=== PATIENT | male | born 1970 | race Caucasian/White ===

== ENCOUNTER 2025-06-18 12:01 | Outpatient (CLI) | payer SELFPAY ==
[2025-06-18 16:20] LABS: Hematocrit 46.2 % (42.0-52.0); Hemoglobin 15.7 g/dL (14.1-18.0); Immature Granulocytes % 0.3 %; Mean Corpuscular HGB Conc 34.0 g/dL (31.8-35.4); Mean Corpuscular Hemoglobin 30.6 pg (27.0-31.2); Mean Corpuscular Volume 90.1 fl (80-94); Nucleated Red Blood Cells % 0 %; Platelet Count 296 K/mm3 (142-424); Red Blood Count 5.13 M/mm3 (4.60-6.20); Red Cell Distribution Width-SD 43.7 fL; White Blood Count 9.0 K/mm3 (4.8-10.8)
[2025-06-18 18:57] LABS: Alanine Aminotransferase 35 U/L (12-78); Albumin Level 4.1 g/dl (3.5-5.0); Albumin/Globulin Ratio 1.5 (1.1-1.8); Alkaline Phosphatase 92 U/L (38-126); Anion Gap 12.4 mEq/L (5-15); Aspartate Amino Transferase 32 U/L (17-59); Bilirubin,Total 0.8 mg/dl (0.2-1.3); Blood Urea Nitrogen 20 mg/dl (9-20); Calcium 9.4 mg/dl (8.4-10.2); Carbon Dioxide 27 mmol/L (22.0-30.0); Chloride 101 mmol/L (98-107); Cholesterol 164 mg/dl (140-200); Creatinine,Serum 1.00 mg/dl (0.66-1.25); Estimated Glomerular Filt Rate 78 ml/min (>60); GFR (African American) 95 ML/MIN (>60); Globulin 2.7 g/dL (1.3-3.2); Glucose 118 mg/dl (74-100); HDL Cholesterol 27 mg/dl (40-60); Potassium 4.4 mmoL/L (3.5-5.1); Sodium 136 mmol/L (136-145); Total Protein,Serum 6.8 g/dl (6.3-8.2); Triglycerides 174 mg/dl (30-150)
[2025-06-18 19:41] LABS: Hepatitis C Ab Qual. W/ RFX NEGATIVE (Negative)
--- OUTSIDE RECORDS SUMMARY | 2025-06-19 02:44 | XMS_ITS | Clinical Summary ---
Author Organization Healthcare Address [address] [place] [address] Care Team Providers Care Production Supervisor Trainee Name Role Phone Karla Art APRN Primary Care Provider + Allergies No known active allergies Medications aspirin-acetam inophen-caffei ne (Excedrin Migraine) 250-250-65 MG tablet Take 1 tablet by mouth every 6 (six) hours if needed. Active Emgality 120 MG/ML injection 07/24/20 22 Active ketorolac (Toradol) 60 MG/2ML solution INJECT 2 ML INTRAMUSCULARLY NEEDED FOR MIGRAINE HEADACHE 06/23/20 22 Active Reyvow 100 MG tablet 05/04/20 22 Active SUMAtriptan (Imitrex) 6 MG/0.5ML injection 07/24/20 22 Active Icosapent Ethyl (Vascepa) 1 g capsule 06/01/20 22 Active lisinopril 20 MG tablet Take 20 mg by mouth 1 (one) time each day. Active methylPREDNISo lone (Medrol Dospak) 4 MG tabletsIndicat ions:Chronic maxillary sinusitis Follow schedule on package instructions 21 tablet 08/16/20 22 Active Family History Medical History Relation Name Comments Hypertension Other 1 Leukemia Other 2 Diabetes type II Other 3 Relation Name Status Comments Other 1 Other 2 Other 3 Social History Tobacco Use Types Packs/Day Years Used Date Smoking Tobacco: Every Day Cigarettes Smokeless Tobacco: Never Tobacco Cessation:Ready to Q uit: Not Asked; Counseling Given: Not Answered Alcohol Use Standard Drinks/Week Comments No 0 (1 standard drink = 0.6 oz pur e alcohol) Sex and Gender Information Value Date Recorded Sex Assigned at Not on file Legal Sex Male 6:10 PM EDT Gender Identity Not on file Sexual Orientation Not on file Last Filed Vital Signs Vital Sign Reading Time Taken Comments Blood Pressure 141/92 10/11/2018 10:02 AM EST Pulse - - Temperature - - Respiratory Rate - - Oxygen Saturation - - Inhaled Oxygen Concentration - - Weight 97.5 kg (215 lb) 08/16/2022 3:17 PM EST Height 175.3 cm (5' 9 ) 08/16/2022 3:17 PM EST Body Mass Index 31.75 08/16/2022 3:17 PM EST Plan of Treatment Health Maintenance Due Date Last Done Comments [facility]-Depression Screening 1972 [facility]-HIV Screening 1972 [facility]-Hepatitis C Screening 1972 [facility]-/Child/Adol SDOH Screenings 1972 [facility]- SDOH Screenings 1990 [facility]-Adult SDOH Screenings 1990 [facility]-Hepatitis B Vaccines (1 of 3 - 19+ 3-dose series) 1991 CT Colonography 2017 Colonoscopy 2017 FIT-DNA 2017 FIT 2017 FOBT 2017 Sigmoidoscopy 2017 [facility]-Colorectal Cancer Screening 2017 [facility]-Pneumococcal Vaccine: 50 + Years (1 of 1 - PCV) 2022 [facility]-Zoster Vaccines (1 of 2) 2022 [id number] Vaccine (1 - season) 2025 [facility]-Influenza Vaccine (#1) 2025 08/13/2017 [facility]-DTaP,Tdap,and Td Vaccine s (3 - Td or Tdap) 06/07/2027 06/07/2017, 10/17/2016 [facility]-Obesity Intervention Completed 022, 07/25/2022 HPV Vaccines Aged Out No longer eligi ble based on patient's age to complete this topic [facility]-HIB Vaccines Aged Out No longer e ligible based on patient's age to complete this topic [facility]-Hepatitis A Vaccines Aged Out No longer eligible based on patient's age to complete this topic [facility]-IPV Vaccines Aged Out No longer e ligible based on patient's age to complete this topic [facility]-Rotavirus Vaccines Aged Out No lo nger eligible based on patient's age to complete this topic Care Teams Production Supervisor Trainee Relationship Specialty Start Date End Date Karla Art APRN [address] [place] [address] [place] [address] PCP - General Family Medicine 08/16/22
[2025-06-20 07:40] LABS: Hepatitis B Surface Antigen Negative (Negative)
[2025-06-20 10:39] LABS: Testosterone,Total 1049 ng/dL (264-916)
== END 2025-06-18 23:59 | disposition home or self-care (01) ==
LOC: LAB.DROPOF 06-19 02:42
PROVIDERS: PCP Family Medicine; Visit Provider Family Medicine
DX: I10 Essential (primary) hypertension (principal); R79.89 Other specified abnormal findings of blood chemistry; Z12.5 Encounter for screening for malignant neoplasm of prostate; Z11.59 Encounter for screening for other viral diseases
CPT/HCPCS: 80053; 80061; 84403; 85025; 86803; 87340; 87389; G0103

== ENCOUNTER 2025-06-24 17:06 | Emergency (ER) | payer SELFPAY ==
--- OUTSIDE RECORDS SUMMARY | 2025-06-21 18:38 | XMS_ITS | Encounter Summary ---
Author Organization [facility] [place] [place] [address] Care Team Providers Care Table Attendant Name Role Phone Dangelo Pinzon MD Unavailable [phone] No Pcp, Per Patient Primary Care Provider Emily everett Reason for Referral * Consultation (Routine) - Pending Review Specialty Diagnoses / Procedures Referred By Carmen [place] [address] [place] [address] Phone: tel: fax: Referral ID Status Reason Start Date Expiration Date V isits Requested Visits Authorized [id number] Pending Review 06/22/2025 06/22/2026 1 1 Reason for Visit * Reason Comments Fever Fever for 24 hours. Issues with urinary retention * Auth/Cert/Inpt Specialty Diagnoses / Procedures Referred By Contac t Referred To Contact Diagnoses Febrile illness Referral ID Status Reason Start Date Expiration Date Visits Re quested Visits Authorized [id number] 1 1 Encounter Details Date Type Department Care Team (Latest Contact Info) Description 06/21/2025 6:38 PM EDT - 06/23/2025 6:39 PM EDT Hospital Encounter EDG 7C UROLOGY [place] [id number] Willard Rhodes MD [address] [place] [phone] Shaan Gomez MD [address] [place] [address] Febrile illness (Primary Dx); Frontal headache; Elevated [...] and heating? Not hard at all 06/22/2025 [facility] [place] [facility] - Occupational Stress [...] money to get more. Never true 06/22/2025 [facility] Utilities Answer Date Recorded In the past 12 months has th e [employer], gas, oil, or water 3[employer] threatened to shut off services in your home? No 06/22/2025 [facility] HRSN CMS IP Transportation Answer D ate Recorded In [...] you are drinking? 0 06/22/2025 1:41 AM EDT Bertha Shane RN How often do you [...] PHQ-2 Total Score 0 06/22/2025 11:28 AM EDT Brittany Baron RN * PHQ-9 Total Score Answer Date of Assessment Author 0 06/22/2025 11:28 AM EDT Alma Baron RN * PHQ-2 Total Score Answer Date of Assessment Author 0 06/22/2025 11:28 AM EDT Alma Baron RN * Suicide Severity Rating Answer Date of Assessment Author No Risk 06/21/2025 6:28 PM EDT Alma Donaldson RN * [place] Suicide Severity Rating Scale (Q shift for [...] end your life? 0 06/21/2025 6:28 PM EDT Karen Donaldson RN documented as of this encounter Discharge Instructions * Attachments The following attachments cannot be sent through Care Everywhere. * Quitting smoking for adults (Congolese) documented in this encounter Medications at Time of Discharge aspirin-acetami nophen-caffeine (EXCEDRIN MIGRAINE) 250-250-65 mg Oral Tablet Take 1 Tab by mouth every 6 hours as needed for Pain. ciprofloxacin HCl (CIPRO) 500 mg Oral Tablet Take 1 Tablet by mouth 2 times daily for 7 days. 14 Tablet 06/23/2025 06/30/20 25 dextroamphetami ne-amphetamine (ADDERALL XR) 30 mg Oral Capsule, Sust. Release 24 hr Take 30 mg by mouth daily. dextroamphetami ne-amphetamine (ADDERALL) 15 mg Oral Tablet Take 1 Tablet by mouth daily. 7 Tablet 03/13/2025 diphenhydrAMINE (BENADRYL) 50 mg/mL Inj Syringe INJECT 1 ML (CC) INTRAMUSCULARLY ONCE DAILY NEEDED FOR MIGRAINE 10 mL 07/12/2023 fluticasone propionate (FLONASE) 50 mcg/actuation Nasl Stephens, Suspension 1 Stephens in each nostril 2 times daily. 16 [...] up to 5 doses. 5 Tablet 03/25/2025 documented as of this encounter Ordered Prescriptions [...] RN - 06/23/2025 6:37 PM EDT RN Armored Transport Service Manager called regarding pt and concerns for care, meds, and treatment. Spoke at length with pt and spouse. Pt initially upset, verbalizing frustration over being here states I just really want and need to go home . Pt and returned verbalization of rationale for care and Dr Gomez's plan of care. This selling underwriter listened and offered emotional support and information [...] 15 mg Oral BID fluticasone propionate 1 Stephens Each Nare BID vancomycin (VANCOCIN) IVPB (Orderable) [...] EKG [address] [facility] Test Date: 2025-06-21 Pat Name: IKM HILARIO Department: DEPID Room: [facility] Gender: Male Imcu Specialist: : 1970 Requested By: WILLARD Naik Order Number: [id number] Marsha MD: Emily Landaverde MD Measurements Intervals Salix Rate: 112 P: 51 RI: 129 QRS: 18 QRSD: 102 T: 43 [...] for patient to be transferred to or [facility] [place]. Informednursing I need one or the other. [...] with nursing and family now debating leaving AMA. I have agreed to prescribe antibiotics at [place]. Shaan Gomez MD * Maria D Corley, [facility] - 06/22/2025 4:28 PM EDT S: Kim [...] the laboratory. Positives will be reported immediately. [id number] A/B Collection Time: 06/21/25 7:28 PM Specimen: Nares; Swab Result Value Ref Range CORONAVIRUS [id number] Not Detected Not Detected Influenza A DNA [...] in AM. Thank you! Maria D Corley, PharmD * Shaan Gomez MD - 06/22/2025 4:11 [...] with patient. Provided list of PCPs from [facility].Has a PCP but is not with [facility] and doesn't want to change. Patient not interested in scheduling new patient appointment at this time. * Leobardo Carrillo - 06/22/2025 1:40 PM EDT 06/22/25 1200 Reason for Visit Date of visit 06/22/25 Visited With Patient;Family (Assessment below) (Pt's spouse) Visited By In Mold Coater Referral Source Spiritual Consult Reason for Visit Follow-up Patient Assessment Patient Appears Calm Patient Scientologist at Registration Nondenominational Patient Scientologist Upon Assessment Nondenominational Spiritual Strengths and Coping Resources Support system;Sense [...] to another floor. Pt's spouse appeares overwhelmed/alsoa professional nursing assistant. Spouse shared her frustration/stress trying to find a preceptor.) Mu-Ism Interventions Other (Comment) (Words of hope and peace and assurance of divine presence.) Exploration Interventions Provided caring and supportive presence;Discussed illness/injury and its impact Empowerment Interventions Encouraged focus on present Collaboration Interventions Encouraged adherence to treatment plan Outcomes Expressed Outcomes Decreased anxiety;Distress reduced;Expressed feeling supported Care Plan Plan for Follow-Up In Mold Coater(s) will continue to follow throughout admission * [...] Caregiver Name Cassie Caregiver Does patient need javascript software engineer? No Activities of Daily Living Prior [...] Discussed with patient Patient's goals for recovery [place] in self-care Actual Discharge Plan 06/22/2025: CC: INITIAL ASSESSMENT. Chart reviewed. Patient admitted with febrile illness. CC met with patient in room. He lives at home with his , Cassie, and is independent. PCP Dr. Bib Dye. He uses [facility] in [facility] for prescriptions. Noted report of financial difficulties [...] re-consult if therapy needs to restarted. Joslyn Chavez PharmD documented in this encounter H&P Notes * [...] a 54 y.o. male who presents to [facility] with fever and chills. Patient states [...] Start Date End Date Taking? Authorizing Provider ehkcflh-efxhilsqbrdzc-vnengiae (EXCEDRIN MIGRAINE) 250-250-65 mg Oral Tablet Take [...] MD fluticasone propionate (FLONASE) 50 mcg/actuation Nasl Stephens, Suspension 1 Stephens in each nostril 2 times daily. 03/13/25 [...] true Transportation Needs: No Transportation Needs (06/22/2025) [facility] IP Transportation In the past 12 months, has lack of reliable transportation kept you from medical appointments, meetings, work or from getting things needed for daily living?: No Physical Activity: Insufficiently Active (06/22/2025) Exercise Vital Sign Days of Exercise per Week: 3 days Minutes of Exercise per Session: 40 min Stress: No Stress Concern Present (06/22/2025) [place] [facility] - Occupational Stress Questionnaire [...] the laboratory. Positives will be reported immediately. [id number] A/B Specimen: Nares; Swab Result Value Ref Range CORONAVIRUS [id number] Not Detected Not Detected Influenza A DNA [...] CULTURE. Procedure Abnormality Status --------- ------ URINALYSIS REFLEX[[id number]] Abnormal Final result EXTRA MCKEON URINE CX[[id number]] Final result Please view results for these [...] Gran% 0.3 % Lymph Percent 2.8 % [place] Percent 2.4 % Eos Percent 0.0 % Baso Percent 0.1 % Neut # 12.7 (H) 1.6 - 6.1 x10(3)/mcL IMMGRAN# 0.0 0.0 - 0.1 x10(3)/mcL Lymph # 0.4 (L) 1.2 - 3.9 x10(3)/mcL [place] # 0.3 0.3 - 0.9 x10(3)/mcL Eos# [...] Status --------- ------ CSF CELL COUNT WITH DIFF[[id number]] Final result GLUCOSE CEREBROSPINAL FLUID[[id number]] Abnormal Final result PROTEIN CEREBROSPINAL FLUID[[id number]] Abnormal Final result Please view results for [...] by physician to follow. Impression [facility] Test Date: 2025-06-21 Pat Name: KIM HILARIO Department: DEPID Room: 14 Gender: Male Imcu Specialist: Carl : 1970 Requested By: WILLARD Naik Order Number: [id number] Reading MD: Measurements Intervals Salix Rate: 112 P: 51 RI: 129 QRS: 18 QRSD: 102 T: 43 [...] ahead and send Lyme's disease titers and [place] spotted fever titers. Disposition will be admission. Antibiotic choice pending CT imaging results and lumbar puncture results. Abdomen remains benign. Will go ahead and give a dose of doxycycline for possible Lyme/[place] spotted fever coverage, though no known tick [...] true Transportation Needs: No Transportation Needs (03/13/2025) [facility] IP Transportation In the past 12 months, has lack of reliable transportation kept you from medical appointments, meetings, work or from getting things needed for daily living?: No Physical Activity: Inactive (03/13/2025) Exercise Vital Sign Days of Exercise per Week: 0 days Minutes of Exercise per Session: 0 min Stress: Stress Concern Present (03/13/2025) [place] [facility] - Occupational Stress Questionnaire Feeling of Stress : Rather much [4] Past Surgical History: Procedure Laterality Date BACK SURGERY x5 times CARPAL TUNNEL RELEASE [5] No current facility-administered medications for this encounter. Current Outpatient Medications: mtjvlec-fmgvaqhqagtbl-wxhcbkns (EXCEDRIN MIGRAINE) 250-250-65 mg Oral Tablet, Take [...] 0 fluticasone propionate (FLONASE) 50 mcg/actuation Nasl Stephens, Suspension, 1 Stephens in each nostril 2times daily., Disp: 16 [...] No Known Allergies Willard Rhodes MD 06/21/25 3608 documented in this encounter Miscellaneous Notes * Utilization Review Notes - Lyssa Pearson RN - 06/23/2025 3:07 PM EDT Images from the original note were not included. Inpatient 06/23/2025. Observation 06/22/2025. Cont stay, Med Surg. Rocephin IV daily. IVF 125 ml/hr. Per Hospitalist note today: Assessment & Plan Febrile illness [...] Pending Results Name Type Priority Associated Diagnoses Date/Time BLOOD CULTURE (NO STAIN) Microbiology STAT 06/21/2025 7:31 PM EDT BLOOD CULTURE (NO STAIN) Microbiology STAT 06/21/2025 7:26 PM EDT CEREBROSPINAL FLUID CULTURE (STAIN INCLUDED) Microbiology Routine 06/21/2025 9:51 PM EDT [facility] IGG/IGM -REF LAB Lab Routine 06/21/2025 10:34 PM EDT ECG AND WAVEFORMS - TELEMETRY Point of Care Testing Routine 06/22/2025 10:07 AM EDT DRUG CONFIRMATION, AMPHETAMINES - URINE Lab Routine 06/23/2025 4:35 PM EDT DRUG CONFIRMATION, BUPRENORPHINE AND METAB - URINE Lab Routine 06/23/2025 4:35 PM EDT DRUG CONFIRMATION, OPIATES - URINE Lab Routine 06/23/2025 4:35 PM EDT Scheduled Orders Name Type Priority Associated Diagnoses Orde r Schedule [facility] [place] [facility] IGG/IGM -REF LAB Lab Routine Routine - Once for 1 Occurrences starting 06/21/2025 until 06/21/2025 UROBILINOGEN URINE Lab Routine Routin e - Once for 1 Occurrences starting 06/23/2025 until 06/23/2025 DRUG CONFIRMATION, AMPHETAMINES - URINE Lab Routine Routine - O nce for 1 Occurrences starting 06/23/2025 until 06/23/2025 DRUG CONFIRMATION, BUPRENORPHINE AND METAB - URINE Lab Routine Routine - Once f or 1 Occurrences starting 06/23/2025 until 06/23/2025 DRUG CONFIRMATION, OPIATES - URINE Lab Routine Routine - Once f or 1 Occurrences starting 06/23/2025 until 06/23/2025 Scheduled Referrals Name Type Priority Associated Diagnoses Orde r Schedule AMB REFERRAL TO TOBACCO CESSATION PROGRAM Outpatient Referral Routine Ordered: 06/22/2025 documented as of this encounter Procedures Procedure Name Priority Date/Time Associated Diagnosis Comments URINALYSIS REFLEX Routine 06/23/2025 4:3 5 PM EDT UA W/REFLEX TO CULTURE Routine 4:35 PM EDT EXTRA MCKEON URINE CX Routine 06/23/2025 4 :35 PM EDT DRUGS OF ABUSE WITH REFLEX TO CONFIRMATION, URINE Routine 06/23/2025 4:35 PM EDT MICROALBUMIN/CREATININ E RATIO URINE Routine 06/23/2025 4:35 PM EDT SODIUM [...] EARLY Routine 06/21/2025 1 0:34 PM EDT CSF CELL COUNT WITH DIFF [...] (NO STAIN) STAT 06/21/2025 7:31 PM EDT [id number]-[id number]-MZP A/B Routine 06/21/2025 7:2 8 PM EDT [...] EDT documented in this encounter Results * EXTRA MCKEON URINE CX (06/23/2025 4:35 PM EDT) Urine STRUCTURE OF URINARY TRACT PROPER / Unknown 06/23/2025 4:35 PM EDT 06/23/2025 4:43 PM EDT Shaan Gomez MD MICROBIOLOGY - GENERAL ORDERABLE S Final Result [facility] [address] [place] [id number] * (ABNORMAL) URINALYSIS REFLEX (06/23/2025 4:35 PM EDT) UA Color Yellow 06/23/2025 5:10 PM EDT [facility] [employer] [employer] UA Appear Cloudy(A) Clear 06/23/2025 5:10 PM EDT [facility] [employer] [employer] UA Glucose 1+ (70-100 mg/dL)(A) Negative mg/dL [...] 06/23/2025 5:10 PM EDT [facility] Comment:Reference range bernadette d for random specimens only. UA WBC 1 0 - 4 /HPF 06/23/2025 5:10 PM EDT [facility] UA RBC 2 0 - 3 /HPF 06/23/2025 5:10 PM EDT [facility] UA Bacteria Trace(A) Negative /HPF 06/23/2025 5:10 PM EDT [facility] Urine STRUCTURE OF URINARY TRACT PROPER / Unknown 06/23/2025 4:35 PM EDT 06/23/2025 4:43 PM EDT us Shaan Gomez MD URINE ORDERABLES Final Result [facility] [address] [facility] , [address] [place] [id number] * (ABNORMAL) DRUGS OF ABUSE WITH REFLEX [...] 06/23/2025 5:18 PM EDT [facility] Urine Creatinine 55.0 mg/dL 06/23/20 25 5:18 PM EDT [facility] Comment: Greater than 20: Consistent with valid sample Greater than 2 but less than 20: Possible dilution Less than 2: Questionable valid sample Urine STRUCTURE OF URINARY TRACT PROPER / Unknown 06/23/2025 4:35 PM EDT 06/23/2025 4:43 PM EDT Narrative [facility] - 06/23/2025 5:18 PM EDT These drug [...] vaginal pool/amniotic fluid could cause erroneous results. Shaan Gomez MD URINE ORDERABLES Final Result Performing Organization Address City/[facility]/ZIP Co de Phone Number [facility] [employer] [address] [facility] , [place] [address] * SODIUM LEVEL URINE (06/23/2025 4:35 PM EDT) Urine Sodium 76 mmol/L 06/23/2025 5:05 PM EDT [facility] [employer] [employer] Urine STRUCTURE OF URINARY TRACT PROPER / Unknown 06/23/2025 4:35 PM EDT 06/23/2025 4:43 PM EDT Shaan Gomez MD URINE ORDERABLES Final Result Performing Organization Address [facility] Co de Phone Number [facility] [employer] [address] [facility] , [place] [address] * POTASSIUM LEVEL URINE (06/23/2025 4:35 PM EDT) Urine Potassium 23.3 mmol/L 5:18 PM EDT [facility] [employer] [employer] Urine STRUCTURE OF URINARY TRACT PROPER / Unknown 06/23/2025 4:35 PM EDT 06/23/2025 4:43 PM EDT us Shaan Gomez MD URINE ORDERABLES Final Result Performing Organization Address [facility] Co de Phone Number [facility] [employer] [address] [facility] , [place] [address] * MICROALBUMIN/CREATININE RATIO URINE (06/23/2025 4:35 PM EDT) Urine Microalb 14.1 mg/L 06/23/2025 5:18 PM EDT [facility] [employer] Urine Creatinine 55.0 mg/dL 06/23/2025 5:18 PM EDT [facility] [employer] [employer] Ur Microalb/Creat 26 0 - 30 mg/g 06/23/2025 5:18 PM EDT [facility] [employer] [employer] Urine STRUCTURE OF URINARY TRACT PROPER / Unknown 06/23/2025 4:35 PM EDT 06/23/2025 4:43 PM EDT Shaan Gomez MD URINE ORDERABLES Final Result Performing Organization Address [facility] Co de Phone Number [facility] [employer] [address] [facility] , [place] [address] * OSMOLALITY URINE (06/23/2025 4:35 PM EDT) Urine Osmolality 376 50 - 1,400 mOsm/kg 06/23/2025 6:26 PM EDT [facility] [employer] Urine STRUCTURE OF URINARY TRACT PROPER / Unknown 06/23/2025 4:35 PM EDT 06/23/2025 4:43 PM EDT Narrative [facility] [employer] - 06/23/2025 6:26 PM EDT Normal Range: 50 mOSM/kg during maximum water diuresis to 1400 mOSM/kg during maximum urinary concentration. Reference range valid for random specimens only. Shaan Gomez MD URINE ORDERABLES Final Result Performing Organization Address [facility] de Phone Number [facility] [employer] [address] [place] [address] , [place] [address] * CREATININE LEVEL URINE (06/23/2025 4:35 PM EDT) Urine Creatinine 55.0 mg/dL 06/23/2025 5:18 PM EDT [facility] [employer] Urine STRUCTURE OF URINARY TRACT PROPER / Unknown 06/23/2025 4:35 PM EDT 06/23/2025 4:43 PM EDT Shaan Gomez MD URINE ORDERABLES Final Result Performing Organization Address [facility] Co de Phone Number [facility] [employer] [facility] [address] [facility] , [place] [address] * PROTEIN LEVEL URINE (06/23/2025 4:35 PM EDT) Urine Protein 12.2 mg/dL 06/23/2025 5:18 PM EDT [facility] Urine STRUCTURE OF URINARY TRACT PROPER / Unknown 06/23/2025 4:35 PM EDT 06/23/2025 4:43 PM EDT us Shaan Gomez MD URINE ORDERABLES Final Result Performing Organization Address City/[facility]/ZIP Co de Phone Number [employer] [address] [facility] , [place] [address] * CREATINE KINASE (06/23/2025 10:12 AM EDT) Pathologist [facility] CK 61 39 - 308 U/L 06/23/2025 12:04 PM EDT [employer] Blood VENOUS BLOOD / Unknown Venipuncture / Unknown 06/23/2025 10:12 AM EDT 06/23/2025 10:15 AM EDT us Shaan Gomez MD CHEMISTRY ORDERABLES Final Resul t Performing Organization Address City/[facility] Co de Phone Number [employer] [address] [facility] , [place] [address] * VANCOMYCIN LEVEL AUC1 (06/23/2025 10:12 AM EDT) [facility] Vancomycin AUC1 4.5 mcg/mL 10:44 AM EDT [employer] Blood VENOUS BLOOD / Unknown Venipuncture / Unknown 06/23/2025 10:12 AM EDT 06/23/2025 10:15 AM EDT us Shaan Gomez MD CHEMISTRY ORDERABLES Final Resul t Performing Organization Address City/[facility]/ZIP Co de Phone Number [employer] [facility] [address] [facility] , [place] [address] * ECG AND WAVEFORMS - TELEMETRY (06/23/2025 7:12 AM EDT) Pathologist [facility] ECG INTERPRET NSR [facility] 06/23/2025 7:12 AM EDT Narrative [facility] - 06/23/2025 7:14 AM EDT ROUTINE/PB RI 0.13 QRS 0.10 RR 0.67 QT 0.33 QTc 0.40 See Clinical Report link for waveform capture us Unknown Provider POINT OF CARE CARDIOLOGY Final Result [facility] [address] [place] [id number] * (ABNORMAL) COMPREHENSIVE METABOLIC PANEL (06/23/2025 5:09 AM EDT) Sodium 135(L) 136 - 145 mmol/L 06/23/2025 [...] 7:04 AM EDT [facility] BUN 16 6 - 20 mg/dL 06/23/2025 7:04 AM EDT [facility] Creatinine 0.94 0.67 - 1.30 mg/dL 06/23/2025 7:04 AM EDT [facility] Albumin 3.1(L) 3.5 - 5.2 gm/dL 06/23/2025 7:04 AM EDT [facility] Total Protein 5.7(L) 6.4 - 8.3 gm/dL 06/23/2025 7:04 AM EDT [facility] Bili Total 2.2(H) 0.2 - 1.4 mg/dL 06/23/2025 7:04 AM EDT [facility] ALT 100(H) <=41 U/L 06/23/2025 7:04 AM EDT [facility] AST 51(H) <=40 U/L 06/23/2025 7:04 AM EDT [facility] Alk Phos 127 40 - 129 U/L 06/23/2025 7:04 AM EDT [facility] eGFR (CKD-EPIcr 2020) 98 >=60 mL/min/1.7 3 m2 06/23/2025 7:04 AM EDT [facility] Comment:Estimated GFR was ca lculated using the CKD-EPIcr (2020) equation refit without race. The equation is recommended by the National Kidney Foundation - [place] [employer] Nephrology Task Force. Blood VENOUS BLOOD / Unknown Venipuncture / Unknown 06/23/2025 5:09 AM EDT 06/23/2025 6:31 AM EDT us Shaan Gomez MD CHEMISTRY ORDERABLES Final Resul t [facility] [address] [facility] , [place] [address] * (ABNORMAL) CBC WITH DIFF (06/23/2025 5:09 AM EDT) WBC 8.4 3.7 - 10.3 x10(3)/mcL 06/23/2025 6:42 AM EDT [facility] RBC 4.51(L) 4.60 - 6.10 x10(6)/mcL 06/23/2025 6:42 AM EDT [facility] Hgb 13.8 13.7 - 17.5 g/dL 06/23/2025 6:42 AM EDT [facility] Hct 40.5 40.0 - 51.0 % 06/23/2025 6:42 AM EDT [facility] MCV 89.8 80.0 - 100.0 fL 06/23/2025 6:42 AM EDT [facility] MCH 30.6 26.0 - 34.0 pg 06/23/2025 6:42 AM EDT [facility] MCHC 34.1 30.7 - 35.5 g/dL 06/23/2025 6:42 AM EDT [facility] RDW 14.2 <=14.9 % 06/23/2025 6:42 AM EDT [facility] Platelet 195 155 - 369 x10(3)/mcL 06/23/2025 6:42 AM EDT [facility] MPV 10.6 8.8 - 12.5 fL 06/23/2025 6:42 AM EDT [facility] Neut Percent 75.3 % 06/23/2025 6:42 AM EDT [facility] Comment:Neutrophils equals s egs plus bands Imm Gran% 0.4 % 06/23/2025 6:42 AM EDT [facility] Comment:Automated count of m etamyelocytes, myelocytes and promyelocytes. Lymph Percent 12.6 % 06/23/2025 6:42 AM EDT [facility] Aurora Percent 6.5 % 06/23/2025 6:42 AM EDT [facility] Eos Percent 5.1 % 06/23/2025 6:42 AM EDT [facility] Baso Percent 0.1 % 06/23/2025 6:42 AM EDT [facility] Neut # 6.4(H) 1.6 - 6.1 x10(3)/mcL 06/23/2025 6:42 AM EDT [facility] Comment:Neutrophils equals s egs plus bands IMMGRAN# 0.0 0.0 - 0.1 x10(3)/mcL 06/23/2025 6:42 AM EDT [facility] Comment:Automated count of m etamyelocytes, myelocytes and promyelocytes. An absolute IG <0.1 is reported as 0.0. Lymph # 1.1(L) 1.2 - 3.9 x10(3)/mcL 06/23/2025 6:42 AM EDT [facility] Aurora # 0.6 0.3 - 0.9 x10(3)/mcL 06/23/2025 6:42 AM EDT [facility] Eos# 0.4 0.0 - 0.5 x10(3)/mcL 06/23/2025 6:42 AM EDT [facility] [employer] Baso # 0.0 0.0 - 0.1 x10(3)/mcL 06/23/2025 6:42 AM EDT [facility] [employer], [facility] Blood VENOUS BLOOD / Unknown Venipuncture / Unknown 06/23/2025 5:09 AM EDT 06/23/2025 6:32 AM EDT Shaan Gomez MD HEMATOLOGY ORDERABLES Final Resu lt Performing Organization Address [facility]/ZIP Co de Phone Number [facility] [employer], [address] , [place] [address] * ACUTE HEPATITIS PANEL (06/23/2025 5:09 AM EDT) Hep Bs Ag Non-Reacti ve Non-React chichi 06/23/2025 7:19 AM EDT [facility] [employer], [facility] Comment:HBsAg not detected. Does not exclude possibility of exposure to HBV. Hep B Core IgM Non-Reacti ve Non-React chichi 06/23/2025 7:19 AM EDT [facility] [employer], [facility] Hep A IgM Non-Reacti ve Non-React chichi 06/23/2025 7:19 AM EDT [facility] [employer], [facility] Hep C Ab Non-Reacti ve Non-React chichi 06/23/2025 7:19 AM EDT [facility] [employer], [facility] Comment:No antibodies to HCV detected. Does not exclude possibility of exposure to HCV. Blood VENOUS BLOOD / Unknown Venipuncture / Unknown 06/23/2025 5:09 AM EDT 06/23/2025 6:32 AM EDT Narrative [facility] [employer], [facility] - 06/23/2025 7:19 AM EDT Test performed using [employer] electrochemiluminescence immunassay (ECLIA). Shaan Gomez MD CHEMISTRY ORDERABLES Final Resul t Performing Organization Address [facility]/ZIP Co de Phone Number [facility] [employer] [address] , [place] [address] * MRI LUMBAR SPINE W WO CONTRAST [...] 7:18 PM EDT) ECG INTERPRET Sinus Tachycardia [facility] 06/22/2025 7:18 PM EDT Narrative [facility] - 06/22/2025 7:21 PM EDT ROUTINE/af RI 0.13 QRS 0.11 RR 0.58 QT 0.29 QTc 0.38 See Clinical Report link for waveform capture us Unknown Provider POINT OF CARE CARDIOLOGY Final Result Performing Organization Address City/[facility] Co de Phone Number [facility] [address] [place] [address] * ECG AND WAVEFORMS - TELEMETRY (06/22/2025 5:36 PM EDT) ECG INTERPRET NSR [facility] 06/22/2025 5:36 PM EDT Narrative [facility] - 06/22/2025 5:38 PM EDT NEW ADMIT (AP) RI 0.16 QRS 0.10 RR 0.60 QT 0.32 QTc 0.41 See Clinical Report link for waveform capture us Unknown Provider POINT OF CARE CARDIOLOGY Final Result Performing Organization Address City/[facility]/ZIP Co de Phone Number [facility] [address] [place] [address] * ECG AND WAVEFORMS - TELEMETRY (06/22/2025 7:31 AM EDT) ECG INTERPRET NSR [facility] 06/22/2025 7:31 AM EDT Narrative [facility] - 06/22/2025 7:33 AM EDT ROUTINE/FIELD LABORER RI 0.17 QRS 0.11 RR 0.68 QT 0.30 QTc 0.36 See Clinical Report link for waveform capture us Unknown Provider POINT OF CARE CARDIOLOGY Final Result Performing Organization Address City/[facility]/ZIP Co de Phone Number [facility] [address] [place] [phone] * REPEAT LACTIC ACID (06/22/2025 2:19 AM EDT) Pathologist [facility] [place] Lactic Acid 0.9 0.5 - 1.9 mmol/L 06/22/2025 2:46 AM EDT [facility] [employer] Blood VENOUS BLOOD / Unknown Venipuncture / Unknown 06/22/2025 2:19 AM EDT 06/22/2025 2:24 AM EDT us Willard Rhodes MD CHEMISTRY ORDERABLES Final Result Performing Organization Address City/[facility]/ZIP Co de Phone Number [facility] [employer] [address], [place] [address] * ECG AND WAVEFORMS - TELEMETRY (06/22/2025 1:41 AM EDT) [facility] ECG INTERPRET NSR [facility] 06/22/2025 1:41 AM EDT Narrative [facility] - 06/22/2025 1:45 AM EDT NEWADMIT/AH RI 0.15 QRS 0.11 RR 0.68 QT 0.34 QTc 0.41 See Clinical Report link for waveform capture us Unknown Provider POINT OF CARE CARDIOLOGY Final Result Performing Organization Address City/[facility]/ZIP Co de Phone Number [facility] [address] [place] [address] * CT CHEST ABDOMEN PELVIS WO ORAL [...] the ordering clinician. Willard Rhodes MD IMG CT ORDERABLES Final Res ult * LYME AB TOTAL EARLY (06/21/2025 10:34 PM EDT) [facility] B burgdorferi Abs, Total Negative Negative 06/22/2025 8:56 AM EDT [facility] Comment:No laboratory eviden ce of infection with B. burgdorferi (Lyme disease). If recent infection is suspected, repeat testing on a new sample collected in 7 - 14 days is recommended. Blood VENOUS BLOOD / Unknown Venipuncture / Unknown 06/21/2025 10:34 PM EDT 06/21/2025 10:39 PM EDT Willard Rhodes MD IMMUNOLOGY ORDERABLES Final Result [facility] [address] [facility] , [place] [address] * (ABNORMAL) PROTEIN CEREBROSPINAL FLUID (06/21/2025 9:51 PM EDT) Protein CSF 62(H) 15 - 45 mg/dL 06/21/2025 10:43 PM EDT [facility] Cerebrospinal Fluid LUMBAR PUNCTURE / Unknown 06/21/2025 9:51 PM EDT 06/21/2025 9:55 PM EDT Willard Rhodes MD BODY FLUIDS AND STOOLS BUDDYE RABTRINIDAD Final Result Performing Organization Address [facility] Co de Phone Number [facility], [address] , [place] [address] * (ABNORMAL) GLUCOSE CEREBROSPINAL FLUID (06/21/2025 9:51 PM EDT) Glucose CSF 102(H) 40 - 70 mg/dL 06/21/2025 10:43 PM EDT [facility] [employer] Cerebrospinal Fluid LUMBAR PUNCTURE / Unknown 06/21/2025 9:51 PM EDT 06/21/2025 9:55 PM EDT Willard Rhodes MD BODY FLUIDS AND STOOLS ORDE RABTRINIDAD Final Result Performing Organization Address [facility] de Phone Number [facility] [employer], [address] , [place] [address] * CSF CELL COUNT WITH DIFF (06/21/2025 [...] Final Result [facility] [address] [facility] , [place] [address] * MENINGITIS/ENCEPH PANEL (06/21/2025 9:51 PM EDT) E. coli K1 Not Detected Not Detected [...] Detected 06/21/2025 11:29 PM EDT [facility] [employer], [facility] (VZV) Varicella zoster virus Not Detected Not Detected 06/21/2025 11:29 PM EDT [facility] [employer], [facility] Cryptococcus neoformans/manuela Not Detected Not Detected 06/21/2025 11:29 PM EDT [facility] [employer], [facility] Cerebrospinal Fluid LUMBAR PUNCTURE / Unknown 06/21/2025 9:51 PM EDT 06/21/2025 9:55 PM EDT Willard Rhodes MD BODY FLUIDS AND STOOLS ORDE NIRAJTRINIDAD Final Result Performing Organization Address [facility]/ZIP Co de Phone Number [facility] [employer], [facility] [address] [facility], [place] [address] * (ABNORMAL) REPEAT LACTIC ACID (06/21/2025 9:44 PM EDT) Lactic Acid 2.2(H) 0.5 - 1.9 mmol/L 06/21/2025 10:07 PM EDT [facility] Blood VENOUS BLOOD / Unknown Venipuncture / Unknown 06/21/2025 9:44 PM EDT 06/21/2025 9:53 PM EDT Willard Rhodes MD CHEMISTRY ORDERABLES Final Result Performing Organization Address [facility]/ZIP Co de Phone Number [facility] 1 [place] [address] * CT HEAD WO CONTRAST (06/21/2025 [...] the ordering clinician. Willard Rhodes MD IMG CT ORDERABLES Final Res ult * (ABNORMAL) PROCALCITONIN (06/21/2025 8:10 PM EDT) Pathologist [facility] [place] Procalcitonin 1.82(H) <=0.49 ng/mL 06/21/2025 9:03 PM EDT [facility] Blood VENOUS BLOOD / Unknown Venipuncture / Unknown 06/21/2025 8:10 PM EDT 06/21/2025 8:17 PM EDT Narrative [facility] [employer] - 06/21/2025 9:03 PM EDT Procalcitonin <0.50 [...] progression to severe sepsis and/or septic shock. Willard Rhodes MD CHEMISTRY ORDERABLES Final Result [facility] [address] [facility] , [address] [place] [phone] * (ABNORMAL) COMPREHENSIVE METABOLIC PANEL (06/21/2025 8:10 PM EDT) [facility] Sodium 127(L) 136 - 145 mmol/L 06/21/2025 8:32 PM EDT [facility] Potassium 3.9 3.5 - 5.0 mmol/L 06/21/2025 8:32 PM EDT [facility] Chloride 97(L) 98 - 107 mmol/L 06/21/2025 8:32 PM EDT [facility] Total CO2 21(L) 22 - 29 mmol/L 06/21/2025 8:32 PM T [facility] Anion Gap 9 7 - 16 mmol/L 06/21/2025 8:32 PM EDT [facility] Calcium 8.6 8.6 - 10.4 mg/dL 06/21/2025 8:32 PM [facility] Glucose Lvl 168(H) 70 - 99 mg/dL 06/21/2025 8:32 PM EDT [facility] BUN 16 6 - 20 mg/dL 06/21/2025 8:32 PM [facility] Creatinine 0.93 0.67 - 1.30 mg/dL 06/21/2025 8:32 PM [facility] Albumin 3.5 3.5 - 5.2 gm/dL 06/21/2025 8:32 PM [facility] Total Protein 6.0(L) 6.4 - 8.3 gm/dL 06/21/2025 8:32 PM [facility] Bili Total 2.0(H) 0.2 - 1.4 mg/dL 06/21/2025 8:32 PM [facility] ALT 165(H) <=41 U/L 06/21/2025 8:32 PM [facility] AST 135(H) <=40 U/L 06/21/2025 8:32 PM [facility] Alk Phos 105 40 - 129 U/L 06/21/2025 8:32 PM [facility] eGFR (CKD-EPIcr 2020) 99 >=60 mL/min/1.7 3 m2 06/21/2025 8:32 PM [facility] Comment:Estimated GFR was ca lculated using the CKD-EPIcr (2020) equation refit without race. The equation is recommended by the National Kid[employer] - [place] [employer]ph[employer] Task Force. Blood VENOUS BLOOD / Unknown Venipuncture / Unknown 06/21/2025 8:10 PM EDT 06/21/2025 8:14 PM EDT Willard Rhodes MD CHEMISTRY ORDERABLES Final Result [facility] 1 [place] [address] * XR CHEST AP PORTABLE (06/21/2025 7:54 [...] Willard Rhodes MD IMG DIAGNOSTIC IMAGING ORDE RABLES Final Result * STREP A DNA (06/21/2025 7:34 PM EDT) Pathologist [facility] [place] Strep A DNA Not Detected Not Detected 06/21/2025 7:58 PM EDT [facility] Comment:Not Detected results do not preclude Streptococcus [...] PM EDT 06/21/2025 7:43 PM EDT Narrative [facility] - 06/21/2025 7:58 PM EDT The [employer] Strep A assay utilizes nucleic acid purification and polymerase chain reaction (PCR) technology to detect Streptococcus pyogenes by targeting a segment of the Streptococcus pyogenes genome. Willard Rhodes MD MICROBIOLOGY - GENERAL [facility]IS Final Result [facility] [address] [place], [place] [id number] * (ABNORMAL) BLOOD GAS, VENOUS (06/21/2025 7:31 PM EDT) pH Venous 7.39 7.32 - 7.42 pH [...] 7:55 PM EDT [facility] CO2 Total Ike 22(L) 25 - 29 mmol/L 06/21/2025 7:55 PM EDT [facility] O2 Sat. Venous 62.4 40.0 - 70.0 % 06/21/2025 7:55 PM EDT [facility] Inspired O2 RA 06/21/2025 7:55 PM EDT [facility] Blood VENOUS BLOOD / Unknown Venipuncture / Unknown 06/21/2025 7:31 PM EDT 06/21/2025 7:42 PM EDT Willard Rhodes MD CHEMISTRY ORDERABLES Final Result Performing Organization Address City/[facility]/ZIP Co de Phone Number [facility] [employer], [facility] [address] [facility], [facility] [place] [address] * [id number] A/B (06/21/2025 7:28 PM EDT) Pathologist [facility] CORONAVIRUS [id number] Not Detected Not Detected 06/21/2025 7:53 PM EDT [facility] Influenza A DNA Not Detected Not Detected 06/21/2025 7:53 PM EDT [facility] Influenza B DNA Not Detected Not Detected 06/21/2025 7:53 PM EDT [facility] Swab BOTH ANTERIOR NARES / Unknown 06/21/2025 7:28 PM EDT 06/21/2025 7:32 PM EDT Willard Rhodes MD MICROBIOLOGY - GENERAL ORDE RABLES Final Result Performing Organization Address [facility] Co de Phone Number [address] [address] * (ABNORMAL) LACTIC ACID (06/21/2025 7:22 PM EDT) [facility] Lactic Acid 2.9(H) 0.5 - 1.9 mmol/L 06/21/2025 7:56 PM EDT [facility] Blood VENOUS BLOOD / Unknown Venipuncture / Unknown 06/21/2025 7:22 PM EDT 06/21/2025 7:43 PM EDT Willard Rhodes MD CHEMISTRY ORDERABLES Final Result Performing Organization Address City/[facility]/ZIP Co de Phone Number [address] [address] * (ABNORMAL) CBC WITH DIFF (06/21/2025 7:22 PM EDT) Pathologist [facility] WBC 13.4(H) 3.7 - 10.3 x10(3)/mcL 06/21/2025 7:31 PM EDT [facility] RBC 4.96 4.60 - 6.10 x10(6)/mcL 06/21/2025 7:31 PM EDT [facility] Hgb 15.6 13.7 - 17.5 g/dL 06/21/2025 7:31 PM EDT [facility] Hct 45.0 40.0 - 51.0 % 06/21/2025 7:31 PM EDT [facility] MCV 90.7 80.0 - 100.0 fL 06/21/2025 7:31 PM EDT [facility] MCH 31.5 26.0 - 34.0 pg 06/21/2025 7:31 PM EDT [facility] MCHC 34.7 30.7 - 35.5 g/dL 06/21/2025 7:31 PM EDT [facility] RDW 13.7 <=14.9 % 06/21/2025 7:31 PM EDT [facility] Platelet 253 155 - 369 x10(3)/mcL 06/21/2025 7:31 PM EDT [facility] MPV 10.7 8.8 - 12.5 fL 06/21/2025 7:31 PM EDT [facility] Neut Percent 94.4 % 06/21/2025 7:31 PM EDT [facility] Comment:Neutrophils equals s egs plus bands Imm Gran% 0.3 % 06/21/2025 7:31 PM EDT [facility] Comment:Automated count of m etamyelocytes, myelocytes and promyelocytes. Lymph Percent 2.8 % 06/21/2025 7:31 PM EDT [facility] Aurora Percent 2.4 % 06/21/2025 7:31 PM EDT [facility] Eos Percent 0.0 % 06/21/2025 7:31 PM EDT [facility] Baso Percent 0.1 % 06/21/2025 7:31 PM EDT [facility] Neut # 12.7(H) 1.6 - 6.1 x10(3)/mcL 06/21/2025 7:31 PM EDT [facility] Comment:Neutrophils equals s egs plus bands IMMGRAN# 0.0 0.0 - 0.1 x10(3)/mcL 06/21/2025 7:31 PM EDT [facility] Comment:Automated count of m etamyelocytes, myelocytes and promyelocytes. An absolute IG <0.1 is reported as 0.0. Lymph # 0.4(L) 1.2 - 3.9 x10(3)/mcL 06/21/2025 7:31 PM EDT [facility] Aurora # 0.3 0.3 - 0.9 x10(3)/mcL 06/21/2025 7:31 PM EDT [facility] Eos# 0.0 0.0 - 0.5 x10(3)/mcL 06/21/2025 7:31 PM EDT [facility] Baso # 0.0 0.0 - 0.1 x10(3)/mcL 06/21/2025 7:31 PM EDT [facility] Blood VENOUS BLOOD / Unknown Venipuncture / Unknown 06/21/2025 7:22 PM EDT 06/21/2025 7:28 PM EDT us Willard Rhodes MD HEMATOLOGY ORDERABLES Final Result [facility] [address] [place] [address] * EK EKG 12 LEAD (06/21/2025 7:05 PM EDT) Anatomical Region Laterality Modality Electrocardiogra phy 06/21/2025 7:10 PM EDT Impressions 06/22/2025 2:[address] [facility] [facility] Test Date: 2025-06-21 Pat Name: KIM HILARIO Department: DEPID Room: 2108 Gender: Male [employer] Specialist: : 1970 Requested By: WILLARD Naik Order Number: [id number] Reading MD: Emily Landaverde MD Measurements Intervals Salix Rate: 112 P: 51 RI: 129 QRS: 18 QRSD: 102 T: 43 QT: 303 QTc: 414 Interpretive Statements SINUS TACHYCARDIA INDETERMINATE AXIS ABNORMAL RHYTHM ECG Electronically Signed On 06-22-2025 14:18:50 EDT by Emily Landaverde MD Narrative Procedure Note Hank Landaverde MD - 06/22/2025 [facility] Test Date: 2025-06-21 Pat Name: KIM HILARIO Department: DEPID Room: 210 Gender: Male Imcu Specialist: : 1970 Requested By: WILLARD Naik Order Number: [id number] Reading MD: Emily Landaverde MD Measurements Intervals Salix Rate: 112 P: 51 RI: 129 QRS: 18 QRSD: 102 T: 43 [...] us Willard Rhodes MD MICROBIOLOGY - GENERAL [facility] Final Result [facility] [address] [place], [place] [phone] * (ABNORMAL) URINALYSIS REFLEX (06/21/2025 7:01 PM [...] 06/21/2025 7:12 PM EDT [facility] UA pH 7.5 5.0 - 8.0 pH 06/21/2025 7:12 PM EDT [facility] UA Protein Trace (10-20 mg/dL) Negative mg/dL 06/21/2025 7:12 PM EDT [facility] UA Urobilinogen 1+ (2-3 mg/dL)(A) <=1 mg/dL 06/21/2025 7:12 PM EDT [facility] UA Bili Negative Negative 06/21/2025 7:12 PM EDT [facility] UA Nitrite Negative Negative 06/21/2025 7:12 PM EDT [facility] UA Leuk Est Negative Negative 06/21/2025 7:12 PM EDT [facility] UA Spec Grav 1.031 1.001 - 1.035 no units 06/21/2025 7:12 PM EDT [facility] Comment:Reference range bernadette d for random specimens only. UA WBC 1 0 - 4 /HPF 06/21/2025 7:12 PM EDT [facility] UA RBC 11(H) 0 - 3 /HPF 06/21/2025 7:12 PM EDT [facility] UA Bacteria Trace(A) Negative /HPF 06/21/2025 7:12 PM EDT [facility] Urine STRUCTURE OF URINARY TRACT PROPER / Unknown 06/21/2025 7:01 PM EDT 06/21/2025 7:04 PM EDT us Willard Rhodes MD URINE ORDERABLES Final Resu lt [facility], [facility] [address] [facility] , [address] [place] [phone] documented in this encounter Visit Diagnoses Diagnosis [...] propionate (FLONASE) 50 mcg/actuation nasal spray 1 Stephens 1 Stephens, Each Nare, 2 TIMES DAILY, First dose on Sun06/22/25 at 1030, Until Discontinued Given 06/23/2025 10:14 AM EDT 1 Stephens Both Nares gadoterate meglumine (DOTAREM) prefilled syringe [...] IV bolus Intravenous, ONCE, 1 dose, On 06/21/25 at 2000, at 999 mL/hr IV Started [...] 91.2 kg), Intravenous, ONCE, 1 dose, On 06/21/25 at 2300, Administer over 120 Minutes, VESICANT [...] mg from all sources in 24 hours. 1936 (Given - Provider: Penny Montalvo RN) cefTRIAXone [...] ONCE, 1 dose, On Sun06/21/25 at 2030 204 (Given - Provider: Penny Montalvo, RN) diphenhydrAMINE (BENADRYL) injection 25 mg (COMPLETED) 25 mg, Intravenous, ONCE, 1 dose, On Sun06/22/25 at 2130 2019 (Given - Provider: Hawa Powell, RN) doxycycline hyclate (VIBRA-TABS) tablet 100 mg (COMPLETED) 100 mg, Oral, ONCE, 1 dose, On Sun06/21/25 at 2300, Reason for Therapy: Other, Reason: fever, low sodium, elev lfts 2300 (Given - Provider: Penny Montalvo, RN) fluticasone propionate (FLONASE) 50 mcg/actuation nasal spray 1 Stephens 1 Stephens, Each Nare, 2 TIMES DAILY, First dose on Sun06/22/25 at 1030, Until Discontinued 1234 (Given - Provider: Marsha Colbert RN)2100 (Given - Provider: Hawa Powell, JENSEN) 101 (Given - Provider: Keila Brizuela RN) ketorolac (TORADOL) injection 15 mg (COMPLETED) 15 mg, Intravenous, ONCE, 1 dose, On Sun06/21/25 at 2200, For IV Administration: Give undiluted over at least 15 seconds. Maximum IV dose is 30mg. For IM Administration: Give undiluted, slowly and deeply into the muscle. 2211 (Given - Provider: Roxy Barnes, JENSEN) ketorolac (TORADOL) injection 30 mg (COMPLETED) 30 [...] at 2200 221 (Given - Provider: Roxy Barnes, JENSEN - Comment: pain 9/10 in back of head and back) prochlorperazine edisylate (COMPAZINE) injection 10 mg (COMPLETED) 10 mg, Intravenous, ONCE, 1 dose, On 06/21/25 at 2030 2046 (Given - Provider: Penny [...] Powell RN)2009 (IV Paused - Provider: Hawa Powell, JENSEN)2013 (IV Restarted - Provider: Hawa Powell RN)2120 (Stopped - Provider: Hawa Powell RN) 0600 (Not Given - Provider: Keila Brizuela, JENSEN - Reason: Discontinued by Provider) vancomycin (VANCOCIN) 1,750 mg in sodium chloride 0.9 % 550 mL IVPB (COMPLETED) 1,750 mg (rounded from 1,824 mg = 20 mg/kg 91.2 kg), Intravenous, ONCE, 1 dose, On Sun06/21/25 at 2300, Administer over 120 Minutes, VESICANT , Reason for Therapy: Infection Suspected, Indication: Sepsis 2259 (IV Started - Provider: Penny Montalvo, JENSEN) 0059 (Stopped - Provider: Penny Montalvo, JENSEN) Continuous Medication Order 06/21/2025 06/22/2025 06/23/2025 0.9 % NaCl infusion Intravenous, at 125 mL/hr, CONTINUOUS, Starting on Sun06/23/25 at 1330, Until Sun06/23/25 at 2245 1249 (New Bag - Prov ider: Keila Brizuela, RN)1320 (Rate/Dose Verify - Provider: Keila Brizuela, RN)2245 [...] at 0224, Until Sun06/23/25 at 2245, headache 1737 (Given - Provider: Tomeka Kirk RN)2008 (Given - Provider: Hawa Powell RN) gadoterate meglumine (DOTAREM) prefilled syringe 20 mL (COMPLETED) 20 mL, Intravenous, ONCE PRN, 1 dose, Starting on Sun06/22/25 at 2237, Until Sun06/22/25 at 2251, Radiology Procedure, VESICANT , MRI (Contrasts) 225 (Given - Provider: Ting Brantley, RT) ibuprofen (ADVIL;MOTRIN) tablet 400 mg 400 mg, Oral, EVERY 8 HOURS PRN, Starting on Sun06/22/25 at 0224, Until Sun06/23/25 at 2245, Pain, Give with food. If patient receiving scheduled ibuprofen (Caldolor) or ketorolac IV, hold oral ibuprofen until IV therapy completed. 0859 (Given - Provider: Marsha Colbert RN)1737 (Given - Provider: Tomeka Kirk RN) iopamidoL (ISOVUE-370) 370 mg iodine /mL (76 %) injection (LOW) 100 mL (COMPLETED) 100 mL, Intravenous, ONCE PRN, 1 dose, Starting on Sun06/21/25 at 2127, Until Sun06/21/25 at 2250, Radiography/Imaging, Radiology Procedure, VESICANT , CT (Contrasts) 2249 (Given - Provider: Beranne Tristan, RT) melatonin tablet 10 mg 10 [...] Jackie Ryder RN)1535 (Given - Provider: Marsha Colbert, JENSEN)2139 (Given - Provider: Hawa Powell, JENSEN) 0336 (Given - Provider: Hawa Powell, RN)1024 (Given - Provider: Keila Brizuela RN)1629 (Given - Provider: Kathi Durbin RN) sodium [...] hours, and after IV medication, CT (Contrasts) 2250 (Given - Provider: Breanne Tristan, RT) sodium [...] hours, and after IV medication, MRI (Contrasts) 2251 (Given - Provider: Ting Brantley, RT) SUMAtriptan [...] documented as of this encounter Care Teams Table Attendant Relationship Specialty Start Date End Date No Pcp, Per Patient PCP - General 10/26/24 Dangelo Pinzon MD [address] [phone] Consulting Physician Ophthalmology 12/30/20 documented as of this encounter
[2025-06-24] VITALS (12 sets, daily range): BP systolic 149–190; BP diastolic 98–120; PULSE 82–95; RESP 16–26; TEMP 36.8; O2SAT 95–98; BMI 29.7
--- OUTSIDE RECORDS SUMMARY | 2025-06-24 17:14 | XMS_ITS | Clinical Summary ---
Author Organization [facility] Address [address] [place] [address] Care Team Providers Care Expanding Machine Operator Name Role Phone Jet Hagan PA-C Unavailable [phone] Monty Henry MD Unavailable Bib Dye MD Primary Care Provider [phone] Allergies No known active allergies Medications anastrozole (ARIMIDEX) 1 mg TAKE 1 TABLET BY MOUTH TWICE A WEEK WITH INJECTIONS 5 Active losartan (COZAAR) 50 mg tablet Take 50 mg by mouth Once Daily. 5 Active buPROPion (WELLBUTRIN) 150 mg XL tablet Take 150 mg by mouth Once Daily. 5 Active Amphetamine-Dex troamphetamine (ADDERALL) 15 mg Tab TAKE ONE TABLET BY MOUTH AT LUNCH DAILY 5 Active buprenorphine-n aloxone (SUBOXONE) 8-[address] 1 STRIP UNDER THE TONGUE ONCE DAILY. DO NOT SWALLOW, CHEW, OR MOVE AFTER PLACEMENT. 5 Active guanFACINE (INTUNIV) 1 mg Tb24 Take by mouth. Activ e gabapentin (NEURONTIN) 100 mg capsule Take 100 mg by mouth Three times a day. Active benzonatate (TESSALON) 100 mg capsuleIndicati ons:Viral URI Take 1-2 Caps by mouth Three times a day. 30 Capsule 5 Active Active Problems No known active problems Social History Tobacco Use Types Packs/Day Years Used Date Smoking Tobacco: Every Day Cigarettes Smokeless Tobacco: Never Tobacco Cessation:Ready to Q uit: No; Counseling Given: Yes PHQ-2 Answer Date Recorded PHQ-2 SCORE 0 02/24/2025 AUDIT-C Answer Date Recorded Q1: How often do you have a drink containing alc ohol? Never 03/06/2025 Average Number of Drinks Not on file 025 Frequency of Binge Drinking Not on file 02/09 Sex and Gender Information Value Date Recorded Sex Assigned at Not on file Legal Sex Male 1:48 PM EDT Gender Identity Not on file Sexual Orientation Not on file Last Filed Vital Signs Vital Sign Reading Time Taken Comments Blood Pressure 152/82 03/06/2025 8:42 PM EDT Pulse 84 03/06/2025 8:36 PM EDT Temperature 36.7 C (98.1 F) 03/06/2025 8:36 PM EDT Respiratory Rate 20 03/06/2025 8:36 PM EDT Oxygen Saturation 96% 03/06/2025 8:36 PM EDT Inhaled Oxygen Concentration - - Weight 90.7 kg (200 lb) 03/06/2025 8:36 PM EDT Height 175.3 cm (5' 9 ) 03/06/2025 8:36 PM EDT Body Mass Index 29.53 03/06/2025 8:36 PM EDT Plan of Treatment Health Maintenance Due Date Last Done Comments COLOGUARD 1972 COLONOSCOPY 1972 Colorectal Screening Combination 1972 FIT 1972 HEP C SCREENING 1972 SIGMOIDOSCOPY 1972 ANNUAL WELLNESS EXAM 1975 Shingles Vaccine (Shingrix) (1 of 2) 2022 INFLUENZA VACCINE (#1) 2025 08/13/2017 DTAP/TDAP/TD VACCINE (3 - Td or Tdap) 06/07/2027 06/07/2017, 10/17/2016 HEP A VACCINE Aged Out No longer elig ible based on patient's age to complete this topic HIB VACCINE Aged Out No longer eligi ble based on patient's age to complete this topic ROTOVIRUS VACCINE Aged Out No longer eligible based on patient's age to complete this topic Insurance [facility] Care Teams Expanding Machine Operator Relationship Specialty Start Date End Date Bib Dye MD [address] [place], [place] [id number] PCP - General Family Medicine 03/06/25 Jet Hagan PA-C [address] [place] [address] [address] Physician Steel Heater 12/26/24 Monty Henry MD [address] [place] [address] [address] Orthopedic Surgery 12/26/24
--- OUTSIDE RECORDS SUMMARY | 2025-06-24 17:14 | XMS_ITS | Clinical Summary ---
Author Organization [facility] Address [address] [place] [address], [address] [place] [address] Care Team Providers Care Community Development Planner Name Role Phone Huyen Vasquez MD Primary Care Provider [phone] Social History Tobacco Use Types Packs/Day Years Used Date Smoking Tobacco: Never Assessed Sex and Gender Information Value Date Recorded Sex Assigned at Not on file Legal Sex Male 10:14 PM EST Gender Identity Not on file Sexual Orientation Not on file Plan of Treatment Not on file Care Teams Community Development Planner Relationship Specialty Start Date End Date Huyen Vasquez MD [address] [place] [address] PCP - General Family Practice 09/01/24
--- OUTSIDE RECORDS SUMMARY | 2025-06-24 17:15 | XMS_ITS | Clinical Summary ---
Author Organization [facility] Address [address] [place] [address] Phone Care Team Providers Care Supervisor Accounting Clerks Name Role Phone Dangelo Pinzon MD Unavailable [phone] No Pcp, Per Patient Primary Care Provider Unavai lable Allergies No known active allergies Medications aspirin-acetam inophen-caffei ne (EXCEDRIN MIGRAINE) 250-250-65 mg Oral Tablet Take 1 Tab by mouth every 6 hours as needed for Pain. Active ibuprofen (ADVIL;MOTRIN) 200 mg Oral Tablet Take by mouth every 8 hours as needed for Pain. Active Syringe with Needle, Safety 3 mL 22 gauge x 1 1/2 Misc SyringeIndicat ions:Chronic mixed headache syndrome Use one syringe for each Toradol injection dose. 3 Syringe 3 12/21/19 21 Active diphenhydrAMIN E (BENADRYL) 50 mg/mL Inj Syringe INJECT 1 ML (CC) INTRAMUSCULARLY ONCE DAILY NEEDED FOR MIGRAINE 10 mL 07/12/20 23 Active losartan (COZAAR) 50 mg Oral TabletIndicati ons:hypertensi on Take 50 mg by mouth daily. Indications: high blood pressure Activ e fluticasone propionate (FLONASE) 50 mcg/actuation Nasl [place], Suspension 1 [place] in each nostril 2 times daily. 16 g 03/13/2025 1:37 PM EDT 03/13/20 25 Active dextroamphetam ine-amphetamin e (ADDERALL) 15 mg Oral Tablet Take 1 Tablet by mouth daily. 7 Tablet 03/13/20 25 Active Additional Information Patient taking differently: 10 mgOralPRN, Other, Reason: Other, Informant: Spouse, Reported on 06/22/2025 traZODone (DESYREL) 50 mg Oral Tablet Take 1-3 Tablets by mouth nightly as needed for Sleep for up to 5 doses. 5 Tablet 03/25/20 25 Active Additional Information Patient not taking.Reason: Therapy Completed, Informant: Self/Patient, Reported on 06/22/2025 dextroamphetam ine-amphetamin e (ADDERALL XR) 30 mg Oral Capsule, Sust. Release 24 hr Take 30 mg by mouth daily. Active ketorolac (TORADOL) 60 mg/2 mL IM Solution Inject 60 mg into the muscle every 6 hours as needed for Other (migraine). Active ciprofloxacin HCl (CIPRO) 500 mg Oral Tablet Take 1 Tablet by mouth 2 times daily for 7 days. 14 Tablet 06/23/20 25 025 Active Active Problems Problem Noted Date Diagnosed Date SIRS (systemic inflammatory response syndrome) 1 Assessment & Plan (06/23/2025 1:39 PM EDT): Continue broad-spectrum IV antibiotics Concern for cystitis and/or pyelonephritis Continue IV fluids LP does not appear infectious Elevated lactic acid, heart rate, respiration, white blood cell count Negative COVID and flu Blood cultures with no growth to date 24 hours Strep negative CSF fluid negative for organisms Assessment & Plan (06/22/2025 4:11 PM EDT): Continue broad-spectrum IV antibiotics Await blood and urine cultures Concern for cystitis and/or pyelonephritis Continue IV fluids LP does not appear infectious Elevated lactic acid, heart rate, respiration, white blood cell count Hyponatremia 06/22/2025 Assessment & Plan (06/23/2025 1:39 PM EDT): Recheck tomorrow Possibly infectious induced Sodium back up to 135 Assessment & Plan (06/22/2025 4:11 PM EDT): Recheck tomorrow Possibly infectious induced Elevated LFTs 06/22/2025 Assessment & Plan (06/23/2025 1:39 PM EDT): Acute hepatitis panel ordered: Negative LFTs improving after IV fluids Assessment & Plan (06/22/2025 4:11 PM EDT): Acute hepatitis panel ordered Recheck tomorrow Febrile illness 06/21/2025 Assessment & Plan (06/23/2025 1:39 PM EDT): Continue broad-spectrum IV antibiotics Concern for cystitis and/or pyelonephritis Continue IV fluids LP does not appear infectious Elevated lactic acid, heart rate, respiration, white blood cell count Negative COVID and flu Blood cultures with no growth to date 24 hours Strep negative CSF fluid negative for organisms Assessment & Plan (06/22/2025 4:11 PM EDT): Continue broad-spectrum IV antibiotics Await blood and urine cultures Concern for cystitis and/or pyelonephritis Continue IV fluids LP does not appear infectious Elevated lactic acid, heart rate, respiration, white blood cell count Sinus mucosal thickening 03/13/2025 Opiate withdrawal 03/12/2025 Essential hypertension 03/12/2025 Other specified attention de ficit hyperactivity disorder (ADHD) 03/12/2025 Assessment & Plan (06/23/2025 1:39 PM EDT): Reorder patient's home medication Discussed with pharmacy and adjustments made Assessment & Plan (06/22/2025 4:11 PM EDT): Reorder patient's home medication Prediabetes 03/12/2025 Male hypogonadism 03/12/2025 S/P cubital tunnel release 03/12/2025 Keratitis sicca, bilateral 12/30/2020 Assessment & Plan (12/30/2020 10:53 AM EDT): Discussed the use of warm compresses and lid hygiene. Also discussed use of artificial tears during the day and gel at night. Migraine variant 12/30/2020 Assessment & Plan (12/30/2020 10:55 AM EDT): No findings on exam that would explain symptoms. Patient has not had MRI scheduled yet and I encouraged him to call to make that appointment. Continue care with Dr. King and can return at any time with any changes or questions. Nuclear sclerotic cataract of both eyes 12/31/19 21 Assessment & Plan (12/30/2020 10:56 AM EDT): No surgery indicated. Patient states activities of daily living not reduced enough to proceed with surgery at this time. Discussed natural history of cataract progression and that patient can return at any time if symptoms worsen. Patient expressed understanding. Encounters Date Type Department Care Team Description 06/21/2025 6:38 PM EDT - 06/23/2025 6:39 PM EDT Hospital Encounter [place] [address] [address] Willard Rhodes MD Fry, Isaiah J, MD Febrile illness (Primary Dx); Frontal headache; Elevated liver enzymes Discharge Disposition: Left Against Medical Advice 06/21/2025 Travel 03/24/2025 11:08 PM EDT - 03/25/2025 12:27 AM EDT [facility] [place] [address] Dejan Perez MD Anxiety (Primary Dx); Insomnia, unspecified type Discharge Disposition: Home or Self Care from Last 3 Months Immunizations Immunization Administration Dates Next Due Tdap 06/07/2017 Surgical History Surgery Date Site/Laterality Comments BACK SURGERY x5 times CARPAL TUNNEL RELEASE Family History Medical History Relation Name Comments Macular Degen Paternal Grandfather Cataracts Neg Hx Glaucoma Neg Hx Relation Name Status Comments Paternal Grandfather Social History Tobacco Use Types Packs/Day Years [...] and heating? Not hard at all 06/22/2025 [facility]at [facility] - Occupational Stress [...] money to get more. Never true 06/22/2025 [facility] Utilities Answer Date Recorded In the past 12 months has th e electric, gas, oil, or water company threatened to shut off services in your home? No 06/22/2025 [facility] IP Transportation Answer D ate Recorded In [...] Mass Index 40.79 06/22/2025 1:39 AM EDT Plan of Treatment Health Maintenance Due Date Last Done Comments Annual Wellness Exam 1975 Hepatitis B Vaccine (1 of 3 - 19+ 3-dose series) 1991 Pneumococcal Vaccine 50+ (1 of 2 - PCV) 1991 Cologuard 2017 Colon Cancer Screening 2017 Colonoscopy 2017 FIT 2017 Sigmoidoscopy 2017 Virtual Colonography 2017 Zoster (1 of 2) 2022 COVID-19 Vaccine (1 - 2024-2 6 season) 2025 Influenza Vaccine (#1) 2025 08/13/2017 DTaP/TDaP/Td (3 - Td or Tdap) 06/07/2027, 10/17/2016 Meningococcal B Vaccine Aged Out No l onger eligible based on patient's age to complete this topic Procedures Procedure Name Priority Date/Time Associated Diagnosis Comments URINALYSIS REFLEX Routine 06/23/2025 4:3 5 PM EDT DRUGS OF ABUSE WITH REFLEX TO CONFIRMATION, URINE Routine 06/23/2025 4:35 PM EDT SODIUM LEVEL URINE Routine 06/23/2025 4: 35 PM EDT POTASSIUM LEVEL URINE Routine 06/23/2025 4:35 PM EDT MICROALBUMIN/CREATININ E RATIO URINE Routine 06/23/2025 4:35 PM EDT OSMOLALITY URINE Routine 06/23/2025 4:35 PM EDT CREATININE LEVEL URINE Routine 4:35 PM EDT PROTEIN LEVEL URINE Routine 06/23/2025 4 :35 PM EDT UA W/REFLEX TO CULTURE Routine 4:35 PM EDT EXTRA [place]KE[place] URINE CX Routine 06/23/2025 4 :35 PM EDT ADMIT Routine 06/23/2025 3:11 PM EDT IP CONSULT TO PHARMACY Routine 11:55 AM EDT CREATINE KINASE Add-On 06/23/2025 10:12 AM EDT VANCOMYCIN LEVEL AUC1 Timed 06/23/2025 10:12 AM EDT ECG AND WAVEFORMS - TELEMETRY Routine 06/23/2025 7:12 AM EDT COMPREHENSIVE METABOLIC PANEL Early AM 06/23/2025 5:09 AM EDT CBC WITH DIFF Early AM 06/23/2025 5:09 AM EDT ACUTE HEPATITIS PANEL Early AM [...] EARLY Routine 06/21/2025 1 0:34 PM EDT PROTEIN CEREBROSPINAL FLUID STAT 06/21/2025 9:51 PM EDT GLUCOSE CEREBROSPINAL FLUID STAT 06/21/2025 9:51 PM EDT CSF CELL COUNT WITH DIFF STAT 06/21/2025 9:51 PM EDT MENINGITIS/ENCEPH PANEL STAT 06/21/2025 9:51 PM EDT CSF ANALYSIS: CELL COUNT W/REFLEX, GLUCOSE AND PROTEIN STAT 06/21/2025 9:51 PM EDT CEREBROSPINAL FLUID CULTURE (STAIN INCLUDED) Routine 06/21/2025 9:51 PM EDT REPEAT LACTIC ACID [...] (NO STAIN) STAT 06/21/2025 7:31 PM EDT [id number] A/B Routine 06/21/2025 7:2 8 PM EDT BLOOD CULTURE (NO STAIN) STAT 06/21/2025 7:26 PM EDT LACTIC ACID STAT 06/21/2025 7:22 PM EDT CBC WITH DIFF STAT 06/21/2025 7:22 PM EDT EK EKG 12 LEAD STAT 06/21/2025 7:05 PM EDT SALINE LOCK IV STAT 06/21/2025 7:05 PM EDT URINALYSIS REFLEX STAT 06/21/2025 7:0 1 PM EDT UA W/REFLEX TO CULTURE STAT 7:01 PM EDT EXTRA [place]KE[place] URINE CX STAT 06/21/2025 7 :01 PM EDT EK EKG 12 LEAD STAT 03/24/2025 9:08 PM EDT from Last 3 Months Results * (ABNORMAL) URINALYSIS REFLEX (06/23/2025 4:35 PM EDT) Only the most recent of2 resultswithin the time period is included. UA Color Yellow 06/23/2025 5:10 PM EDT [facility] UA Appear Cloudy(A) Clear 06/23/2025 5:10 PM EDT [facility] UA Glucose 1+ (70-100 mg/dL)(A) Negative mg/dL 06/23/2025 5:10 PM EDT [facility] UA Ketones Negative Negative mg/dL 06/23/2025 5:10 PM EDT [facility] UA Blood Negative Negative 06/23/2025 5:10 PM EDT [facility] UA pH 7.0 5.0 - 8.0 pH 06/23/2025 5:10 PM EDT [facility] UA Protein Negative Negative mg/dL 06/23/2025 5:10 PM EDT [facility] UA Urobilinogen Normal <=1 mg/dL 5:10 PM [...] 06/23/2025 5:10 PM EDT [facility] Urine STRUCTURE OF URINARY TRACT PROPER / Unknown 06/23/2025 4:35 PM EDT 06/23/2025 4:43 PM EDT Shaan Gomez MD URINE ORDERABLES Final Result Performing Organization Address City/[facility]/ZIP Co de Phone Number [facility] [address], [place] [address] * EXTRA [place]KE[place] URINE CX (06/23/2025 4:35 PM EDT) Only the most recent of2 resultswithin the time period is included. Urine STRUCTURE OF URINARY TRACT PROPER / Unknown 06/23/2025 4:35 PM EDT 06/23/2025 4:43 PM EDT us Shaan Gomez MD MICROBIOLOGY - GENERAL ORDERABLE S Final Result Performing Organization Address City/[facility]/[place] [address] * (ABNORMAL) DRUGS OF ABUSE WITH REFLEX [...] ng/mL 06/23/2025 5:18 PM EDT [facility], [facility] Cannabinoid Metabolite Absent Cutoff 50 ng/mL 06/23/2025 5:18 PM EDT [facility], [facility] Cocaine Metabolite Absent Cutoff 150 ng/mL 06/23/2025 5:[address] [facility], [facility] Fentanyl Absent Cutoff 5 ng/mL 06/23/2025 5:[address] [facility], [facility] Methadone and Metabolite Absent Cutoff 300 ng/mL 06/23/2025 5:18 PM EDT [facility], [facility] Opiate Absent Cutoff 300 ng/mL 06/23/2025 5:[address] [facility], [facility] Oxycodone Lvl Presumptive Pos(A) Cutoff 100 ng/mL 06/23/2025 5:[address] [facility], [facility] Urine Creatinine 55.0 mg/dL 06/23/20 5:18 PM EDT [facility] Comment: Greater than 20: Consistent with valid sample Greater than 2 but less than 20: Possible dilution Less than 2: Questionable valid sample Urine STRUCTURE OF URINARY TRACT PROPER / Unknown 06/23/2025 4:35 PM EDT 06/23/2025 4:[address] [facility], [facility] - 06/23/2025 5:18 PM EDT These [...] vaginal pool/amniotic fluid could cause erroneous results. us Shaan Gomez MD URINE ORDERABLES Final Result [facility], [facility] [address] [facility] , [place] [address] * MICROALBUMIN/CREATININE RATIO URINE (06/23/2025 4:35 PM EDT) Urine Microalb 14.1 mg/L 06/23/2025 5:18 PM EDT [facility] Urine Creatinine 55.0 mg/dL 06/23/2025 5:18 PM EDT [facility] Ur Microalb/Creat 26 0 - 30 mg/g 06/23/2025 5:18 PM EDT [facility] Urine STRUCTURE OF URINARY TRACT PROPER / Unknown 06/23/2025 4:35 PM EDT 06/23/2025 4:43 PM EDT us Shaan Gomez MD URINE ORDERABLES Final Result Performing Organization Address City/[facility]/ZIP Co de Phone Number [facility] [email or web address], [facility] [address] [facility] , [place] [address] * SODIUM LEVEL URINE (06/23/2025 4:35 PM EDT) Urine Sodium 76 mmol/L 06/23/2025 5:05 PM EDT [facility] [email or web address] Urine STRUCTURE OF URINARY TRACT PROPER / Unknown 06/23/2025 4:35 PM EDT 06/23/2025 4:43 PM EDT us Shaan Gomez MD URINE ORDERABLES Final Result Performing Organization Address [facility] Co de Phone Number [facility] [email or web address], [facility] [address] [place] [address] * PROTEIN LEVEL URINE (06/23/2025 4:35 PM EDT) Urine Protein 12.2 mg/dL 06/23/2025 5:18 PM EDT [facility] [email or web address] Urine STRUCTURE OF URINARY TRACT PROPER / Unknown 06/23/2025 4:35 PM EDT 06/23/2025 4:43 PM EDT us Shaan Gomez MD URINE ORDERABLES Final Result Performing Organization Address City/[facility]/ZIP Co de Phone Number [facility] [email or web address], [facility] [address] [place] [address] * POTASSIUM LEVEL URINE (06/23/2025 4:35 PM EDT) Urine Potassium 23.3 mmol/L 5:18 PM EDT [facility] [employer] Urine STRUCTURE OF URINARY TRACT PROPER / Unknown 06/23/2025 4:35 PM EDT 06/23/2025 4:43 PM EDT us Shaan Gomez MD URINE ORDERABLES Final Result Performing Organization Address [facility] de Phone Number [facility] [employer] [address] [place] [address] , [place] [address] * OSMOLALITY URINE (06/23/2025 4:35 PM EDT) Urine Osmolality 376 50 - 1,400 mOsm/kg 06/23/2025 6:26 PM EDT [facility] [employer] Urine STRUCTURE OF URINARY TRACT PROPER / Unknown 06/23/2025 4:35 PM EDT 06/23/2025 4:43 PM EDT Narrative [facility] [employer] - 06/23/2025 6:26 PM EDT Normal Range: 50 mOSM/kg during maximum water diuresis to 1400 mOSM/kg during maximum urinary concentration. Reference range valid for random specimens only. us Shaan Gomez MD URINE ORDERABLES Final Result Performing Organization Address [facility] de Phone Number [facility] [employer] [address] [place] [address] , [place] [address] * CREATININE LEVEL URINE (06/23/2025 4:35 PM EDT) Urine Creatinine 55.0 mg/dL 06/23/2025 5:18 PM EDT [facility] [employer] Urine STRUCTURE OF URINARY TRACT PROPER / Unknown 06/23/2025 4:35 PM EDT 06/23/2025 4:43 PM EDT us Shaan Gomez MD URINE ORDERABLES Final Result Performing Organization Address [facility]/State/ZIP Co de Phone Number [employer] [address] [facility] , [place] [address] * VANCOMYCIN LEVEL AUC1 (06/23/2025 10:12 AM EDT) Pathologist [facility] Vancomycin AUC1 4.5 mcg/mL 10:44 AM EDT [facility] [employer] Blood VENOUS BLOOD / Unknown Venipuncture / Unknown 06/23/2025 10:12 AM EDT 06/23/2025 10:15 AM EDT Shaan Gomez MD CHEMISTRY ORDERABLES Final Resul t Performing Organization Address City/[facility]/ZIP Co de Phone Number [employer] [address] [facility] , [place] [address] * CREATINE KINASE (06/23/2025 10:12 AM EDT) Pathologist [facility] CK 61 39 - 308 U/L 06/23/2025 12:04 PM EDT [employer] Blood VENOUS BLOOD / Unknown Venipuncture / Unknown 06/23/2025 10:12 AM EDT 06/23/2025 10:15 AM EDT Result [facility] Shaan Gomez MD CHEMISTRY ORDERABLES Final Resul t Performing Organization Address City/[facility]/ZIP Co de Phone Number TRA [facility] [address] [facility] , [place] [address] * ECG AND WAVEFORMS - TELEMETRY (06/23/2025 7:12 AM EDT) Only the most recent of5 resultswithin the time period is included. Pathologist [facility] ECG INTERPRET NSR [facility] 06/23/2025 7:12 AM EDT Narrative [facility] - 06/23/2025 7:14 AM EDT ROUTINE/PB SD 0.13 QRS 0.10 RR 0.67 QT 0.33 QTc 0.40 See Clinical Report link for waveform capture us Unknown Provider POINT OF CARE CARDIOLOGY Final Result Performing Organization Address [facility]/ZIP Co de Phone Number [facility] [address] [place] [id number] * ACUTE HEPATITIS PANEL (06/23/2025 5:09 AM EDT) Hep Bs Ag Non-Reacti ve Non-React chichi 06/23/2025 7:19 AM EDT [facility] [email or web address] Comment:HBsAg not detected. Does not exclude possibility of exposure to HBV. Hep B Core IgM Non-Reacti ve Non-React chichi 06/23/2025 7:19 AM EDT [facility] [email or web address], [facility] Hep A IgM Non-Reacti ve Non-React chichi 06/23/2025 7:19 AM EDT [facility] [email or web address] Hep C Ab Non-Reacti ve Non-React chichi 06/23/2025 7:19 AM EDT [facility], [facility] Comment:No antibodies to HCV detected. Does not exclude possibility of exposure to HCV. Blood VENOUS BLOOD / Unknown Venipuncture / Unknown 06/23/2025 5:09 AM EDT 06/23/2025 6:32 AM EDT Narrative [facility] - 06/23/2025 7:19 AM EDT Test performed using [employer] electrochemiluminescence immunassay (ECLIA). us Shaan Gomez MD CHEMISTRY ORDERABLES Final Resul t Performing Organization Address [facility]/ZIP Co de Phone Number [facility], [address], [place] [address] * (ABNORMAL) CBC WITH DIFF (06/23/2025 5:09 AM EDT) Only the most recent of2 resultswithin the time period is included. WBC 8.4 3.7 - 10.3 x10(3)/mcL 06/23/2025 6:42 AM EDT [facility] [email or web address], [employer] RBC 4.51(L) 4.60 - 6.10 x10(6)/mcL 06/23/2025 6:42 AM EDT [facility] [email or web address], [facility] Hgb 13.8 13.7 - 17.5 g/dL 06/23/2025 6:42 AM EDT [facility] Hct 40.5 40.0 - 51.0 % 06/23/2025 6:42 AM EDT [facility] MCV 89.8 80.0 - 100.0 fL 06/23/2025 6:42 AM EDT [facility] MCH 30.6 26.0 - 34.0 pg 06/23/2025 6:42 AM EDT [facility] MCHC 34.1 30.7 - 35.5 g/dL 06/23/2025 6:42 AM EDT [facility] RDW 14.2 <=14.9 % 06/23/2025 6:42 AM EDT [facility] Platelet 195 155 - 369 x10(3)/mcL 06/23/2025 6:42 AM EDT [facility] MPV 10.6 8.8 - 12.5 fL 06/23/2025 6:42 AM EDT [facility] Neut Percent 75.3 % 06/23/2025 6:42 AM EDT [facility] Comment:Neutrophils equals s egs plus bands Imm Gran% 0.4 % 06/23/2025 6:42 AM EDT [facility] Comment:Automated count of m etamyelocytes, myelocytes and promyelocytes. Lymph Percent 12.6 % 06/23/2025 6:42 AM EDT [facility] Williams Percent 6.5 % 06/23/2025 6:42 AM EDT [facility] Eos Percent 5.1 % 06/23/2025 6:42 AM EDT [facility] Baso Percent 0.1 % 06/23/2025 6:42 AM EDT [facility] Neut # 6.4(H) 1.6 - 6.1 x10(3)/mcL 06/23/2025 6:42 AM EDT [facility] Comment:Neutrophils equals s egs plus bands IMMGRAN# 0.0 0.0 - 0.1 x10(3)/mcL 06/23/2025 6:42 AM EDT [facility] Comment:Automated count of m etamyelocytes, myelocytes and promyelocytes. An absolute IG <0.1 is reported as 0.0. Lymph # 1.1(L) 1.2 - 3.9 x10(3)/mcL 06/23/2025 6:42 AM EDT [facility] Williams # 0.6 0.3 - 0.9 x10(3)/mcL 06/23/2025 6:42 AM EDT [facility] Eos# 0.4 0.0 - 0.5 x10(3)/mcL 06/23/2025 6:42 AM EDT [facility] Baso # 0.0 0.0 - 0.1 x10(3)/mcL 06/23/2025 6:42 AM EDT [facility] Blood VENOUS BLOOD / Unknown Venipuncture / Unknown 06/23/2025 5:09 AM EDT 06/23/2025 6:32 AM EDT us Shaan Gomez MD HEMATOLOGY ORDERABLES Final Resu lt [facility] [address] [facility] , [address] [place] [id number] * (ABNORMAL) COMPREHENSIVE METABOLIC PANEL (06/23/2025 5:09 AM EDT) Only the most recent of2 resultswithin the time period is included. Sodium 135(L) 136 - 145 mmol/L 06/23/2025 7:04 AM EDT [facility] Potassium 3.9 3.5 - 5.0 mmol/L 06/23/2025 7:04 AM EDT [facility] Chloride 105 98 - 107 mmol/L 06/23/2025 7:04 AM EDT [facility] Total CO2 21(L) 22 - 29 mmol/L 06/23/2025 7:04 AM EDT [facility] Anion Gap 9 7 - 16 mmol/L 06/23/2025 7:04 AM EDT [facility] Calcium 8.5(L) 8.6 - 10.4 mg/dL 06/23/2025 7:04 AM EDT [facility] Glucose Lvl 124(H) 70 - 99 mg/dL 06/23/2025 7:04 AM EDT [facility] BUN 16 6 - 20 mg/dL 06/23/2025 7:04 AM EDT [facility] Creatinine 0.94 0.67 - 1.30 mg/dL 06/23/2025 7:04 AM EDT [facility] Albumin 3.1(L) 3.5 - 5.2 gm/dL 06/23/2025 7:04 AM EDT [facility] Total Protein 5.7(L) 6.4 - 8.3 gm/dL 06/23/2025 7:04 AM EDT [facility] Bili Total 2.2(H) 0.2 - 1.4 mg/dL 06/23/2025 7:04 AM EDT [facility] ALT 100(H) <=41 U/L 06/23/2025 7:04 AM EDT [facility] AST 51(H) <=40 U/L 06/23/2025 7:04 AM EDT [facility] Alk Phos 127 40 - 129 U/L 06/23/2025 7:04 AM EDT [facility] eGFR (CKD-EPIcr 2020) 98 >=60 mL/min/1.7 3 m2 06/23/2025 7:04 AM EDT [facility], [facility] Comment:Estimated GFR was ca lculated using the CKD-EPIcr (2020) equation refit without race. The equation is recommended by the [employer] - [employer] Task [employer]. Blood VENOUS BLOOD / Unknown Venipuncture / Unknown 06/23/2025 5:09 AM EDT 06/23/2025 6:31 AM EDT [facility] Shaan Gomez MD CHEMISTRY ORDERABLES Final Resul t [facility], [facility] [address] [facility] , [place] [address] * MRI LUMBAR SPINE W [...] MD IMG MRI ORDERABLES Final Result * REPEAT LACTIC ACID (06/22/2025 2:19 AM EDT) Only the most recent of2 resultswithin the time period is included. Lactic Acid 0.9 0.5 - 1.9 mmol/L 06/22/2025 2:46 AM EDT [employer] Blood VENOUS BLOOD / Unknown Venipuncture / Unknown 06/22/2025 2:19 AM EDT 06/22/2025 2:24 AM EDT Willard Rhodes MD CHEMISTRY ORDERABLES Final Result [employer] [address] [facility] , [place] [address] * CT CHEST ABDOMEN PELVIS WO ORAL [...] AB TOTAL EARLY (06/21/2025 10:34 PM EDT) [facility] B burgdorferi Abs, Total Negative Negative 06/22/2025 8:56 AM EDT [facility] [email or web address] [employer] Comment:No laboratory eviden ce of infection with B. burgdorferi (Lyme disease). If recent infection is suspected, repeat testing on a new sample collected in 7 - 14 days is recommended. Blood VENOUS BLOOD / Unknown Venipuncture / Unknown 06/21/2025 10:34 PM EDT 06/21/2025 10:39 PM EDT Willard Rhodes MD IMMUNOLOGY ORDERABLES Final Result [facility] [email or web address] [employer] [address] [facility] , [place] [address] * CSF CELL COUNT WITH DIFF (06/21/2025 9:51 PM EDT) [facility] CSF Tube Num 4 number 06/21/2025 10:44 PM EDT [facility] [email or web address] [employer] CSF Color Colorless Colorless color 06/21/2025 10:44 PM EDT [email or web address] [employer] CSF Appear Clear Clear appearance 06/21/2025 10:44 PM EDT [email or web address] [employer] CSF RBC 0 <=0 /mcL 06/21/2025 10:44 PM EDT [facility] [email or web address] [employer] CSF Total Nucleated Cells 2 0 - 5 /mcL 06/21/2025 10:44 PM EDT [facility] [email or web address] [employer] Cerebrospinal Fluid LUMBAR PUNCTURE / Unknown 06/21/2025 9:51 PM EDT 06/21/2025 9:55 PM EDT us Willard Rhodes MD BODY FLUIDS AND STOOLS ORDMitch HARRIS Final Result [facility] [address] [facility] , [place] [address] * MENINGITIS/ENCEPH PANEL (06/21/2025 9:51 PM EDT) [...] 11:29 PM EDT [facility] Cerebrospinal Fluid LUMBAR PUNCTURE / Unknown 06/21/2025 9:51 PM EDT 06/21/2025 9:55 PM EDT Willard Rhodes MD BODY FLUIDS AND STOOLS DENNIS HARRIS Final Result Performing Organization Address [facility] Co de Phone Number [facility] [email or web address], [facility] [address] [facility] , [place] [address] * (ABNORMAL) PROTEIN CEREBROSPINAL FLUID (06/21/2025 9:51 PM EDT) Protein CSF 62(H) 15 - 45 mg/dL 06/21/2025 10:43 PM EDT [facility] [employer] Cerebrospinal Fluid LUMBAR PUNCTURE / Unknown 06/21/2025 9:51 PM EDT 06/21/2025 9:55 PM EDT us Willard Rhodes MD BODY FLUIDS AND STOOLS DENNIS HARRIS Final Result Performing Organization Address [facility] Co de Phone Number [facility] [email or web address], [facility] [address] [facility] , [place] [address] * (ABNORMAL) GLUCOSE CEREBROSPINAL FLUID (06/21/2025 9:51 PM EDT) Glucose CSF 102(H) 40 - 70 mg/dL 06/21/2025 10:43 PM EDT [email or web address] Cerebrospinal Fluid LUMBAR PUNCTURE / Unknown 06/21/2025 9:51 PM EDT 06/21/2025 9:55 PM EDT us Willard Rhodes MD BODY FLUIDS AND STOOLS DENNIS HARRIS Final Result Performing Organization Address [facility] Co de Phone Number [facility] [email or web address], [facility] [address] [facility] , [place] [address] * CT HEAD WO CONTRAST [...] 1.82(H) <=0.49 ng/mL 06/21/2025 9:03 PM EDT [employer] Blood VENOUS BLOOD / Unknown Venipuncture / Unknown 06/21/2025 8:10 PM EDT 06/21/2025 8:17 PM EDT Narrative [facility] [employer] - 06/21/2025 9:03 PM EDT Procalcitonin <0.50 [...] MD CHEMISTRY ORDERABLES Final Result [facility] [email or web address], [facility] [address], [place] [address] * XR CHEST AP PORTABLE (06/21/2025 7:54 [...] STREP A DNA (06/21/2025 7:34 PM EDT) [facility] Strep A DNA Not Detected Not Detected 06/21/2025 7:58 PM EDT [facility] Comment:Not Detected results do not [...] PM EDT 06/21/2025 7:43 PM EDT Narrative [facility] - 06/21/2025 7:58 PM EDT The [employer] Strep A assay utilizes nucleic acid purification and polymerase chain reaction (PCR) technology to detect Streptococcus pyogenes by targeting a segment of the Streptococcus pyogenes genome. Willard Rhodes MD MICROBIOLOGY - GENERAL ORDE RABLES Final Result [facility] [address] [place] [address] * (ABNORMAL) BLOOD GAS, VENOUS (06/21/2025 7:31 [...] CHEMISTRY ORDERABLES Final Result Performing Organization Address City/[facility]/ZIP Co de Phone Number [facility] [email or web address], [facility] [address], [place] [address] * [id number] A/B (06/21/2025 7:28 PM EDT) Pathologist [facility] CORONAVIRUS [id number] Not Detected Not Detected 06/21/2025 7:53 PM EDT [facility] Influenza A DNA Not Detected Not Detected 06/21/2025 7:53 PM EDT [facility] Influenza B DNA Not Detected Not Detected 06/21/2025 7:53 PM EDT [facility] Swab BOTH ANTERIOR NARES / Unknown 06/21/2025 7:28 PM EDT 06/21/2025 7:32 PM EDT Willard Rhodes MD MICROBIOLOGY - GENERAL ORDE RABLES Final Result Performing Organization Address [facility] [place] [address] * (ABNORMAL) LACTIC ACID (06/21/2025 7:22 PM EDT) [facility] Lactic Acid 2.9(H) 0.5 - 1.9 mmol/L 06/21/2025 7:56 PM EDT [facility] Blood VENOUS BLOOD / Unknown Venipuncture / Unknown 06/21/2025 7:22 PM EDT 06/21/2025 7:43 PM EDT us Willard Rhodes MD CHEMISTRY ORDERABLES Final Result Performing Organization Address [facility] [place] [address] * EK EKG 12 LEAD (06/21/2025 7:05 PM EDT) Only the most recent of2 resultswithin the time period is included. Anatomical Region Laterality Modality Electrocardiogra phy 06/21/2025 7:10 PM EDT Impressions 06/22/2025 2:[address] 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: : 1970 Requested By: WILLARD Naik Order Number: [id number] Reading MD: Emily Landaverde MD Measurements Intervals [place] Rate: 112 P: 51 SD: 129 QRS: 18 QRSD: 102 T: 43 QT: 303 QTc: 414 Interpretive Statements SINUS TACHYCARDIA INDETERMINATE AXIS ABNORMAL RHYTHM ECG Electronically Signed On 06-22-2025 14:18:50 EDT by Emily Landaverde MD us Willard Rhodes MD IMG ECG ORDERABLES Final Re sult from Last 3 Months Advance Directives For more information, please contact: [phone] * Full Code (Latest Code Status on File) Date Activated Date Inactivated Comments 06/22/2025 8:53 AM 06/23/2025 10:50 PM * Full Code Date Activated Date Inactivated Comments 03/12/2025 12:33 AM 03/13/2025 7:34 PM Care Teams Supervisor Accounting Clerks Relationship Specialty Start Date End Date No Pcp, Per Patient PCP - General 10/26/24 Dangelo Pinzon MD [address] [id number] Consulting Physician Ophthalmology 12/30/20
--- OUTSIDE RECORDS SUMMARY | 2025-06-24 17:15 | XMS_ITS | Clinical Summary ---
Author Organization Healthcare Address [address] [place] [address] Care Team Providers Care Tubular Riveter Name Role Phone Karla Art APRN Primary [...] 2022 [facility]-Zoster Vaccines (1 of 2) 2022 [id number] Vaccine (1 - season) 2025 [facility]-Influenza Vaccine [...] age to complete this topic Care Teams Tubular Riveter Relationship Specialty Start Date End Date Karla Art APRN [address] [place] [address] [place] [address] PCP - General Family Medicine 08/16/22
--- OUTSIDE RECORDS SUMMARY | 2025-06-24 17:15 | XMS_ITS | Encounter Summary ---
Author Organization [facility] [address] Care Team Providers Care Aquaculture Worker Name Role Phone Dangelo Pinzon MD Unavailable [phone] Pcp, Per Patient Primary Care Provider Emily everett Encounter Details Date Type Department Care Team (Latest Contact Info) Description 06/21/2025 Travel Social History Tobacco Use Types Packs/Day Years Used Date Smoking Tobacco: Every Day Cigarettes Smokeless Tobacco: Never Alcohol Use Standard Drinks/Week Comments No 0 (1 standard drink = 0.6 oz pur e alcohol) PHQ-2 Answer Date Recorded PHQ-2 Total Score 0 06/22/2025 Overall Financial Resource Strain (CARDIA) Answe r Date Recorded How hard is it for you to pa y for the very basics like food, housing, medical care, and heating? Not hard at all 06/22/2025 [facility] Occupat ional [facility] - Occupational Stress [...] money to get more. Never true 06/22/2025 [facility] Utilities Answer Date Recorded In the past 12 months has th e electric, gas, oil, or water company threatened to shut off services in your home? No 06/22/2025 [facility] IP Transportation Answer D ate Recorded [...] on file documented as of this encounter Functional Status * Suicide Severity Rating Answer Date of Assessment Author No Risk 06/21/2025 6:28 PM EDT Alma Donaldson RN * [facility] Suicide Severity Rating Scale (Q shift for [...] 0 06/21/2025 6:28 PM EDT Karen Donaldson , JENSEN 6. Have you ever done anythi ng, started to do anything, or prepared to do anything to end your life? 0 06/21/2025 6:28 PM EDT Karen Donaldson , RN documented as of this encounter Plan of Treatment Not on file documented as of this encounter Visit Diagnoses Not on filedocumented in this encounter Additional Health Concerns Infection Onset Date Last Indicated Resolved Time R/O COVID-19 06/21/2025 06/21/2025 06/21/2025 7:53 PM EDT Assessment Noted Time PHQ-9 Depression Total Score: 22 025 9:46 AM EDT PHQ-2 Depression Total Score: 6 03/13/20 25 9:46 AM EDT documented as of this encounter Care Teams Aquaculture Worker Relationship Specialty Start Date End Date No Pcp, Per Patient PCP - General 10/26/24 Dangelo Pinzon MD [address] Consulting Physician Ophthalmology 12/30/20 documented as of this encounter
--- NOTE | 2025-06-24 17:18 | PC.NURSE ---
Called [facility] about this pt to speak to some one about this
--- NOTE | 2025-06-24 17:21 | PC.NURSE ---
[facility] is checking with there superviser to see if they can give the information over the phone since the pt left AMA and has now shown up in oue ER
[2025-06-24 17:59] LABS: Hematocrit 41.1 % (42.0-52.0); Hemoglobin 14.5 g/dL (14.1-18.0); Immature Granulocytes % 0.2 %; Mean Corpuscular HGB Conc 35.3 g/dL (31.8-35.4); Mean Corpuscular Hemoglobin 31.3 pg (27.0-31.2); Mean Corpuscular Volume 88.6 fl (80-94); Nucleated Red Blood Cells % 0 %; Platelet Count 205 K/mm3 (142-424); Red Blood Count 4.64 M/mm3 (4.60-6.20); Red Cell Distribution Width-SD 44.3 fL; White Blood Count 8.3 K/mm3 (4.8-10.8)
[2025-06-24 18:18] LABS: Microscopic, Urine URINE MICROSCOPIC (MICROSCOPIC)
[2025-06-24 18:21] LABS: Chloride 98 mmol/L (98-107)
[2025-06-24 18:22] LABS: Albumin Level 3.6 g/dl (3.5-5.0); Potassium 3.7 mmoL/L (3.5-5.1); Sodium 137 mmol/L (136-145)
[2025-06-24 18:24] LABS: Alanine Aminotransferase 106 U/L (12-78); Anion Gap 12.7 mEq/L (5-15); Aspartate Amino Transferase 56 U/L (17-59); Blood Urea Nitrogen 12 mg/dl (9-20); Carbon Dioxide 30 mmol/L (22.0-30.0); Creatinine Clearance Estimated 139 mL/min (50-200); Creatinine,Serum 0.80 mg/dl (0.66-1.25); Estimated Glomerular Filt Rate 102 ml/min (>60); GFR (African American) 123 ML/MIN (>60)
[2025-06-24 18:25] LABS: Albumin/Globulin Ratio 1.1 (1.1-1.8); Alkaline Phosphatase 220 U/L (38-126); Bilirubin,Total 4.4 mg/dl (0.2-1.3); Calcium 9.0 mg/dl (8.4-10.2); Globulin 3.2 g/dL (1.3-3.2); Glucose 155 mg/dl (74-100); Total Protein,Serum 6.8 g/dl (6.3-8.2)
[2025-06-24 18:33] LABS: Color,Urine YELLOW (Yellow); Glucose,Urine (UA) 1+ (Negative); Ketones,Urine Negative (Negative); Leukocyte Esterase,Urine Negative (Negative); PH,Urine 7.0 (5.0-8.5); Protein,Urine TRACE (Negative); Specific Gravity, Urine 1.010 (1.005-1.030); Urobilinogen,Urine 0.2 EU/dl (0.2)
[2025-06-24 18:46] LABS: Bilirubin,Urine 1+ (Negative)
[2025-06-24 19:00] LABS: Gamma Glutamyl Transpeptidase 430 U/L (15-73)
[2025-06-24 19:10] LABS: C-Reactive Protein 65.0 mg/L (0-4)
[2025-06-24 19:20] LABS: Bacteria,Urine 1+ /lpf; Squamous Epithelial Cell,Urine Occasional #/hpf (0-5)
--- NOTE | 2025-06-24 19:20 | PC.NURSE ---
Called [facility] for a transfer. stated they would call back
[2025-06-24] MEDS: ONDANSETRON 4MG/2ML VIAL 4 MG IV (19:58)
[2025-06-24] MEDS: MORPHINE 4MG/ML SYRINGE 4 MG IV (19:58)
[2025-06-24] MEDS: ACETAMINOPHEN 500MG TAB 1000 MG PO (19:58)
[2025-06-24] MEDS: KETOROLAC 15MG/ML VIAL 15 MG IV (19:58)
--- NOTE | 2025-06-24 20:03 | PC.NURSE ---
Called for a transfer stated they would call back
--- NOTE | 2025-06-24 20:37 | PC.NURSE ---
Called [facility] for [facility] transfer stated they would call back
--- NOTE | 2025-06-24 21:14 | PC.NURSE ---
ed provider at the bedside updating pt on POC
--- NOTE | 2025-06-24 21:58 | PC.NURSE ---
Report given to JENSEN Duenas at [facility].
--- NOTE | 2025-06-24 22:05 | ED_ITS ---
Discharge Plan Disposition Patient Disposition: Xfer Other Condition: Good Prescriptions Prescriptions: No Action losartan 50 mg tablet 50 mg PO DAILY Qty: 90 0RF anastrozole 1 mg tablet 1 mg PO DAILY Qty: 30 0RF testosterone cypionate 200 mg/mL oil 100 mg SQ .COMPLEX Qty: 4 0RF Rx Instructions: 100 mg subcutaneously twice weekly; Twice weekly losartan 100 mg tablet 100 mg PO DAILY Qty: 90 3RF tadalafil [Cialis] 20 mg tablet 20 mg PO DAILY PRN (Reason: sexual activity) Qty: 30 10RF tamsulosin [Flomax] 0.4 mg capsule 0.4 mg PO DAILY Qty: 90 3RF dextroamphetamine-amphetamine 10 mg tablet 10 mg PO DAILY Qty: 30 0RF dextroamphetamine-amphetamine 30 mg capsule,extended release 24hr 30 mg PO DAILY Qty: 30 0RF Referrals Follow up/Referrals: Bib Dye MD [Primary Care Provider, [facility]] - See instructions Activity Restrictions/Add. Instructions Additional Instructions/Restrictions: Please present to [facility] in [facility] for admission. Your room assignment is 4L-Room 9. Clinical Impressions Clinical Impression: Back pain, Bilateral leg weakness, Pyrexia, Transaminitis, Elevated bilirubin Stand Alone Forms Stand Alone Forms: Transfer Record - ED Print Language Print Language: Kazakh Discharge ED Provider: Juan Patel Adult HPI General Chief complaint: PAIN Stated complaint: Doctor Marnie sent him over, Sepsis Time Seen by Provider: 06/24/25 17:09 Mode of Arrival: Ambulatory Source of Information: Patient and Spouse Description of Symptoms (Recalled from ER Triage Doc. by RN): Pt presents for evaluation of lower back pain and headache. Pt states he left AMA from [facility] yesterday, but OSH records indicate patient left this AM. Pt had a spinal tap performed, MRI, cts completed. Pt was on scheduled vancomycin and rocephin. Pt was diagnosed with pyelonephritis. Pt has a continued headache that he rates as an 8/9. Pt states he has a hx of migraines but this headache is different from his typical headaches and has a hx of chronic back pain due to his surgeries. History of Present Illness HPI narrative: This is a 54-year-old male patient, with past medical history of ADHD on Adderall and hypertension on losartan, who is presenting to the emergency department today for evaluation of back pain and headaches with fevers. The patient has a very extensive history of numerous spinal surgeries as well as IV drug use approximately 10 years ago. 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 He states that he has chronic back pain since that time but over the last 4 days he has had significant worsening of his lower back pain and has now developed lower extremity weakness. He additionally has developed fevers that been consistently higher than 101 ?F at home as well as severe headaches. Over the last 3 days he was admitted at [facility] in [facility]. They initiated workup with a CT scan of the head that was normal as well as hematologic labs as well as a CT scan of the head. Patient's initial labs showed no evidence of urinary tract infection, however his white blood cell count was 13, his bilirubin was elevated at 2, ALT was 165, AST was 135 and alk phos was normal. Lactic acid was 2.9 and procalcitonin was elevated at 1.82. CT scan of the head showed no abnormalities so the patient underwent a lumbar puncture. CSF results showed a CSF glucose of 102, protein of 62, and no other actionable abnormalities. They did not feel that these findings were consistent with meningitis so they treated the patient empirically with vancomycin and cefepime. The patient then underwent an MRI of his lumbar which showed L3-L5 posterior element inflammation of which an infectious process is difficult to exclude. The patient was not pleased with his management and care plan at [facility] so he left yesterday AGAINST MEDICAL ADVICE. He followed up with his primary care physician today and they discussed the findings of his MRI and his primary care physician referred him back to the hospital for further treatment of potential vertebral osteomyelitis. The patient tells me that he has had persistent weakness in his bilateral lower extremities, persistent headaches, persistent back pain, and fevers. Related Data Previous Rx's ?Medication ?Instructions ?Recorded anastrozole 1 mg tablet 1 mg PO DAILY #30 tabs 04/27 losartan 50 mg tablet 50 mg PO DAILY #90 tabs 04/10 05/04 testosterone cypionate 200 mg/mL 100 mg (0.5 mL) SQ .C OMPLEX #4 mL 05/01/25 intramuscular oil dextroamphetamine-amphetamine 10 10 mg PO DAILY #30 ta bs 06/12/25 mg tablet dextroamphetamine-amphetamine ER 30 mg PO DAILY #30 ca ps 06/12/25 30 mg 24hr capsule,extend release losartan 100 mg tablet 100 mg PO DAILY #90 tabs 06/04 tadalafil 20 mg tablet (Cialis) 20 mg PO DAILY PRN sex ual activity 06/18/25 #30 tabs tamsulosin 0.4 mg capsule (Flomax) 0.4 mg PO DAILY #90 caps 06/18/25 Allergies Allergy/AdvReac Type Severity Reaction Status Date / Time No Known Allergies Allergy Verified 06/24/25 15:29 [facility] Disclaimer: The information contained in this section may have been updated after the patient was seen, as this information can be updated by other users. Medical History Migraines Testosterone deficiency Carpal tunnel syndrome Hypertension Surgical History History of back surgery History of carpal tunnel surgery Family History Mother Diabetes Social History Smoking Status: Current every day smoker tobacco type: cigarettes packs per day: 1 alcohol intake: never current occupational status: unemployed Travel in the last 8 weeks?: None Have you lived/traveled outside US in past 30 days?: No Contact w/someone who lives/traveled outside US past 30 days?: No Exposure to someone with infectious disease in past 14 days?: No Do you have a fever (greater than 100.4 F or 38 C)?: No Have you tested positive for COVID-19?: No Exposed to someone with COVID-19 in past 14 days?: No Do you have a sore throat?: No Do you have a cough?: No Do you have any weakness?: No Do you have any diarrhea?: No Are you experiencing any unusual bleeding?: No Do you have any muscle aches/pain?: No Do you have any abdominal pain?: No Are you experiencing loss of taste or smell?: No Other Medical History Have you received the Flu Vaccine for this season: Yes Have you received the Pneumonia Vaccine: No ROS Obtained: Yes Systems reviewed as appropriate & no additional complaints except as documented Physical Exam General General appearance: other (See MDM) Respiratory Respiratory exam: Present other (See MDM) Cardiovascular Cardiovascular exam: Present other (See MDM) Neurological Exam Neurological exam: Present other (See MDM) Medical Decision Making Medical Records Medical records reviewed: Yes I reviewed the patient's medical records. Screening: Per USPSTF and CDC recommendations, given the prevalence of disease in our region, it is our hospital?s policy to screen for HIV and viral Hepatitis for all patients aged 18 and over and those with ongoing risk factors. Reg Inquiry Pt receiving controlled substance: No Reg was queried for this patient: No Vital Signs: 06/24/25 17:12 06/24/25 17:30 06/24/25 18:00 Temperature 98.3 F Temperature Source Oral Pulse Rate 94 H 92 H Pulse Rate [Right] 95 H Respiratory Rate 18 21 26 H Blood Pressure 160/108 H 190/119 H Blood Pressure [Right Arm] 169/112 H Blood Pressure Mean 126 142 Blood Pressure Mean [Right Arm] 131 Blood Pressure Source [Right Arm] Automatic Cuff Blood Pressure Position [Right Arm] Sitting 02 Sat by Pulse Oximetry 96 96 98 Oxygen Delivery Method Room Air 06/24/25 18:02 06/24/25 18:09 06/24/25 19:15 Temperature Temperature Source Pulse Rate 89 89 83 Pulse Rate [Right] Respiratory Rate 26 H 26 H 20 Blood Pressure 176/120 H 149/104 H 150/106 H Blood Pressure [Right Arm] Blood Pressure Mean 138 119 Blood Pressure Mean [Right Arm] Blood Pressure Source [Right Arm] Blood Pressure Position [Right Arm] 02 Sat by Pulse Oximetry 98 95 98 Oxygen Delivery Method 06/24/25 19:30 06/24/25 20:00 06/24/25 20:25 Temperature Temperature Source Pulse Rate 86 88 Pulse Rate [Right] Respiratory Rate 19 17 17 Blood Pressure 153/98 H 167/106 H 153/102 H Blood Pressure [Right Arm] Blood Pressure Mean Blood Pressure Mean [Right Arm] Blood Pressure Source [Right Arm] Blood Pressure Position [Right Arm] 02 Sat by Pulse Oximetry 98 97 Oxygen Delivery Method 06/24/25 20:30 06/24/25 21:00 Temperature Temperature Source Pulse Rate 82 90 Pulse Rate [Right] Respiratory Rate 17 19 Blood Pressure 156/110 H 156/109 H Blood Pressure [Right Arm] Blood Pressure Mean Blood Pressure Mean [Right Arm] Blood Pressure Source [Right Arm] Blood Pressure Position [Right Arm] 02 Sat by Pulse Oximetry 98 97 Oxygen Delivery Method Lab Data Lab Results 06/24/25 17:48: WBC 8.3, RBC 4.64, Hgb 14.5, Hct 41.1 L, MCV 88.6, MCH 31.3 H, MCHC 35.3, RDW 13.8, Plt Count 205, MPV 9.9, Neut % (Auto) 65.8, Lymph % (Auto) 23.4, [place] % (Auto) 8.9, Eos % (Auto) 1.3, Baso % (Auto) 0.4, Neut # (Auto) 5.4, Lymph # (Auto) 1.9, [place] # (Auto) 0.7, Eos # (Auto) 0.1, Baso # (Auto) 0.0, ESR 41 H, Sodium 137, Potassium 3.7, Chloride 98, Carbon Dioxide 30, Anion Gap 12.7, BUN 12, Creatinine 0.80, Estimated Creat Clear 139, Estimated GFR 102, Est GFR ( Amer) 123, Glucose 155 H, Lactate 1.7, Calcium 9.0, Total Bilirubin 4.4 H, GGT 430 H, AST 56, ALT 106 H, Alkaline Phosphatase 220 H, C-Reactive Protein 65.0 H, Total Protein 6.8, Albumin 3.6, Globulin 3.2, Albumin/Globulin Ratio 1.1 06/24/25 18:07: Urine Color Yellow, Urine Appearance Clear, Urine pH 7.0, Ur Specific [place] 1.010, Urine Protein Trace, Urine Glucose (UA) 1+, Urine Ketones Negative, Urine Blood Trace-l, Urine Nitrate Negative, Urine Bilirubin 1+ A, Urine Urobilinogen 0.2, Ur Leukocyte Esterase Negative, Urine RBC 10-20, Urine WBC 5-10, Ur Squamous Epith Cells Occasional, Urine Bacteria 1+ 06/24/25 17:48 06/24/25 17:48 Orders (Tests/Meds): ED MEDICATIONS Discontinued Medications Generic Name Dose Route Start Last Admin Trade Name Freq PRN Reason Stop Dose Admin Acetaminophen 1,000 mg 06/24/25 19:45 06/24/25 19:58 Acetaminophen 500mg Tab PO 06/24/25 19:46 1,000 mg ONCE ONE Administration Ketorolac Tromethamine 15 mg 06/24/25 19:45 06/24/25 19:58 Ketorolac 15mg/Ml Vial IV 06/24/25 19:46 15 mg ONCE ONE Administration Morphine Sulfate 4 mg 06/24/25 19:45 06/24/25 19:58 Morphine 4mg/Ml Syringe IV 06/24/25 19:46 4 mg ONCE ONE Administration Ondansetron HCl 4 mg 06/24/25 19:45 06/24/25 19:58 Ondansetron 4mg/2ml Vial IV 06/24/25 19:46 4 mg ONCE ONE Administration ORDERS Category Date Time Status POCUS Point of Care (ER Only) Stat Exams 06/24/25 21:33 Ordered CRP [C-Reactive Protein] Stat Lab 06/24/25 17:48 Completed Complete Blood Count Auto Diff Stat Lab 06/24/25 17:48 Completed Comprehensive Metabolic Panel Stat Lab 06/24/25 17:48 Completed ESR [Erythrocyte Sedimentation Rate] Stat Lab 06/24/25 17:48 Completed GGT [Gamma Glutamyl Transpeptidase] Stat Lab 06/24/25 17:48 Completed Lactic Acid Stat Lab 06/24/25 17:48 Completed Urinalysis and Microscopic Stat Lab 06/24/25 18:07 Completed Blood Culture Stat Micro 06/24/25 17:35 Ordered Medical Decision Narrative: In summary this is a 54-year-old male patient who is presenting to the emergency department today for evaluation of 4 days of fevers, headaches, lower back pain, and lower extremity weakness. He had an extensive workup at an outside hospital which showed a leukocytosis, elevated lactate, elevated procalcitonin, and a lumbar puncture with elevated glucose and protein. He also had a lumbar spine MRI showing posterior element inflammation of the region of L3-L5 which an infectious process is difficult to exclude. He was treated with vancomycin and cefepime before leaving the hospital AGAINST MEDICAL ADVICE yesterday. He followed up with his primary care physician today who referred him back to the hospital for further evaluation. On initial evaluation of the patient he was sitting upright in no acute distress and was nontoxic in appearance. He is hemodynamically stable, saturating well on room air, and is neurologically intact. On physical examination he has tenderness in the lower spine. He has 5 out of 5 strength in his bilateral lower extremities. He feels subjectively that his lower extremity weakness has improved. He has mute reflexes in the L4 distribution bilaterally. He is afebrile at the time of my evaluation. Differential diagnosis includes bacteremia, vertebral osteomyelitis, pyelonephritis, urinary tract infection, sepsis, among others. Workup was initiated with hematologic labs. Labs were personally turbid by me and demonstrated no evidence of leukocytosis or actionable anemia. No electrolyte derangements or evidence of acute kidney injury. Patient's bilirubin has increased from outside hospital to 4.4, and he has a stable transaminitis. His CRP is elevated at 65 and his ESR is elevated at 41 which is consistent with signs of infection. His urine study showed no evidence of urinary tract infection. Given the patient's elevated liver enzymes and bilirubin I did perform a bedside POCUS assessment of the right upper quadrant. I was able to identify the gallbladder as well as the common bile duct and there is no evidence of cholelithiasis or choledocholithiasis. No evidence of cholecystitis or pericholecystic fluid. I had an interactive discussion with multiple hospitals including [facility] and [facility]. Both of these hospitals are on diversion and state that they cannot override diversion unless the patient has a vertebral abscess that would need intervention by neurosurgery. The patient does not have these findings on his MRI of the spine so they have declined transfer at this time. They have both stated that the neck step in his process would be workup with interventional radiology guided biopsy of the lumbar spine to determine whether he truly has vertebral osteomyelitis. Given that the patient had prior spine surgery at [facility] in [place] I reached out to [facility] to request transfer. I spoke with one of their nurse practitioners on-call for Dr. Osullivan and she graciously agreed to accept the patient for transfer to their hospital. I had a shared decision-making discussion with the patient about method of transport. Patient is not currently demonstrating signs of sepsis and has not deteriorated clinically since arrival to the hospital. He does not want to go by ambulance to [facility] and would like to take his own personal vehicle to [facility]. I feel that this is a reasonable method of transport given that he has not experienced any clinical decline in the emergency department. Patient was ultimately transferred to [facility] in stable condition. Procedures Miscellaneous Procedure Procedure Performed: Limited right upper quadrant ultrasound Indication: Elevated liver enzymes Identified structures: Gallbladder, gallbladder wall, bile duct Findings: Sonographic Mcpherson sign: Absent Gallstones: Absent Sludge: Absent Pericholecystic fluid: Absent Maximal gallbladder wall thickness (mm): Less than 3 mm normal Common bile duct with (mm): Less than 6 mm normal Impression: Normal gallbladder with no evidence of cholelithiasis, cholecystitis, or choledocholithiasis Images were saved to permanent archive This study was technically adequate CPT: 18617-81 This study was performed by me and I personally interpreted all images/videos. Based on my clinical judgment these images were adequate and did not necessitate further imaging. Critical Care Critical Care Time Critical Care Time: No
== END 2025-06-24 22:24 | disposition other institution (70) ==
PROVIDERS: Physician Assistant; Emergency Provider Student in an Organized Health Care Education/Training Program; PCP Family Medicine
DX: R50.9 Fever, unspecified (principal); R29.898 Other symptoms and signs involving the musculoskeletal system; R74.01 Elevation of levels of liver transaminase levels; R17 Unspecified jaundice; I10 Essential (primary) hypertension; F17.210 Nicotine dependence, cigarettes, uncomplicated
CPT/HCPCS: 80053; 81001; 82977; 83605; 85025; 85651; 86140; 96374; 96375; 99285; J1885; J2270; J2405

== ENCOUNTER 2025-07-02 11:00 | Outpatient (CLI) | payer SELFPAY ==
--- OUTSIDE RECORDS SUMMARY | 2025-06-21 18:38 | XMS_ITS | Encounter Summary ---
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 Issues with urinary retention * Auth/Cert/Inpt Specialty Diagnoses / Procedures Referred By Contac t Referred To Contact Diagnoses Febrile illness Referral ID Status Reason Start Date Expiration Date Visits Re quested Visits Authorized [id number] 1 1 Encounter Details Date Type Department Care Team (Latest Contact Info) Description 06/21/2025 6:38 PM EDT - 06/23/2025 6:39 PM EDT Hospital Encounter [facility] [place] [id number] Willard Rhodes MD [address] [place] [id number] Shaan Gomez MD [address] [place] [address] Febrile illness (Primary Dx); Frontal headache; Elevated liver enzymes Discharge Disposition: Left Against Medical Advice Social History Tobacco Use Types Packs/Day Years Used Date Smoking Tobacco: Every Day Cigarettes Smokeless Tobacco: Never Tobacco Cessation:Ready to Q uit: Yes; Counseling Given: Not Answered Alcohol Use Standard Drinks/Week Comments No 0 (1 standard drink = 0.6 oz pur e alcohol) PHQ-2 Answer Date Recorded PHQ-2 Total Score 0 06/22/2025 Overall Financial Resource Strain (CARDIA) Answe r Date Recorded How hard is it for you to pa y for the very basics like food, housing, medical care, and heating? Not hard at all 06/22/2025 [facility] [place] [facility] - Occupational Stress Questionnaire Answer Date Recorded Do you feel stress - tense, restless, nervous, or anxious, or unable to sleep at night because your mind is troubled all the time - these days? Not at all 06/22/2025 Exercise Vital Sign Answer Date Recorde d On average, how many days pe r week do you engage in moderate to strenuous exercise (like a brisk walk)? 3 days 06/22/2025 On average, how many minutes do you engage in exercise at this level? 40 min 06/22/2025 Hunger Vital Sign Answer Date Recorded Within the past 12 months, y ou worried that your food would run out before you got the money to buy more. Never true 06/22/20 25 Within the past 12 months, t he food you bought just didn't last and you didn't have money to get more. Never true 06/22/2025 [facility] Utilities Answer Date Recorded In the past 12 months has th e [employer], gas, oil, or water [employer] threatened to shut off services in your home? No 06/22/2025 [facility] IP Transportation Answer D ate Recorded In the past 12 months, has l ack of reliable transportation kept you from medical appointments, meetings, work or from getting things needed for daily living? No 06/22/2025 Sex and Gender Information Value Date Recorded Sex Assigned at Not on file Legal Sex Male 11:31 PM EDT Gender Identity Not on file Sexual Orientation Not on file documented as of this encounter Last Filed Vital Signs Vital Sign Reading Time Taken Comments Blood Pressure 146/100 06/23/2025 10:06 AM EDT Pulse 95 06/23/2025 5:04 PM EDT Temperature 36.7 C (98 F) 06/23/2025 10:06 AM EDT Respiratory Rate 17 06/23/2025 10:0 6 AM EDT Oxygen Saturation 98% 06/23/2025 10: 06 AM EDT Inhaled Oxygen Concentration - - Weight 121.7 kg (268 lb 4.8 oz) 06/22/2025 1:39 AM EDT Height 172.7 cm (5' 8 ) 06/22/2025 1:39 AM EDT Body Mass Index 40.79 06/22/2025 1:39 AM EDT documented in this encounter Functional Status * Alcohol Screening Score Answer Date of Assessment Author 0 06/22/2025 1:41 AM EDT Janet Shane RN * Drug Screening Score Answer Date of Assessment Author 0 06/22/2025 1:41 AM EDT Janet Shane RN * Question Answer Date of Assessment Author How often do you have a drin k containing alcohol? 0 06/22/2025 1:41 AM EDT Bertha Shane RN How many drinks containing a lcohol do you have on a typical day when you are drinking? 0 06/22/2025 1:41 AM MINIT Bertha Shane RN How often do you have six or more drinks on one occasion? 0 06/22/2025 1:41 AM MINIT Bertha Shane RN AUDIT-C to Determine Rows 4-10 0 06/22/2025 1:41 AM EDT Bertha Shane RN * Question Answer Date of Assessment Author Little interest or pleasure in doing things 0 06/22/2025 11:28 AM MINIT Brittany Baron RN Feeling down, depressed, or hopeless 0 06/22/2025 11:28 AM EDT Brittany Baron RN PHQ-2 Total Score 0 06/22/2025 11:28 AM MINIT Brittany Baron RN * PHQ-9 Total Score Answer Date of Assessment Author 0 06/22/2025 11:28 AM EDT Alma Baron RN * PHQ-2 Total Score Answer Date of Assessment Author 0 06/22/2025 11:28 AM EDT Alma Baron RN * Suicide Severity Rating Answer Date of Assessment Author No Risk 06/21/2025 6:28 PM EDT Alma Donaldson RN * [place] Suicide Severity Rating Scale (Q shift for moderate and high) Question Answer Date of Assessment Author 1. In the past month, have y ou wished you were or wished you could go to sleep and not wake up? 0 06/21/2025 6:28 PM EDT Karen Donaldson RN 2. In the past month, have y ou actually had any thoughts of killing yourself? (If no, skip to question 6) 0 06/21/2025 6:28 PM EDT Karen Donaldson RN 6. Have you ever done anythi ng, started to do anything, or prepared to do anything to end your life? 0 06/21/2025 6:28 PM MINIT Karen Donaldson RN documented as of this encounter Discharge Instructions * Attachments The following attachments cannot be sent through Care Everywhere. * Quitting smoking for adults (Cymro) documented in this encounter Medications at Time of Discharge aspirin-acetami nophen-caffeine (EXCEDRIN MIGRAINE) 250-250-65 mg Oral Tablet Take 1 Tab by mouth every 6 hours as needed for Pain. dextroamphetami ne-amphetamine (ADDERALL XR) 30 mg Oral Capsule, Sust. Release 24 hr Take 30 mg by mouth daily. dextroamphetami ne-amphetamine (ADDERALL) 15 mg Oral Tablet Take 1 Tablet by mouth daily. 7 Tablet 03/13/2025 diphenhydrAMINE (BENADRYL) 50 mg/mL Inj Syringe INJECT 1 ML (CC) INTRAMUSCULARLY ONCE DAILY NEEDED FOR MIGRAINE 10 mL 07/12/2023 fluticasone propionate (FLONASE) 50 mcg/actuation Nasl [place], Suspension 1 [place] in each nostril 2 times daily. 16 g 03/13/2025 1:37 PM EDT 03/13/2025 ibuprofen (ADVIL;MOTRIN) 200 mg Oral Tablet Take by mouth every 8 hours as needed for Pain. ketorolac (TORADOL) 60 mg/2 mL IM Solution Inject 60 mg into the muscle every 6 hours as needed for Other (migraine). losartan (COZAAR) 50 mg Oral TabletIndicatio ns:hypertension Take 50 mg by mouth daily. Indications: high blood pressure Syringe with Needle, Safety 3 mL 22 gauge x 1 1/2 Misc SyringeIndicati ons:Chronic mixed headache syndrome Use one syringe for each Toradol injection dose. 3 Syringe 3 12/20/2020 traZODone (DESYREL) 50 mg Oral Tablet Take 1-3 Tablets by mouth nightly as needed for Sleep for up to 5 doses. 5 Tablet 03/25/2025 ciprofloxacin HCl (CIPRO) 500 mg Oral Tablet Take 1 Tablet by mouth 2 times daily for 7 days. 14 Tablet 06/23/2025 06/30/20 25 documented as of this encounter Ordered Prescriptions Prescription Sig Dispense Quantity Refills Last Filled Start Date End Date ciprofloxacin HCl (CIPRO) 500 mg Oral Tablet Take 1 Tablet by mouth 2 times daily for 7 days. 14 Tablet 06/23/2025 06/30/2025 documented in this encounter Discharge Disposition Disposition Code Departure Means Destination Comment s Left Against Medical Advice Home documented in this encounter Progress Notes * This document contains information received from the source organization and may not represent a complete record from that organization. * Restricted notes were excluded * Gabrielle Salas RN - 06/23/2025 6:37 PM EDT RN Senior Geologist called regarding pt and concerns for care, meds, and treatment. Spoke at length with pt and spouse. Pt initially upset, verbalizing frustration over being here states I just really want and need to go home . Pt and returned verbalization of rationale for care and Dr Gomez's plan of care. This travel writer listened and offered emotional support and information to pt and . Dr Gomez and Primary RN aware of pt wishing to sign out AMA. * Shaan Gomez MD - 06/23/2025 1:39 PM EDTAssociated Problem(s): Other specified attention deficit hyperactivity disorder (ADHD) Reorder patient's home medication Discussed with pharmacy and adjustments made * Shaan Gomez MD - 06/23/2025 1:39 PM EDTAssociated Problem(s): Febrile illness Continue broad-spectrum IV antibiotics Concern for cystitis and/or pyelonephritis Continue IV fluids LP does not appear infectious Elevated lactic acid, heart rate, respiration, white blood cell count Negative COVID and flu Blood cultures with no growth to date 24 hours Strep negative CSF fluid negative for organisms * Shaan Gomez MD - 06/23/2025 1:39 PM EDTAssociated Problem(s): SIRS (systemic inflammatory response syndrome) (HCC) Continue broad-spectrum IV antibiotics Concern for cystitis and/or pyelonephritis Continue IV fluids LP does not appear infectious Elevated lactic acid, heart rate, respiration, white blood cell count Negative COVID and flu Blood cultures with no growth to date 24 hours Strep negative CSF fluid negative for organisms * Shaan Gomez MD - 06/23/2025 1:39 PM EDTAssociated Problem(s): Hyponatremia Recheck tomorrow Possibly infectious induced Sodium back up to 135 * Shaan Gomez MD - 06/23/2025 1:39 PM EDTAssociated Problem(s): Elevated LFTs Acute hepatitis panel ordered: Negative LFTs improving after IV fluids * Shaan Gomez MD - 06/23/2025 7:06 AM EDT Images from the original note were not included. Hospitalist Progress Note Assessment & Plan Febrile illness SIRS (systemic inflammatory response syndrome) (HCC) Continue broad-spectrum IV antibiotics Concern for cystitis and/or pyelonephritis Continue IV fluids LP does not appear infectious Elevated lactic acid, heart rate, respiration, white blood cell count Negative COVID and flu Blood cultures with no growth to date 24 hours Strep negative CSF fluid negative for organisms Hyponatremia Recheck tomorrow Possibly infectious induced Sodium back up to 135 Elevated LFTs Acute hepatitis panel ordered: Negative LFTs improving after IV fluids Other specified attention deficit hyperactivity disorder (ADHD) Reorder patient's home medication Discussed with pharmacy and adjustments made Diet: Regular Diet Code Status: Full Code Handoff Completed: No Disposition Perspective - Medically ready for discharge: No Anticipated ready for discharge timeframe?: 2 days Ready for discharge when / if?: Patient feeling improved Estimated Date of Discharge: 06/24/2025 Date of Admission: 06/21/2025 Chief Complaint: Muscle aches Subjective: Patient seen and examined. Patient states he still having muscle aches and pains. Worsein his bilateral thighs. CK level checked and came back normal. Discussed with pharmacy and adjustments made to his antibiotic regimen. Overall labs are improved today from previous. Patient however states he feels worse. Multiple urine studies performed. Talked about urine drug screen which upset the patient. Spouse came and talk to me afterwards concerned that I think the patient may be abusingor using drugs. Informed her that that is not my sentiment but we need to rule out any and all causes of his current condition. Reiterated that if I felt he was abusing medications I would not be actively prescribing them at the same time. Discussed with specialist care team Medications: Reviewed Infusion Medications Scheduled Medications cefTRIAXone (ROCEPHIN) IV (Orderable) 2 g Intravenous 2 times per day dextroamphetamine-amphetamine 15 mg Oral BID fluticasone propionate 1 [place] Each Nare BID vancomycin (VANCOCIN) IVPB (Orderable) 1,250 mg Intravenous *Q12H PRN Meds: acetaminophen, diphenhydrAMINE, ibuprofen, melatonin, ondansetron, oxyCODONE, sodium chloride 0.9%, sodium chloride 0.9% Intake/Output Summary (Last 24 hours) at 06/23/2025 0706 Last data filed at 06/23/2025 0624 Gross per 24 hour Intake 294.44 ml Output -- Net 294.44 ml Physical Exam Performed: BP 146/97 (BP Location: Right arm, Patient Position: Semi Fowlers) Pulse 89 Temp 98.6 ??F (37 ??C) (Oral) Resp 16 Ht 5' 8 (1.727 m) Wt 268 lb 4.8 oz (121.7 kg) SpO2 99% BMI 40.79 kg/m?? Physical Exam Vitals and nursing note reviewed. HENT: Head: Normocephalic. Nose: Nose normal. Eyes: Pupils: Pupils are equal, round, and reactive to light. Cardiovascular: Rate and Rhythm: Normal rate. Pulmonary: Effort: Pulmonary effort is normal. Abdominal: Palpations: Abdomen is soft. Neurological: Mental Status: He is alert. I personally reviewed and interpreted daily labs creatinine stable, white count back to normal, LFTs improved Labs: Recent Labs 06/21/25 19206/23/25 0509 WBC 13.4* 8.4 HGB 15.6 13.8 HCT 45.0 40.5 PLT 253 195 Recent Labs 06/21/25200906/23/25 0509 NA 127* 135* K 3.9 3.9 CL 97* 105 CO2 21* 21* BUN 16 16 CREATININE 0.93 0.94 CALCIUM 8.6 8.5* Recent Labs 06/21/25200906/23/25 0509 AST 135* 51* ALT 165* 100* ALKPHOS 105 127 No results for input(s): INR in the last 72 hours. Urinalysis: Lab Results Component Value Date WBCUA 1 06/21/2025 BACTERIA Trace (A) 06/21/2025 RBCUA 11 (H) 06/21/2025 BLOODU Trace (0.03 mg/dL) (A) 06/21/2025 SPECGRAV 1.031 06/21/2025 GLUCOSEU 4+ (>1000mg/dL) (A) 06/21/2025 KETONESU Negative 06/21/2025 I personally reviewed and interpreted imaging not applicable Radiology: CT CHEST ABDOMEN PELVIS WO ORAL WITH IV CONTRAST Final Result * Bibasilar pulmonary atelectasis. * RIGHT-sided renal swelling and perirenal induration. No hydronephrosis or hydroureter. This could be related to pyelonephritis. * Diffuse mild bladder wall thickening. Correlate for cystitis. - Note: Radiology results need to be interpreted within a comprehensive clinical context. If you have questions about the radiology report, please contact the office of the ordering clinician. CT HEAD WO CONTRAST Final Result No acute intracranial abnormality. - Note: Radiology results need to be interpreted within a comprehensive clinical context. If you have questions about the radiology report, please contact the office of the ordering clinician. XR CHEST AP PORTABLE Final Result No acute finding. - Note: Radiology results need to be interpreted within a comprehensive clinical context. If you have questions about the radiology report, please contact the office of the ordering clinician. EK EKG [address] 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 Does not believe he is being treated appropriately here. Called transfer center and they refused due to bed availability. Later received additional phone call asking for patient to be transferred to or [facility]. Informednursing I need one or the other. Family has decided . Phone call has been placed to for possible transfer. I have now spent 65 minutes on patient care today, seeing the patient initially, rounding on patient before visit, talking with spouse in hallway afterwards, discussing with nursing care after visit,calling for transfer, calling for transfer. Urine drug screen came back positive for amphetamines (prescribed) and buprenorphine (not prescribed since February) and opiates (given here). Patients reportedly handled UDS urine sample and divided into test tubes and labeled them herself. Addendum 2: Called and they have denied transfer. They are also having capacity issues and stated patient does not need tertiary care facility. Discussed with nursing and family now debating leaving AM. I have agreed to prescribe antibiotics at [place]. Shaan Gomez MD * Maria D Corley, [facility] - 06/22/2025 4:28 PM EDT S: Kim Hilario is a(n) 54 y.o. male with suspected sepsis due to unknown cause. Allergies: Patient has no known allergies. Pharmacy consulted to manage vancomycin therapy. Other antimicrobials include Ceftriaxone (06/22 - O: Temp Min: 98 ??F (36.7 ??C) Max: 99.9 ??F (37.7 ??C) Recent Labs 06/21/25192106/21/252009 WBC 13.4* -- BUN -- 16 CREATININE -- 0.93 Recent Labs 06/21/252009 PROCLCTNIN 1.82* Recent Labs 06/21/25192106/21/254 06/22/25 0219 LACTA 2.9* 2.2* 0.9 No intake/output data recorded. No intake/output data recorded. Height: 5' 8 (172.7 cm) Weight: 268 lb 4.8 oz (121.7 kg) Culture & Sensitivities: Results for orders placed or performed during the hospital encounter of 06/21/25 (from the past 2 weeks) BLOOD CULTURE (NO STAIN) Collection Time: 06/21/25 7:26 PM Specimen: Blood, Venous Result Value Ref Range Culture Result Blood culture received for processing in the laboratory. Positives will be reported immediately. [id number] A/B Collection Time: 06/21/25 7:28 PM Specimen: Nares; Swab Result Value Ref Range CORONAVIRUS [id number] Not Detected Not Detected Influenza A DNA Not Detected Not Detected Influenza B DNA Not Detected Not Detected BLOOD CULTURE (NO STAIN) Collection Time: 06/21/25 7:31 PM Specimen: Blood, Venous Result Value Ref Range Culture Result Blood culture received for processing in the laboratory. Positives will be reported immediately. STREP A DNA Collection Time: 06/21/25 7:34 PM Specimen: Throat; Swab Result Value Ref Range Strep A DNA Not Detected Not Detected CEREBROSPINAL FLUID CULTURE (STAIN INCLUDED) Collection Time: 06/21/25 9:51 PM Specimen: Lumbar Puncture; Cerebrospinal Fluid Result Value Ref Range Culture No growth at 16 hours. Stain Rare WBCs Stain No organisms seen Patient's initial estimated kinetic parameters based on AUC kinetics: - CrCl = 89.9 mL/min - Ke = 0.079 hr^-1 - Half-life = 8.77 hr A/P: Physician orders and progress notes reviewed. Patient???s renal function is stable. Patient received 1750 mg loading dose 06/21 at 22:59. Will schedule vancomycin maintenance dose of 1250 mg every 12 hours. This dosing regimen is estimated to result in a predicted AUCss of 521 mg??hr/L; Goal AUC is 400-600. Will check levels on 06/23 between the 3rd and 4th dose. Pharmacy will follow patient for changes in renal function, efficacy, and signs of toxicity. Other labs: BMP in AM. Thank you! Maria D Corley, PharmDanita * Shaan Gomez MD - 06/22/2025 4:11 PM EDTAssociated Problem(s): Febrile illness Continue broad-spectrum IV antibiotics Await blood and urine cultures Concern for cystitis and/or pyelonephritis Continue IV fluids LP does not appear infectious Elevated lactic acid, heart rate, respiration, white blood cell count * Shaan Gomez MD - 06/22/2025 4:11 PM EDTAssociated Problem(s): SIRS (systemic inflammatory response syndrome) (HCC) Continue broad-spectrum IV antibiotics Await blood and urine cultures Concern for cystitis and/or pyelonephritis Continue IV fluids LP does not appear infectious Elevated lactic acid, heart rate, respiration, white blood cell count * Shaan Gomez MD - 06/22/2025 4:11 PM EDTAssociated Problem(s): Hyponatremia Recheck tomorrow Possibly infectious induced * Shaan Gomez MD - 06/22/2025 4:11 PM EDTAssociated Problem(s): Elevated LFTs Acute hepatitis panel ordered Recheck tomorrow * Shaan Gomez MD - 06/22/2025 4:11 PM EDTAssociated Problem(s): Other specified attention deficit hyperactivity disorder (ADHD) Reorder patient's home medication * Raven Watson, Clerical Staff - 06/22/2025 3:42 PM EDT Followed up with patient re: no PCP reported. Met with patient. Provided list of PCPs from [facility].Has a PCP but is not with [facility] and doesn't want to change. Patient not interested in scheduling new patient appointment at this time. * Leobardo Carrillo - 06/22/2025 1:40 PM EDT 06/22/25 1200 Reason for Visit Date of visit 06/22/25 Visited With Patient;Family (Assessment below) (Pt's spouse) Visited By Apiculturist Referral Source Spiritual Consult Reason for Visit Follow-up Patient Assessment Patient Appears Calm Patient Orthodox at Registration Hinduism Patient Orthodox Upon Assessment Hinduism Spiritual Strengths and Coping Resources Support system;Sense of security from belief system Spiritual and Emotional Concerns Coping with chronic illness (Pt to be transfered to another floor) Family Assessment Spiritual Strengths and Coping Resources Realistic sense of self;Support system;Spends time in prayer/spiritual practices;Self-reflection Spiritual and Emotional Concerns Appears anxious Interventions with Patient Relationship Building Interventions Provided silent/supportive presence Collaboration Interventions Consulted with interdisciplinary team Interventions with Family Relationship Building Interventions Listened empathetically (Pt's spouse present/reports pt to transfer to another floor. Pt's spouse appeares overwhelmed/alsoa nursing care partner. Spouse shared her frustration/stress trying to find a preceptor.) Voodoo Interventions Other (Comment) (Words of hope and peace and assurance of divine presence.) Exploration Interventions Provided caring and supportive presence;Discussed illness/injury and its impact Empowerment Interventions Encouraged focus on present Collaboration Interventions Encouraged adherence to treatment plan Outcomes Expressed Outcomes Decreased anxiety;Distress reduced;Expressed feeling supported Care Plan Plan for Follow-Up Apiculturist(s) will continue to follow throughout admission * Brittany Baron RN - 06/22/2025 11:35 AM EDT 06/22/25 1131 Discharge Planning Evaluation Completed by CC/SW Yes ED Screening Completed Initial screening complete, post-acute discharge planning evaluations needs identified, assessment to follow IP Mental Health Referral Pending No Who you interviewed In person interview with patient Mental Status Alert and oriented Decision Maker Patient Who does pt identify as their caregiver/support person who will be their active partner in the dc planning process Pt identified caregiver/support person for dc planning process Caregiver Name Cassie Caregiver Does patient need county engineer? No Activities of Daily Living Prior to Admission Independent with ADLS;Independent with Homemaking;Independent with mobility DME Used at Home None Patient's Living Arrangments Prior to Admission? Private Residence With Other(s) Private Residence With Other(s) Spouse/Significant Other Support Systems Spouse/Significant Other Is PCP listed on facesheet correct? Yes Quality of Support System Good APS/CPS Report Made No Anticipated post-acute care needs Home with OP Follow Up Discussed discharge plans with Patient/Family/Caregiver/Support Person Yes, Discussed with patient Patient's goals for recovery [place] in self-care Actual Discharge Plan 06/22/2025: CC: INITIAL ASSESSMENT. Chart reviewed. Patient admitted with febrile illness. CC met with patient in room. He lives at home with his , Cassie, and is independent. PCP Dr. Bib Dye. He uses [facility] in [facility] for prescriptions. Noted report of financial difficulties and depression at previous admission; however, patient denies those things currently when SDOH completed. He denies difficulty affording or obtaining prescriptions, food, utilities, or transportation to appointments. He denies having or needing DME or HHC. His , Cassie, will transport him home at discharge. No needs identified at this time. CC FOLLOWING. * Joslyn Chavez, PharmD - 06/22/2025 3:58 AM EDT Pharmacy Consult: Vancomycin S: Kim Hilario is a(n) 54 y.o. male with diagnosis of sepsis due to unknown cause. Pharmacy consulted to manage vancomycin therapy. Other antimicrobials include doxycycline, ceftriaxone O: Most Recent Labs: Temp Min: 98 ??F (36.7 ??C) Max: 99.9 ??F (37.7 ??C) Recent Labs 06/21/25192106/21/252009 WBC 13.4* -- BUN -- 16 CREATININE -- 0.93 Estimated Creatinine Clearance: 89.9 mL/min (by C-G formula based on SCr of 0.93 mg/dL). Recent Labs 06/21/252009 PROCLCTNIN 1.82* Recent Labs 06/21/25 1922 06/21/25 2144 06/22/25 0219 LACTA 2.9* 2.2* 0.9 Height: 5' 8 (172.7 cm) Weight: 268 lb 4.8 oz (121.7 kg) Culture & Sensitivities: sent A/P: -Physician orders and progress notes reviewed. Pharmacy consulted for Vancomycin, but then consult discontinued. -Prior to consult being discontinued, patient received loading dose of Vancomycin 1750 mg x1. -Pharmacy will sign off and not order any further doses. Please re-consult if therapy needs to restarted. Joslyn Chavez, [place] documented in this encounter H&P Notes * Shaan Gomez MD - 06/22/2025 4:06 PM EDT Images from the original note were not included. Hospital Medicine History & Physical PCP: No Pcp, Per Patient Date of Admission: 06/21/2025 Date of Service: Pt seen/examined on 06/22/25 and Placed in Observation. Chief Complaint: Fever Admission Diagnosis: Febrile illness History Of Present Illness: The patient is a 54 y.o. male who presents to [facility] with fever and chills. Patient states for the past 3 to 4 days she has had worsening fever chills, muscle aches and back pain. He denies anycough congestion, nausea vomiting or diarrhea constipation. In the emergency department patient was tachypneic along with tachycardic. He has not been febrile. Labs did show a sodium of 127 with a elevated white blood cell count of 13.4 and a lactic acid of 2.2 with a procalcitonin of 1.82. Patientwas started on broad-spectrum IV antibiotics along with given IV fluids. Source of infection still unknown but urinary bladder did look thickened and there was some concerning findings on CT abdomen pelvis for his kidneys. Past Medical History: Past Medical History[1] Past Surgical History: Surgical History[2] Medications Prior to Admission: Prior to Admission medications Medication Sig Start Date End Date Taking? Authorizing Provider [id number] (EXCEDRIN MIGRAINE) 250-250-65 mg Oral Tablet Take 1 Tab by mouth every 6 hours as needed for Pain. Yes Provider, Historical dextroamphetamine-amphetamine (ADDERALL XR) 30 mg Oral Capsule, Sust. Release 24 hr Take 30 mg by mouth daily. Yes Provider, Historical dextroamphetamine-amphetamine (ADDERALL) 15 mg Oral Tablet Take 1 Tablet by mouth daily. Patient taking differently: Take 10 mg by mouth as needed for Other. 03/13/25 Yes Samir Haynes MD diphenhydrAMINE (BENADRYL) 50 mg/mL Inj Syringe INJECT 1 ML (CC) INTRAMUSCULARLY ONCE DAILY NEEDED FOR MIGRAINE 07/12/23 Yes Celina King MD fluticasone propionate (FLONASE) 50 mcg/actuation Nasl [place], Suspension 1 [place] in each nostril 2 times daily. 03/13/25 Yes Samir Haynes MD ibuprofen (ADVIL;MOTRIN) 200 mg Oral Tablet Take by mouth every 8 hours as needed for Pain. Yes Provider, Historical ketorolac (TORADOL) 60 mg/2 mL IM Solution Inject 60 mg into the muscle every 6 hours as needed forOther (migraine). Yes Provider, Historical losartan (COZAAR) 50 mg Oral Tablet Take 50 mg by mouth daily. Indications: high blood pressure YesProvider, Historical Syringe with Needle, Safety 3 mL 22 gauge x 1 1/2 Misc Syringe Use one syringe for each Toradol injection dose. 12/20/20 Celina King MD traZODone (DESYREL) 50 mg Oral Tablet Take 1-3 Tablets by mouth nightly as needed for Sleep for up to 5 doses. Patient not taking: Reported on 06/22/2025 03/25/25 Kati De La Paz PA Allergies: Patient has no known allergies. Social History: The patient currently lives at home with his spouse TOBACCO: reports that he has been smoking cigarettes. He has never used smokeless tobacco. ETOH: reports no history of alcohol use. Family History: Reviewed in detail and negative for DM, Early CAD, Cancer, CVA. Positive as follows: Family History[3] Travel Screening Question Response Have you been in contact with someone who was sick? No / Unsure Do you have any of the following new or worsening symptoms? None of these Have you traveled internationally or domestically in the last month? No Travel History Travel since 05/23/25 No documented travel since 05/23/25 Social History[4] REVIEW OF SYSTEMS: Positive for as noted in the HPI. All other systems reviewed and negative. PHYSICAL EXAM: BP 133/83 (BP Location: Right arm, Patient Position: Semi Fowlers) Pulse 91 Temp 98.1 ??F (36.7??C) (Axillary) Resp 18 Ht 5' 8 (1.727 m) Wt 268 lb 4.8 oz (121.7 kg) SpO2 94% BMI 40.79kg/m?? Physical Exam Vitals and nursing note reviewed. Constitutional: Appearance: Normal appearance. HENT: Head: Normocephalic and atraumatic. Nose: Nose normal. Mouth/Throat: Mouth: Mucous membranes are moist. Pharynx: Oropharynx is clear. Cardiovascular: Rate and Rhythm: Normal rate and regular rhythm. Heart sounds: Normal heart sounds. Pulmonary: Effort: Pulmonary effort is normal. Breath sounds: Normal breath sounds. Abdominal: General: Bowel sounds are normal. Palpations: Abdomen is soft. Musculoskeletal: General: Normal range of motion. Cervical back: Normal range of motion. Skin: General: Skin is warm and dry. Capillary Refill: Capillary refill takes less than 2 seconds. Neurological: General: No focal deficit present. Mental Status: He is alert and oriented to person, place, and time. Mental status is at baseline. Psychiatric: Mood and Affect: Mood normal. CXR: I have reviewed the CXR with the following interpretation: No acute process EKG: I have reviewed the EKG with the following interpretation: Sinus tachycardia CT abdomen pelvis personally reviewed and interpreted with distended thickened bladder along with renal issues CBC Recent Labs 06/21/251921 WBC 13.4* HGB 15.6 HCT 45.0 PLT 253 RENAL Recent Labs 06/21/252009 NA 127* K 3.9 CL 97* CO2 21* BUN 16 CREATININE 0.93 LFT'S Recent Labs 06/21/252009 AST 135* ALT 165* ALKPHOS 105 COAG No results for input(s): INR in the last 72 hours. CARDIAC ENZYMES No results for input(s): CKTOTAL , CKMB , CKMBINDEX , TROPONINI in the last 72 hours. PHYSICIANS CERTIFICATION: I certify that Kim Hilario is expected to be hospitalized for less than 2 midnights based on the following assessment and plan: Assessment & Plan Febrile illness SIRS (systemic inflammatory response syndrome) (HCC) Continue broad-spectrum IV antibiotics Await blood and urine cultures Concern for cystitis and/or pyelonephritis Continue IV fluids LP does not appear infectious Elevated lactic acid, heart rate, respiration, white blood cell count Hyponatremia Recheck tomorrow Possibly infectious induced Elevated LFTs Acute hepatitis panel ordered Recheck tomorrow Other specified attention deficit hyperactivity disorder (ADHD) Reorder patient's home medication Diet: Regular Diet Code Status: Full Code PT/OT Eval Status: Not applicable Dispo -observation, needs inpatient Shaan Gomez MD [1] History reviewed. No pertinent past medical history. [2] Past Surgical History: Procedure Laterality Date BACK SURGERY x5 times CARPAL TUNNEL RELEASE [3] Family History Problem Relation Age of Onset Macular Degen Paternal Grandfather Cataracts Neg Hx Glaucoma Neg Hx [4] Social History Socioeconomic History Marital status: Spouse name: None Number of children: None Years of education: None Highest education level: None Tobacco Use Smoking status: Every Day Current packs/day: 0.50 Types: Cigarettes Smokeless tobacco: Never Vaping Use Vaping status: Never Used Substance and Sexual Activity Alcohol use: No Drug use: Not Currently Social Drivers of Health Financial Resource Strain: Low Risk (06/22/2025) Overall Financial Resource Strain (CARDIA) Difficulty of Paying Living Expenses: Not hard at all Food Insecurity: No Food Insecurity (06/22/2025) Hunger Vital Sign Worried About Running Out of Food in the Last Year: Never true Ran Out of Food in the Last Year: Never true Transportation Needs: No Transportation Needs (06/22/2025) [facility] IP Transportation In the past 12 months, has lack of reliable transportation kept you from medical appointments, meetings, work or from getting things needed for daily living?: No Physical Activity: Insufficiently Active (06/22/2025) Exercise Vital Sign Days of Exercise per Week: 3 days Minutes of Exercise per Session: 40 min Stress: No Stress Concern Present (06/22/2025) [employer] [place] [employer] - Occupational Stress Questionnaire Feeling of Stress: Not at all documented in this encounter ED Notes * Penny Montalvo RN - 06/21/2025 7:23 PM EDT Attempted interview with patient, however, s/o at bedside answering all questions and would not allow patient to speak for himself; all subjective assessment information came from s/o and not patient * Willard Rhodes MD - 06/21/2025 6:13 PM EDT CHIEF COMPLAINT Chief Complaint Patient presents with Fever Fever for 24 hours. Issues with urinary retention HPI Kim Hilario is a 54 y.o. male who presents for evaluation REVIEW OF SYSTEMS See HPI for further details. Review of systems otherwise negative. PAST MEDICAL HISTORY Past Medical History[1] FAMILY HISTORY Family History[2] SOCIAL HISTORY Social History[3] SURGICAL HISTORY Surgical History[4] CURRENT MEDICATIONS Current Medications[5] ALLERGIES Allergies[6] PHYSICAL EXAM VITAL SIGNS: BP (!) 135/109 (BP Location: Right arm, Patient Position: Sitting) Pulse 80 Temp 99.9 ??F (37.7 ??C) (Oral) Resp (!) 25 SpO2 92% Constitutional: Well developed, Well nourished, No acute distress, Non-toxic appearance. HENT: Normocephalic, Atraumatic, Bilateral external ears normal, Oropharynx moist, No oral exudates, Nose normal. Eyes: PERRLA, EOMI, Conjunctiva normal, No discharge. Neck: Normal range of motion, No tenderness, Supple, No stridor. Lymphatic: No lymphadenopathy noted. Cardiovascular: Normal heart rate, Normal rhythm, No murmurs, No rubs, No gallops. Thorax & Lungs: Normal breath sounds, No respiratory distress, No wheezing, No chest tenderness. Abdomen: Soft, no guarding or rebound Skin: Warm, Dry, No erythema, No rash. Back: No tenderness, No CVA tenderness. Extremities: Intact distal pulses, No edema, No tenderness, No cyanosis, No clubbing. Neurologic: Alert & oriented x 3, Normal motor function, Normal sensory function, No focal deficits noted. EKG Preliminary EKG reading by Willard Rhodes. Sinus rhythm, rate 112, no acute diagnostic ischemic orinjury change RADIOLOGY/PROCEDURES Results for orders placed or performed during the hospital encounter of 06/21/25 BLOOD CULTURE (NO STAIN) Specimen: Blood, Venous Result Value Ref Range Culture Result Blood culture received for processing in the laboratory. Positives will be reported immediately. BLOOD CULTURE (NO STAIN) Specimen: Blood, Venous Result Value Ref Range Culture Result Blood culture received for processing in the laboratory. Positives will be reported immediately. [id number] A/B Specimen: Nares; Swab Result Value Ref Range CORONAVIRUS [id number] Not Detected Not Detected Influenza A DNA Not Detected Not Detected Influenza B DNA Not Detected Not Detected STREP A DNA Specimen: Throat; Swab Result Value Ref Range Strep A DNA Not Detected Not Detected Narrative The [employer] Strep A assay utilizes nucleic acid purification and polymerase chain reaction (PCR)technology to detect Streptococcus pyogenes by targeting a segment of the Streptococcus pyogenes genome. CEREBROSPINAL FLUID CULTURE (STAIN INCLUDED) Specimen: Lumbar Puncture; Cerebrospinal Fluid Result Value Ref Range Stain Rare WBCs Stain No organisms seen XR CHEST AP PORTABLE Narrative XR CHEST AP PORTABLE, 06/21/2025 7:54 PM CLINICAL HISTORY: -sepsis COMPARISON: None. PROCEDURE COMMENTS: AP portable technique. FINDINGS: Support devices: No visible support devices. Heart and mediastinal contours within normal limits for technique. No active failure, pneumonia, or visible effusion. No visible pneumothorax. Impression No acute finding. - Note: Radiology results need to be interpreted within a comprehensive clinical context. If you have questions about the radiology report, please contact the office of the ordering clinician. CT HEAD WO CONTRAST Narrative CT HEAD WO CONTRAST 06/21/2025 8:44 PM CLINICAL HISTORY: -stroud. COMPARISON: CT sinuses limited 03/12/2025 PROCEDURE COMMENTS: Routine noncontrast head CT with multiplanar reconstructions. Dose 1 : CT DLP Total : 1088.03 mGycm DLP Spiral Max : 1085.1 mGycm Maximum CTDI Vol : 54.2 mGy FINDINGS: HEMORRHAGE: No evidence of acute intracranial hemorrhage. MASS EFFECT / MASS LESION: No mass effect. There is no evidence of an intracranial mass or extraaxial fluid collection. ACUTE ISCHEMIC CHANGE: None. CHRONIC ISCHEMIC CHANGE: None. PARENCHYMA: The brain parenchyma is otherwise within normal limits for age. VENTRICLES: Normal caliber and morphology. OTHER: The visualized calvarium, skull base, orbits and extracranial soft tissues are normal. There is mild chronic mucosal thickening involving the ethmoid and maxillary sinuses. Minimal chronic mucosal thickening involving the left sphenoid sinus. Frontal sinuses are not pneumatized. Mastoid air cells are grossly clear. Impression No acute intracranial abnormality. - Note: Radiology results need to be interpreted within a comprehensive clinical context. If you have questions about the radiology report, please contact the office of the ordering clinician. UA W/REFLEX TO CULTURE Specimen: Urine, Clean Catch Narrative The following orders were created for panel order UA W/REFLEX TO CULTURE. Procedure Abnormality Status --------- ------ URINALYSIS REFLEX[[id number]] Abnormal Final result EXTRA [place] URINE CX[[id number]] Final result Please view results for these tests on the individual orders. URINALYSIS REFLEX Result Value Ref Range UA Color Yellow UA Appear Clear Clear UA Glucose 4+ (>1000mg/dL) (A) Negative mg/dL UA Ketones Negative Negative mg/dL UA Blood Trace (0.03 mg/dL) (A) Negative UA pH 7.5 5.0 - 8.0 pH UA Protein Trace (10-20 mg/dL) Negative mg/dL UA Urobilinogen 1+ (2-3 mg/dL) (A) <=1 mg/dL UA Bili Negative Negative UA Nitrite Negative Negative UA Leuk Est Negative Negative UA Spec Grav 1.031 1.001 - 1.035 no units UA WBC 1 0 - 4 /HPF UA RBC 11 (H) 0 - 3 /HPF UA Bacteria Trace (A) Negative /HPF CBC WITH DIFF Result Value Ref Range WBC 13.4 (H) 3.7 - 10.3 x10(3)/mcL RBC 4.96 4.60 - 6.10 x10(6)/mcL Hgb 15.6 13.7 - 17.5 g/dL Hct 45.0 40.0 - 51.0 % MCV 90.7 80.0 - 100.0 fL MCH 31.5 26.0 - 34.0 pg MCHC 34.7 30.7 - 35.5 g/dL RDW 13.7 <=14.9 % Platelet 253 155 - 369 x10(3)/mcL MPV 10.7 8.8 - 12.5 fL Neut Percent 94.4 % Imm Gran% 0.3 % Lymph Percent 2.8 % Dolores Percent 2.4 % Eos Percent 0.0 % Baso Percent 0.1 % Neut # 12.7 (H) 1.6 - 6.1 x10(3)/mcL IMMGRAN# 0.0 0.0 - 0.1 x10(3)/mcL Lymph # 0.4 (L) 1.2 - 3.9 x10(3)/mcL Dolores # 0.3 0.3 - 0.9 x10(3)/mcL Eos# 0.0 0.0 - 0.5 x10(3)/mcL Baso # 0.0 0.0 - 0.1 x10(3)/mcL COMPREHENSIVE METABOLIC PANEL Result Value Ref Range Sodium 127 (L) 136 - 145 mmol/L Potassium 3.9 3.5 - 5.0 mmol/L Chloride 97 (L) 98 - 107 mmol/L Total CO2 21 (L) 22 - 29 mmol/L Anion Gap 9 7 - 16 mmol/L Calcium 8.6 8.6 - 10.4 mg/dL Glucose Lvl 168 (H) 70 - 99 mg/dL BUN 16 6 - 20 mg/dL Creatinine 0.93 0.67 - 1.30 mg/dL Albumin 3.5 3.5 - 5.2 gm/dL Total Protein 6.0 (L) 6.4 - 8.3 gm/dL Bili Total 2.0 (H) 0.2 - 1.4 mg/dL ALT 165 (H) <=41 U/L AST 135 (H) <=40 U/L Alk Phos 105 40 - 129 U/L eGFR (CKD-EPIcr 2020) 99 >=60 mL/min/1.73 m2 LACTIC ACID Result Value Ref Range Lactic Acid 2.9 (H) 0.5 - 1.9 mmol/L PROCALCITONIN Result Value Ref Range Procalcitonin 1.82 (H) <=0.49 ng/mL Narrative Procalcitonin <0.50 ng/mL: Procalcitonin levels below 0.50 ng/mL on the first day of ICU admission represent a low risk for progression to severe sepsis and/or septic shock Procalcitonin >=0.50 ng/mL and <=2.00 ng/mL: If the procalcitonin measurement is performed shortly after the systemic infection process has started (usually less than 6 hours), this value may still be low. As various non-infectious conditions are known to induce procalcitonin as well, procalcitonin levels between 0.50 ng/mL and 2.00 ng/mL should be reviewed carefully to take into account the specific clinical background and condition(s) of the patient. Procalcitonin >2.00 ng/mL: Procalcitonin levels above 2.00 ng/mL on the first day of ICU admission represent a high risk for progression to severe sepsis and/or septic shock. BLOOD GAS, VENOUS Result Value Ref Range pH Venous 7.39 7.32 - 7.42 pH pCO2 Venous 43 41 - 51 mmHg pO2 Venous <42 (H) 25 - 40 mmHg Base Excess Ike 0.7 mmol/L Hco3 Venous 25.5 24.0 - 28.0 mmol/L CO2 Total Ike 22 (L) 25 - 29 mmol/L O2 Sat. Venous 62.4 40.0 - 70.0 % Inspired O2 RA REPEAT LACTIC ACID Result Value Ref Range Lactic Acid 2.2 (H) 0.5 - 1.9 mmol/L CSF ANALYSIS: CELL COUNT W/REFLEX, GLUCOSE AND PROTEIN Narrative The following orders were created for panel order CSF ANALYSIS: CELL COUNT W/REFLEX, GLUCOSE AND PROTEIN. Procedure Abnormality Status --------- ------ CSF CELL COUNT WITH DIFF[[id number]] Final result GLUCOSE CEREBROSPINAL FLUID[[id number]] Abnormal Final result PROTEIN CEREBROSPINAL FLUID[[id number]] Abnormal Final result Please view results for these tests on the individual orders. CSF CELL COUNT WITH DIFF Result Value Ref Range CSF Tube Num 4 number CSF Color Colorless Colorless color CSF Appear Clear Clear appearance CSF RBC 0 <=0 /mcL CSF Total Nucleated Cells 2 0 - 5 /mcL GLUCOSE CEREBROSPINAL FLUID Result Value Ref Range Glucose CSF 102 (H) 40 - 70 mg/dL PROTEIN CEREBROSPINAL FLUID Result Value Ref Range Protein CSF 62 (H) 15 - 45 mg/dL EK EKG 12 LEAD Narrative NOTICE: Preliminary tracing available for review; Final Interpretation by physician to follow. Impression 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 (See chart for details) Patient presents to the ED for evaluation. Is here with . Started with fever yesterday evening.Has been having issues with urinary frequency urgency hesitancy for the last week or longer. No nausea or vomiting. No diarrhea. No abdominal pain. Denies cough or congestion. Does complain of back pain and does state headache. No known exposures. No IV drug use or recreational drug use. Has been alternating Motrin and Tylenol throughout the day today. Last dose of Motrin around 5:30 PM. Last dose of Tylenol around 3 PM. Patient slightly hypertensive. Neck is supple without meningeal signs. Lungs clear. No consolidation. Heart is regular and tachycardic. Patient feels warm. Axillary temperature of 101.5. Does states some CVA tenderness bilaterally. No spinal tenderness. Abdomen is soft and nontender. Good perfusion. Alert and nonlateralizing. EMR reviewed. Patient admitted back in March with history of opiate withdrawal. History of type 2 diabetes and hypertension. Patient's urinalysis really not consistent with infection. White count elevated at 13. Lactic acid elevated 2.9. Chest x-ray without evidence of airspace disease changes or consolidation. In talking to patient, he states headache began yesterday evening. Headache is frontal and throbbing. Headache came on suddenly. Feels like this is the worst headache he has had. He is not meningitic as far as neck stiffness goes. He has a nonlateralizing neurologic exam. Will go ahead and proceed with CT imaging and then lumbar puncture. He does have a history of migraines so we will give him migraine cocktail including intravenous Compazine and Benadryl. CT imaging obtained. Unremarkable. Patient continues to complain of significant headache. No known contraindications to lumbar puncture. Risk and benefits discussed and patient consented. Patient's did sign consent for patient. All questions answered. 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 Patient has had prior spinal fusion. There is a scar in the lumbar area. Will go ahead and attempt procedure at the superior end of the scar Lumbar Puncture Procedure Note Indication: to obtain spinal fluid for diagnostic testing Consent: The patient and counseled regarding the procedure, it's indications, risks, potentialcomplications and alternatives and any questions were answered. Consent was obtained. Timeout performed per policy and procedure. Procedure: The patient was placed in the sitting, supported by bed side stand, position and the appropriate landmarks were identified. The area was prepped and draped in the usual sterile fashion. Anesthesia was obtained using 4 cc of 1% Lidocaine without epinephrine. A spinal needle was inserted at the L2- L3 level with the stylet in place until spinal fluid was returned. Opening pressure was not measured. At this point 5.0 cc of clear cerebral spinal fluid was obtained and sent for appropriate testing. The stylet was then replaced and the needle was withdrawn. A sterile dressing was placed over the site and the patient was placed in the supine position. The patient tolerated the procedure well. Complications: None 10:[address] imaging. Lumbar puncture results pending. Fluid was clear. Patient does not have a rash or history of rash. No joint pains. No known tick exposure. No petechiae. Does have hyponatremia and some increased liver functions. Will go ahead and send Lyme's disease titers and [place] spotted fever titers. Disposition will be admission. Antibiotic choice pending CT imaging results and lumbar puncture results. Abdomen remains benign. Will go ahead and give a dose of doxycycline for possible Lyme/[place] spotted fever coverage, though no known tick exposure and no rash and no joint pains to go along with this diagnosis Patient spinal fluid is unremarkable and not consistent with meningitis. CT imaging of chest abdomen pelvis pending. If shows source of fever, will cover for source. Otherwise we will cover with broad-spectrum antibiotics for fever without a source pending cultures. Will ask oncoming ED physician to follow-up on CT imaging results. FINAL IMPRESSION 1. Febrile illness 2. Frontal headache 3. Elevated liver enzymes Critical care was administered to the patient for 40 minutes. This time excludes procedure time. This chart was completed using voice recognition technology and may contain unintended errors [1] History reviewed. No pertinent past medical history. [2] Family History Problem Relation Age of Onset Macular Degen Paternal Grandfather Cataracts Neg Hx Glaucoma Neg Hx [3] Social History Socioeconomic History Marital status: Spouse name: None Number of children: None Years of education: None Highest education level: None Tobacco Use Smoking status: Every Day Current packs/day: 0.50 Types: Cigarettes Smokeless tobacco: Never Vaping Use Vaping status: Never Used Substance and Sexual Activity Alcohol use: No Drug use: Not Currently Social Drivers of Health Financial Resource Strain: Medium Risk (03/13/2025) Overall Financial Resource Strain (CARDIA) Difficulty of Paying Living Expenses: Somewhat hard Food Insecurity: Food Insecurity Present (03/13/2025) Hunger Vital Sign Worried About Running Out of Food in the Last Year: Sometimes true Ran Out of Food in the Last Year: Sometimes true Transportation Needs: No Transportation Needs (03/13/2025) [place] IP Transportation In the past 12 months, has lack of reliable transportation kept you from medical appointments, meetings, work or from getting things needed for daily living?: No Physical Activity: Inactive (03/13/2025) Exercise Vital Sign Days of Exercise per Week: 0 days Minutes of Exercise per Session: 0 min Stress: Stress Concern Present (03/13/2025) [employer] [place] [employer] - Occupational Stress Questionnaire Feeling of Stress : Rather much [4] Past Surgical History: Procedure Laterality Date BACK SURGERY x5 times CARPAL TUNNEL RELEASE [5] No current facility-administered medications for this encounter. Current Outpatient Medications: onfeuuh-socpznctlblsr-ufixmhjn (EXCEDRIN MIGRAINE) 250-250-65 mg Oral Tablet, Take 1 Tab by mouth every 6 hours as needed for Pain., Disp: , Rfl: dextroamphetamine-amphetamine (ADDERALL) 15 mg Oral Tablet, Take 1 Tablet by mouth daily., Disp: 7 Tablet, Rfl: 0 diphenhydrAMINE (BENADRYL) 50 mg/mL Inj Syringe, INJECT 1 ML (CC) INTRAMUSCULARLY ONCE DAILY NEEDED FOR MIGRAINE, Disp: 10 mL, Rfl: 0 fluticasone propionate (FLONASE) 50 mcg/actuation Nasl [place], Suspension, 1 [place] in each nostril 2times daily., Disp: 16 g, Rfl: 0 ibuprofen (ADVIL;MOTRIN) 200 mg Oral Tablet, Take by mouth every 8 hours as needed for Pain., Disp:, Rfl: losartan (COZAAR) 50 mg Oral Tablet, Take 50 mg by mouth daily. Indications: high blood pressure, Disp: , Rfl: Syringe with Needle, Safety 3 mL 22 gauge x 1 1/2 Misc Syringe, Use one syringe for each Toradol injection dose., Disp: 3 Syringe, Rfl: 3 traZODone (DESYREL) 50 mg Oral Tablet, Take 1-3 Tablets by mouth nightly as needed for Sleep for upto 5 doses., Disp: 5 Tablet, Rfl: 0 [6] No Known Allergies Willard Rhodes MD 06/21/25 [id number] documented in this encounter Miscellaneous Notes * Utilization Review Notes - Lyssa Pearson RN - 06/23/2025 3:07 PM EDT Images from the original note were not included. Inpatient 06/23/2025. Observation 06/22/2025. Cont stay, Med Surg. Rocephin IV daily. IVF 125 ml/hr. Per Hospitalist MD note today: Assessment & Plan Febrile illness SIRS (systemic inflammatory response syndrome) (HCC) Continue broad-spectrum IV antibiotics Concern for cystitis and/or pyelonephritis Continue IV fluids LP does not appear infectious Elevated lactic acid, heart rate, respiration, white blood cell count Negative COVID and flu Blood cultures with no growth to date 24 hours Strep negative CSF fluid negative for organisms Hyponatremia Recheck tomorrow Possibly infectious induced Sodium back up to 135 Elevated LFTs Acute hepatitis panel ordered: Negative LFTs improving after IV fluids Other specified attention deficit hyperactivity disorder (ADHD) Reorder patient's home medication Discussed with pharmacy and adjustments made Diet: Regular Diet Code Status: Full Code Handoff Completed: No Disposition Perspective - Medically ready for discharge: No Anticipated ready for discharge timeframe?: 2 days Ready for discharge when / if?: Patient feeling improved Estimated Date of Discharge: 06/24/2025 . * Utilization Review Notes - Lyssa Pearson RN - 06/23/2025 1:21 PM EDT Images from the original note were not included. Observation 06/22/2025. Cont stay, Med Surg. Rocephin IV daily. IVF 125 ml/hr. Per Hospitalist H&P: Assessment & Plan Febrile illness SIRS (systemic inflammatory response syndrome) (HCC) Continue broad-spectrum IV antibiotics Await blood and urine cultures Concern for cystitis and/or pyelonephritis Continue IV fluids LP does not appear infectious Elevated lactic acid, heart rate, respiration, white blood cell count Hyponatremia Recheck tomorrow Possibly infectious induced Elevated LFTs Acute hepatitis panel ordered Recheck tomorrow Other specified attention deficit hyperactivity disorder (ADHD) Reorder patient's home medication . * Utilization Review Notes - Venessa Oneal RN - 06/22/2025 8:28 AM EDT ADMITTED OBSERVATION ON 06/22 ADMIT TO MED SURG FOR FEBRILE ILLNESS, FRONTAL HEADACHE, ELEVATED LIVER ENZYMES OBS ORDER ON CHART, EM PT WITH FEVER X 24HRS FRONTAL H/A, CAME ON SUDDENLY CT UNREMARKABLE LP OBTAINED PENDING WORKUP FOR LYME/JANELLE MOUNTAIN SPOTTED FEVER TMAX 99.9 IV ROCEPHIN BID IV BENADRYL X 1 IV TORADOL X 1 NS 3L BOLUS X 1 IV MORPHINE X 1 IV COMPAZINE X 1 IV VANCOMYCIN X 1 LA 2.9, 2.2, 0.9 WBC 13.4 NA 127 ALT 165 AST 135 BILI TOTAL 2.0 PROCALCITONIN 1.82 CC FOLLOWING FOR DC NEEDS documented in this encounter Plan of Treatment Pending Results Name Type Priority Associated Diagnoses Date /Time ECG AND WAVEFORMS - TELEMETRY Point of Care Testing Routine 06/22/2025 10:07 AM EDT Scheduled Orders Name Type Priority Associated Diagnoses Orde r Schedule UROBILINOGEN URINE Lab Routine Routin e - Once for 1 Occurrences starting 06/23/2025 until 06/23/2025 Scheduled Referrals Name Type Priority Associated Diagnoses Orde r Schedule AMB REFERRAL TO TOBACCO CESSATION PROGRAM Outpatient Referral Routine Ordered: 06/22/2025 documented as of this encounter Procedures Procedure Name Priority Date/Time Associated Diagnosis Comments URINALYSIS REFLEX Routine 06/23/2025 4:3 5 PM EDT DRUG CONFIRMATION, OPIATES - URINE Routine 06/23/2025 4:35 PM EDT DRUG CONFIRMATION, BUPRENORPHINE AND METAB - URINE Routine 06/23/2025 4:35 PM EDT DRUG CONFIRMATION, AMPHETAMINES - URINE Routine 06/23/2025 4:35 PM EDT UA W/REFLEX TO CULTURE Routine 4:35 PM EDT EXTRA MCKEON URINE CX Routine 06/23/2025 4 :35 PM EDT DRUGS OF ABUSE WITH REFLEX TO CONFIRMATION, URINE Routine 06/23/2025 4:35 PM EDT ALBUMIN/CREATININE RATIO, RANDOM URINE Routine 06/23/2025 4:35 PM EDT SODIUM LEVEL URINE Routine 06/23/2025 4: 35 PM EDT PROTEIN LEVEL URINE Routine 06/23/2025 4 :35 PM EDT POTASSIUM LEVEL URINE Routine 06/23/2025 4:35 PM EDT OSMOLALITY URINE Routine 06/23/2025 4:35 PM EDT CREATININE LEVEL URINE Routine 4:35 PM EDT ADMIT Routine 06/23/2025 3:11 PM EDT IP CONSULT TO PHARMACY Routine 11:55 AM EDT VANCOMYCIN LEVEL AUC1 Timed 06/23/2025 10:12 AM EDT CREATINE KINASE Add-On 06/23/2025 10:12 AM EDT ECG AND WAVEFORMS - TELEMETRY Routine 06/23/2025 7:12 AM EDT ACUTE HEPATITIS PANEL Early AM 06/23/2025 5:09 AM EDT CBC WITH DIFF Early AM 06/23/2025 5:09 AM EDT COMPREHENSIVE METABOLIC PANEL Early AM 06/23/2025 5:09 AM EDT MRI LUMBAR SPINE W WO CONTRAST MERLYN 06/22/2025 11:02 PM EDT ECG AND WAVEFORMS - TELEMETRY Routine 06/22/2025 7:18 PM EDT ECG AND WAVEFORMS - TELEMETRY Routine 06/22/2025 5:36 PM EDT IP CONSULT TO PHARMACY Routine 3:56 PM EDT ECG AND WAVEFORMS - TELEMETRY Routine 06/22/2025 10:07 AM EDT ECG AND WAVEFORMS - TELEMETRY Routine 06/22/2025 7:31 AM EDT REPEAT LACTIC ACID STAT 06/22/2025 2: 19 AM EDT IP CONSULT TO PASTORAL CARE Routine 06/22/2025 1:43 AM EDT ECG AND WAVEFORMS - TELEMETRY Routine 06/22/2025 1:41 AM EDT ADMIT Routine 06/22/2025 12:[address] CHEST ABDOMEN PELVIS WO ORAL WITH IV CONTRAST STAT 06/21/2025 10:44 PM EDT LYME AB TOTAL EARLY Routine 06/21/2025 1 0:34 PM EDT JANELLE MOUNTAIN SPOTTED FEVER IGG/IGM -REF LAB Routine 06/21/2025 10:34 PM EDT CSF CELL COUNT WITH DIFF STAT 06/21/2025 9:51 PM EDT CSF ANALYSIS: CELL COUNT W/REFLEX, GLUCOSE AND PROTEIN STAT 06/21/2025 9:51 PM EDT MENINGITIS/ENCEPH PANEL STAT 06/21/2025 9:51 PM EDT CEREBROSPINAL FLUID CULTURE (STAIN INCLUDED) Routine 06/21/2025 9:51 PM EDT PROTEIN CEREBROSPINAL FLUID STAT 06/21/2025 9:51 PM EDT GLUCOSE CEREBROSPINAL FLUID STAT 06/21/2025 9:51 PM EDT REPEAT LACTIC ACID STAT 06/21/2025 9: [address] HEAD WO CONTRAST STAT 06/21/2025 8 :44 PM EDT PROCALCITONIN STAT 06/21/2025 8:10 PM EDT COMPREHENSIVE METABOLIC PANEL STAT 06/21/2025 8:10 PM EDT XR CHEST AP PORTABLE MERLYN 06/21/2025 7:54 PM EDT STREP A DNA Routine 06/21/2025 7:34 PM EDT BLOOD GAS, VENOUS STAT 06/21/2025 7:3 1 PM EDT BLOOD CULTURE (NO STAIN) STAT 06/21/2025 7:31 PM EDT [id number] A/B Routine 06/21/2025 7:2 8 PM EDT BLOOD CULTURE (NO STAIN) STAT 06/21/2025 7:26 PM EDT CBC WITH DIFF STAT 06/21/2025 7:22 PM EDT LACTIC ACID STAT 06/21/2025 7:22 PM EDT EK EKG 12 LEAD STAT 06/21/2025 7:05 PM EDT SALINE LOCK IV STAT 06/21/2025 7:05 PM EDT URINALYSIS REFLEX STAT 06/21/2025 7:0 1 PM EDT UA W/REFLEX TO CULTURE STAT 7:01 PM EDT EXTRA MCKEON URINE CX STAT 06/21/2025 7 :01 PM EDT documented in this encounter Results * (ABNORMAL) DRUG CONFIRMATION, OPIATES - URINE (06/23/2025 4:35 PM EDT) 6-Monoacetylmorphi ne (6MAM) <10 Cutoff 10 ng/mL ng/mL 06/25/2025 1:55 PM EDT [facility] Hydrocodone <50 Cutoff 50 ng/mL ng/mL 06/25/2025 1:55 PM EDT [facility] Dihydrocodeine <50 Cutoff 50 ng/mL ng/mL 06/25/2025 1:55 PM EDT [facility] Norhydrocodone <50 Cutoff 50 ng/mL ng/mL 06/25/2025 1:55 PM EDT [facility] Hydromorphone <50 Cutoff 50 ng/mL ng/mL 06/25/2025 1:55 PM EDT [facility] Hydromorphone Glucuronide <50 Cutoff 50 ng/mL ng/mL 06/25/2025 1:55 PM EDT [facility] Oxycodone 345(H) Cutoff 50 ng/mL ng/mL 06/25/2025 1:55 PM EDT [facility] Noroxycodone 1,167(H) Cutoff 50 ng/mL ng/mL 06/25/2025 1:55 PM EDT [facility] Oxymorphone <50 Cutoff 50 ng/mL ng/mL 06/25/2025 1:55 PM EDT [facility] Oxymorphone Glucuronide 180(H) Cutoff 50 ng/mL ng/mL 06/25/2025 1:55 PM EDT [facility] Noroxymorphone <50 Cutoff 50 ng/mL ng/mL 06/25/2025 1:55 PM EDT [facility] Codeine <50 Cutoff 50 ng/mL ng/mL 06/25/2025 1:55 PM EDT [facility] Codeine Glucuronide <50 Cutoff 50 ng/mL ng/mL 06/25/2025 1:55 PM EDT [facility] Morphine <50 Cutoff 50 ng/mL ng/mL 06/25/2025 1:55 PM EDT [facility] Crldnejk-6-Nlhqzve nide <25 Cutoff 25 ng/mL ng/mL 06/25/2025 1:55 PM EDT [facility] Cxkkbfvu-1-Vctbemc nide <25 Cutoff 25 ng/mL ng/mL 06/25/2025 1:55 PM EDT [facility] Urine STRUCTURE OF URINARY TRACT PROPER / Unknown 06/23/2025 4:35 PM EDT 06/23/2025 4:43 PM EDT Shaan Gomez MD URINE ORDERABLES Final Result [facility] [address] [facility] , [place] [address] * (ABNORMAL) DRUG CONFIRMATION, BUPRENORPHINE AND METAB - URINE (06/23/2025 4:35 PM EDT) Buprenorphine <5 Cutoff 5 ng/mL ng/mL 06/25/2025 1:55 PM EDT [facility] Buprenorphine Glucuronide 25(H) Cutoff 10 ng/mL ng/mL 06/25/2025 1:55 PM EDT [facility] Norbuprenorphine <5 Cutoff 5 ng/mL ng/mL 06/25/2025 1:55 PM EDT [facility] Norbuprenorphine Glucuronide 30(H) Cutoff 10 ng/mL ng/mL 06/25/2025 1:55 PM EDT [facility] Naloxone <25 Cutoff 25 ng/mL ng/mL 06/25/2025 1:55 PM EDT [facility] Urine STRUCTURE OF URINARY TRACT PROPER / Unknown 06/23/2025 4:35 PM EDT 06/23/2025 4:43 PM EDT Shaan Gomez MD URINE ORDERABLES Final Result [facility], [facility] [address] [facility] , [place] [address] * (ABNORMAL) DRUG CONFIRMATION, AMPHETAMINES - URINE (06/23/2025 4:35 PM EDT) Amphetamine >2,000(H) Cutoff 50 ng/mL ng/mL 06/25/2025 1:55 PM EDT [facility] Methamphetamine <50 Cutoff 50 ng/mL ng/mL 06/25/2025 1:55 PM EDT [facility] MDA <50 Cutoff 50 ng/mL ng/mL 06/25/2025 1:55 PM EDT [facility] MDMA <50 Cutoff 50 ng/mL ng/mL 06/25/2025 1:55 PM EDT [facility] MDEA <50 Cutoff 50 ng/mL ng/mL 06/25/2025 1:55 PM EDT [facility] Phentermine <50 Cutoff 50 ng/mL ng/mL 06/25/2025 1:55 PM EDT [facility] Urine STRUCTURE OF URINARY TRACT PROPER / Unknown 06/23/2025 4:35 PM EDT 06/23/2025 4:43 PM EDT us Shaan Gomez MD URINE ORDERABLES Final Result [facility], [facility] [address] [facility] , [place] [address] * EXTRA MCKEON URINE CX (06/23/2025 4:35 PM EDT) Urine STRUCTURE OF URINARY TRACT PROPER / Unknown 06/23/2025 4:35 PM EDT 06/23/2025 4:43 PM EDT us Shaan Gomez MD MICROBIOLOGY - GENERAL ORDERABLE S Final Result [facility] [address] [place] [id number] * (ABNORMAL) URINALYSIS REFLEX (06/23/2025 4:35 PM EDT) UA Color Yellow 06/23/2025 5:10 PM EDT [facility] UA Appear Cloudy(A) Clear 06/23/2025 5:10 PM EDT [facility] UA Glucose 1+ (70-100 mg/dL)(A) Negative mg/dL 06/23/2025 5:10 PM EDT [facility] UA Ketones Negative Negative mg/dL 06/23/2025 5:10 PM EDT [facility] UA Blood Negative Negative 06/23/2025 5:10 PM EDT [facility] UA pH 7.0 5.0 - 8.0 pH 06/23/2025 5:10 PM EDT [facility] UA Protein Negative Negative mg/dL 06/23/2025 5:10 PM EDT [facility] UA Urobilinogen Normal <=1 mg/dL 5:10 PM EDT [facility] UA Bili Positive(A) Negative 06/23/2025 5:10 PM EDT [facility] UA Nitrite Negative Negative 06/23/2025 5:10 PM EDT [facility] UA Leuk Est Negative Negative 06/23/2025 5:10 PM EDT [facility] UA Spec Grav 1.012 1.001 - 1.035 no units 06/23/2025 5:10 PM EDT [facility] Comment:Reference range bernadette d for random specimens only. UA WBC 1 0 - 4 /HPF 06/23/2025 5:10 PM EDT [facility] UA RBC 2 0 - 3 /HPF 06/23/2025 5:10 PM EDT [facility] UA Bacteria Trace(A) Negative /HPF 06/23/2025 5:10 PM EDT [facility] Urine STRUCTURE OF URINARY TRACT PROPER / Unknown 06/23/2025 4:35 PM EDT 06/23/2025 4:43 PM EDT Shaan Gomez MD URINE ORDERABLES Final Result [facility] [address] [facility] , [place] [address] * (ABNORMAL) DRUGS OF ABUSE WITH REFLEX TO CONFIRMATION, URINE (06/23/2025 4:35 PM EDT) 6 AM (Heroin) Absent Cutoff 10 ng/mL 06/23/2025 5:18 PM EDT [facility] Amphetamines Presumptive Pos(A) Cutoff 500 ng/mL 06/23/2025 5:18 PM EDT [facility] Barbiturates Absent Cutoff 200 ng/mL 06/23/2025 5:18 PM EDT [facility] Benzodiazepines Absent Cutoff 200 ng/mL 06/23/2025 5:18 PM EDT [facility] Buprenorphine Presumptive Pos(A) Cutoff 5 ng/mL 06/23/2025 5:18 PM EDT [facility] Cannabinoid Metabolite Absent Cutoff 50 ng/mL 06/23/2025 5:18 PM EDT [facility] Cocaine Metabolite Absent Cutoff 150 ng/mL 06/23/2025 5:18 PM EDT [facility] Fentanyl Absent Cutoff 5 ng/mL 06/23/2025 5:18 PM EDT [facility] Methadone and Metabolite Absent Cutoff 300 ng/mL 06/23/2025 5:18 PM EDT [facility] Opiate Absent Cutoff 300 ng/mL 06/23/2025 5:18 PM EDT [facility] Oxycodone Lvl Presumptive Pos(A) Cutoff 100 ng/mL 06/23/2025 5:18 PM EDT [facility] Urine Creatinine 55.0 mg/dL 06/23/20 25 5:18 PM EDT [facility] Comment: Greater than 20: Consistent with valid sample Greater than 2 but less than 20: Possible dilution Less than 2: Questionable valid sample Urine STRUCTURE OF URINARY TRACT PROPER / Unknown 06/23/2025 4:35 PM EDT 06/23/2025 4:43 PM EDT Narrative [facility] [employer] - 06/23/2025 5:18 PM EDT These drug classes have been qualitatively screened by immunoassay and are for medical purposes only. Results should not be used for non-medical purposes. Results reported as presumptive positive will be sent for confirmation. Due to possible factors, such as, dilute/adulterated urine, concentration of drug/metabolite being below the cut-off, or antibody specificity of test reagent, a negative result does not rule out drug use. These results are only valid for urine specimens. Any contamination with vaginal pool/amniotic fluid could cause erroneous results. Result Senait Gomez MD URINE ORDERABLES Final Result Performing Organization Address [facility] de Phone Number [employer] [address] [place] [address] , [place] [address] * SODIUM LEVEL URINE (06/23/2025 4:35 PM EDT) Urine Sodium 76 mmol/L 06/23/2025 5:05 PM EDT [employer] Urine STRUCTURE OF URINARY TRACT PROPER / Unknown 06/23/2025 4:35 PM EDT 06/23/2025 4:43 PM EDT Result Senait Gomez MD URINE ORDERABLES Final Result Performing Organization Address [facility] Co de Phone Number [facility] [employer] [address] [place] [address] , [place] [address] * POTASSIUM LEVEL URINE (06/23/2025 4:35 PM EDT) Urine Potassium 23.3 mmol/L 5:18 PM EDT [facility] [employer] Urine STRUCTURE OF URINARY TRACT PROPER / Unknown 06/23/2025 4:35 PM EDT 06/23/2025 4:43 PM EDT Result Senait Gomez MD URINE ORDERABLES Final Result Performing Organization Address [facility] Co de Phone Number [facility] [employer], [facility] [address] [facility] , [place] [address] * MICROALBUMIN/CREATININE RATIO URINE (06/23/2025 4:35 PM EDT) Urine Albumin 14.1 mg/L 06/23/2025 5:18 PM EDT [facility] [employer], [facility] Urine Creatinine 55.0 mg/dL 06/23/2025 5:18 PM EDT [facility] [employer], [facility] Ur Albumin/Creat Ratio 26 0 - 30 mg/g 06/23/2025 5:18 PM EDT [facility] [employer] [employer], [facility] Urine STRUCTURE OF URINARY TRACT PROPER / Unknown 06/23/2025 4:35 PM EDT 06/23/2025 4:43 PM EDT Shaan Gomez MD URINE ORDERABLES Final Result Performing Organization Address [facility] de Phone Number [facility] [employer] [employer], [facility] [address] [facility] , [place] [address] * OSMOLALITY URINE (06/23/2025 4:35 PM EDT) Urine Osmolality 376 50 - 1,400 mOsm/kg 06/23/2025 6:26 PM EDT [facility] [employer], [facility] Urine STRUCTURE OF URINARY TRACT PROPER / Unknown 06/23/2025 4:35 PM EDT 06/23/2025 4:43 PM EDT Narrative [facility] [employer], [facility] - 06/23/2025 6:26 PM EDT Normal Range: 50 mOSM/kg during maximum water diuresis to 1400 mOSM/kg during maximum urinary concentration. Reference range valid for random specimens only. us Shaan Gomez MD URINE ORDERABLES Final Result Performing Organization Address [facility] Co de Phone Number [facility] [employer], [facility] [address] [facility] , [place] [address] * CREATININE LEVEL URINE (06/23/2025 4:35 PM EDT) Urine Creatinine 55.0 mg/dL 06/23/2025 5:18 PM EDT [facility] [employer] Urine STRUCTURE OF URINARY TRACT PROPER / Unknown 06/23/2025 4:35 PM EDT 06/23/2025 4:43 PM EDT us Shaan Gomez MD URINE ORDERABLES Final Result Performing Organization Address City/[facility]/ZIP Co de Phone Number [employer] [address] [facility] , [place] [address] * PROTEIN LEVEL URINE (06/23/2025 4:35 PM EDT) Pathologist [facility] Urine Protein 12.2 mg/dL 06/23/2025 5:18 PM EDT [employer] Urine STRUCTURE OF URINARY TRACT PROPER / Unknown 06/23/2025 4:35 PM EDT 06/23/2025 4:43 PM EDT us Shaan Gomez MD URINE ORDERABLES Final Result Performing Organization Address [facility] Co de Phone Number [employer] [facility] [address] [facility] , [place] [address] * CREATINE KINASE (06/23/2025 10:12 AM EDT) CK 61 39 - 308 U/L 06/23/2025 12:04 PM EDT [employer] Blood VENOUS BLOOD / Unknown Venipuncture / Unknown 06/23/2025 10:12 AM EDT 06/23/2025 10:15 AM EDT us Shaan Gomez MD CHEMISTRY ORDERABLES Final Resul t Performing Organization Address City/[facility] Co de Phone Number [employer] [facility] [address] [facility] , [place] [address] * VANCOMYCIN LEVEL AUC1 (06/23/2025 10:12 AM EDT) Vancomycin AUC1 4.5 mcg/mL 10:44 AM EDT [facility] [employer] [employer], [employer] Blood VENOUS BLOOD / Unknown Venipuncture / Unknown 06/23/2025 10:12 AM EDT 06/23/2025 10:15 AM EDT Shaan Gomez MD CHEMISTRY ORDERABLES Final Resul t Performing Organization Address City/[facility]/ZIP Co de Phone Number [facility] [employer], [facility] [address] [facility], [place] [address] * ECG AND WAVEFORMS - TELEMETRY (06/23/2025 7:12 AM EDT) Pathologist [facility] ECG INTERPRET NSR [facility] 06/23/2025 7:12 AM EDT Narrative [facility] - 06/23/2025 7:14 AM EDT ROUTINE/PB WI 0.13 QRS 0.10 RR 0.67 QT 0.33 QTc 0.40 See Clinical Report link for waveform capture us Unknown Provider POINT OF CARE CARDIOLOGY Final Result Performing Organization Address [facility] Co de Phone Number [facility] [address] [place] [phone] * (ABNORMAL) COMPREHENSIVE METABOLIC PANEL (06/23/2025 5:09 AM EDT) Pathologist [facility] Sodium 135(L) 136 - 145 mmol/L 06/23/2025 7:04 AM EDT [facility] Potassium 3.9 3.5 - 5.0 mmol/L 06/23/2025 7:04 AM EDT [facility] Chloride 105 98 - 107 mmol/L 06/23/2025 7:04 AM EDT [facility] Total CO2 21(L) 22 - 29 mmol/L 06/23/2025 7:04 AM EDT [facility] Anion Gap 9 7 - 16 mmol/L 06/23/2025 7:04 AM EDT [facility] Calcium 8.5(L) 8.6 - 10.4 mg/dL 06/23/2025 7:04 AM EDT [facility] Glucose Lvl 124(H) 70 - 99 mg/dL 06/23/2025 7:04 AM EDT [facility], [facility] BUN 16 6 - 20 mg/dL 06/23/2025 7:04 AM EDT [facility] Creatinine 0.94 0.67 - 1.30 mg/dL 06/23/2025 7:04 AM EDT [facility] Albumin 3.1(L) 3.5 - 5.2 gm/dL 06/23/2025 7:04 AM EDT [facility] Total Protein 5.7(L) 6.4 - 8.3 gm/dL 06/23/2025 7:04 AM EDT [facility] Bili Total 2.2(H) 0.2 - 1.4 mg/dL 06/23/2025 7:04 AM EDT [facility] ALT 100(H) <=41 U/L 06/23/2025 7:04 AM EDT [facility] AST 51(H) <=40 U/L 06/23/2025 7:04 AM EDT [facility] Alk Phos 127 40 - 129 U/L 06/23/2025 7:04 AM EDT [facility] eGFR (CKD-EPIcr 2020) 98 >=60 mL/min/1.7 3 m2 06/23/2025 7:04 AM EDT [facility] Comment:Estimated GFR was ca lculated using the CKD-EPIcr (2020) equation refit without race. The equation is recommended by the [employer] - [place] [employer]ph[employer] Task Force. Blood VENOUS BLOOD / Unknown Venipuncture / Unknown 06/23/2025 5:09 AM EDT 06/23/2025 6:31 AM EDT us Shaan Gomez MD CHEMISTRY ORDERABLES Final Resul t [facility], [facility] [address] [facility] , [place] [address] * (ABNORMAL) CBC WITH DIFF (06/23/2025 5:09 AM EDT) WBC 8.4 3.7 - 10.3 x10(3)/mcL 06/23/2025 6:42 AM EDT [facility] RBC 4.51(L) 4.60 - 6.10 x10(6)/mcL 06/23/2025 6:42 AM EDT [facility] Hgb 13.8 13.7 - 17.5 g/dL 06/23/2025 6:42 AM EDT [facility] Hct 40.5 40.0 - 51.0 % 06/23/2025 6:42 AM EDT [facility] MCV 89.8 80.0 - 100.0 fL 06/23/2025 6:42 AM EDT [facility] MCH 30.6 26.0 - 34.0 pg 06/23/2025 6:42 AM EDT [facility] MCHC 34.1 30.7 - 35.5 g/dL 06/23/2025 6:42 AM EDT [facility] RDW 14.2 <=14.9 % 06/23/2025 6:42 AM EDT [facility] Platelet 195 155 - 369 x10(3)/mcL 06/23/2025 6:42 AM EDT [facility] MPV 10.6 8.8 - 12.5 fL 06/23/2025 6:42 AM EDT [facility] Neut Percent 75.3 % 06/23/2025 6:42 AM EDT [facility] Comment:Neutrophils equals s egs plus bands Imm Gran% 0.4 % 06/23/2025 6:42 AM EDT [facility] Comment:Automated count of m etamyelocytes, myelocytes and promyelocytes. Lymph Percent 12.6 % 06/23/2025 6:42 AM EDT [facility] Dolores Percent 6.5 % 06/23/2025 6:42 AM EDT [facility] Eos Percent 5.1 % 06/23/2025 6:42 AM EDT [facility] Baso Percent 0.1 % 06/23/2025 6:42 AM EDT [facility] Neut # 6.4(H) 1.6 - 6.1 x10(3)/mcL 06/23/2025 6:42 AM EDT [facility] Comment:Neutrophils equals s egs plus bands IMMGRAN# 0.0 0.0 - 0.1 x10(3)/mcL 06/23/2025 6:[address] [facility] [place] [facility] [employer] Comment:Automated count of m etamyelocytes, myelocytes and promyelocytes. An absolute IG <0.1 is reported as 0.0. Lymph # 1.1(L) 1.2 - 3.9 x10(3)/mcL 06/23/2025 6:[address] [facility] [employer], [facility] Dolores # 0.6 0.3 - 0.9 x10(3)/mcL 06/23/2025 6:[address] [facility] [employer], [facility] Eos# 0.4 0.0 - 0.5 x10(3)/mcL 06/23/2025 6:[address] [facility] [employer], [facility] Baso # 0.0 0.0 - 0.1 x10(3)/mcL 06/23/2025 6:[address] [facility] [employer] Blood VENOUS BLOOD / Unknown Venipuncture / Unknown 06/23/2025 5:09 AM EDT 06/23/2025 6:32 AM EDT us Shaan Gomez MD HEMATOLOGY ORDERABLES Final Resu lt [facility] [employer] [address] [facility], [place] [address] * ACUTE HEPATITIS PANEL (06/23/2025 5:09 AM EDT) Hep Bs Ag Non-Reacti ve Non-React chichi 06/23/2025 7:19 AM EDT [facility] [employer], [facility] Comment:HBsAg not detected. Does not exclude possibility of exposure to HBV. Hep B Core IgM Non-Reacti ve Non-React chichi 06/23/2025 7:19 AM EDT [facility] Hep A IgM Non-Reacti ve Non-React chichi 06/23/2025 7:[address] [facility] [employer], [facility] Hep C Ab Non-Reacti ve Non-React chichi 06/23/2025 7:19 AM EDT [facility] Comment:No antibodies to HCV detected. Does not exclude possibility of exposure to HCV. Blood VENOUS BLOOD / Unknown Venipuncture / Unknown 06/23/2025 5:09 AM EDT 06/23/2025 6:32 AM EDT Narrative [facility] [employer] - 06/23/2025 7:19 AM EDT Test performed using [employer] electrochemiluminescence immunassay (ECLIA). us Shaan Gomez MD CHEMISTRY ORDERABLES Final Resul t [facility] [address] [facility] , [place] [address] * MRI LUMBAR SPINE W WO CONTRAST (06/22/2025 11:02 PM EDT) Anatomical Region Laterality Modality Spine, L-spine Magnetic Resonan ce 06/22/2025 11:0 2 PM EDT Impressions 06/23/2025 8:57 AM EDT L3-L5 posterior element inflammation is possibly degenerative. An early infectious process is thought to be less likely but is difficult to exclude. Lumbar spine degenerative changes L5-S1 fusion with lumbar spine degenerative changes superposed on a congenitally small spinal canal result in borderline high-grade canal narrowing at L3-L4. L4 and left iliac intraosseous lesions are indeterminate but without aggressive features. - Note: Radiology results need to be interpreted within a comprehensive clinical context. If you have questions about the radiology report, please contact the office of the ordering clinician. Narrative 06/23/2025 8:57 AM EDT MRI LUMBAR SPINE WITH AND WITHOUT CONTRAST, 06/22/2025 11:02 PM CLINICAL HISTORY: -concern for source of infection, worsening LBP. COMPARISON: CT abdomen pelvis 06/21/2025. PROCEDURE COMMENTS: Multiplanar multiecho MR imaging of the lumbar spine with and without gadolinium. Gadolinium contrast given as recorded in Epic. FINDINGS: Counting reference: The L4-5 disc space is at the level of the iliac crest. There are 5 lumbar type vertebra. Visualized spinal cord is unremarkable. Post treatment changes L5-S1 related to posterior fusion, interbody spacer, and left laminectomy. Edema within the lower lumbar paraspinal musculature. Additionally there is interspinous edema at L3-L5 with ill-defined enhancement. Some of this is ill-defined edema and questionable enhancement appears to involve the L4-L5 neural foramen. No disc space destruction. Mild stepwise retrolisthesis at L2-L4. No acute compression fracture. Within the right L4 pedicle and pars there is a T2 hyperintense enhancing intraosseous lesion. Additionally within the left iliac bone there is a heterogeneous intraosseous lesion with internal T1 and T2 hyperintensity. Congenitally small spinal canal. Level by level analysis: L1-L2: Unremarkable L2-L3: Mild disc space narrowing. Disc bulge narrowing the subarticular zones. Mild/moderate left neuroforaminal stenosis. Moderate canal stenosis L3-L4: Mild disc space narrowing. Disc bulge narrowing the subarticular zones. Mild right and mild/moderate left neuroforamina stenosis. Borderline severe canal stenosis L4-L5: Disc bulge narrowing the subarticular zones. Mild facet arthropathy with facet effusions. Mild left greater than right neuroforaminal stenosis. Mild to moderate canal stenosis L5-S1: Fused level. Moderate left neuroforaminal stenosis. Mild canal stenosis. Procedure Note Kaden Clement MD - 06/23/2025 MRI LUMBAR SPINE WITH AND WITHOUT CONTRAST, 06/22/2025 11:02 PM CLINICAL HISTORY: -concern for source of infection, worsening LBP. COMPARISON: CT abdomen pelvis 06/21/2025. PROCEDURE COMMENTS: Multiplanar multiecho MR imaging of the lumbar spinewith and without gadolinium. Gadolinium contrast given as recorded in Epic. FINDINGS: Counting reference: The L4-5 disc space is at the level of the iliaccrest. There are 5 lumbar type vertebra. Visualized spinal cord is unremarkable. Post treatment changes L5-S1 related to posterior fusion, interbodyspacer, and left laminectomy. Edema within the lower lumbar paraspinal musculature. Additionally there is interspinous edema at L3-L5 with ill-definedenhancement. Some of this is ill-defined edema and questionable enhancement appearsto involve the L4-L5 neural foramen. No disc space destruction. Mild stepwise retrolisthesis at L2-L4. No acute compression fracture.Within the right L4 pedicle and pars there is a T2 hyperintense enhancingintraosseous lesion. Additionally within the left iliac bone there is a heterogeneous intraosseous lesion with internal T1 and T2 hyperintensity. Congenitallysmall spinal canal. Level by level analysis: L1-L2: Unremarkable L2-L3: Mild disc space narrowing. Disc bulge narrowing the subarticularzones. Mild/moderate left neuroforaminal stenosis. Moderate canal stenosis L3-L4: Mild disc space narrowing. Disc bulge narrowing the subarticularzones. Mild right and mild/moderate left neuroforamina stenosis. Borderlinesevere canal stenosis L4-L5: Disc bulge narrowing the subarticular zones. Mild facet arthropathywith facet effusions. Mild left greater than right neuroforaminal stenosis.Mild to moderate canal stenosis L5-S1: Fused level. Moderate left neuroforaminal stenosis. Mild canalstenosis. IMPRESSION: L3-L5 posterior element inflammation is possibly degenerative. An early infectious process is thought to be less likely but is difficult toexclude. Lumbar spine degenerative changes L5-S1 fusion with lumbar spinedegenerative changes superposed on a congenitally small spinal canal result inborderline high-grade canal narrowing at L3-L4. L4 and left iliac intraosseous lesions are indeterminate but withoutaggressive features. - Note: Radiology results need to be interpreted within a comprehensiveclinical context. If you have questions about the radiology report, please contactthe office of the ordering clinician. us Shaan Gomez MD IMG MRI ORDERABLES Final Result * ECG AND WAVEFORMS - TELEMETRY (06/22/2025 7:18 PM EDT) ECG INTERPRET Sinus Tachycardia [facility] 06/22/2025 7:18 PM EDT Narrative [facility] - 06/22/2025 7:21 PM EDT ROUTINE/af WI 0.13 QRS 0.11 RR 0.58 QT 0.29 QTc 0.38 See Clinical Report link for waveform capture us Unknown Provider POINT OF CARE CARDIOLOGY Final Result [facility] [address] [place] [address] * ECG AND WAVEFORMS - TELEMETRY (06/22/2025 5:36 PM EDT) ECG INTERPRET NSR [facility] 06/22/2025 5:36 PM EDT Narrative [facility] - 06/22/2025 5:38 PM EDT NEW ADMIT (AP) WI 0.16 QRS 0.10 RR 0.60 QT 0.32 QTc 0.41 See Clinical Report link for waveform capture us Unknown Provider POINT OF CARE CARDIOLOGY Final Result Performing Organization Address [facility] Co de Phone Number [facility] [address] [place] [address] * ECG AND WAVEFORMS - TELEMETRY (06/22/2025 7:31 AM EDT) ECG INTERPRET NSR [facility] 06/22/2025 7:31 AM EDT Narrative [facility] - 06/22/2025 7:33 AM EDT 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 WI 0.17 QRS 0.11 RR 0.68 QT 0.30 QTc 0.36 See Clinical Report link for waveform capture us Unknown Provider POINT OF CARE CARDIOLOGY Final Result Performing Organization Address [facility] Co de Phone Number [facility] [address] [place] [phone] * REPEAT LACTIC ACID (06/22/2025 2:19 AM EDT) Lactic Acid 0.9 0.5 - 1.9 mmol/L 06/22/2025 2:46 AM EDT [facility] Blood VENOUS BLOOD / Unknown Venipuncture / Unknown 06/22/2025 2:19 AM EDT 06/22/2025 2:24 AM EDT us Willard Rhodes MD CHEMISTRY ORDERABLES Final Result Performing Organization Address City/[facility] Co de Phone Number [facility] [address] [place] [address], [place] [address] * ECG AND WAVEFORMS - TELEMETRY (06/22/2025 1:41 AM EDT) ECG INTERPRET R [facility] 06/22/2025 1:41 AM EDT Narrative [facility] - 06/22/2025 1:45 AM EDT NEWADMIT/AH WI 0.15 QRS 0.11 RR 0.68 QT 0.34 QTc 0.41 See Clinical Report link for waveform capture us Unknown Provider POINT OF CARE CARDIOLOGY Final Result [facility] [address] [place] [phone] * CT CHEST ABDOMEN PELVIS WO ORAL WITH IV CONTRAST (06/21/2025 10:44 PM EDT) Anatomical Region Laterality Modality Abdomen, Chest, Pelvis Computed Tomography 06/21/2025 10:4 4 PM EDT Impressions 06/21/2025 11:17 PM EDT * Bibasilar pulmonary atelectasis. * RIGHT-sided renal swelling and perirenal induration. No hydronephrosis or hydroureter. This could be related to pyelonephritis. * Diffuse mild bladder wall thickening. Correlate for cystitis. - Note: Radiology results need to be interpreted within a comprehensive clinical context. If you have questions about the radiology report, please contact the office of the ordering clinician. Narrative 06/21/2025 11:[address] CHEST, ABDOMEN, AND PELVIS WITH CONTRAST, 06/21/2025 10:44 PM CLINICAL HISTORY: -febrile, elev lactic and Procal. COMPARISON: None. PROCEDURE COMMENTS: Multidetector CT chest abdomen and pelvis with multiplanar reconstructions. Iodinated IV contrast given as recorded in EPIC. Dose 1 : CT DLP Total : 542.69 mGycm DLP Spiral Max : 328.1 mGycm Maximum CTDI Vol : 6.03 mGy FINDINGS: CT CHEST: Bibasilar pulmonary atelectasis. No confluent lobar consolidation. No active failure. No visible pneumothorax or pleural fluid. Heart and mediastinum unremarkable. Coronary artery calcification: None. CT ABDOMEN AND PELVIS: Liver, gallbladder, spleen, pancreas unremarkable. There is RIGHT-sided renal swelling. Small renal cysts are present. Perirenal induration is present, RIGHT greater than LEFT. No hydronephrosis or hydroureter. There is some diffuse mild bladder wall thickening. No bowel obstruction or acute inflammatory process of bowel. Normal appendix is visible in the RIGHT lower quadrant. No adenopathy or abnormal fluid in the pelvis. Degenerative and postoperative changes of the spine. No acute osseous abnormality. Procedure Note Lukas Gould MD - 06/21/2025 CT CHEST, ABDOMEN, AND PELVIS WITH CONTRAST, 06/21/2025 10:44 PM CLINICAL HISTORY: -febrile, elev lactic and Procal. COMPARISON: None. PROCEDURE COMMENTS: Multidetector CT chest abdomen and pelvis withmultiplanar reconstructions. Iodinated IV contrast given as recorded in EPIC. Dose 1 : CT DLP Total : 542.69 mGycm DLP Spiral Max : 328.1 mGycm Maximum CTDI Vol : 6.03 mGy FINDINGS: CT CHEST: Bibasilar pulmonary atelectasis. No confluent lobarconsolidation. No active failure. No visible pneumothorax or pleural fluid. Heart andmediastinum unremarkable. Coronary artery calcification: None. CT ABDOMEN AND PELVIS: Liver, gallbladder, spleen, pancreasunremarkable. There is RIGHT-sided renal swelling. Small renal cysts are present.Perirenal induration is present, RIGHT greater than LEFT. No hydronephrosis or hydroureter. There is some diffuse mild bladder wall thickening. No bowel obstruction or acute inflammatory process of bowel. Normalappendix is visible in the RIGHT lower quadrant. No adenopathy or abnormal fluid in the pelvis. Degenerative and postoperative changes of the spine. No acute osseous abnormality. IMPRESSION: * Bibasilar pulmonary atelectasis. * RIGHT-sided renal swelling and perirenal induration. No hydronephrosisor hydroureter. This could be related to pyelonephritis. * Diffuse mild bladder wall thickening. Correlate for cystitis. - Note: Radiology results need to be interpreted within a comprehensiveclinical context. If you have questions about the radiology report, please contactthe office of the ordering clinician. us Willard Rhodes MD IM CT ORDERABLES Final Res ult * [place] SPOTTED FEVER IGG/IGM -REF LAB (06/21/2025 10:34 PM EDT) RMSF IgG <1:64 <1:64 06/24/2025 10:49 PM EDT [employer] Comment: INTERPRETIVE INFORMATION: Ricketts[facility]ii [facility]) Ab, IgG Less than 1:64 ....... Negative - No significant level of IgG antibody detected. 1:64 - 1:128 ......... Low Positive - Presence of IgG Antibody detected, suggestive of current or past infection. 1:256 or greater ..... Positive - Presence of IgG antibody detected, suggestive of current or past infection. Antibody reactivity to Rickettsia rickettsii antigen should be considered Spotted Fever group reactive. Other organisms within the group include R. akari, R. conorrii, R. australis and R. sibirica. Seroconversion, a fourfold or greater rise in antibody titer, between acute and convalescent sera is considered strong evidence of recent infection. Acute-phase specimens are collected during the first week of illness and convalescent-phase samples are generally obtained 2-4 weeks after resolution of illness. Ideally these samples should be tested simultaneously at the same facility. If the sample submitted was collected during the acute-phase of illness, submit a marked convalescent sample within 25 days for paired testing. RMSF IgM <1:64 <1:64 06/24/2025 10:49 PM EDT [employer] Comment: INTERPRETIVE INFORMATION: Rickettsia rickettsii [facility] Spotted Fever) Ab, IgM Less than 1:64 ....... Negative - No significant level of IgM antibody detected. 1:64 or greater ...... Positive - Presence of IgM antibody detected, which may indicate a current or recent infection; however, low levels of IgM antibodies may occasionally persist for more than 12 months post-infection. Antibody reactivity to Rickettsia rickettsii antigen should be considered Spotted Fever group reactive. Other organisms within the group include R. akari, R. conorrii, R. australis and R. sibirica. Seroconversion, a fourfold or greater rise in antibody titer, between acute and convalescent sera is considered strong evidence of recent infection. Acute-phase specimens are collected during the first week of illness and convalescent-phase samples are generally obtained 2-4 weeks after resolution of illness. Ideally these samples should be tested simultaneously at the same facility. If the sample submitted was collected during the acute-phase of illness, submit a marked convalescent sample within 25 days for paired testing. The CDC does not use IgM results for routine diagnostic testing of [place] Spotted Fever, as the response may not be specific for the agent (resulting in false positives) and the IgM response may be persistent from past infection. Performed By: [facility] [address] [place] [address] Urban Renewal Manager: Misha Ludwig MD, PhD CLIA Number: [id number] Blood VENOUS BLOOD / Unknown Venipuncture / Unknown 06/21/2025 10:34 PM EDT 06/21/2025 10:39 PM EDT Willard Rhodes MD IMMUNOLOGY ORDERABLES Final Result Performing Organization Address [facility] de Phone Number [email or web address] [address] [place] [address] * LYME AB TOTAL EARLY (06/21/2025 10:34 PM EDT) [facility] B burgdorferi Abs, Total Negative Negative 06/22/2025 8:56 AM EDT [facility] Comment:No laboratory eviden ce of infection with B. burgdorferi (Lyme disease). If recent infection is suspected, repeat testing on a new sample collected in 7 - 14 days is recommended. Blood VENOUS BLOOD / Unknown Venipuncture / Unknown 06/21/2025 10:34 PM EDT 06/21/2025 10:39 PM EDT Willard Rhodes MD IMMUNOLOGY ORDERABLES Final Result Performing Organization Address [facility] Co de Phone Number [facility] [address] [place] [address] , [place] [address] * (ABNORMAL) PROTEIN CEREBROSPINAL FLUID (06/21/2025 9:51 PM EDT) [facility] Protein CSF 62(H) 15 - 45 mg/dL 06/21/2025 10:43 PM EDT [facility] Cerebrospinal Fluid LUMBAR PUNCTURE / Unknown 06/21/2025 9:51 PM EDT 06/21/2025 9:55 PM EDT Willard Rhodes MD BODY FLUIDS AND STOOLS DENNIS HARRIS Final Result [facility] [address] [facility] , [place] [address] * (ABNORMAL) GLUCOSE CEREBROSPINAL FLUID (06/21/2025 9:51 PM EDT) Glucose CSF 102(H) 40 - 70 mg/dL 06/21/2025 10:43 PM EDT [facility] Cerebrospinal Fluid LUMBAR PUNCTURE / Unknown 06/21/2025 9:51 PM EDT 06/21/2025 9:55 PM EDT Willard Rhodes MD BODY FLUIDS AND STOOLS BUDDYE STEVEN Final Result Performing Organization Address [facility] Co de Phone Number [facility] [address] [facility] , [place] [address] * CSF CELL COUNT WITH DIFF (06/21/2025 9:51 PM EDT) CSF Tube Num 4 number 06/21/2025 10:44 PM EDT [facility] CSF Color Colorless Colorless color 06/21/2025 10:44 PM EDT [facility] CSF Appear Clear Clear appearance 06/21/2025 10:44 PM EDT [facility] CSF RBC 0 <=0 /mcL 06/21/2025 10:44 PM EDT [facility] CSF Total Nucleated Cells 2 0 - 5 /mcL 06/21/2025 10:44 PM EDT [facility] Cerebrospinal Fluid LUMBAR PUNCTURE / Unknown 06/21/2025 9:51 PM EDT 06/21/2025 9:55 PM EDT us Willard Rhodes MD BODY FLUIDS AND STOOLS DENNIS HARRIS Final Result [facility] [address] [facility] , [address] [place] [phone] * MENINGITIS/ENCEPH PANEL (06/21/2025 9:51 PM EDT) [facility] E. coli K1 Not Detected Not Detected 06/21/2025 11:29 PM EDT [facility] Haemophilus influenzae Not Detected Not Detected 06/21/2025 11:29 PM EDT [facility] Listeria monocytogenes Not Detected Not Detected 06/21/2025 11:29 PM EDT [facility] Neisseria meningitidis Not Detected Not Detected 06/21/2025 11:29 PM EDT [facility] Streptococcus agalactiae Not Detected Not Detected 06/21/2025 11:29 PM EDT [facility] Streptococcus pneumoniae Not Detected Not Detected 06/21/2025 11:29 PM EDT [facility] (CMV) Cytomegalovirus Not Detected Not Detected 06/21/2025 11:29 PM EDT [facility] Comment:The [employer] pa marques does not distinguish between latent and active CMV infection. Detection of this virus may indicate primary infection, secondary reactivation, or the presence of latent virus. Results should always be interpreted in conjunction with other clinical, laboratory and epidemiological information. (EV) Enterovirus Not Detected Not Detected 06/21/2025 11:29 PM EDT [facility] (HSV-1) Herpes simplex virus 1 Not Detected Not Detected 06/21/2025 11:29 PM EDT [facility] (HSV-2) Herpes simplex virus 2 Not Detected Not Detected 06/21/2025 11:29 PM EDT [facility] (HHV-6) Human herpesvirus 6 Not Detected Not Detected 06/21/2025 11:29 PM EDT [facility] Comment:[employer] does not distinguish between latent and active HHV-6 infection. Detection of this virus may indicate primary infection, secondary reactivation, or the presence of latent virus. Results should always be interpreted in conjunction with other clinical, laboratory and epidemiological information. (HPeV) Human parechovirus Not Detected Not Detected 06/21/2025 11:29 PM EDT [facility] (VZV) Varicella zoster virus Not Detected Not Detected 06/21/2025 11:29 PM EDT [facility] Cryptococcus neoformans/manuela Not Detected Not Detected 06/21/2025 11:29 PM EDT [facility] Cerebrospinal Fluid LUMBAR PUNCTURE / Unknown 06/21/2025 9:51 PM EDT 06/21/2025 9:55 PM EDT Willard Rhodes MD BODY FLUIDS AND STOOLS ORDMitch HARRIS Final Result [facility] [employer] , [place] [phone] * CEREBROSPINAL FLUID CULTURE (STAIN INCLUDED) (06/21/2025 9:51 PM EDT) Culture No growth at 94 hours. 06/25/2025 9:49 PM EDT [facility] [employer], [facility] Stain Rare WBCs 06/25/2025 9:49 PM EDT [facility] [employer], [facility] Stain No organisms seen 06/25/2025 9:49 PM EDT [facility] [employer], [facility] Cerebrospinal Fluid LUMBAR PUNCTURE / Unknown 06/21/2025 9:51 PM EDT 06/21/2025 9:55 PM EDT Willard Rhodes MD MICROBIOLOGY - GENERAL ORDMitch HARRIS Final Result Performing Organization Address City/[facility]/ZIP Co de Phone Number [facility] [employer], [place] [phone] * (ABNORMAL) REPEAT LACTIC ACID (06/21/2025 9:44 PM EDT) Lactic Acid 2.2(H) 0.5 - 1.9 mmol/L 06/21/2025 10:07 PM EDT [facility] Blood VENOUS BLOOD / Unknown Venipuncture / Unknown 06/21/2025 9:44 PM EDT 06/21/2025 9:53 PM EDT us Willard Rhodes MD CHEMISTRY ORDERABLES Final Result [facility] [address] [place] [id number] * CT HEAD WO CONTRAST (06/21/2025 8:44 PM EDT) Anatomical Region Laterality Modality Head Computed Tomogra phy 06/21/2025 8:44 PM EDT Impressions 06/21/2025 9:12 PM EDT No acute intracranial abnormality. - Note: Radiology results need to be interpreted within a comprehensive clinical context. If you have questions about the radiology report, please contact the office of the ordering clinician. Narrative 06/21/2025 9:[address] HEAD WO CONTRAST 06/21/2025 8:44 PM CLINICAL HISTORY: -stroud. COMPARISON: CT sinuses limited 03/12/2025 PROCEDURE COMMENTS: Routine noncontrast head CT with multiplanar reconstructions. Dose 1 : CT DLP Total : 1088.03 mGycm DLP Spiral Max : 1085.1 mGycm Maximum CTDI Vol : 54.2 mGy FINDINGS: HEMORRHAGE: No evidence of acute intracranial hemorrhage. MASS EFFECT / MASS LESION: No mass effect. There is no evidence of an intracranial mass or extraaxial fluid collection. ACUTE ISCHEMIC CHANGE: None. CHRONIC ISCHEMIC CHANGE: None. PARENCHYMA: The brain parenchyma is otherwise within normal limits for age. VENTRICLES: Normal caliber and morphology. OTHER: The visualized calvarium, skull base, orbits and extracranial soft tissues are normal. There is mild chronic mucosal thickening involving the ethmoid and maxillary sinuses. Minimal chronic mucosal thickening involving the left sphenoid sinus. Frontal sinuses are not pneumatized. Mastoid air cells are grossly clear. Procedure Note Med Mortensen MD - 06/21/2025 CT HEAD WO CONTRAST 06/21/2025 8:44 PM CLINICAL HISTORY: -stroud. COMPARISON: CT sinuses limited 03/12/2025 PROCEDURE COMMENTS: Routine noncontrast head CT with multiplanar reconstructions. Dose 1 : CT DLP Total : 1088.03 mGycm DLP Spiral Max : 1085.1 mGycm Maximum CTDI Vol : 54.2 mGy FINDINGS: HEMORRHAGE: No evidence of acute intracranial hemorrhage. MASS EFFECT / MASS LESION: No mass effect. There is no evidence of an intracranial mass or extraaxial fluid collection. ACUTE ISCHEMIC CHANGE: None. CHRONIC ISCHEMIC CHANGE: None. PARENCHYMA: The brain parenchyma is otherwise within normal limits forage. VENTRICLES: Normal caliber and morphology. OTHER: The visualized calvarium, skull base, orbits and extracranialsoft tissues are normal. There is mild chronic mucosal thickening involvingthe ethmoid and maxillary sinuses. Minimal chronic mucosal thickeninginvolving the left sphenoid sinus. Frontal sinuses are not pneumatized. Mastoid aircells are grossly clear. IMPRESSION: No acute intracranial abnormality. - Note: Radiology results need to be interpreted within a comprehensiveclinical context. If you have questions about the radiology report, please contactthe office of the ordering clinician. us Willard Rhodes MD IMG CT ORDERABLES Final Res ult * (ABNORMAL) PROCALCITONIN (06/21/2025 8:10 PM EDT) Procalcitonin 1.82(H) <=0.49 ng/mL 06/21/2025 9:03 PM EDT [facility] Blood VENOUS BLOOD / Unknown Venipuncture / Unknown 06/21/2025 8:10 PM EDT 06/21/2025 8:17 PM EDT Narrative [facility] - 06/21/2025 9:03 PM EDT Procalcitonin <0.50 ng/mL: Procalcitonin levels below 0.50 ng/mL on the first day of ICU admission represent a low risk for progression to severe sepsis and/or septic shock Procalcitonin >=0.50 ng/mL and <=2.00 ng/mL: If the procalcitonin measurement is performed shortly after the systemic infection process has started (usually less than 6 hours), this value may still be low. As various non-infectious conditions are known to induce procalcitonin as well, procalcitonin levels between 0.50 ng/mL and 2.00 ng/mL should be reviewed carefully to take into account the specific clinical background and condition(s) of the patient. Procalcitonin >2.00 ng/mL: Procalcitonin levels above 2.00 ng/mL on the first day of ICU admission represent a high risk for progression to severe sepsis and/or septic shock. us Willard Rhodes MD CHEMISTRY ORDERABLES Final Result [facility] [address] [facility] [address] , [place] [address] * (ABNORMAL) COMPREHENSIVE METABOLIC PANEL (06/21/2025 8:10 PM EDT) Sodium 127(L) 136 - 145 mmol/L 06/21/2025 8:32 PM EDT [facility] Potassium 3.9 3.5 - 5.0 mmol/L 06/21/2025 8:32 PM EDT [facility] Chloride 97(L) 98 - 107 mmol/L 06/21/2025 8:32 PM EDT [facility] Total CO2 21(L) 22 - 29 mmol/L 06/21/2025 8:32 PM EDT [facility] Anion Gap 9 7 - 16 mmol/L 06/21/2025 8:32 PM EDT [facility] Calcium 8.6 8.6 - 10.4 mg/dL 06/21/2025 8:32 PM EDT [facility] Glucose Lvl 168(H) 70 - 99 mg/dL 06/21/2025 8:32 PM EDT [facility] BUN 16 6 - 20 mg/dL 06/21/2025 8:32 PM EDT [facility] Creatinine 0.93 0.67 - 1.30 mg/dL 06/21/2025 8:32 PM EDT [facility] Albumin 3.5 3.5 - 5.2 gm/dL 06/21/2025 8:32 PM EDT [facility] Total Protein 6.0(L) 6.4 - 8.3 gm/dL 06/21/2025 8:32 PM EDT [facility] Bili Total 2.0(H) 0.2 - 1.4 mg/dL 06/21/2025 8:32 PM EDT [facility] ALT 165(H) <=41 U/L 06/21/2025 8:32 PM EDT [facility] AST 135(H) <=40 U/L 06/21/2025 8:32 PM EDT [facility] Alk Phos 105 40 - 129 U/L 06/21/2025 8:32 PM EDT [facility] eGFR (CKD-EPIcr 2020) 99 >=60 mL/min/1.7 3 m2 06/21/2025 8:32 PM EDT [facility] Comment:Estimated GFR was ca lculated using the CKD-EPIcr (2020) equation refit without race. The equation is recommended by the [employer] - [place] [employer] Nephrology Task Force. Blood VENOUS BLOOD / Unknown Venipuncture / Unknown 06/21/2025 8:10 PM EDT 06/21/2025 8:14 PM EDT us Willard Rhodes MD CHEMISTRY ORDERABLES Final Result [facility] [address] [place] [address] * XR CHEST AP PORTABLE (06/21/2025 7:54 PM EDT) Anatomical Region Laterality Modality Chest Radiographic Vania ging 06/21/2025 7:54 PM EDT Impressions 06/21/2025 8:12 PM EDT No acute finding. - Note: Radiology results need to be interpreted within a comprehensive clinical context. If you have questions about the radiology report, please contact the office of the ordering clinician. Narrative 06/21/2025 8:12 PM EDT XR CHEST AP PORTABLE, 06/21/2025 7:54 PM CLINICAL HISTORY: -sepsis COMPARISON: None. PROCEDURE COMMENTS: AP portable technique. FINDINGS: Support devices: No visible support devices. Heart and mediastinal contours within normal limits for technique. No active failure, pneumonia, or visible effusion. No visible pneumothorax. Procedure Note Med Mortensen MD - 06/21/2025 XR CHEST AP PORTABLE, 06/21/2025 7:54 PM CLINICAL HISTORY: -sepsis COMPARISON: None. PROCEDURE COMMENTS: AP portable technique. FINDINGS: Support devices: No visible support devices. Heart and mediastinal contours within normal limits for technique. Noactive failure, pneumonia, or visible effusion. No visible pneumothorax. IMPRESSION: No acute finding. - Note: Radiology results need to be interpreted within a comprehensiveclinical context. If you have questions about the radiology report, please contactthe office of the ordering clinician. Willard Rhodes MD IMG DIAGNOSTIC IMAGING ORDE STEVEN Final Result * STREP A DNA (06/21/2025 7:34 PM EDT) [facility] Strep A DNA Not Detected Not Detected 06/21/2025 7:58 PM EDT [facility] Comment:Not Detected results do not preclude Streptococcus pyogenes infection and should not be used for the sole basis for treatment or other patient management decisions. A result of Not Detected does not rule out the presence of Group A Streptococcus DNA in concentrations below the level of detection of the assay. Swab STRUCTURE OF ANTERIOR REGION OF NECK / Unknown 06/21/2025 7:34 PM EDT 06/21/2025 7:43 PM EDT Narrative [facility] - 06/21/2025 7:58 PM EDT The Mar[employer] LALO Strep A assay utilizes nucleic acid purification and polymerase chain reaction (PCR) technology to detect Streptococcus pyogenes by targeting a segment of the Streptococcus pyogenes genome. Willard Rhodes MD MICROBIOLOGY - GENERAL ORDE [place] [address] * (ABNORMAL) BLOOD GAS, VENOUS (06/21/2025 7:31 PM EDT) [facility] pH Venous 7.39 7.32 - 7.42 pH 06/21/2025 7:55 PM EDT [facility] pCO2 Venous 43 41 - 51 mmHg 06/21/2025 7:55 PM EDT [facility] pO2 Venous <42(H) 25 - 40 mmHg 06/21/2025 7:55 PM EDT [facility] Comment:Interpret with cauti on. Not recommended to evaluate patient's oxygenation status. Base Excess Ike 0.7 mmol/L 7:55 PM EDT [facility] Hco3 Venous 25.5 24.0 - 28.0 mmol/L 06/21/2025 7:55 PM EDT [facility] CO2 Total Ike 22(L) 25 - 29 mmol/L 06/21/2025 7:55 PM EDT [facility] O2 Sat. Venous 62.4 40.0 - 70.0 % 06/21/2025 7:55 PM EDT [facility] Inspired O2 RA 06/21/2025 7:55 PM EDT [facility] Blood VENOUS BLOOD / Unknown Venipuncture / Unknown 06/21/2025 7:31 PM EDT 06/21/2025 7:42 PM EDT Willard Rhodes MD CHEMISTRY ORDERABLES Final Result Performing Organization Address City/[facility]/ZIP Co de Phone Number [address] , [place] [address] * BLOOD CULTURE (NO STAIN) (06/21/2025 7:31 PM EDT) [facility] Culture Result No Growth at 120 hours. BLOOD CULTURE (NO STAIN) 06/26/2025 10:00 PM EDT [facility] Blood VENOUS BLOOD / Unknown Venipuncture / Unknown 06/21/2025 7:31 PM EDT 06/21/2025 7:42 PM EDT Willard Rhodes MD MICROBIOLOGY - [facility] Final Result Performing Organization Address City/[facility]/ZIP Co de Phone Number [address] , [place] [address] * [id number] A/B (06/21/2025 7:28 PM EDT) Pathologist [facility] CORONAVIRUS [id number] Not Detected Not Detected 06/21/2025 7:53 PM EDT [facility] Influenza A DNA Not Detected Not Detected 06/21/2025 7:53 PM EDT [facility] Influenza B DNA Not Detected Not Detected 06/21/2025 7:53 PM EDT [facility] Swab BOTH ANTERIOR NARES / Unknown 06/21/2025 7:28 PM EDT 06/21/2025 7:32 PM EDT us Willard Rhodes MD MICROBIOLOGY - GENERAL DENNIS HARRIS Final Result Performing Organization Address [facility]/ZIP Co de Phone Number [facility] [address] [place] [address] * BLOOD CULTURE (NO STAIN) (06/21/2025 7:26 PM EDT) Culture Result No Growth at 120 hours. BLOOD CULTURE (NO STAIN) 06/26/2025 10:00 PM EDT [employer] Blood VENOUS BLOOD / Unknown Venipuncture / Unknown 06/21/2025 7:26 PM EDT 06/21/2025 7:41 PM EDT us Willard Rhodes MD MICROBIOLOGY - GENERAL DENNIS HARRIS Final Result Performing Organization Address [facility] Co de Phone Number [facility] [address] [facility] [facility], [place] [address] * (ABNORMAL) LACTIC ACID (06/21/2025 7:22 PM EDT) Lactic Acid 2.9(H) 0.5 - 1.9 mmol/L 06/21/2025 7:56 PM EDT [facility] Blood VENOUS BLOOD / Unknown Venipuncture / Unknown 06/21/2025 7:22 PM EDT 06/21/2025 7:43 PM EDT us Willard Rhodes MD CHEMISTRY ORDERABLES Final Result Performing Organization Address City/[facility]/ZIP Co de Phone Number [address] [address] * (ABNORMAL) CBC WITH DIFF (06/21/2025 7:22 PM EDT) WBC 13.4(H) 3.7 - 10.3 x10(3)/mcL 06/21/2025 7:31 PM EDT [facility] RBC 4.96 4.60 - 6.10 x10(6)/mcL 06/21/2025 7:31 PM EDT [facility] Hgb 15.6 13.7 - 17.5 g/dL 06/21/2025 7:31 PM EDT [facility] Hct 45.0 40.0 - 51.0 % 06/21/2025 7:31 PM EDT [facility] MCV 90.7 80.0 - 100.0 fL 06/21/2025 7:31 PM EDT [facility] MCH 31.5 26.0 - 34.0 pg 06/21/2025 7:31 PM EDT [facility] MCHC 34.7 30.7 - 35.5 g/dL 06/21/2025 7:31 PM EDT [facility] RDW 13.7 <=14.9 % 06/21/2025 7:31 PM EDT [facility] Platelet 253 155 - 369 x10(3)/mcL 06/21/2025 7:31 PM EDT [facility] MPV 10.7 8.8 - 12.5 fL 06/21/2025 7:31 PM EDT [facility] Neut Percent 94.4 % 06/21/2025 7:31 PM EDT [facility] Comment:Neutrophils equals s egs plus bands Imm Gran% 0.3 % 06/21/2025 7:31 PM EDT [facility] Comment:Automated count of m etamyelocytes, myelocytes and promyelocytes. Lymph Percent 2.8 % 06/21/2025 7:31 PM EDT [facility] Dolores Percent 2.4 % 06/21/2025 7:31 PM EDT [facility] Eos Percent 0.0 % 06/21/2025 7:31 PM EDT [facility] Baso Percent 0.1 % 06/21/2025 7:31 PM EDT [facility] Neut # 12.7(H) 1.6 - 6.1 x10(3)/mcL 06/21/2025 7:31 PM EDT [facility] Comment:Neutrophils equals s egs plus bands IMMGRAN# 0.0 0.0 - 0.1 x10(3)/mcL 06/21/2025 7:31 PM EDT [facility] Comment:Automated count of m etamyelocytes, myelocytes and promyelocytes. An absolute IG <0.1 is reported as 0.0. Lymph # 0.4(L) 1.2 - 3.9 x10(3)/mcL 06/21/2025 7:31 PM EDT [facility] Dolores # 0.3 0.3 - 0.9 x10(3)/mcL 06/21/2025 7:31 PM EDT [facility] Eos# 0.0 0.0 - 0.5 x10(3)/mcL 06/21/2025 7:31 PM EDT [facility] Baso # 0.0 0.0 - 0.1 x10(3)/mcL 06/21/2025 7:31 PM EDT [facility] Blood VENOUS BLOOD / Unknown Venipuncture / Unknown 06/21/2025 7:22 PM EDT 06/21/2025 7:28 PM EDT us Willard Rhodes MD HEMATOLOGY [place]ABLES [place] [address] * EK EKG 12 LEAD (06/21/2025 7:05 PM EDT) Anatomical Region Laterality Modality Electrocardiogra phy 06/21/2025 7:10 PM EDT Impressions 06/22/2025 2:[address] [facility] 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1970 Requested By: WILLARD Naik Order Number: [id number] Reading MD: Emily Landaverde MD Measurements Intervals Grayson Rate: 112 P: 51 WI: 129 QRS: 18 QRSD: 102 T: 43 QT: 303 QTc: 414 Interpretive Statements SINUS TACHYCARDIA INDETERMINATE AXIS ABNORMAL RHYTHM ECG Electronically Signed On 06-22-2025 14:18:50 EDT by Emily Landaverde MD Narrative Procedure Note Hank Landaverde MD - 06/22/2025 RAFA Garg Test Date: 2025-06-21 Pat Name: KIM HILARIO Department: DEPID Room: 2108 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1970 Requested By: WILLARD Naik Order Number: [id number] Reading MD: Emily Landaverde MD Measurements Intervals [place] Rate: 112 P: 51 WI: 129 QRS: 18 QRSD: 102 T: 43 QT: 303 QTc: 414 Interpretive Statements SINUS TACHYCARDIA INDETERMINATE AXIS ABNORMAL RHYTHM ECG Electronically Signed On 06-22-2025 14:18:50 EDT by Emily Landaverde MD us Willard Rhodes MD IMG ECG ORDERABLES Final Re sult * EXTRA [place] URINE CX (06/21/2025 7:01 PM EDT) Urine STRUCTURE OF URINARY TRACT PROPER / Unknown 06/21/2025 7:01 PM EDT 06/21/2025 7:04 PM EDT us Willard Rhodes MD [facility]OLOGY [facility] Final Result [place] [id number] * (ABNORMAL) URINALYSIS REFLEX (06/21/2025 7:01 PM EDT) UA Color Yellow 06/21/2025 7:12 PM EDT [facility] UA Appear Clear Clear 06/21/2025 7:12 PM EDT [facility] UA Glucose 4+ (>1000mg/dL) (A) Negative mg/dL 06/21/2025 7:12 PM EDT [facility] UA Ketones Negative Negative mg/dL 06/21/2025 7:12 PM EDT [facility] UA Blood Trace (0.03 mg/dL)(A) Negative 06/21/2025 7:12 PM EDT [facility] UA pH 7.5 5.0 - 8.0 pH 06/21/2025 7:12 PM EDT [facility] UA Protein Trace (10-20 mg/dL) Negative mg/dL 06/21/2025 7:12 PM EDT [facility] UA Urobilinogen 1+ (2-3 mg/dL)(A) <=1 mg/dL 06/21/2025 7:12 PM EDT [facility] UA Bili Negative Negative 06/21/2025 7:12 PM EDT [facility] UA Nitrite Negative Negative 06/21/2025 7:12 PM EDT [facility] UA Leuk Est Negative Negative 06/21/2025 7:12 PM EDT [facility] UA Spec Grav 1.031 1.001 - 1.035 no units 06/21/2025 7:12 PM EDT [facility] Comment:Reference range bernadette d for random specimens only. UA WBC 1 0 - 4 /HPF 06/21/2025 7:12 PM EDT [facility] UA RBC 11(H) 0 - 3 /HPF 06/21/2025 7:12 PM EDT [facility] UA Bacteria Trace(A) Negative /HPF 06/21/2025 7:12 PM EDT [facility] Urine STRUCTURE OF URINARY TRACT PROPER / Unknown 06/21/2025 7:01 PM EDT 06/21/2025 7:04 PM EDT us Willard Rhodes MD URINE ORDERABLES Final Resu lt [facility] [address] [facility] [address] , [address] [place] [id number] documented in this encounter Visit Diagnoses Diagnosis Febrile illness- Primary Fever, unspecified Febrile illness Fever, unspecified Frontal headache Headache Elevated liver enzymes Nonspecific elevation of levels of transaminase or lactic acid dehydrogenase (LDH) SIRS (systemic inflammatory response syndrome) (HCC) Systemic inflammatory response syndrome, unspecified Hyponatremia Hyposmolality and/or hyponatremia Elevated LFTs Other abnormal blood chemistry Other specified attention deficit hyperactivity disorder (ADHD) documented in this encounter Admitting Diagnoses Diagnosis Febrile illness Fever, unspecified documented in this encounter Administered Medications Inactive Administered Medications - up to 1 most recent administrations Medication Order MAR Action Action Date Dose Rate Site 0.9 % NaCl infusion Intravenous, at 125 mL/hr, CONTINUOUS, Starting on Sun06/23/25 at 1330, Until Sun06/23/25 at 2245 Rate/Dose Verify 06/23/2025 1:20 PM EDT 125 mL/hr acetaminophen (TYLENOL) tablet 650 mg 650 mg, Oral, ONCE, 1 dose, On Sun06/21/25 at 1915, Maximum adult dose of acetaminophen is 4000 mg from all sources in 24 hours. Given 06/21/2025 7:36 PM EDT 650 mg acetaminophen (TYLENOL) tablet 650 mg 650 mg, Oral, EVERY 4 HOURS PRN, Starting on Sun06/21/25 at 2241, Until Sun06/23/25 at 2245, Pain, Fever, Headaches, Maximum adult dose of acetaminophen is 4000 mg from all sources in 24 hours. Given 06/23/2025 2:56 PM EDT 650 mg cefTRIAXone (ROCEPHIN) 2 g in sterile water 19.2 mL IVP 2 g, Intravenous, EVERY 12 HOURS SCHEDULED (2 times per day), 10 doses, First dose on Sun06/22/25 at 0300, Last dose on Sun06/26/25 at 1800, Draw up 19.2 mL of Sterile Water for Injection into syringe and inject into cefTRIAXone 2 g vial. Shake vial until powder is completely dissolved. Draw up entire content of vial (about 20 mL) into syringe. Administer intravenous push (IVP) over a period of 3 to 5 minutes., Reason for Therapy: Infection Suspected, Indication: Urinary Tract Infection Given 06/23/2025 6:13 AM EDT 2 g cefTRIAXone (ROCEPHIN) 2 g in sterile water 19.2 mL IVP 2 g, Intravenous, EVERY 24 HOURS SCHEDULED (Daily), 3 doses, First dose (after last modification) on Sun06/24/25 at 0900, Last dose on Sun06/26/25 at 0900, Draw up 19.2 mL of Sterile Water for Injection into syringe and inject into cefTRIAXone 2 g vial. Shake vial until powder is completely dissolved. Draw up entire content of vial (about 20 mL) into syringe. Administer intravenous push (IVP) over a period of 3 to 5 minutes., Reason for Therapy: Infection Suspected, Indication: Urinary Tract Infection dextroamphetamine-amph etamine (ADDERALL) tablet 10 mg 10 mg, Oral, DAILY PRN, Starting on Sun06/23/25 at 1157, Until Sun06/23/25 at 2245, Other, anxiety/ADHD dextroamphetamine-amph etamine (ADDERALL) tablet 15 mg 15 mg, Oral, 2 TIMES DAILY, First dose on Sun06/22/25 at 1915, Until Discontinued Given 06/23/2025 4:30 PM EDT 15 mg diphenhydrAMINE (BENADRYL) injection 25 mg 25 mg, Intravenous, ONCE, 1 dose, On Sun06/21/25 at 2030 Given 06/21/2025 8:46 PM EDT 25 mg diphenhydrAMINE (BENADRYL) injection 25 mg 25 mg, Intravenous, DAILY PRN, Starting on Sun06/22/25 at 0224, Until Sun06/23/25 at 2245, headache Given 06/22/2025 8:09 PM EDT 25 mg diphenhydrAMINE (BENADRYL) injection 25 mg 25 mg, Intravenous, ONCE, 1 dose, On Sun06/22/25 at 2130 Given 06/22/2025 8:20 PM EDT 25 mg doxycycline hyclate (VIBRA-TABS) tablet 100 mg 100 mg, Oral, ONCE, 1 dose, On Sun06/21/25 at 2300, Reason for Therapy: Other, Reason: fever, low sodium, elev lfts Given 06/21/2025 11:00 PM EDT 100 mg fluticasone propionate (FLONASE) 50 mcg/actuation nasal spray 1 [place] 1 [place], Each Nare, 2 TIMES DAILY, First dose on Sun06/22/25 at 1030, Until Discontinued Given 06/23/2025 10:14 AM EDT 1 [place] Both Nares gadoterate meglumine (DOTAREM) prefilled syringe 20 mL 20 mL, Intravenous, ONCE PRN, 1 dose, Starting on Sun06/22/25 at 2237, Until Sun06/22/25 at 2251, Radiology Procedure, VESICANT , MRI (Contrasts) Given 06/22/2025 10:51 PM EDT 20 mL ibuprofen (ADVIL;MOTRIN) tablet 400 mg 400 mg, Oral, EVERY 8 HOURS PRN, Starting on Sun06/22/25 at 0224, Until Sun06/23/25 at 2245, Pain, Give with food. If patient receiving scheduled ibuprofen (Caldolor) or ketorolac IV, hold oral ibuprofen until IV therapy completed. Given 06/22/2025 5:37 PM EDT 400 mg iopamidoL (ISOVUE-370) 370 mg iodine /mL (76 %) injection (LOW) 100 mL 100 mL, Intravenous, ONCE PRN, 1 dose, Starting on Sun06/21/25 at 2127, Until Sun06/21/25 at 2250, Radiography/Imaging, Radiology Procedure, VESICANT , CT (Contrasts) Given 06/21/2025 10:50 PM EDT 100 mL ketorolac (TORADOL) injection 15 mg 15 mg, Intravenous, ONCE, 1 dose, On Sun06/21/25 at 2200, For IV Administration: Give undiluted over at least 15 seconds. Maximum IV dose is 30mg. For IM Administration: Give undiluted, slowly and deeply into the muscle. Given 06/21/2025 10:12 PM EDT 15 mg ketorolac (TORADOL) injection 30 mg 30 mg, Intravenous, ONCE, 1 dose, On Sun06/22/25 at 2130, For IV Administration: Give undiluted over at least 15 seconds. Maximum IV dose is 30mg. For IM Administration: Give undiluted, slowly and deeply into the muscle. Given 06/22/2025 8:10 PM EDT 30 mg lactated ringers 3,000 mL IV bolus Intravenous, ONCE, 1 dose, On Sun06/21/25 at 2000, at 999 mL/hr IV Started 06/21/2025 8:03 PM EDT 999 mL/hr melatonin tablet 10 mg 10 mg, Oral, NIGHTLY PRN, Starting on Sun06/21/25 at 2241, Until Sun06/23/25 at 2245, Sleep morphine injection 4 mg 4 mg, Intravenous, ONCE, 1 dose, On Sun06/21/25 at 2200 Given 06/21/2025 10:15 PM EDT 4 mg ondansetron (ZOFRAN) injection 4 mg 4 mg, Intravenous, EVERY 4 HOURS PRN, Starting on Sun06/21/25 at 2241, Until Sun06/23/25 at 2245, Nausea, Vomiting oxyCODONE (ROXICODONE) immediate release tablet 5 mg 5 mg, Oral, EVERY 6 HOURS PRN, Starting on Sun06/22/25 at 0858, Until Sun06/23/25 at 2245, Pain Given 06/23/2025 4:29 PM EDT 5 mg prochlorperazine edisylate (COMPAZINE) injection 10 mg 10 mg, Intravenous, ONCE, 1 dose, On Sun06/21/25 at 2030 Given 06/21/2025 8:46 PM EDT 10 mg sodium chloride 0.9% IV line flush 50 mL 50 mL, Intravenous, at 150-600 mL/hr, PRN, Starting on Sun06/21/25 at 1904, Until Sun06/23/25 at 1903, Line Care, Flush with 50 mL after IVPB to insure complete administration of the dose. May use the saline infusion to back flush IVPB tubing as needed., Use this order to document priming and flushing IV line after medication administration. IV Restarted 06/22/2025 9:26 PM EDT 150 mL/hr sodium chloride 0.9% syringe 10 mL 10 mL, Intravenous, ONCE PRN, 1 dose, Starting on Sun06/21/25 at 2127, Until Sun06/21/25 at 2250, Line Care, Flush peripheral lines every 12 hours, central lines every 8 hours, and after IV medication, CT (Contrasts) Given 06/21/2025 10:50 PM EDT 10 mL sodium chloride 0.9% syringe 5-10 mL 5-10 mL, Intravenous, PRN, Starting on Sun06/21/25 at 1904, Until Sun06/23/25 at 1903, Line Care, Flush with 5 mL saline pre/post IVP, and 5 mL prior to IVPB or blood product administration. Protocol for PERIPHERAL IV saline lock maintenance, flush with 3-5 mL saline syringe every 8 hours., Flush with 5-10 mL saline pre/post IVP, and 5 mL prior to IVPB administration. sodium chloride 0.9% syringe Intravenous, ONCE PRN, 1 dose, Starting on Sun06/22/25 at 2237, Until Sun06/22/25 at 2251, Line Care, Flush peripheral lines every 12 hours, central lines every 8 hours, and after IV medication, MRI (Contrasts) Given 06/22/2025 10:51 PM EDT 10 mL SUMAtriptan (IMITREX) nasal spray 5 mg 5 mg, Nasal, PRN, Starting on Sun06/23/25 at 1156, Until Sun06/23/25 at 2245, Migraine, May be repeated once after 2 hours. MAX DOSE = 40mg/24hrs Given 06/23/2025 1:52 PM EDT 5 mg Left Nare vancomycin (VANCOCIN) 1,250 mg in sodium chloride 0.9 % 275 mL IVPB 1,250 mg, Intravenous, *EVERY 12 HOURS, 7 doses, First dose on Sun06/22/25 at 1800, Last dose on Sun06/25/25 at 1800, Administer over 90 Minutes, VESICANT , Reason for Therapy: Infection Suspected, Indication: Intra-abdominal IV Restarted 06/22/2025 8:14 PM EDT 183.3 mL/hr vancomycin (VANCOCIN) 1,750 mg in sodium chloride 0.9 % 550 mL IVPB 1,750 mg (rounded from 1,824 mg = 20 mg/kg 91.2 kg), Intravenous, ONCE, 1 dose, On Sun06/21/25 at 2300, Administer over 120 Minutes, VESICANT , Reason for Therapy: Infection Suspected, Indication: Sepsis IV Started 06/21/2025 10:59 PM EDT 1,750 mg 275 mL/hr documented in this encounter Historical Medications * This list may reflect changes made after this encounter. ketorolac (TORADOL) 60 mg/2 mL IM Solution Inject 60 mg into the muscle every 6 hours as needed for Other (migraine). dextroamphetamine -amphetamine (ADDERALL XR) 30 mg Oral Capsule, Sust. Release 24 hr Take 30 mg by mouth daily. added in this encounter Active and Recently Administered Medications Times are shown in EDT. Scheduled Medication Order 06/21/2025 06/22/2025 06/23/2025 acetaminophen (TYLENOL) tablet 650 mg (COMPLETED) 650 mg, Oral, ONCE, 1 dose, On 06/21/25 at 1915, Maximum adult dose of acetaminophen is 4000 mg from all sources in 24 hours. 193 (Given - Provider: Penny Montalvo RN) cefTRIAXone (ROCEPHIN) 2 g in sterile water 19.2 mL IVP (CANCELED) 2 g, Intravenous, EVERY 12 HOURS SCHEDULED (2 times per day), 10 doses, First dose on Sun06/22/25 at 0300, Last dose on Sun06/26/25 at 1800, Draw up 19.2 mL of Sterile Water for Injection into syringe and inject into cefTRIAXone 2 g vial. Shake vial until powder is completely dissolved. Draw up entire content of vial (about 20 mL) into syringe. Administer intravenous push (IVP) over a period of 3 to 5 minutes., Reason for Therapy: Infection Suspected, Indication: Urinary Tract Infection 421 (Given - Provider: Ting Rose RN)1910 (Given - Provider: Haylie Acevedo RN) 06 (Given - Provider: Hawa Powell RN) cefTRIAXone (ROCEPHIN) 2 g in sterile water 19.2 mL IVP 2 g, Intravenous, EVERY 24 HOURS SCHEDULED (Daily), 3 doses, First dose (after last modification) on Sun06/24/25 at 0900, Last dose on Sun06/26/25 at 0900, Draw up 19.2 mL of Sterile Water for Injection into syringe and inject into cefTRIAXone 2 g vial. Shake vial until powder is completely dissolved. Draw up entire content of vial (about 20 mL) into syringe. Administer intravenous push (IVP) over a period of 3 to 5 minutes., Reason for Therapy: Infection Suspected, Indication: Urinary Tract Infection dextroamphetamine-amphe tamine (ADDERALL) tablet 15 mg 15 mg, Oral, 2 TIMES DAILY, First dose on Sun06/22/25 at 1915, Until Discontinued 2007 (Given - Provider: Hawa Powell RN) 1013 (Given - Provider: Keila Brizuela RN)1630 (Given - Provider: Kathi Durbin RN) diphenhydrAMINE (BENADRYL) injection 25 mg (COMPLETED) 25 mg, Intravenous, ONCE, 1 dose, On 06/21/25 at 2029 2045 (Given - Provider: Penny Montalvo, JENSEN) diphenhydrAMINE (BENADRYL) injection 25 mg (COMPLETED) 25 mg, Intravenous, ONCE, 1 dose, On Sun06/22/25 at 2130 2019 (Given - Provider: Hawa Powell, JENSEN) doxycycline hyclate (VIBRA-TABS) tablet 100 mg (COMPLETED) 100 mg, Oral, ONCE, 1 dose, On Sun06/21/25 at 2300, Reason for Therapy: Other, Reason: fever, low sodium, elev lfts 2300 (Given - Provider: Penny Montalvo, RN) fluticasone propionate (FLONASE) 50 mcg/actuation nasal spray 1 [place] 1 [place], Each Nare, 2 TIMES DAILY, First dose on Sun06/22/25 at 1030, Until Discontinued 1234 (Given - Provider: Marsha Colbert RN)2099 (Given - Provider: Hawa Powell RN) 101 (Given - Provider: Keila Brizuela RN) ketorolac (TORADOL) injection 15 mg (COMPLETED) 15 mg, Intravenous, ONCE, 1 dose, On Sun06/21/25 at 2200, For IV Administration: Give undiluted over at least 15 seconds. Maximum IV dose is 30mg. For IM Administration: Give undiluted, slowly and deeply into the muscle. 2211 (Given - Provider: Roxy Barnes RN) ketorolac (TORADOL) injection 30 mg (COMPLETED) 30 mg, Intravenous, ONCE, 1 dose, On Sun06/22/25 at 2130, For IV Administration: Give undiluted over at least 15 seconds. Maximum IV dose is 30mg. For IM Administration: Give undiluted, slowly and deeply into the muscle. 2009 (Given - Provider: Hawa Powell, JENSEN) lactated ringers 3,000 mL IV bolus (COMPLETED) Intravenous, ONCE, 1 dose, On Sun06/21/25 at 2000, at 999 mL/hr 2002 (IV Started - Provider: Penny Montalvo, JENSEN)2302 (Stopped - Provider: Penny Montalvo, RN) morphine injection 4 mg (COMPLETED) 4 mg, Intravenous, ONCE, 1 dose, On Sun06/21/25 at 2200 221 (Given - Provider: Roxy Barnes RN - Comment: pain 9/10 in back of head and back) prochlorperazine edisylate (COMPAZINE) injection 10 mg (COMPLETED) 10 mg, Intravenous, ONCE, 1 dose, On Sun06/21/25 at 2030 2046 (Given - Provider: Penny Montalvo, JENSEN) vancomycin (VANCOCIN) 1,250 mg in sodium chloride 0.9 % 275 mL IVPB (CANCELED) 1,250 mg, Intravenous, *EVERY 12 HOURS, 7 doses, First dose on Sun06/22/25 at 1800, Last dose on Ashlee 06/25/25 at 1800, Administer over 90 Minutes, VESICANT , Reason for Therapy: Infection Suspected, Indication: Intra-abdominal 1950 (IV Started - Provider: Hawa Powell RN)2009 (IV Paused - Provider: Hawa Powell RN)2013 (IV Restarted - Provider: Hawa Powell RN)2120 (Stopped - Provider: Hawa Powell RN) 0600 (Not Given - Provider: Keila Brizuela RN - Reason: Discontinued by Provider) vancomycin (VANCOCIN) 1,750 mg in sodium chloride 0.9 % 550 mL IVPB (COMPLETED) 1,750 mg (rounded from 1,824 mg = 20 mg/kg 91.2 kg), Intravenous, ONCE, 1 dose, On Sun06/21/25 at 2300, Administer over 120 Minutes, VESICANT , Reason for Therapy: Infection Suspected, Indication: Sepsis 2259 (IV Started - Provider: Penny Montalvo RN) 0059 (Stopped - Provider: Penny Montalvo RN) Continuous Medication Order 06/21/2025 06/22/2025 06/23/2025 0.9 % NaCl infusion Intravenous, at 125 mL/hr, CONTINUOUS, Starting on Sun06/23/25 at 1330, Until Sun06/23/25 at 2245 1249 (New Bag - Prov ider: Keila Brizuela, JESNEN)1320 (Rate/Dose Verify - Provider: Keila Brizuela, RN)2245 (Due: Order Ending - Provider: Automatic Discharge Provider - Comment: [Order ends at this time. Document the following action when infusion is complete: Stopped]) PRN Medication Order 06/21/2025 06/22/2025 06/23/2025 acetaminophen (TYLENOL) tablet 650 mg 650 mg, Oral, EVERY 4 HOURS PRN, Starting on Sun06/21/25 at 2241, Until Sun06/23/25 at 2245, Pain, Fever, Headaches, Maximum adult dose of acetaminophen is 4000 mg from all sources in 24 hours. 1456 (Given - Provider: Keila Brizuela RN) dextroamphetamine-ampheta mine (ADDERALL) tablet 10 mg 10 mg, Oral, DAILY PRN, Starting on Sun06/23/25 at 1157, Until Sun06/23/25 at 2245, Other, anxiety/ADHD diphenhydrAMINE (BENADRYL) injection 25 mg 25 mg, Intravenous, DAILY PRN, Starting on Sun06/22/25 at 0224, Until Sun06/23/25 at 2245, headache 173 (Given - Provider: Tomeka Kirk, JENSEN)2008 (Given - Provider: Hawa Powell RN) gadoterate meglumine (DOTAREM) prefilled syringe 20 mL (COMPLETED) 20 mL, Intravenous, ONCE PRN, 1 dose, Starting on Sun06/22/25 at 2237, Until Sun06/22/25 at 2251, Radiology Procedure, VESICANT , MRI (Contrasts) 2250 (Given - Provider: Ting Brantley, RT) ibuprofen (ADVIL;MOTRIN) tablet 400 mg 400 mg, Oral, EVERY 8 HOURS PRN, Starting on Sun06/22/25 at 0224, Until Sun06/23/25 at 2245, Pain, Give with food. If patient receiving scheduled ibuprofen (Caldolor) or ketorolac IV, hold oral ibuprofen until IV therapy completed. 0859 (Given - Provider: Marsha Colbert RN)1736 (Given - Provider: Tomeka Kirk RN) iopamidoL (ISOVUE-370) 370 mg iodine /mL (76 %) injection (LOW) 100 mL (COMPLETED) 100 mL, Intravenous, ONCE PRN, 1 dose, Starting on Sun06/21/25 at 2127, Until Sun06/21/25 at 2250, Radiography/Imaging, Radiology Procedure, VESICANT , CT (Contrasts) 2249 (Given - Provider: Breanne Tristan, RT) melatonin tablet 10 mg 10 mg, Oral, NIGHTLY PRN, Starting on 06/21/25 at 2241, Until Sun06/23/25 at 2245, Sleep ondansetron (ZOFRAN) injection 4 mg 4 mg, Intravenous, EVERY 4 HOURS PRN, Starting on 06/21/25 at 2241, Until Sun06/23/25 at 2245, Nausea, Vomiting oxyCODONE (ROXICODONE) immediate release tablet 5 mg 5 mg, Oral, EVERY 6 HOURS PRN, Starting on 06/22/25 at 0858, Until Sun06/23/25 at 2245, Pain 0949 (Given - Provider: Jackie Ryder RN)1535 (Given - Provider: Marsha Colbert RN)2139 (Given - Provider: Hawa Powell, JENSEN) 0336 (Given - Provider: Hawa Powell, RN)1024 (Given - Provider: Keila Brizuela, JENSEN)1629 (Given - Provider: Kathi Durbin RN) sodium chloride 0.9% IV line flush 50 mL 50 mL, Intravenous, at 150-600 mL/hr, PRN, Starting on 06/21/25 at 1904, Until Sun06/23/25 at 1903, Line Care, Flush with 50 mL after IVPB to insure complete administration of the dose. May use the saline infusion to back flush IVPB tubing as needed., Use this order to document priming and flushing IV line after medication administration. 1950 (IV Started - Provider: Hawa Powell RN)1950 (IV Paused - Provider: Hawa Powell RN)2125 (IV Restarted - Provider: Hawa Powell RN)2139 (Stopped - Provider: Hawa Powell RN) sodium chloride 0.9% syringe 10 mL (COMPLETED) 10 mL, Intravenous, ONCE PRN, 1 dose, Starting on 06/21/25 at 2127, Until Sun06/21/25 at 2250, Line Care, Flush peripheral lines every 12 hours, central lines every 8 hours, and after IV medication, CT (Contrasts) 2249 (Given - Provider: Breanne Tristan, RT) sodium chloride 0.9% syringe 5-10 mL 5-10 mL, Intravenous, PRN, Starting on Sun06/21/25 at 1904, Until Sun06/23/25 at 1903, Line Care, Flush with 5 mL saline pre/post IVP, and 5 mL prior to IVPB or blood product administration. Protocol for PERIPHERAL IV saline lock maintenance, flush with 3-5 mL saline syringe every 8 hours., Flush with 5-10 mL saline pre/post IVP, and 5 mL prior to IVPB administration. sodium chloride 0.9% syringe (COMPLETED) Intravenous, ONCE PRN, 1 dose, Starting on Sun06/22/25 at 2237, Until Sun06/22/25 at 2251, Line Care, Flush peripheral lines every 12 hours, central lines every 8 hours, and after IV medication, MRI (Contrasts) 225 (Given - Provider: Ting Brantley, RT) SUMAtriptan (IMITREX) nasal spray 5 mg 5 mg, Nasal, PRN, Starting on Sun06/23/25 at 1156, Until Sun06/23/25 at 2245, Migraine, May be repeated once after 2 hours. MAX DOSE = 40mg/24hrs 1352 (Given - Provider: Keila Brizuela RN) documented in this encounter Orders Medications Ordered That Abbe ht Not Have Been Administered Count Last Ordered Date First Ordered Date cefTRIAXone (ROCEPHIN) 2 g i n sterile water 19.2 mL IVP 1 06/23/2025 dextroamphetamine-amphetamin e (ADDERALL) tablet 10 mg 2 06/23/2025 06/22/2025 dextroamphetamine-amphetamin e (ADDERALL XR) XR capsule 30 mg 1 06/22/2025 dextroamphetamine-amphetamin e (ADDERALL) tablet 15 mg 1 06/22/2025 dextroamphetamine-amphetamin e (ADDERALL) tablet 5 mg 1 06/22/2025 vancomycin (VANCOCIN) 2,000 mg in sodium chloride 0.9 % 550 mL IVPB 1 06/22/2025 ceFEPIme (MAXIPIME) 2 g in s odium chloride 0.9 % 100 mL IVPB 1 06/21/2025 ceFEPIme (MAXIPIME) 2 g in s terile water 19 mL IVP 1 06/21/2025 melatonin tablet 10 mg 1 06/21/2025 ondansetron (ZOFRAN) injection 4 mg 1 06/21 sodium chloride 0.9 % 3,000 mL IV bolus 1 1 sodium chloride 0.9% syringe 5-10 mL 1 06/10 Nursing Count Last Ordered Date First Orde red Date LUMBAR PUNCTURE TRAY TO BEDSIDE 1 NURSING COMMUNICATION 1 06/21/2025 Consult Count Last Ordered Date First Orde red Date IP CONSULT TO PHARMACY 2 06/23/202506/22 IP CONSULT TO PASTORAL CARE 1 06/22/2025 IV Count Last Ordered Date First Orde red Date SALINE LOCK IV 1 06/21/2025 Admission Count Last Ordered Date First Orde red Date ADMIT 2 06/23/2025 06/22/2025 Transfer Count Last Ordered Date First Orde red Date TRANSFER PATIENT 1 06/22/2025 Discharge Count Last Ordered Date First Orde red Date DISCHARGE PATIENT 1 06/23/2025 documented in this encounter Additional Health Concerns Infection Onset Date Last Indicated Resolved Time R/O COVID-19 06/21/2025 06/21/2025 06/21/2025 7:53 PM EDT documented as of this encounter Care Teams [employer] Relationship Specialty Start Date End Date No Pcp, Per Patient PCP - General 10/26/24 Dangelo Pinzon MD [address] [id number] Consulting Physician Ophthalmology 12/30/20 documented as of this encounter
--- OUTSIDE RECORDS SUMMARY | 2025-06-26 13:00 | XMS_ITS | Encounter Summary ---
Author Organization [facility] Address [address] [place] [address] Care Team Providers Care Social Welfare Research Worker Name Role Phone Varsha Lopez APRN Primary Care Provider Encounter Details Date Type Department Care Team ([facility] st Contact Info) Description 06/26/2025 1:00 PM EDT - 06/26/2025 3:10 PM EDT Surgery [facility] Periop Services [address] [place] [address] Nav Vidales MD [address] [facility] [address] [place] [address] LAPAROSCOPIC CHOLECYSTECTOMY Social History Tobacco Use Types Packs/Day Years Used Date Smoking Tobacco: Every Day Cigarettes 0.5 32 Started: 06/25/1993 Smokeless Tobacco: Current Tobacco Cessation:Ready to Q uit: Yes; Counseling Given: Yes Alcohol Use Standard Drinks/Week Comments Never 0 (1 standard drink = 0.6 oz pur e alcohol) Sex and Gender Information Value Date Recorded Sex Assigned at Not on file Legal Sex Male 4:45 PM EST Gender Identity Not on file Sexual Orientation Not on file documented as of this encounter Last Filed Vital Signs Vital Sign Reading Time Taken Comments Blood Pressure 159/76 06/26/2025 3:00 PM EDT Pulse 81 06/26/2025 3:00 PM EDT Temperature 36.1 C (97 F) 06/26/2025 2:40 PM EDT Respiratory Rate 13 06/26/2025 3:00 PM EDT Oxygen Saturation 96% 06/26/2025 3:00 PM EDT Inhaled Oxygen Concentration - - Weight 96.2 kg (212 lb) 06/25/2025 3:16 AM EDT Height 175.3 cm (5' 9 ) 06/25/2025 3:16 AM EDT Body Mass Index 31.31 06/25/2025 3:16 AM EDT documented in this encounter Functional Status * Are You Deaf or do You Have Serious Difficulty Hearing? Answer Date of Assessment Author No 06/25/2025 3:00 AM EDT Henrique River RN * Patient's Vision Adequate to Safely Complete Daily Activities Answer Date of Assessment Author Yes 06/25/2025 3:00 AM EDT Henrique River RN * Do You Have Serious Difficulty Walking or Climbing Stairs? Answer Date of Assessment Author No 06/25/2025 3:00 AM EDT Henrique River RN * Do You Have Difficulty Dressing or Bathing? Answer Date of Assessment Author No 06/25/2025 3:00 AM EDT Henrique River RN * Because of a Physical, Mental, or Emotional Condition, Do You Have Serious Difficulty Concentrating, Remembering or Making a Decision? Answer Date of Assessment Author No 06/25/2025 3:00 AM EDT Henrique River RN documented as of this encounter Mental Status * Because of a Physical, Mental or Emotional Problem, Do You Have Difficulty Doing Errands Alone Suchas Visiting a Doctor's Office or Shopping? Answer Entry Date Author No 06/25/2025 3:00 AM Henrique Gunter RN documented in this encounter Discharge Summaries * Raven Viera MD - 06/27/2025 4:29 PM EDT Physician Discharge Summary Patient Identification: Name: Kim Jackson Age: 54 yr/o Sex: male : 1970 Admit date: 06/25/2025 Discharge date and time: 06/27/2025 Admitting Physician: Raven Viera MD Primary Care Provider: Vrasha Lopez APRN Discharge Physician: Raven Huntley MD Disposition: Home or Self Care Discharged Condition: good Admission Diagnoses: Intractable low back pain [M54.59] Discharge Diagnoses: Patient Active Problem List Diagnosis Date Noted Acute cholecystitis 06/27/2025 Intractable low back pain 06/25/2025 HTN (hypertension) 06/25/2025 ADHD 06/25/2025 Tobacco abuse 06/25/2025 Hospital Course: Patient transferred from [facility] with fever and abnormal MRI spine. He also had elevated LFTs. Spine surgery was consulted and did not feel like there was any evidence of infection in spine. RUQ US revealed gallstones. Patient underwent lap choly. Patient's fever has resolved. He is tolerating PO and medically stable for d/c Details of hospitalization as follows: Fever - afebrile since admission - cultures NGTD - WBC wnl. Elevated inflammatory markers - fever likely secondary to cholecystitis Intractable back pain - spine consulted - MRI per spine- prior instrumented fusion at L5-S1 with what appears to be postoperative changes with no obvious epidural collection concerning for epidural abscess on the STIR sequences or postcontrast images and no obvious inflammation suspicious for discitis. - pain controlled at d/c. Elevated LFTs Cholecystitis s/p lap choly 06/26 - postop care per surg - cleared for d/c by rebeca HTN - home meds resumed ADHD - home meds resumed Hyperglycemia, prediabetes - check A1c-6.0 BG elevated post-op but is improving. Patient instructed to follow CCD and follow up PCP Stable for d/c. > 30 min d/c planning Discharge Medications: Current Discharge Medication List START taking these medications Details cyclobenzaprine (FLEXERIL) 10 MG tablet Take 1 tablet by mouth every 8 (eight) hours as needed for Muscle spasms. Qty: 30 tablet, Refills: 0 lidocaine (LIDODERM) 5 % Place 3 patches onto the skin daily. Remove & Discard patch within 12 hours or as directed by MD. Qty: 21 patch, Refills: 0 oxyCODONE-acetaminophen (PERCOCET) 5-325 MG Take 1-2 tablets by mouth every 4 (four) hours as needed for Pain. Max Daily Amount: 12 tablets Qty: 12 tablet, Refills: 0 Associated Diagnoses: Acute cholecystitis CONTINUE these medications which have NOT CHANGED Details amphetamine-dextroamphetamine (ADDERALL XR) 30 MG 24 hr capsule Take 30 mg by mouth every morning. amphetamine-dextroamphetamine (ADDERALL) 10 MG tablet Take 10 mg by mouth nightly. losartan (COZAAR) 100 MG tablet Take 100 mg by mouth daily. tamsulosin (FLOMAX) 0.4 MG CAPS Take 0.4 mg by mouth nightly. Testosterone Enanthate 50 MG/0.5ML CAR A-IJ Inject 0.5 mLs into the skin twice a week Sunday and . Consults: INPATIENT CONSULT TO SPINE SURGERY (ORTHOPAEDIC) IP CONSULT TO INFECTIOUS DISEASES IP CONSULT TO GENERAL SURGERY Procedures: Lap choly Significant Diagnostic Studies: US ABDOMEN RUQ, includes liver Result Date: 06/25/2025 REVIEWING YOUR TEST RESULTS IN [employer] IS NOT A SUBSTITUTE FOR DISCUSSING THOSE RESULTS WITH YOUR HEALTH CARE PROVIDER. PLEASE CONTACT YOUR PROVIDER VIA [employer] TO DISCUSS ANY QUESTIONS OR CONCERNS YOU MAY HAVE REGARDING THESE TEST RESULTS. RADIOLOGY REPORT FACILITY: [facility] UNIT/AGE/GENDER: N.4L IN AGE:54 Y SEX:M PATIENT NAME/: KIM JACKSON Lindsey 1970 UNIT NUMBER: [id number] ACCESSION NUMBER: [id number] Right upper quadrant ultrasound. 06/25/2025 at 1507 hours HISTORY: Elevated liver function tests. TECHNIQUE: Multiple transabdominal images were obtained of the right upper quadrant. There are no prior studies available for comparison. FINDINGS: The liver parenchyma is unremarkable. There is no evidence of biliary ductal dilatation. The gallbladder is also within normal limits. Multiple gallstones are seen within the gallbladder. The visualized pancreas is heterogeneous. The right kidney is also within normal limits. There is a small right renal cyst. There is no evidence of stones, hydronephrosis or hydroureter. No free fluid is identified. Visualized IVC and abdominal aorta are unremarkable. IMPRESSION: Multiple gallstones within the gallbladder Dictated by: Raegan Ramos M.D. Images and Report reviewed andinterpreted by: Raegan Ramos M.D. <PS><Electronically signed by: Raegan Ramos M.D.> 06/25/2025 1530 1529 1529 XR L Spine Ap & Lateral-Standing Result Date: 06/25/2025 REVIEWING YOUR TEST RESULTS IN [facility] IS NOT A SUBSTITUTE FOR DISCUSSING THOSE RESULTS WITH YOUR HEALTH CARE PROVIDER. PLEASE CONTACT YOUR PROVIDER VIA [employer] TO DISCUSS ANY QUESTIONS OR CONCERNS YOU MAY HAVE REGARDING THESE TEST RESULTS. RADIOLOGY REPORT FACILITY: [facility] UNIT/AGE/GENDER: N.4L IN AGE:54 Y SEX:M PATIENT NAME/: KIM JACKSON S 1970 UNIT NUMBER: [id number] ACCESSION NUMBER: [id number] EXAMINATION: XR L SPINEAP AND LATERAL-STANDING CLINICAL INDICATION/HISTORY: LBP. COMPARISON: None TECHNIQUE: 2 views FINDINGS: Lumbar Spine: No evidence for acute fracture. Normal vertebral body heights. Mild degenerative disc disease at L3-S1 levels. Posterior pedicle screw and betsy fixation at L5-S1 without radiographicevidence for complication. Sacrum and SI Joints: No acute findings. Soft Tissues: Normal. IMPRESSION: 1. No evidence of acute fracture. 2. Posterior fusion hardware L5-S1 without evidence for complication. Dictated by: Spenser Schuler Images and Report reviewed and interpreted by: Spenser Schuler < PS><Electronically signed by: Spenser Schuler> 06/25/2025 1145 1144 1144 Patient Instructions: Follow-up Information Nav Vidales MD . Specialty: General Surgery Contact information [address] [facility] [address] [facility] [phone] Varsha Lopez APRN . Specialty: Nurse Practitioner Contact information [address] [facility] [phone] To-Do List To-Do List Future Appointments Provider Department Dept Phone 07/07/2025 10:30 AM Isela Anne APRN [facility] [phone] Go to [employer] to eCheck-In and arrive at your appt time. If you do not eCheck-In, arrive at least 15 mins before your appt. Please be reminded that Copay is due at the time of service. Future Orders Advance to home diet as tolerated Call doctor for: difficulty breathing or shortness of breath Call doctor for: elevated temperature Call doctor for: persistent nausea or vomiting Call doctor for: Potential signs of infection Call doctor for: severe uncontrolled pain Call doctor for: sharp abdominal pain Consistent carbohydrate diet Discharge instructions (specify) Do not drive a car Do not soak in water Follow up appointment with current provider No lifting over (wt limits) BP (!) 161/81 (BP Location: Right arm, Orthostatic Position: Sitting) Pulse 92 Temp 97.9 ??F (36.6 ??C) (Oral) Resp 16 Ht 5' 9 (1.753 m) Wt 96.2 kg (212 lb) SpO2 99% BMI 31.31 kg/m?? General Appearance: Alert, cooperative, no distress, appears stated age Head: Normocephalic, without obvious abnormality, atraumatic Eyes:, conjunctiva/corneas clear, EOM's intact Neck: Supple, no adenopathy Lungs: Clear to auscultation bilaterally, respirations unlabored Chest wall: No tenderness Heart: Regular rate and rhythm, S1 and S2 normal, no murmur, rub or gallop Abdomen: Soft, non-tender, bowel sounds active all four quadrants, no masses, no hepatomegaly, no splenomegaly Extremities: Extremities normal, no cyanosis or edema Pulses: 2+ and symmetric all extremities Skin: No rashes or lesions Neurologic: Alert and oriented, no focal deficits Signed: Raven Huntley MD 06/27/2025 4:29 PM documented in this encounter Discharge Instructions * Attachments The following attachments cannot be sent through Care Everywhere. * Basic Carbohydrate Counting (Discharge Care) (Uzbek) documented in this encounter Medications at Time of Discharge amphetamine-dextroa mphetamine (ADDERALL XR) 30 MG 24 hr capsule Take 30 mg by mouth every morning. amphetamine-dextroa mphetamine (ADDERALL) 10 MG tablet Take 10 mg by mouth nightly. cyclobenzaprine (FLEXERIL) 10 MG tablet Take 1 tablet by mouth every 8 (eight) hours as needed for Muscle spasms. 30 tablet 06/27/2025 4:52 PM EDT 06/27/2025 lidocaine (LIDODERM) 5 % Place 3 patches onto the skin daily. Remove & Discard patch within 12 hours or as directed by . 21 patch 06/28/2025 losartan (COZAAR) 100 MG tablet Take 100 mg by mouth daily. oxyCODONE-acetamino phen (PERCOCET) 5-325 MGIndications:Acute cholecystitis Take 1-2 tablets by mouth every 4 (four) hours as needed for Pain. Max Daily Amount: 12 tablets 12 tablet 06/27/2025 4:52 PM EDT 06/27/2025 tamsulosin (FLOMAX) 0.4 MG CAPS Take 0.4 mg by mouth nightly. Testosterone Enanthate 50 MG/0.5ML CAR A-IJ Inject 0.5 mLs into the skin twice a week Sunday and . documented as of this encounter Progress Notes * Raven Viera MD - 06/27/2025 2:00 PM EDT DAILY PROGRESS NOTE PATIENT IDENTIFICATION Kim Jackson [id number] No chief complaint on file. SUBJECTIVE Chief complaint: Post op RUQ pain- mod to severe -ongoing. No back pain today. Tolerating p.o. required IV morphine this morning Complete 12 point ROS obtained and negative with the exception of above OBJECTIVE Exam: BP (!) 175/97 (BP Location: Right arm, Orthostatic Position: Lying) Pulse 74 Temp 98.1 ??F (36.7 ??C) (Oral) Resp 17 Ht 5' 9 (1.753 m) Wt 96.2 kg (212 lb) SpO2 99% BMI 31.31 kg/m?? Intake/Output last 3 shifts: I/O last 3 completed shifts: In: 1520 [P.O.:720; I.V.:800] Out: - Intake/Output this shift: I/O this shift: In: 600 [P.O.:600] Out: 200 [Urine:200] General Appearance: Alert, cooperative, no distress, appears stated age. Head: Normocephalic, without obvious abnormality, atraumatic, mmm Lungs: Clear to auscultation bilaterally, respirations unlabored Heart: Regular rate and rhythm, S1 and S2 normal, no murmur, rub or gallop Abdomen: Soft, non-tender, bowel sounds active all four quadrants, no masses, no hepatomegaly, no splenomegaly Extremities: Extremities normal, no cyanosis or edema. No joint effusions or tenderness Skin: No rashes or lesions/ no palpable nodules Psych: Mood and affect appropriate. Alert and oriented times 3 Scheduled Meds: acetaminophen 1,000 mg Oral Q8H amphetamine-dextroamphetamine 30 mg Oral QAM amphetamine-dextroamphetamine 10 mg Oral Daily docusate sodium 100 mg Oral BID fluticasone 1 spray Each Nare Daily insulin lispro 0-6 Units Subcutaneous 4x Daily AC and HS (7,11,5,10) lidocaine 3 patch Transdermal Daily losartan 100 mg Oral Daily nicotine 1 patch Transdermal Daily tamsulosin 0.4 mg Oral Nightly Continuous Infusions: PRN Meds:sodium chloride, calcium carbonate OR Alum & Mag Hydroxide-Simeth, docusate sodiumAND magnesium hydroxide AND bisacodyl, cloNIDine, cyclobenzaprine, magnesium sulfate, melatonin, [DISCONTINUED] HYDROcodone- acetaminophen AND [DISCONTINUED] HYDROcodone-acetaminophen AND morphine (PF), nicotine polacrilex, ondansetron OR ondansetron, oxyCODONE- acetaminophen, oxyCODONE-acetaminophen, potassium chloride SA OR potassium chloride OR potassium chloride OR potassium chloride Data Review: All labs (24hrs): Recent Results (from the past 24 hours) Glucose-Glucometer Collection Time: 06/26/25 10:08 PM Result Value Ref Range Glucose Glucometer 319 (H) 71 - 139 mg/dL CBC w/Diff Collection Time: 06/27/25 4:26 AM Result Value Ref Range White Blood Cells 12.99 (H) 4.50 - 11.00 10*3/uL Red Blood Cells 4.61 4.50 - 5.90 10*6/uL Hemoglobin 13.9 13.5 - 17.5 g/dL Hematocrit 40.9 (L) 41.0 - 53.0 % Mean Corpuscular Volume 88.7 80.0 - 100.0 fL Mean Corpuscular Hemoglobin 30.2 26.0 - 34.0 pg Mean Corpuscular Hemoglobin Concentration 34.0 31.0 - 37.0 g/dL % Red Blood Cell Distribution Width 14.3 12.0 - 16.8 % Platelet Count 276 140 - 440 10*3/uL Mean Platelet Volume 10.4 8.4 - 12.4 fL % Neutrophils 74.4 45.0 - 80.0 % % Lymphocytes 16.5 15.0 - 50.0 % % Monocytes 7.5 0.0 - 15.0 % % Eosinophils 0.2 0.0 - 7.0 % % Basophils 0.2 0.0 - 2.0 % % Immature Granulocytes 1.2 (H) 0.0 - 1.0 % % Nucleated RBCs 0 <=0 /100 WBCs Absolute Neutrophil Count 9.66 (H) 2.00 - 8.80 10*3/uL Absolute Lymphocytes 2.14 0.70 - 5.50 10*3/uL Absolute Monocytes 0.98 0.00 - 1.70 10*3/uL Absolute Eosinophils 0.03 0.00 - 0.80 10*3/uL Absolute Basophils 0.03 0.00 - 0.20 10*3/uL Absolute Immature Granulocytes 0.15 (H) 0.00 - 0.10 10*3/uL Comprehensive Metabolic Panel (CMP) Collection Time: 06/27/25 4:26 AM Result Value Ref Range Sodium 136 136 - 145 mmol/L Potassium 4.1 3.5 - 5.1 mmol/L Chloride 103 98 - 107 mmol/L Carbon Dioxide 24 22 - 29 mmol/L Anion Gap 9 5 - 13 mmol/L Glucose, Random 246 (H) 71 - 99 mg/dL Blood Urea Nitrogen (BUN) 18 8 - 26 mg/dL Creatinine, Blood 0.84 0.73 - 1.18 mg/dL BUN/Creatinine Ratio 21.4 RATIO Estimated GFR (Cr) 105 >60 mL/min/1.73m2 Total Protein 6.6 6.4 - 8.2 g/dL Albumin 3.7 3.5 - 5.2 g/dL Globulin 2.9 1.5 - 4.5 g/dL Albumin/Globulin Ratio 1.3 1.1 - 2.5 RATIO Calcium 8.9 8.4 - 10.2 mg/dL Total Bilirubin 1.7 (H) 0.3 - 1.2 mg/dL AST/SGOT 54 (H) 5 - 34 U/L ALT/SGPT 116 (H) 0 - 55 U/L Alkaline Phosphatase 240 (H) 40 - 150 U/L Bilirubin,Total and Direct Collection Time: 06/27/25 4:26 AM Result Value Ref Range Total Bilirubin 1.7 (H) 0.3 - 1.2 mg/dL Direct Bilirubin 0.8 (H) 0.0 - 0.5 mg/dL Indirect Bilirubin 0.9 0.0 - 1.1 mg/dL Glucose-Glucometer Collection Time: 06/27/25 6:54 AM Result Value Ref Range Glucose Glucometer 222 (H) 71 - 139 mg/dL Glucose-Glucometer Collection Time: 06/27/25 11:13 AM Result Value Ref Range Glucose Glucometer 392 (H) 71 - 139 mg/dL Imaging: US ABDOMEN RUQ, includes liver Result Date: 06/25/2025 REVIEWING YOUR TEST RESULTS [facility] IS NOT A SUBSTITUTE FOR DISCUSSING THOSE RESULTS WITH YOUR HEALTH CARE PROVIDER. PLEASE CONTACT YOUR PROVIDER VIA [employer] TO DISCUSS ANY QUESTIONS OR CONCERNS YOU MAY HAVE REGARDING THESE TEST RESULTS. RADIOLOGY REPORT FACILITY: [facility] UNIT/AGE/GENDER: N.4L IN AGE:54 Y SEX:M PATIENT NAME/: JAMIEJERRYKIM S 1970 UNIT NUMBER: [id number] ACCESSION NUMBER: [id number] Right upper quadrant ultrasound. 06/25/2025 at 1507 hours HISTORY: Elevated liver function tests. TECHNIQUE: Multiple transabdominal images were obtained of the right upper quadrant. There are no prior studies available for comparison. FINDINGS: The liver parenchyma is unremarkable. There is no evidence of biliary ductal dilatation. The gallbladder is also within normal limits. Multiple gallstones are seen within the gallbladder. The visualized pancreas is heterogeneous. The right kidney is also within normal limits. There is a small right renal cyst. There is no evidence of stones, hydronephrosis or hydroureter. No free fluid is identified. Visualized IVC and abdominal aorta are unremarkable. IMPRESSION: Multiple gallstones within the gallbladder Dictated by: Raegan Ramos M.D. Images and Report reviewed andinterpreted by: Raegan Ramos M.D. <PS><Electronically signed by: Raegan Ramos M.D.> 06/25/2025 1530 1529 1529 XR L Spine Ap & Lateral-Standing Result Date: 06/25/2025 REVIEWING YOUR TEST RESULTS IN [employer] IS NOT A SUBSTITUTE FOR DISCUSSING THOSE RESULTS WITH YOUR HEALTH CARE PROVIDER. PLEASE CONTACT YOUR PROVIDER VIA [employer] TO DISCUSS ANY QUESTIONS OR CONCERNS YOU MAY HAVE REGARDING THESE TEST RESULTS. RADIOLOGY REPORT FACILITY: [facility] UNIT/AGE/GENDER: N.4L IN AGE:54 Y SEX:M PATIENT NAME/: KIM JACKSON S 1970 UNIT NUMBER: [id number] ACCESSION NUMBER: [id number] EXAMINATION: XR L SPINEAP AND LATERAL-STANDING CLINICAL INDICATION/HISTORY: LBP. COMPARISON: None TECHNIQUE: 2 views FINDINGS: Lumbar Spine: No evidence for acute fracture. Normal vertebral body heights. Mild degenerative disc disease at L3-S1 levels. Posterior pedicle screw and betsy fixation at L5-S1 without radiographicevidence for complication. Sacrum and SI Joints: No acute findings. Soft Tissues: Normal. IMPRESSION: 1. No evidence of acute fracture. 2. Posterior fusion hardware L5-S1 without evidence for complication. Dictated by: Spenser Schuler Images and Report reviewed and interpreted by: Spenser Schuler < PS><Electronically signed by: Spenser Schuler> 06/25/2025 1145 1144 1144 Active problem list: Principal Problem: Intractable low back pain (POA: Unknown) Date Noted: 06/25/2025 Active Problems: HTN (hypertension) (POA: Yes) Date Noted: 06/25/2025 ADHD (POA: Yes) Date Noted: 06/25/2025 Tobacco abuse (POA: Yes) Date Noted: 06/25/2025 Acute cholecystitis (POA: Unknown) Date Noted: 06/27/2025 ASSESSMENT/ PLAN: Fever - afebrile since admission - cultures P - WBC wnl. Elevated inflammatory markers - ? Secondary to cholecystitis - ID consulted Intractable back pain - spine consulted - MRI per spine- prior instrumented fusion at L5-S1 with what appears to be postoperative changes Teto not see any obvious epidural collection concerning for epidural abscess on the STIR sequences orpostcontrast images I do not see any obvious inflammation suspicious for discitis. Elevated LFTs Cholecystitis s/p lap choly 06/26 - postop care per surg - defer AB to surg - Postop pain uncontrolled. Change [place] to Percocet. IV morphine for breakthrough pain. Monitor closely for oversedation. HTN - home meds resumed ADHD - home meds resumed Hyperglycemia, prediabetes - check A1c-6.0 - ssi prn Disposition - home when stable Nutrition - per surgery DVT Prophylaxis - start lovenox if ok with surgery Raven Huntley MD 06/27/2025 2:00 PM * Jethro Sofia MD - 06/27/2025 8:32 AM EDT SURGERY PROGRESS NOTE Patient Identification: Name: Kim Jackson Age: 54 yr/o Sex: male : 1970 Subjective: No acute events overnight. No nausea or vomiting. No bowel movement this morning, is passing flatus. Pain controlled. Incisions c/d/I. Afebrile. Objective: Diet Orders Procedures DIET Regular - Order Details: No Continuous Infusions:sodium chloride, Last Rate: 100 mL/hr at 06/25/25 0633 Scheduled Meds: acetaminophen 1,000 mg Oral Q8H amphetamine-dextroamphetamine 30 mg Oral QAM amphetamine-dextroamphetamine 10 mg Oral Daily docusate sodium 100 mg Oral BID fluticasone 1 spray Each Nare Daily insulin lispro 0-6 Units Subcutaneous 4x Daily AC and HS (7,11,5,10) lidocaine 3 patch Transdermal Daily losartan 100 mg Oral Daily nicotine 1 patch Transdermal Daily tamsulosin 0.4 mg Oral Nightly PRN Meds:sodium chloride, calcium carbonate OR Alum & Mag Hydroxide-Simeth, docusate sodiumAND magnesium hydroxide AND bisacodyl, cloNIDine, cyclobenzaprine, HYDROcodone-acetaminophen AND HYDROcodone-acetaminophen AND morphine (PF), magnesium sulfate, melatonin, nicotine polacrilex, ondansetron OR ondansetron, potassium chloride SA OR potassium chloride OR potassium chloride OR potassium chloride Vital signs in last 24 hours: Vitals: 06/26/25 1734 06/26/25 2034 06/27/25 0424 06/27/25 0723 BP: (!) 165/90 (!) 154/94 (!) 146/91 (!) 175/97 BP Location: Right arm Left arm Left arm Right arm Orthostatic Position: Sitting Lying Lying Lying Pulse: 75 89 86 74 Resp: Temp: 98.1 ??F (36.7 ??C) 98 ??F (36.7 ??C) 98.1 ??F (36.7 ??C) TempSrc: Oral Oral Oral SpO2: 96% 94% 100% 99% Weight: Height: Intake/Output:I/O last 3 completed shifts: In: 1520 [P.O.:720; I.V.:800] Out: - Exam: General: No acute distress, resting quietly HEENT: Normocephalic, atraumatic, EOMI Heart: Normal rate, well perfused Lungs: Respirations non-labored Abdomen: Soft, nondistended, incisions clean/dry/intact with exofin overlying Extremities: Moves all extremities, no edema Recent Results (from the past 24 hours) Glucose-Glucometer Collection Time: 06/26/25 11:38 AM Result Value Ref Range Glucose Glucometer 146 (H) 71 - 139 mg/dL Glucose-Glucometer Collection Time: 06/26/25 10:08 PM Result Value Ref Range Glucose Glucometer 319 (H) 71 - 139 mg/dL CBC w/Diff Collection Time: 06/27/25 4:26 AM Result Value Ref Range White Blood Cells 12.99 (H) 4.50 - 11.00 10*3/uL Red Blood Cells 4.61 4.50 - 5.90 10*6/uL Hemoglobin 13.9 13.5 - 17.5 g/dL Hematocrit 40.9 (L) 41.0 - 53.0 % Mean Corpuscular Volume 88.7 80.0 - 100.0 fL Mean Corpuscular Hemoglobin 30.2 26.0 - 34.0 pg Mean Corpuscular Hemoglobin Concentration 34.0 31.0 - 37.0 g/dL % Red Blood Cell Distribution Width 14.3 12.0 - 16.8 % Platelet Count 276 140 - 440 10*3/uL Mean Platelet Volume 10.4 8.4 - 12.4 fL % Neutrophils 74.4 45.0 - 80.0 % % Lymphocytes 16.5 15.0 - 50.0 % % Monocytes 7.5 0.0 - 15.0 % % Eosinophils 0.2 0.0 - 7.0 % % Basophils 0.2 0.0 - 2.0 % % Immature Granulocytes 1.2 (H) 0.0 - 1.0 % % Nucleated RBCs 0 <=0 /100 WBCs Absolute Neutrophil Count 9.66 (H) 2.00 - 8.80 10*3/uL Absolute Lymphocytes 2.14 0.70 - 5.50 10*3/uL Absolute Monocytes 0.98 0.00 - 1.70 10*3/uL Absolute Eosinophils 0.03 0.00 - 0.80 10*3/uL Absolute Basophils 0.03 0.00 - 0.20 10*3/uL Absolute Immature Granulocytes 0.15 (H) 0.00 - 0.10 10*3/uL Comprehensive Metabolic Panel (CMP) Collection Time: 06/27/25 4:26 AM Result Value Ref Range Sodium 136 136 - 145 mmol/L Potassium 4.1 3.5 - 5.1 mmol/L Chloride 103 98 - 107 mmol/L Carbon Dioxide 24 22 - 29 mmol/L Anion Gap 9 5 - 13 mmol/L Glucose, Random 246 (H) 71 - 99 mg/dL Blood Urea Nitrogen (BUN) 18 8 - 26 mg/dL Creatinine, Blood 0.84 0.73 - 1.18 mg/dL BUN/Creatinine Ratio 21.4 RATIO Estimated GFR (Cr) 105 >60 mL/min/1.73m2 Total Protein 6.6 6.4 - 8.2 g/dL Albumin 3.7 3.5 - 5.2 g/dL Globulin 2.9 1.5 - 4.5 g/dL Albumin/Globulin Ratio 1.3 1.1 - 2.5 RATIO Calcium 8.9 8.4 - 10.2 mg/dL Total Bilirubin 1.7 (H) 0.3 - 1.2 mg/dL AST/SGOT 54 (H) 5 - 34 U/L ALT/SGPT 116 (H) 0 - 55 U/L Alkaline Phosphatase 240 (H) 40 - 150 U/L Bilirubin,Total and Direct Collection Time: 06/27/25 4:26 AM Result Value Ref Range Total Bilirubin 1.7 (H) 0.3 - 1.2 mg/dL Direct Bilirubin 0.8 (H) 0.0 - 0.5 mg/dL Indirect Bilirubin 0.9 0.0 - 1.1 mg/dL Glucose-Glucometer Collection Time: 06/27/25 6:54 AM Result Value Ref Range Glucose Glucometer 222 (H) 71 - 139 mg/dL No results found. Assessment: Principal Problem: Intractable low back pain (POA: Unknown) Date Noted: 06/25/2025 Active Problems: HTN (hypertension) (POA: Yes) Date Noted: 06/25/2025 ADHD (POA: Yes) Date Noted: 06/25/2025 Tobacco abuse (POA: Yes) Date Noted: 06/25/2025 1 Day Post-Op Procedure(s) (LRB): LAPAROSCOPIC CHOLECYSTECTOMY (N/A) Kim Jackson is a 54 yr/o male with cholelithiasis and elevated liver enzymes. No clinical or imaging findings suggestive of acute cholecystitis. Plan to obtain fractionated bilirubin to further elucidate on causes of transaminitis and hyperbilirubinemia. Now s/p laparoscopic cholecystectomy. T bili 1.7 from 2.6. No need for ERCP at this time. Patient WBC 12.99 from 05/08, likely reactive in the setting of recent surgery. From surgical standpoint, plan to normalize patient and stable fordischarge. Plan: -OK for diet -MMPC -SCDs, ok for DVT ppx -From surgical perspective, stable for discharge Sera Martines MD 06/27/2025 Agree. All labs trending down. Feels well. Can dc home from surgical standpoint Jethro Sofia MD 06/27/2025 * Raven Viera MD - 06/26/2025 6:17 PM EDT DAILY PROGRESS NOTE PATIENT IDENTIFICATION Kim Jackson [id number] No chief complaint on file. SUBJECTIVE Chief complaint: Post op RUQ pain- mod to severe Complete 12 point ROS obtained and negative with the exception of above OBJECTIVE Exam: BP (!) 165/90 (BP Location: Right arm, Orthostatic Position: Sitting) Pulse 75 Temp 98.1 ??F (36.7 ??C) (Temporal) Resp 15 Ht 5' 9 (1.753 m) Wt 96.2 kg (212 lb) SpO2 96% BMI 31.31 kg/m?? Intake/Output last 3 shifts: I/O last 3 completed shifts: In: 1400 [P.O.:600; I.V.:800] Out: - Intake/Output this shift: No intake/output data recorded. General Appearance: Alert, cooperative, no distress, appears stated age. Head: Normocephalic, without obvious abnormality, atraumatic, mmm Lungs: Clear to auscultation bilaterally, respirations unlabored Heart: Regular rate and rhythm, S1 and S2 normal, no murmur, rub or gallop Abdomen: Soft, non-tender, bowel sounds active all four quadrants, no masses, no hepatomegaly, no splenomegaly Extremities: Extremities normal, no cyanosis or edema. No joint effusions or tenderness Skin: No rashes or lesions/ no palpable nodules Psych: Mood and affect appropriate. Alert and oriented times 3 Scheduled Meds: amphetamine-dextroamphetamine 30 mg Oral QAM amphetamine-dextroamphetamine 10 mg Oral Daily docusate sodium 100 mg Oral BID fluticasone 1 spray Each Nare Daily losartan 100 mg Oral Daily nicotine 1 patch Transdermal Daily tamsulosin 0.4 mg Oral Nightly Continuous Infusions:sodium chloride, Last Rate: 100 mL/hr at 06/25/25 0633 PRN Meds:sodium chloride, acetaminophen OR acetaminophen OR acetaminophen, calcium carbonate OR Alum & Mag Hydroxide-Simeth, docusate sodium AND magnesium hydroxide AND bisacodyl, cloNIDine, cyclobenzaprine, HYDROcodone-acetaminophen AND HYDROcodone-acetaminophen ANDmorphine (PF), magnesium sulfate, melatonin, nicotine polacrilex, ondansetron OR ondansetron, potassium chloride SA OR potassium chloride OR potassium chloride OR potassium chloride Data Review: All labs (24hrs): Recent Results (from the past 24 hours) Tick-borne Disease Panel Collection Time: 06/26/25 4:44 AM Result Value Ref Range Tick-Borne Disease PNL Negative Negative Bilirubin,Total and Direct Collection Time: 06/26/25 4:44 AM Result Value Ref Range Total Bilirubin 2.6 (H) 0.3 - 1.2 mg/dL Direct Bilirubin 1.3 (H) 0.0 - 0.5 mg/dL Indirect Bilirubin 1.3 (H) 0.0 - 1.1 mg/dL Lipase Collection Time: 06/26/25 4:44 AM Result Value Ref Range Lipase 68 (H) 0 - 59 U/L CBC w/Diff Collection Time: 06/26/25 4:44 AM Result Value Ref Range White Blood Cells 8.29 4.50 - 11.00 10*3/uL Red Blood Cells 4.50 4.50 - 5.90 10*6/uL Hemoglobin 13.9 13.5 - 17.5 g/dL Hematocrit 39.5 (L) 41.0 - 53.0 % Mean Corpuscular Volume 87.8 80.0 - 100.0 fL Mean Corpuscular Hemoglobin 30.9 26.0 - 34.0 pg Mean Corpuscular Hemoglobin Concentration 35.2 31.0 - 37.0 g/dL % Red Blood Cell Distribution Width 14.1 12.0 - 16.8 % Platelet Count 247 140 - 440 10*3/uL Mean Platelet Volume 10.2 8.4 - 12.4 fL % Nucleated RBCs 0 <=0 /100 WBCs Comprehensive Metabolic Panel(CMP) Collection Time: 06/26/25 4:44 AM Result Value Ref Range Sodium 137 136 - 145 mmol/L Potassium 3.6 3.5 - 5.1 mmol/L Chloride 103 98 - 107 mmol/L Carbon Dioxide 23 22 - 29 mmol/L Anion Gap 11 5 - 13 mmol/L Glucose, Random 150 (H) 71 - 99 mg/dL Blood Urea Nitrogen (BUN) 16 8 - 26 mg/dL Creatinine, Blood 0.84 0.73 - 1.18 mg/dL BUN/Creatinine Ratio 19.0 RATIO Estimated GFR (Cr) 105 >60 mL/min/1.73m2 Total Protein 6.4 6.4 - 8.2 g/dL Albumin 3.6 3.5 - 5.2 g/dL Globulin 2.8 1.5 - 4.5 g/dL Albumin/Globulin Ratio 1.3 1.1 - 2.5 RATIO Calcium 9.1 8.4 - 10.2 mg/dL Total Bilirubin 2.6 (H) 0.3 - 1.2 mg/dL AST/SGOT 46 (H) 5 - 34 U/L ALT/SGPT 102 (H) 0 - 55 U/L Alkaline Phosphatase 227 (H) 40 - 150 U/L Differential, Manual, Blood Collection Time: 06/26/25 4:44 AM Result Value Ref Range % Segmented Neutrophils 55.0 45.0 - 80.0 % % Lymphocytes 28.0 15.0 - 50.0 % % Atypical Lymphocytes 7.0 <=8.0 % % Monocytes 3.0 <=15.0 % % Eosinophils 7.0 <=7.0 % % Nucleated RBCs 0 <=0 /100 WBCs Absolute Neutrophil Count 4.56 2.00 - 8.80 10*3/uL Absolute Lymphocytes 2.32 0.70 - 5.50 10*3/uL Absolute Atypical Lymphocytes 0.58 0.00 - 0.90 10*3/uL Absolute Monocytes 0.25 <=1.70 10*3/uL Absolute Eosinophils 0.58 <=0.80 10*3/uL Platelet Estimate Adequate Adequate Platelet Morphology Normal Red Blood Cell Morphology Normal White Blood Cell Morphology Normal Type and Screen Collection Time: 06/26/25 8:07 AM Result Value Ref Range ABO/RH(D) A POS Antibody Screen NEG Crossmatch Expiration 06/29/2025 23:59 Glucose-Glucometer Collection Time: 06/26/25 11:38 AM Result Value Ref Range Glucose Glucometer 146 (H) 71 - 139 mg/dL Imaging: US ABDOMEN RUQ, includes liver Result Date: 06/25/2025 REVIEWING YOUR TEST RESULTS IN [facility] IS NOT A SUBSTITUTE FOR DISCUSSING THOSE RESULTS WITH YOUR HEALTH CARE PROVIDER. PLEASE CONTACT YOUR PROVIDER [facility]IA [facility] TO DISCUSS ANY QUESTIONS OR CONCERNS YOU MAY HAVE REGARDING THESE TEST RESULTS. RADIOLOGY REPORT FACILITY: [facility] UNIT/AGE/GENDER: N.4L IN AGE:54 Y SEX:M PATIENT NAME/: YANELIS JULIOCESARGARRYLindsey HENRIQUEZ 1970 UNIT NUMBER: [id number] ACCESSION NUMBER: [id number] Right upper quadrant ultrasound. 06/25/2025 at 1507 hours HISTORY: Elevated liver function tests. TECHNIQUE: Multiple transabdominal images were obtained of the right upper quadrant. There are no prior studies available for comparison. FINDINGS: The liver parenchyma is unremarkable. There is no evidence of biliary ductal dilatation. The gallbladder is also within normal limits. Multiple gallstones are seen within the gallbladder. The visualized pancreas is heterogeneous. The right kidney is also within normal limits. There is a small right renal cyst. There is no evidence of stones, hydronephrosis or hydroureter. No free fluid is identified. Visualized IVC and abdominal aorta are unremarkable. IMPRESSION: Multiple gallstones within the gallbladder Dictated by: Raegan Ramos M.D. Images and Report reviewed andinterpreted by: Raegan Ramos M.D. <PS><Electronically signed by: Raegan Ramos M.D.> 06/25/2025 1530 1529 1529 XR L Spine Ap & Lateral-Standing Result Date: 06/25/2025 REVIEWING YOUR TEST RESULTS IN [facility] IS NOT A SUBSTITUTE FOR DISCUSSING THOSE RESULTS WITH YOUR HEALTH CARE PROVIDER. PLEASE CONTACT YOUR PROVIDER VIA [employer] TO DISCUSS ANY QUESTIONS OR CONCERNS YOU MAY HAVE REGARDING THESE TEST RESULTS. RADIOLOGY REPORT FACILITY: [facility] UNIT/AGE/GENDER: N.4L IN AGE:54 Y SEX:M PATIENT NAME/: KIM JACKSON S 1970 UNIT NUMBER: [id number] ACCESSION NUMBER: [id number] EXAMINATION: XR L SPINEAP AND LATERAL-STANDING CLINICAL INDICATION/HISTORY: LBP. COMPARISON: None TECHNIQUE: 2 views FINDINGS: Lumbar Spine: No evidence for acute fracture. Normal vertebral body heights. Mild degenerative disc disease at L3-S1 levels. Posterior pedicle screw and betsy fixation at L5-S1 without radiographicevidence for complication. Sacrum and SI Joints: No acute findings. Soft Tissues: Normal. IMPRESSION: 1. No evidence of acute fracture. 2. Posterior fusion hardware L5-S1 without evidence for complication. Dictated by: Spenser Schuler Images and Report reviewed and interpreted by: Spenser Schuler < PS><Electronically signed by: Spenser Schuler> 06/25/2025 1145 1144 1144 Active problem list: Principal Problem: Intractable low back pain (POA: Unknown) Date Noted: 06/25/2025 Active Problems: HTN (hypertension) (POA: Yes) Date Noted: 06/25/2025 ADHD (POA: Yes) Date Noted: 06/25/2025 Tobacco abuse (POA: Yes) Date Noted: 06/25/2025 ASSESSMENT/ PLAN: Fever - afebrile since admission - cultures P - WBC wnl. Elevated inflammatory markers - ? Secondary to cholecystitis Intractable back pain - spine consulted - MRI per spine- prior instrumented fusion at L5-S1 with what appears to be postoperative changes Teto not see any obvious epidural collection concerning for epidural abscess on the STIR sequences orpostcontrast images I do not see any obvious inflammation suspicious for discitis. - norco prn with IV morphine for breakthrough. Monitor closely for oversedation. Elevated LFTs Cholecystitis s/p lap choly 06/26 - postop care per surg - defer AB to surg HTN - home meds resumed ADHD - home meds resumed Hyperglycemia - check A1c - ssi prn Disposition - home when stable Nutrition - per surgery DVT Prophylaxis - start lovenox if ok with surgery Raven Huntley MD 06/26/2025 6:17 PM * Nav Vidales MD - 06/26/2025 10:10 AM EDT Attestation Statement: I personally have examined the patient and interviewed the patient. I have reviewed the history, data, problems, assessment and plan with the resident during rounds. Any additions are noted by me below. Pt presented with abdominal pain and elevated LFTs now downtrending. Abd soft, non distended, tender in RUQ. Imaging concerning for likely resolving choledocholithiasis. Risks, benefits and alternatives of proceeding with surgery described, questions answered. Informed consent signed. To OR. Nav Vidales MD 4:59 PM 06/26/2025 This document is intended for medical expert use only. Reading of this document by patients and/or patient's family without participating medical staff guidance may result in misinterpretation. I am happy to discuss any and all concerns/questions on daily rounds or if more urgent please have your nurse contact me. GENERAL SURGERY PROGRESS NOTE Date: 06/26/2025 Hospital Day # 1 Interval History: NAEON. Vital signs stable and afebrile overnight. Patient does not have any abdominal pain he is stating that he has a migraine. He denies any nausea or vomiting he continues to have normal bowel movements for him. He is up and out of bed. Diet: Diet Orders Procedures DIET NPO after MN - Order Details: Vitals: Temp: [97.7 ??F (36.5 ??C)-97.8 ??F (36.6 ??C)] 97.8 ??F (36.6 ??C) Pulse: [92-94] 94 Resp Rate: [18] 18 BP: (137-177)/(74-91) 137/74 Oxygen Requirement: Oxygen Therapy SpO2: 95 % O2 Device: None (Room air) Oximetry Probe Site Changed: No Patient Lines/Drains/Airways Status Active Lines/Drains/Airways Name Placement date Placement time Site Days Adult Peripheral IV 06/25/25 Anterior;Right Forearm 06/25/25 0600 Forearm 1 Inactive Lines/Drains/Airways None I/O: Intake/Output Summary (Last 24 hours) at 06/26/2025 1010 Last data filed at 06/25/2025 2317 Gross per 24 hour Intake 600 ml Output -- Net 600 ml Labs: Recent Results (from the past 24 hours) XR L Spine Ap & Lateral-Standing Collection Time: 06/25/25 10:43 AM Result Value Ref Range [employer] WORKSTATION ID [id number] US ABDOMEN RUQ, includes liver Collection Time: 06/25/25 3:24 PM Result Value Ref Range [employer] WORKSTATION ID [id number] Urinalysis with Reflex to culture Collection Time: 06/25/25 4:43 PM Result Value Ref Range Color, Urine Yellow Clarity, Urine Clear Specific [place], Urine 1.012 1.005 - 1.030 [arb'U] pH, Urine 7.0 5.0 - 9.0 [pH] Protein, Urine Negative Negative, 10 mg/dL, 15 mg/dL, 20 mg/dL, Trace Glucose, Urine Negative Negative Ketones, Urine Negative Negative Bilirubin, Urine Negative Negative mg/dL Blood, Urine Trace (A) Negative [arb'U] Nitrite, Urine Negative Negative Urobilinogen, Urine 2 mg/dL (A) Normal Leukocyte Esterase, Urine Negative Negative Reflex Microscopic? Red Blood Cells, Urine 5 (H) 0 - 2 [HPF] White Blood Cells, Urine 2 0 - 3 [HPF] Squamous Epithelial Cells, Urine 0 0 - 4 [HPF] Bacteria, Urine None None [HPF] Transitional Epithelial Cells, Urine <1 0 - 2 [HPF] Culture,Blood Collection Time: 06/25/25 4:44 PM Specimen: Blood, Peripheral Result Value Ref Range Culture No Growth Hepatitis,Acute Panel Collection Time: 06/25/25 4:44 PM Result Value Ref Range Hepatitis A Antibody (IgM), Qualitative Non-Reactive Non-Reactive, Indeterminate Hepatitis B Surface Antigen, Qualitative Non-Reactive Non-Reactive Hepatitis B Core Antibody (IgM), Qualitative Non-Reactive Non-Reactive, Indeterminate Hepatitis C Antibody, Qualitative Non-Reactive Non-Reactive, Indeterminate Comprehensive Metabolic Panel (CMP) Collection Time: 06/25/25 4:44 PM Result Value Ref Range Sodium 139 136 - 145 mmol/L Potassium Chloride 104 98 - 107 mmol/L Carbon Dioxide 23 22 - 29 mmol/L Anion Gap 12 5 - 13 mmol/L Glucose, Random 112 (H) 71 - 99 mg/dL Blood Urea Nitrogen (BUN) 14 8 - 26 mg/dL Creatinine, Blood 0.77 0.73 - 1.18 mg/dL BUN/Creatinine Ratio 18.2 RATIO Estimated GFR (Cr) 108 >60 mL/min/1.73m2 Total Protein 7.0 6.4 - 8.2 g/dL Albumin 3.8 3.5 - 5.2 g/dL Globulin 3.2 1.5 - 4.5 g/dL Albumin/Globulin Ratio 1.2 1.1 - 2.5 RATIO Calcium 9.4 8.4 - 10.2 mg/dL Total Bilirubin 3.5 (H) 0.3 - 1.2 mg/dL AST/SGOT ALT/SGPT 112 (H) 0 - 55 U/L Alkaline Phosphatase 237 (H) 40 - 150 U/L Bilirubin,Total and Direct Collection Time: 06/26/25 4:44 AM Result Value Ref Range Total Bilirubin 2.6 (H) 0.3 - 1.2 mg/dL Direct Bilirubin 1.3 (H) 0.0 - 0.5 mg/dL Indirect Bilirubin 1.3 (H) 0.0 - 1.1 mg/dL Lipase Collection Time: 06/26/25 4:44 AM Result Value Ref Range Lipase 68 (H) 0 - 59 U/L CBC w/Diff Collection Time: 06/26/25 4:44 AM Result Value Ref Range White Blood Cells 8.29 4.50 - 11.00 10*3/uL Red Blood Cells 4.50 4.50 - 5.90 10*6/uL Hemoglobin 13.9 13.5 - 17.5 g/dL Hematocrit 39.5 (L) 41.0 - 53.0 % Mean Corpuscular Volume 87.8 80.0 - 100.0 fL Mean Corpuscular Hemoglobin 30.9 26.0 - 34.0 pg Mean Corpuscular Hemoglobin Concentration 35.2 31.0 - 37.0 g/dL % Red Blood Cell Distribution Width 14.1 12.0 - 16.8 % Platelet Count 247 140 - 440 10*3/uL Mean Platelet Volume 10.2 8.4 - 12.4 fL % Nucleated RBCs 0 <=0 /100 WBCs Comprehensive Metabolic Panel(CMP) Collection Time: 06/26/25 4:44 AM Result Value Ref Range Sodium 137 136 - 145 mmol/L Potassium 3.6 3.5 - 5.1 mmol/L Chloride 103 98 - 107 mmol/L Carbon Dioxide 23 22 - 29 mmol/L Anion Gap 11 5 - 13 mmol/L Glucose, Random 150 (H) 71 - 99 mg/dL Blood Urea Nitrogen (BUN) 16 8 - 26 mg/dL Creatinine, Blood 0.84 0.73 - 1.18 mg/dL BUN/Creatinine Ratio 19.0 RATIO Estimated GFR (Cr) 105 >60 mL/min/1.73m2 Total Protein 6.4 6.4 - 8.2 g/dL Albumin 3.6 3.5 - 5.2 g/dL Globulin 2.8 1.5 - 4.5 g/dL Albumin/Globulin Ratio 1.3 1.1 - 2.5 RATIO Calcium 9.1 8.4 - 10.2 mg/dL Total Bilirubin 2.6 (H) 0.3 - 1.2 mg/dL AST/SGOT 46 (H) 5 - 34 U/L ALT/SGPT 102 (H) 0 - 55 U/L Alkaline Phosphatase 227 (H) 40 - 150 U/L Differential, Manual, Blood Collection Time: 06/26/25 4:44 AM Result Value Ref Range % Segmented Neutrophils 55.0 45.0 - 80.0 % % Lymphocytes 28.0 15.0 - 50.0 % % Atypical Lymphocytes 7.0 <=8.0 % % Monocytes 3.0 <=15.0 % % Eosinophils 7.0 <=7.0 % % Nucleated RBCs 0 <=0 /100 WBCs Absolute Neutrophil Count 4.56 2.00 - 8.80 10*3/uL Absolute Lymphocytes 2.32 0.70 - 5.50 10*3/uL Absolute Atypical Lymphocytes 0.58 0.00 - 0.90 10*3/uL Absolute Monocytes 0.25 <=1.70 10*3/uL Absolute Eosinophils 0.58 <=0.80 10*3/uL Platelet Estimate Adequate Adequate Platelet Morphology Normal Red Blood Cell Morphology Normal White Blood Cell Morphology Normal Type and Screen Collection Time: 06/26/25 8:07 AM Result Value Ref Range ABO/RH(D) A POS Antibody Screen NEG Crossmatch Expiration 06/29/2025 23:59 Imaging Studies: US ABDOMEN RUQ, includes liver Result Date: 06/25/2025 REVIEWING YOUR TEST RESULTS IN [facility] IS NOT A SUBSTITUTE FOR DISCUSSING THOSE RESULTS WITH YOUR HEALTH CARE PROVIDER. PLEASE CONTACT YOUR PROVIDER VIA [facility] TO DISCUSS ANY QUESTIONS OR CONCERNS YOU MAY HAVE REGARDING THESE TEST RESULTS. RADIOLOGY REPORT FACILITY: [facility] UNIT/AGE/GENDER: N.4L IN AGE:54 Y SEX:M PATIENT NAME/: KIM JACKSON S 1970 UNIT NUMBER: [id number] ACCESSION NUMBER: [id number] Right upper quadrant ultrasound. 06/25/2025 at 1507 hours HISTORY: Elevated liver function tests. TECHNIQUE: Multiple transabdominal images were obtained of the right upper quadrant. There are no prior studies available forcomparison. FINDINGS: The liver parenchyma is unremarkable. There is no evidence of biliary ductal dilatation. The gallbladder is also within normal limits. Multiple gallstones are seen within the gallbladder. The visualized pancreas is heterogeneous. The right kidney is also within normal limits. There is a small right renal cyst. There is no evidence of stones, hydronephrosis or hydroureter. Nofree fluid is identified. Visualized IVC and abdominal aorta are unremarkable. IMPRESSION: Multiplegallstones within the gallbladder Dictated by: Raegan Ramos M.D. Images and Report reviewed and interpreted by: Raegan Ramos M.D. <PS><Electronically signed by: Raegan Ramos M.D.> 06/25/2025 1530 1529 1529 XR L Spine Ap & Lateral-Standing Result Date: 06/25/2025 REVIEWING YOUR TEST RESULTS IN [facility] IS NOT A SUBSTITUTE FOR DISCUSSING THOSE RESULTS WITH YOUR HEALTH CARE PROVIDER. PLEASE CONTACT YOUR PROVIDER VIA [employer] TO DISCUSS ANY QUESTIONS OR CONCERNS YOU MAY HAVE REGARDING THESE TEST RESULTS. RADIOLOGY REPORT FACILITY: [facility] UNIT/AGE/GENDER: N.4L IN AGE:54 Y SEX:M PATIENT NAME/: KIM JACKSON S 1970 UNIT NUMBER: [id number] ACCESSION NUMBER: [id number] EXAMINATION: XR L SPINE AP AND LATERAL-STANDING CLINICAL INDICATION/HISTORY: LBP. COMPARISON: None TECHNIQUE: 2 views FINDINGS: Lumbar Spine: No evidence for acute fracture. Normal vertebral body heights. Mild degenerativedisc disease at L3-S1 levels. Posterior pedicle screw and betsy fixation at L5-S1 without radiographic evidence for complication. Sacrum and SI Joints: No acute findings. Soft Tissues: Normal. IMPRESSION: 1. No evidence of acute fracture. 2. Posterior fusion hardware L5-S1 without evidence for complication. Dictated by: Spenser Schuler Images and Report reviewed and interpreted by: Spenser Schuler &lt ;PS><Electronically signed by: Spenser Schuler> 06/25/2025 1145 1144 1144 Physical Exam: General: Alert, cooperative, and not in distress Head: Normocephalic, atraumatic, without obvious abnormality Eyes: EOMI, no icterus Neck: Symmetrical, trachea midline Lungs: Non-labored respirations on room air Heart: Normal rate, well perfused Abdomen: Soft, non-distended, non-tender, no guarding/rigidity/rebound, no masses appreciated Extremities: Moves all extremities, no cyanosis or edema Skin: Color, texture, turgor normal, no rashes or lesions Assessment: Kim Jackson is a 54 yr/o male with cholelithiasis and elevated liver enzymes. No clinical or imaging findings suggestive of acute cholecystitis. Plan to obtain fractionated bilirubin to further elucidate on causes of transaminitis and hyperbilirubinemia. His T. bili has gone from 3.5 upon a dmission to 2.6 at this time. Likely plan for OR today for cholecystectomy. * Day of Surgery * Procedure(s) (LRB): LAPAROSCOPIC CHOLECYSTECTOMY WITH IOC (N/A) Plan: Discuss operative management with patient Type and screen - Diet: N.p.o. - IVF: Normal saline per primary - ABX: None - Pain: MMPC, [place] - DVT PPX: SCDs, dvtppx: holding chemical DVT ppx at this time Raya Mcginnis MD PGY-1 General Surgery Resident 06/26/2025 documented in this encounter H&P Notes * Raven Viera MD - 06/25/2025 3:35 AM EDT H&P Note Patient Identification: Name: Kim Jackson Age: 54 yr/o Sex: male : 1970 DOS: 06/25/2025 Chief Complaint: Low back pain History of Present Illness: Patient is a 54 yr/o male with past medical history of ADHD, migraines,HTN, IV drug use (10 years ago), multiple spine surgeries, osteomyelitis who presented to the ED [facility] with complaints of low back pain that has been ongoing for 2 weeks whichhe describes as sharp radiating into the hips that worsened on Sunday with fever (Tmax 102 at home), chills and headache for which he was admitted to [facility] for the last 3 days and he LEFT AMA yesterday stating that there were issues with getting Vancomycin and lab work, he couldnot be transferred to [place] or due to capacity at both facilities and his best option was to stay and deal with it or leave AMA and him and his spouse opted for the later. ED provider reported that patient went to the PCP and after reviewing his MRI that was done at [facility] [place] which showed that there was L3-L4 posterior elements of inflammation and infectious process difficult to exclude and was advised to go to the ED for further evaluation. On exam, patient noted to have tenderness in the back however, no motor weakness appreciated per ED provider at [facility]. After discussing patient's status with Spine and due to not having ID at [facility], pt was transferred to [facility] for furtherevaluation and treatment. Per medical records from OSH, patient was admitted on 06/21/2025 at [facility] due to febrile illness, frontal headache, and elevated liver enzymes. Pt reportstobacco abuse of 1/2 PPD for 32 yrs, but denies alcohol and illicit drug use. Pt is alert and oriented x 3 with spouse at bedside. VS from [facility]: T 98.3, HR 90, RR 19, BP 156/109, sats 97% RA. Labs on 06/24/25 from [facility]: WBC 8.3, H&H 14.5/41.1, PLT 205, Na+ 137, K+ 3.7, Cl 98, BUN 12, CR 0.8, glucose 155, ALT 107, AST 56, alk phos 220, CRP 65, sed rate 41, LA 1.7 Diagnostics & labs from [facility] on 06/21/25: CT head: No acute intracranial abnormality Chest x-ray: No acute finding MRI lumbar spine L3-L5 posterior element inflammation is possibly degenerative. An early infectious process is thought to be less likely but is difficult to exclude. Lumbar spine degenerative changes L5-S1 fusion with lumbar spine degenerative changes superposed oncongenitally small spinal canal resulting in borderline high-grade canal narrowing at L3-L4. L4 andleft iliac intraosseous lesions are indeterminate but without aggressive features. CSF analysis Colorless, clear, RBC 0, total nucleated cells 2, glucose 102, protein 62 CT chest, ABD/pelvis on 06/21/2025 Bibasilar pulmonary atelectasis. Right sided renal swelling and perirenal induration. No hydronephrosis or hydroureter. This could be related to pyelonephritis. Diffuse mild bladder wall thickening. Correlate for cystitis Labs: WBC 13.4, H&H 15.6/45, PLT 253, Na+ 127, K+ 3.9, CL 97, BUN 16, CR 0.93, glucose 168, IXC095, AST 135, alk phos 105, T. bili 2.0, procalcitonin 1.82, lactic 2.9 UA: 4+ glucose, negative nitrite, negative leukocyte esterase, 1 WBC, 11 RBC and trace bacteria. Review of Systems: Negative except HPI Constitutional: Denies fever or chills Eyes: Denies change in visual acuity HENT: Denies nasal congestion or sore throat Respiratory: Denies cough or shortness of breath Cardiovascular: Denies chest pain, palpitations, or edema GI: Denies abdominal pain, nausea, vomiting, bloody stools or diarrhea : Denies dysuria Musculoskeletal: Denies back pain or joint pain Integument: Denies rash Neurologic: Denies headache, focal weakness or sensory changes Endocrine: Denies polyuria or polydipsia Lymphatic: Denies swollen glands Psychiatric: Denies depression or anxiety Past Medical History: Past Medical History[1] Past Surgical History: Surgical History[2] Home Meds: No current facility-administered medications on file prior to encounter. Current Outpatient Medications on File Prior to Encounter Medication Sig Dispense Refill amphetamine-dextroamphetamine (ADDERALL XR) 30 MG 24 hr capsule Take 30 mg by mouth every morning. amphetamine-dextroamphetamine (ADDERALL) 10 MG tablet Take 10 mg by mouth nightly. [DISCONTINUED] diphenhydrAMINE (BENADRYL) 50 MG capsule Take 50 mg by mouth every 6 (six) hours as needed for Itching. [DISCONTINUED] ketorolac (TORADOL) 10 MG tablet Take 60 mg by mouth every 6 (six) hours as needed for Pain (migraine). losartan (COZAAR) 100 MG tablet Take 100 mg by mouth daily. tamsulosin (FLOMAX) 0.4 MG CAPS Take 0.4 mg by mouth nightly. Testosterone Enanthate 50 MG/0.5ML CAR A-IJ Inject 0.5 mLs into the skin twice a week Sunday and . Medications Prior to Admission Medication Sig Dispense Refill amphetamine-dextroamphetamine (ADDERALL XR) 30 MG 24 hr capsule Take 30 mg by mouth every morning. amphetamine-dextroamphetamine (ADDERALL) 10 MG tablet Take 10 mg by mouth nightly. [DISCONTINUED] diphenhydrAMINE (BENADRYL) 50 MG capsule Take 50 mg by mouth every 6 (six) hours as needed for Itching. [DISCONTINUED] ketorolac (TORADOL) 10 MG tablet Take 60 mg by mouth every 6 (six) hours as needed for Pain (migraine). losartan (COZAAR) 100 MG tablet Take 100 mg by mouth daily. tamsulosin (FLOMAX) 0.4 MG CAPS Take 0.4 mg by mouth nightly. Testosterone Enanthate 50 MG/0.5ML CAR A-IJ Inject 0.5 mLs into the skin twice a week Sunday and . Allergies: Allergies as of 06/25/2025 Review status set to Review Complete by Michaela العراقي APRN on 06/25/2025 No Known Allergies Immunizations: Immunization History See Immunization Record Social History: Social History Tobacco Use Smoking status: Every Day Current packs/day: 0.50 Average packs/day: 0.5 packs/day for 32.0 years (16.0 ttl pk-yrs) Types: Cigarettes Start date: 06/25/1993 Smokeless tobacco: Current Substance Use Topics Alcohol use: Never Family History: History - Family[3] Objective: Vitals Ranges: Temp: [98.3 ??F (36.8 ??C)] 98.3 ??F (36.8 ??C) Pulse: [99] 99 Resp Rate: [16] 16 BP: (143)/(109) 143/109 Intake and Output Last 3 Shifts: No intake/output data recorded. Exam: Constitutional: Well developed, well nourished, no acute distress, non-toxic appearance Respiratory: Clear to auscultate bilaterally, no adventitious sounds noted. Respirations even, non-labored Cardiovascular: S1 and S2, regular rate and rhythm, no murmurs GI: Soft, nondistended, normal bowel sounds, nontender Extremities: No edema noted. Pulses equal and adequate. Integument: Warm, dry. Neurologic: Alert & oriented x 3 and moves all extremities. Low mid back tenderness on palpation noted Psychiatric: Appropriate mood and affect Data Review: I have reviewed the patient's pertinent lab, radiology, and diagnostic test results. Summary findings are: All labs (24hrs): No results found for this or any previous visit (from the past 24 hours). Radiology review: Imaging: No results found. Assessment: Principal Problem: Intractable low back pain (POA: Unknown) Date Noted: 06/25/2025 Active Problems: HTN (hypertension) (POA: Yes) Date Noted: 06/25/2025 ADHD (POA: Yes) Date Noted: 06/25/2025 Tobacco abuse (POA: Yes) Date Noted: 06/25/2025 Plan Intractable low back pain --MRI from OSH showed L3-L5 posterior elements inflammation possibly degenerative, malignant, infectious process is thought to be less likely but cannot exclude. -- IV/PO analgesics, gentle IV fluid hydration, antiemetics and supportive care -- Flexeril 10 mg every 8 hours as needed -- MiraLAX 17 mg twice daily and LOC prn while on opiates -- Physical and Occupational Therapy to evaluate and treat -- Consult orthospine surgery Hypertension --Resume losartan ADHD -- Resume Adderall Tobacco abuse -- Nicotine patch -- Nicorette gum as needed The patient smokes 1/2 packs daily for 32 years. Risks and complications of tobacco abuse / use including peripheral arterial disease, strokes, myocardial infarction, limb ischemia and loss, as well as head and neck cancer, lung cancer, etc., have been discussed. Cessation counseling, including various medications (nicotine patch, Wellbutrin, nortriptyline, Nicotrol, and Chantix), smoking cessation classes and various resources within the community ([employer]), as well as behavioral modification, have been discussed. Readiness for change: Patient reports that he is ready to quit Total time spent counseling: greater than 5 minutes Nutrition --NPO except medications until after evaluation by spine DVT prophylaxis --SCDs Disposition: Patient admitted to [facility] bed Further orders to follow hospital course. Michaela العراقي APRN [facility] 06/25/2025 5:14 AM Pt seen and examined with Michaela العراقي APRN. I have personally participated in the E&M of this pt and I agree with her plan. VSS. NAD Lungs- CTA CV- RRR, S1S2 abd- benign Ext- no edema Agree with findings/plan as discussed above Patient recently admitted to [facility] Sunday through Sunday with sepsis. He was treated for possible pyelonephritis. Meningitis was ruled out. Patient left AMA. Patient reports that his last fever was yesterday, up to 100.0. Patient denies any current dysuria, cough or sputum production. Intermittent epigastric pain but none currently. Denies any history of liver disease or alcohol abuse. Labs reviewed Spine recommendations noted. Infection of spine not suspected Will obtain final cultures from [facility]. Blood cultures, UA and culture ordered. Check hepatitis panel and right upper quadrant ultrasound. Consult infectious disease. Patient has been afebrile since admission with normal white blood cell count. Will monitor off antibiotics for now. Raven Huntley [1] Past Medical History: Diagnosis Date ADHD Hypertension Migraines Substance abuse [2] Past Surgical History: Procedure Laterality Date BACK SURGERY CARPAL TUNNEL RELEASE Bilateral Cubital tunnel release Right Elbow [3] Family History Problem Relation Name Age of Onset Heart disease Father documented in this encounter Consult Notes * Eugene Guillen MD - 06/27/2025 10:15 AM EDTAssociated Order(s): IP CONSULT TO INFECTIOUS DISEASES [facility] - CONSULT Identification Name: Kim Jackson : 1970 Age: 54 yr/o Admit Date: 06/25/2025 Admitting Diagnosis: Intractable low back pain [M54.59] Attending Provider: Raven Viera,* Requesting Physician: Dr Neal Reason for Consultation: fever Subjective Chief Complaint History of Present Illness Kim Jackson is a 54-year-old male with ADHD, hypertension, migraines, history of substance use, multiple prior spinal intervention and 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 ID consulted to comment on prior fevers. Patient had initially presented to [facility] with complaints of fever and back and hip pain. He notes had an initial fever on Sunday after which he attempted Tylenol x 1 without resolution of fever. He notes weakness that upon characterization was initially whole body weakness although he reports some more pronounced weakness in the lower extremities on the following days after thefever. He denies numbness, tingling, bowel or bladder dysfunction. On presentation he was afebrile with a temp of 98.3, heart rate of 90, RR 19 and sats of 97% on room air. Labs were notable for a normal white count of 8.3, hemoglobin 14.5 and platelets of 205, normal creatinine. ESR of 41 and CRP of 65. MRI imaging showed L3-5 posterior element inflammation that is likely degenerative in nature and degenerative changes of L5-S1 with high-grade canal narrowing at L3-4. An LP was pursued that showed clear CSF with 2 WBCs, 0 RBCs normal glucose and protein of 62. He left AMA from OSH as they were awaiting a bed to a spine center for transfer. He then presented to another hospital and transferred here for spine evaluation. Since admission afebrile hemodynamically stable with a WBC count of 8.44. On admission labs here noted with elevated LFTs and bilirubin of 3.9. An RUQ ultrasound showed multiple gallstones within thebladder but no big biliary ductal dilatation or free fluid. Blood cultures were obtained on admission that remain NGTD. He has been evaluated by spine with review of imaging without apparent epiduralabscess paraspinal abscess or areas of suspicious discitis or osteomyelitis. No additional interventions are planned. He has also been evaluated by general surgery and is now status post laparoscopic cholecystectomy today. Mild postop leukocytosis, other labs stable, bilirubin currently at 2.6. Patient remains off antibiotics without any fevers since admission. Review of Systems Review of Systems Constitutional: Positive for fatigue and fever. Negative for appetite change, chills and diaphoresis. HENT: Negative. Respiratory: Negative for cough, chest tightness, shortness of breath and wheezing. Cardiovascular: Negative for chest pain, palpitations and leg swelling. Gastrointestinal: Negative for abdominal pain, constipation, diarrhea, nausea and vomiting. Genitourinary: Negative for difficulty urinating. Musculoskeletal: Positive for back pain. Skin: Negative for wound. Neurological: Positive for weakness. Negative for dizziness, numbness and headaches. Past Medical History Past Medical History: Diagnosis Date ADHD Hypertension Migraines Substance abuse Past Surgical History Surgical History[1] Social History Social History[2] Family History History - Family[3] Home Meds Prior to Admission medications Medication Sig Start Date End Date Taking? Authorizing Provider amphetamine-dextroamphetamine (ADDERALL XR) 30 MG 24 hr capsule Take 30 mg by mouth every morning. Yes Provider, Historical amphetamine-dextroamphetamine (ADDERALL) 10 MG tablet Take 10 mg by mouth nightly. Yes Provider, Historical losartan (COZAAR) 100 MG tablet Take 100 mg by mouth daily. Yes Provider, Historical tamsulosin (FLOMAX) 0.4 MG CAPS Take 0.4 mg by mouth nightly. Yes Provider, Historical Testosterone Enanthate 50 MG/0.5ML CAR A-IJ Inject 0.5 mLs into the skin twice a week Sunday and . Yes Provider, Historical Current Meds Scheduled Meds: acetaminophen 1,000 mg Oral Q8H amphetamine-dextroamphetamine 30 mg Oral QAM amphetamine-dextroamphetamine 10 mg Oral Daily docusate sodium 100 mg Oral BID fluticasone 1 spray Each Nare Daily insulin lispro 0-6 Units Subcutaneous 4x Daily AC and HS (7,11,5,10) lidocaine 3 patch Transdermal Daily losartan 100 mg Oral Daily nicotine 1 patch Transdermal Daily tamsulosin 0.4 mg Oral Nightly Continuous Infusions: Allergies Allergies as of 06/27/2025 Review status set to Review Complete by Rosita Sanches RN on 06/26/2025 No Known Allergies Objective Vitals Current Vitals: Vitals: 06/27/25 0723 BP: (!) 175/97 Pulse: 74 Resp: 17 Temp: 98.1 ??F (36.7 ??C) Vital Ranges: Temp: [97 ??F (36.1 ??C)-98.3 ??F (36.8 ??C)] 98.1 ??F (36.7 ??C) Pulse: [73-92] 74 Resp Rate: [13-20] 17 BP: (122-175)/(73-100) 175/97 FiO2: [48 %-96 %] 93 % Intake and Output: Intake/Output Summary (Last 24 hours) at 06/27/2025 1015 Last data filed at 06/27/2025 0828 Gross per 24 hour Intake 1160 ml Output 200 ml Net 960 ml Physical Exam GEN: In NAD, sitting up in the recliner\ HENT: NCAT, no oral ulcers or thrush EYES: no conjunctival hemorrhages or scleral icterus CVS: RRR, no rubs, murmurs, or gallops, no edema RESP: symmetrical chest expansion, nonlabored breathing, CTAB ABD: soft, nontender, nondistended, normal active bowel sounds, no palpable HSM, incisions from lapchole with glue in place, well-appearing : no suprapubic or CVA TTP MSK: There is no point tenderness to palpation or percussion of the entirety of the spine LYMPH: no palpable supraclavicular or cervical LAD PSYCH: awake, alert, oriented x4; normal affect SKIN: Prior spinal incisions well-healed without open areas Data Review Labs: Lab Results Component Value Date WBC 12.99 (H) 06/27/2025 HGB 13.9 06/27/2025 HCT 40.9 (L) 06/27/2025 PLATELETCT 276 06/27/2025 Lab Results Component Value Date POTASSIUM 4.1 06/27/2025 CO2 24 06/27/2025 BUN 18 06/27/2025 CREATININE 0.84 06/27/2025 TP 6.6 06/27/2025 ALBUMIN 3.7 06/27/2025 ALKALPHOSPH 240 (H) 06/27/2025 BILITOTAL 1.7 (H) 06/27/2025 BILITOTAL 1.7 (H) 06/27/2025 AST 54 (H) 06/27/2025 ALT 116 (H) 06/27/2025 Imaging: No results found. Microbiology: Microbiology Results (last 7 days) Procedure Component Value Units Date/Time Culture,Blood [[id number]] Collected: 06/25/25 1644 Order Status: Completed Specimen: Blood, Peripheral Updated: 06/27/25 0100 Culture No Growth Day 1 Culture,Blood [[id number]] Collected: 06/25/25 1904 Order Status: Sent Specimen: Blood, Peripheral Respiratory Pathogen Panel: (REVIEW PROCESS INSTRUCTIONS AT ORDERING AND COLLECTING) [[id number]] Order Status: Sent Specimen: Tissue from Nasopharyngeal Labs, imaging, and microbiology (including old records) were personally reviewed by me and the mostpertinent history/results are summarized as above. 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 ID consulted to comment on prior fevers Patient had initially presented to [facility] with complaints of fever and back and hip pain. He notes had an initial fever on Sunday after which he attempted Tylenol x 1 without resolution of fever. He notes weakness that upon characterization was initially whole body weakness although he reports some more pronounced weakness in the lower extremities on the following days after thefever. He denies numbness, tingling, bowel or bladder dysfunction. On presentation he was afebrile with a temp of 98.3, heart rate of 90, RR 19 and sats of 97% on room air. Labs were notable for a normal white count of 8.3, hemoglobin 14.5 and platelets of 205, normal creatinine. ESR of 41 and CRP of 65. MRI imaging showed L3-5 posterior element inflammation that is likely degenerative in nature and degenerative changes of L5-S1 with high-grade canal narrowing at L3-4. An LP was pursued that showed clear CSF with 2 WBCs, 0 RBCs normal glucose and protein of 62. He left AMA from OSH as they were awaiting a bed to a spine center for transfer. He then presented to another hospital and transferred here for spine evaluation. Since admission afebrile hemodynamically stable with a WBC count of 8.44. On admission labs here noted with elevated LFTs and bilirubin of 3.9. An RUQ ultrasound showed multiple gallstones within thebladder but no big biliary ductal dilatation or free fluid. Blood cultures were obtained on admission that remain NGTD. He has been evaluated by spine with review of imaging without apparent epiduralabscess paraspinal abscess or areas of suspicious discitis or osteomyelitis. No additional interventions are planned. He has also been evaluated by general surgery and is now status post laparoscopiccholecystectomy today. Mild postop leukocytosis, other labs stable, bilirubin currently at 2.6. Patient remains off antibiotics without any fevers since admission. Unclear on the cause of preceding fevers but with gallbladder findings and elevated bilirubins question whether may have had transient choledocholithiasis that may have generated some bacterial translocation/cholangitis that has now resolved. He has remained without any recurrence of fever despite the lack of antimicrobial therapy and no additional treatment with antipyretics. In terms of spine concerns, on clinical examination he does not have any point tenderness on either palpation or percussion of the spine, has intact strength bilaterally and imaging with predominantly degenerative and postoperative changes. Although there is mild elevation of his inflammatory markers, likely related to recent fever independent of cause. He will be interesting to follow-up on the pathology from his gallbladder as presence of either acute or chronic inflammatory changes could explain his recent fevers. As he is currently feeling well and at his baseline with stability on all lab work and an exam that is not worrisome for underlying spine infection, I do not believe a biopsy is warranted. Will def er to general surgery the need for any postoperative antibiotics related to his gallbladder. Otherwise we will monitor off therapy. Extensive discussion with patient and , numerous questions wereanswered to their satisfaction. Recommendations were communicated to Dr. Neal. Pain management and DVT prophylaxis per primary team. Thank you for the opportunity to assist with the care of your patient. Will continue to follow along with you. Signed, Eugene Lanza MD 06/27/2025 [1] Past Surgical History: Procedure Laterality Date BACK SURGERY CARPAL TUNNEL RELEASE Bilateral Cubital tunnel release Right Elbow [2] Social History Tobacco Use Smoking status: Every Day Current packs/day: 0.50 Average packs/day: 0.5 packs/day for 32.0 years (16.0 ttl pk-yrs) Types: Cigarettes Start date: 06/25/1993 Smokeless tobacco: Current Vaping Use Vaping status: Never Used Substance Use Topics Alcohol use: Never Drug use: Not Currently Types: Heroin [3] Family History Problem Relation Name Age of Onset Heart disease Father * Nav Vidales MD - 06/25/2025 7:54 PM EDTAssociated Order(s): IP CONSULT TO GENERAL SURGERY This document is intended for medical expert use only. Reading of this document by patients and/or patient's family without participating medical staff guidance may result in misinterpretation. I am happy to discuss any and all concerns/questions on daily rounds or if more urgent please have your nurse contact me. GENERAL SURGERY CONSULT Patient Identification: Name: Kim Jackson Age: 54 yr/o Sex: male : 1970 Requesting Physician: per order Reason for Consultation: Liver enzymes, gallstones History of Present Illness: Kim Jackson is a 54 yr/o male with past medical history of ADHD, migraines, hypertension, multiple spinal surgeries and history of IV drug use who initially presented to an OSH with back pain and fevers. He was admitted and treated empirically with IV vancomycin and cefepime for suspected spinal infection, then transferred to our facility for continued evaluation. On arrival, patient wasafebrile and hemodynamically stable. Initial labs revealed elevated liver enzymes (AST 49, ALT 100,alk phos 222, total bilirubin 3.9) and CRP 5.4. RUQ US on 06/25 demonstrated multiple gallstones within the gallbladder wall without thickening, pericholecystic fluid or biliary duct dilation. Liver parenchyma was unremarkable. On bedside assessment patient is laying comfortably in bed in no acute distress. He denies any current nausea, vomiting, fever or chills. No history of prior gallbladder disease or biliary colic. No prior abdominal surgeries. Abdomen is soft, nontender and nondistended. Active Hospital Problems Diagnosis Date Noted *Intractable low back pain 06/25/2025 HTN (hypertension) 06/25/2025 ADHD 06/25/2025 Tobacco abuse 06/25/2025 Past Medical History[1] Surgical History[2] Medications Prior to Admission Medication Sig Dispense Refill amphetamine-dextroamphetamine (ADDERALL XR) 30 MG 24 hr capsule Take 30 mg by mouth every morning. amphetamine-dextroamphetamine (ADDERALL) 10 MG tablet Take 10 mg by mouth nightly. [DISCONTINUED] diphenhydrAMINE (BENADRYL) 50 MG capsule Take 50 mg by mouth every 6 (six) hours as needed for Itching. [DISCONTINUED] ketorolac (TORADOL) 10 MG tablet Take 60 mg by mouth every 6 (six) hours as needed for Pain (migraine). losartan (COZAAR) 100 MG tablet Take 100 mg by mouth daily. tamsulosin (FLOMAX) 0.4 MG CAPS Take 0.4 mg by mouth nightly. Testosterone Enanthate 50 MG/0.5ML CAR A-IJ Inject 0.5 mLs into the skin twice a week Sunday and . Current Rx (only name and dose display)[3] Allergies as of 06/26/2025 Review status set to Review Complete by Rosita Sanches RN on 06/26/2025 No Known Allergies Social History Tobacco Use Smoking status: Every Day Current packs/day: 0.50 Average packs/day: 0.5 packs/day for 32.0 years (16.0 ttl pk-yrs) Types: Cigarettes Start date: 06/25/1993 Smokeless tobacco: Current Substance Use Topics Alcohol use: Never History - Family[4] Review of Systems 10 point ROS is negative except as stated in HPI Objective: Vitals: BP (!) 165/85 (BP Location: Left arm, Orthostatic Position: Lying) Pulse 90 Temp 98.1 ??F (36.7??C) (Temporal) Resp 13 Ht 1.753 m Wt 96.2 kg SpO2 95% BMI 31.31 kg/m?? Exam: General: alert, cooperative and no distress Head: normocephalic, without obvious abnormality, Eyes: EOMI, no icterus Neck: no JVD and supple, symmetrical, trachea midline Lungs: equal chest rise, no increased work of breathing Heart: normal rate, extremities well perfused Abdomen: soft, non-distended, non-tender, no peritoneal signs, no masses Extremities: normal, atraumatic, no cyanosis Skin: color, texture, turgor normal, no rashes or lesions All labs (24hrs): Recent Results (from the past 24 hours) Tick-borne Disease Panel Collection Time: 06/26/25 4:44 AM Result Value Ref Range Tick-Borne Disease PNL Negative Negative Bilirubin,Total and Direct Collection Time: 06/26/25 4:44 AM Result Value Ref Range Total Bilirubin 2.6 (H) 0.3 - 1.2 mg/dL Direct Bilirubin 1.3 (H) 0.0 - 0.5 mg/dL Indirect Bilirubin 1.3 (H) 0.0 - 1.1 mg/dL Lipase Collection Time: 06/26/25 4:44 AM Result Value Ref Range Lipase 68 (H) 0 - 59 U/L CBC w/Diff Collection Time: 06/26/25 4:44 AM Result Value Ref Range White Blood Cells 8.29 4.50 - 11.00 10*3/uL Red Blood Cells 4.50 4.50 - 5.90 10*6/uL Hemoglobin 13.9 13.5 - 17.5 g/dL Hematocrit 39.5 (L) 41.0 - 53.0 % Mean Corpuscular Volume 87.8 80.0 - 100.0 fL Mean Corpuscular Hemoglobin 30.9 26.0 - 34.0 pg Mean Corpuscular Hemoglobin Concentration 35.2 31.0 - 37.0 g/dL % Red Blood Cell Distribution Width 14.1 12.0 - 16.8 % Platelet Count 247 140 - 440 10*3/uL Mean Platelet Volume 10.2 8.4 - 12.4 fL % Nucleated RBCs 0 <=0 /100 WBCs Comprehensive Metabolic Panel(CMP) Collection Time: 06/26/25 4:44 AM Result Value Ref Range Sodium 137 136 - 145 mmol/L Potassium 3.6 3.5 - 5.1 mmol/L Chloride 103 98 - 107 mmol/L Carbon Dioxide 23 22 - 29 mmol/L Anion Gap 11 5 - 13 mmol/L Glucose, Random 150 (H) 71 - 99 mg/dL Blood Urea Nitrogen (BUN) 16 8 - 26 mg/dL Creatinine, Blood 0.84 0.73 - 1.18 mg/dL BUN/Creatinine Ratio 19.0 RATIO Estimated GFR (Cr) 105 >60 mL/min/1.73m2 Total Protein 6.4 6.4 - 8.2 g/dL Albumin 3.6 3.5 - 5.2 g/dL Globulin 2.8 1.5 - 4.5 g/dL Albumin/Globulin Ratio 1.3 1.1 - 2.5 RATIO Calcium 9.1 8.4 - 10.2 mg/dL Total Bilirubin 2.6 (H) 0.3 - 1.2 mg/dL AST/SGOT 46 (H) 5 - 34 U/L ALT/SGPT 102 (H) 0 - 55 U/L Alkaline Phosphatase 227 (H) 40 - 150 U/L Differential, Manual, Blood Collection Time: 10/17/25 4:44 AM Result Value Ref Range % Segmented Neutrophils 55.0 45.0 - 80.0 % % Lymphocytes 28.0 15.0 - 50.0 % % Atypical Lymphocytes 7.0 <=8.0 % % Monocytes 3.0 <=15.0 % % Eosinophils 7.0 <=7.0 % % Nucleated RBCs 0 <=0 /100 WBCs Absolute Neutrophil Count 4.56 2.00 - 8.80 10*3/uL Absolute Lymphocytes 2.32 0.70 - 5.50 10*3/uL Absolute Atypical Lymphocytes 0.58 0.00 - 0.90 10*3/uL Absolute Monocytes 0.25 <=1.70 10*3/uL Absolute Eosinophils 0.58 <=0.80 10*3/uL Platelet Estimate Adequate Adequate Platelet Morphology Normal Red Blood Cell Morphology Normal White Blood Cell Morphology Normal Type and Screen Collection Time: 06/26/25 8:07 AM Result Value Ref Range ABO/RH(D) A POS Antibody Screen NEG Crossmatch Expiration 06/29/2025 23:59 Glucose-Glucometer Collection Time: 06/26/25 11:38 AM Result Value Ref Range Glucose Glucometer 146 (H) 71 - 139 mg/dL No results found. Assessment: Kim Jackson is a 54 yr/o male with cholelithiasis and elevated liver enzymes. No clinical or imaging findings suggestive of acute cholecystitis. Plan to obtain fractionated bilirubin to further elucidate on causes of transaminitis and hyperbilirubinemia. Plan: -No acute surgical intervention indicated at this time - N.p.o. at midnight - Continue supportive/medical management per primary team - Trend LFTs and bilirubin - CMP in a.m. - Obtain fractionated bilirubin - Monitor for new or worsening RUQ pain, jaundice or fever - Will discuss rest of plan with attending in a.m. Krishna Diaz MD PGY1 06/25/2025 Attestation Statement: I personally have examined the patient and interviewed the patient. I have reviewed the history, data, problems, assessment and plan with the resident during rounds. Any additions are noted by me below. Pt presented with abdominal pain and elevated LFTs now downtrending. Abd soft, non distended, tender in RUQ. Imaging concerning for likely resolving choledocholithiasis. Risks, benefits and alternatives of proceeding with surgery described, questions answered. Informed consent signed. To OR. Nav Vidales MD 4:58 PM 06/26/2025 [1] Past Medical History: Diagnosis Date ADHD Hypertension Migraines Substance abuse [2] Past Surgical History: Procedure Laterality Date BACK SURGERY CARPAL TUNNEL RELEASE Bilateral Cubital tunnel release Right Elbow [3] Current Facility-Administered Medications Medication Dose 0.9% NaCl infusion 0.9% NaCl infusion acetaminophen (TYLENOL) tablet 650 mg 650 mg Or acetaminophen (TYLENOL) 160 MG/5ML liquid 650 mg 650 mg Or acetaminophen (TYLENOL) suppository 650 mg 650 mg calcium carbonate (TUMS) chewable tablet 500 mg 500 mg Or Alum & Mag Hydroxide-Simeth (MAALOX) 200-200-20 MG/5ML suspension 15 mL 15 mL amphetamine-dextroamphetamine (ADDERALL XR) 24 hr capsule 30 mg 30 mg amphetamine-dextroamphetamine (ADDERALL) tablet 10 mg 10 mg docusate sodium (COLACE) capsule 100 mg 100 mg And magnesium hydroxide (MILK OF MAGNESIA) 400 MG/5ML suspension 15 mL 15 mL And bisacodyl (DULCOLAX) suppository 10 mg 10 mg cloNIDine (CATAPRES) tablet 0.1 mg 0.1 mg cyclobenzaprine (FLEXERIL) tablet 10 mg 10 mg fluticasone (FLONASE) 50 MCG/ACT 1 spray 1 spray HYDROcodone-acetaminophen (NORCO) 5-325 MG per tablet 1 tablet 1 tablet And HYDROcodone-acetaminophen (NORCO) 7.5-325 MG per tablet 1 tablet 1 tablet And morphine (PF) injection 2 mg 2 mg losartan (COZAAR) tablet 100 mg 100 mg magnesium sulfate 2 GM/50ML infusion 2 g 2 g melatonin tablet 3 mg 3 mg nicotine (NICODERM CQ) 14 MG/24HR 1 patch 1 patch nicotine polacrilex (NICORETTE) gum 2 mg 2 mg ondansetron (ZOFRAN) injection 4 mg 4 mg Or ondansetron (ZOFRAN) tablet 4 mg 4 mg potassium chloride SA (KLOR-CON M) CR tablet 20-40 mEq 20-40 mEq Or potassium chloride 20 MEQ/15ML (10%) solution 20-40 mEq 20-40 mEq Or potassium chloride 10 mEq in 100 mL IVPB 10 mEq Or potassium chloride 10 mEq in 50 mL IVPB 10 mEq tamsulosin (FLOMAX) 0.4 mg 0.4 mg [4] Family History Problem Relation Name Age of Onset Heart disease Father * Kenny Pacheco MD - 06/25/2025 5:32 AM EDTAssociated Order(s): INPATIENT CONSULT TO SPINE SURGERY (ORTHOPAEDIC) ORTHOPAEDIC SPINE CONSULT NOTE IDENTIFYING INFORMATION: Name: Kim Jackson Age/Sex: 54 yr/o male LOS: 0 days CHIEF COMPLAINT: Back pain HISTORY OF PRESENT ILLNESS: Kim Jackson is a 54 yr/o male past medical history of prior IV drug use (no use for at least 10 years), reported prior osteomyelitis, and previous L5-S1 fusion performed at [facility] at least 10 years ago who presents as a transfer to [facility] for further workup of inflammation and MRI findings in his lumbar spine. At the bedside, the patient states that over probably about the past 3 to 4 weeks, he has been having more back pain than usual. Starting this past Sunday, the patient reports that he had a temperature of 102 at home that would notremit with Tylenol. The patient did go to [facility] where he underwent further workup. It sounds like he did get vancomycin there. He subsequently left [facility] and was seen by his PCP who told him that he might at home if he was not seeing and so [facility]. At [place], his WBC was 8.3 with a lactate of 1.7. CRP was elevated to 65. The patient denies any overt numbness, tingling, weakness to his bilateral lower extremities. Denies any major fevers or chills. Patient states that he smokes about a pack a day. Denies any current alcohol or drug use. 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 PAST MEDICAL HISTORY: Past Medical History[1] PAST SURGICAL HISTORY: Past Surgical History[2] ALLERGIES: Allergies as of 06/25/2025 Review status set to Review Complete by Michaela العراقي APRN on 06/25/2025 No Known Allergies IMMUNIZATIONS: Immunization History See Immunization Record MEDICATIONS: Current Facility-Administered Medications Medication Dose Route Frequency Provider Last Rate Last Admin 0.9% NaCl infusion Intravenous Continuous Michaela العراقي APRN 0.9% NaCl infusion Intravenous PRN Raven Viera MD acetaminophen (TYLENOL) tablet 650 mg 650 mg Oral Q4H PRN Michaela العراقي APRN Or acetaminophen (TYLENOL) 160 MG/5ML liquid 650 mg 650 mg Tube Q4H PRN Michaela العراقي APRN Or acetaminophen (TYLENOL) suppository 650 mg 650 mg Rectal Q4H PRN Michaela العراقي APRN calcium carbonate (TUMS) chewable tablet 500 mg 500 mg Oral Q6H PRN Michaela العراقي APRN Or Alum & Mag Hydroxide-Simeth (MAALOX) 200-200-20 MG/5ML suspension 15 mL 15 mL Oral Q6H PRN Michaela العراقي APRN amphetamine-dextroamphetamine (ADDERALL XR) 24 hr capsule 30 mg 30 mg Oral QAM Michaela العراقي APRN amphetamine-dextroamphetamine (ADDERALL) tablet 10 mg 10 mg Oral Nightly Michaela العراقي APRN docusate sodium (COLACE) capsule 100 mg 100 mg Oral BID Michaela العراقي APRN And magnesium hydroxide (MILK OF MAGNESIA) 400 MG/5ML suspension 15 mL 15 mL Oral Daily PRN Michaela العراقي APRN And bisacodyl (DULCOLAX) suppository 10 mg 10 mg Rectal Daily PRN Michaela العراقي APRN cyclobenzaprine (FLEXERIL) tablet 10 mg 10 mg Oral Q8H PRN Michaela العراقي APRN HYDROcodone-acetaminophen (NORCO) 5-325 MG per tablet 1 tablet 1 tablet Oral Q4H PRN Michaela العراقي APRN And HYDROcodone-acetaminophen (NORCO) 7.5-325 MG per tablet 1 tablet 1 tablet Oral Q4H PRN Michaela العراقي APRN And morphine (PF) injection 2 mg 2 mg Intravenous Q4H PRN Michaela العراقي APRN losartan (COZAAR) tablet 100 mg 100 mg Oral Daily Michaela العراقي APRN magnesium sulfate 2 GM/50ML infusion 2 g 2 g Intravenous PRN Raven Viera MD melatonin tablet 3 mg 3 mg Oral Nightly PRN Michaela العراقي APRN nicotine (NICODERM CQ) 14 MG/24HR 1 patch 1 patch Transdermal Daily Michaela العراقي APRN nicotine polacrilex (NICORETTE) gum 2 mg 2 mg Oral Q2H PRN Michaela العراقي APRN ondansetron (ZOFRAN) injection 4 mg 4 mg Intravenous Q6H PRN Michaela العراقي APRN Or ondansetron (ZOFRAN) tablet 4 mg 4 mg Oral Q6H PRN Michaela العراقي APRN potassium chloride SA (KLOR-CON M) CR tablet 20-40 mEq 20-40 mEq Oral PRN Raven Ruth MD Or potassium chloride 20 MEQ/15ML (10%) solution 20-40 mEq 20-40 mEq Tube PRN Raven Viera MD Or potassium chloride 10 mEq in 100 mL IVPB 10 mEq Intravenous PRN Raven Viera MD Or potassium chloride 10 mEq in 50 mL IVPB 10 mEq Intravenous PRN Raven Viera MD tamsulosin (FLOMAX) 0.4 mg 0.4 mg Oral Nightly Michaela العراقي APRN FAMILY HISTORY: History - Family[3] SOCIAL HISTORY: Tobacco Use History[4] Social History Substance and Sexual Activity Alcohol Use Never Social History Substance and Sexual Activity Drug Use Not Currently Types: Heroin REVIEW OF SYSTEMS: Constitutional: Negative for fever, chills and malaise/fatigue. Respiratory: Negative for cough and shortness of breath. Cardiovascular: Negative for chest pain. Gastrointestinal: Negative for nausea and vomiting. Musculoskeletal: Per HPI Neurological: Per HPI VITAL SIGNS: BP (!) 143/109 (BP Location: Left arm, Orthostatic Position: Sitting) Pulse 99 Temp 98.3 ??F (36.8 ??C) (Oral) Resp 16 Ht 5' 9 (1.753 m) Wt 96.2 kg (212 lb) SpO2 97% BMI 31.31 kg/m?? PHYSICAL EXAM: Gen: Alert, NAD Head: Atraumatic Pulmonary: Nonlabored breathing Cardiovascular: Regular rate Muskuloskeletal/Neurologic: Lower Extremity Exam: Nontender along T/L spinous proceses/paraspinal muscles Absent redness, warmth, swelling. Well-healed prior surgical incision Lvl Muscle Group Right Left L2,3 Hip Flexion 5/5 5/5 L3, 4 Knee Extension 5/5 5/5 L4 Dorsi Flexion 5/5 5/5 L5 Toe Extension 5/5 5/5 S1 Plantar Flexion 5/5 5/5 S2 Toe Flexion 5/5 5/5 SILT Grossly L2-S1 No Hyper-reflexia No clonus Denies overt Bowel and Bladder Sx at this time Negative straight leg raise Palpable pedal pulses REVIEW OF DIAGNOSTIC DATA: Labs: No results found for: WBC , HGB , HCT , MCV , PLATELETCT No results found for: NA , POTASSIUM , CHLORIDE , CO2 , GLUCOSE , BUN , CREATININE No results found for: CRP , ERYTHSEDRATE No results found for: [id number] Imaging: MRI of the lumbar spine dated 06/22/2025 demonstrates prior L5-S1 instrumentation with no evidence of any epidural abscess or perispinal abscess. Unable to visualize any inflammation suspicious for discitis or osteomyelitis. ASSESSMENT AND PLAN: Mr. Jackson is a 54 yr/o with low back pain and concern for inflammation seen on lumbar MRI who was transferred here for further workup. At this time, the patient's exam and imaging is very reassuring. There is no obvious fluid collection that would be amenable to any sort of IR aspiration. No indication for any urgent or emergent surgical intervention. From a spine standpoint, the patient wouldbe safe for discharge with close follow-up. Upright lumbar spine x-rays when able Activity as tolerated Antibiotics per medicine Thank you for allowing us to participate in the care of this patient. Primitivo Christianson MD Spine Fellow, [facility] 06/25/2025 5:32 AM Attending addendum I independently saw this patient and evaluated him and agree with the fellow's note, with him and discussed consult He and his note that he has some leg weakness and a fever past weekend and he went to see his primary care doctor was concerned that it might be related spine. He was ultimately transferred to our center there is a question that he might need guided aspiration although imaging was not sent to us at this time. On physical exam this is a pleasant Independently reviewed and interpreted the CT scan from 21 June 2025 of the chest abdomen pelviswith regards to the spine In the thoracic spine there are no obvious fractures or listhesis I cannot fully view the CT scan of the lumbar spine and the abdomen pelvis some sequences. Missing but it does look like there is instrumentation in the lumbosacral spine which I cannot see given themissing images Independent reviewed and interpreted the MRI of the lumbar spine obtained on 22 June 2025 there is a prior instrumented fusion at L5-S1 with what appears to be postoperative changes I do not see any obvious epidural collection concerning for epidural abscess on the STIR sequences or postcontrastimages I do not see any obvious inflammation suspicious for discitis. Plan: I do not anticipate he needs any spine surgical intervention at this time. He does not appear to have any obvious imaging or clinical findings of a spine infection. Appreciate hospitalist workup. Recommend upright lumbar radiographs. Addendum Independently reviewed and interpreted lumbar spine radiograph L5/S1 TLIF which appears uncomplicated. From a spine perspective, he can likely follow up as an outpatient.Please do not hesitate to reach out to us if there are any concerning changes in his clinical exam or new imaging findings. Kenny Pacheco MD Spine Surgery [facility] [1] Past Medical History: Diagnosis Date ADHD Hypertension Migraines Substance abuse [2] Past Surgical History: Procedure Laterality Date BACK SURGERY CARPAL TUNNEL RELEASE Bilateral Cubital tunnel release Right Elbow [3] Family History Problem Relation Name Age of Onset Heart disease Father [4] Social History Tobacco Use Smoking Status Every Day Current packs/day: 0.50 Average packs/day: 0.5 packs/day for 32.0 years (16.0 ttl pk-yrs) Types: Cigarettes Start date: 06/25/1993 Smokeless Tobacco Current documented in this encounter Miscellaneous Notes * Plan of Care - Yaritza Lopez LPN - 06/27/2025 4:52 PM EDT Problem: Risk for Fall (All Patients) Goal: Patient will be free from falls Outcome: Progressing Problem: Knowledge Deficit Goal: Patient/family/caregiver demonstrates understanding of disease process, treatment plan, medications, procedures, and discharge instructions Description: Complete learning assessment and assess knowledge base. Outcome: Progressing Problem: Pain/Discomfort Goal: Patient's pain/discomfort is manageable Description: Assess and monitor patient's pain using appropriate pain scale. Collaborate with interdisciplinary team and initiate plan and interventions as ordered. Re-assess patient's pain level 30 - 60 minutes after pain management intervention. Outcome: Progressing Problem: Safety Goal: Patient will be injury free during hospitalization Description: Assess and monitor vitals signs, neurological status including level of consciousness and orientation. Ensure arm band on. Outcome: Progressing * Plan of Care - Tabitha Armas MD - 06/27/2025 12:52 AM EDT This document is intended for medical expert use only. Reading of this document by patients and/or patient's family without participating medical staff guidance may result in misinterpretation. I am happy to discuss any and all concerns/questions on daily rounds or if more urgent please have your nurse contact me. NIGHT OF SURGERY NOTE Patient Name: Kim Jackson : 1970 Medical Record: [id number] Age: 54 yr/o Sex: male Subjective: Patient was seen and examined on POD0 from laparoscopic cholecystectomy. Patient is doing well since surgery. Denies nausea or vomiting. Has passed flatus and urinated without difficulty.Has not had a bowel movement. Is tolerating a regular diet. Has ambulated appropriately. Pain is well controlled. No complaints or concerns. Objective: Diet Orders Procedures DIET NPO after MN - Order Details: Physical Exam: Temp: [97 ??F (36.1 ??C)-98.3 ??F (36.8 ??C)] 98.1 ??F (36.7 ??C) Pulse: [73-94] 89 Resp Rate: [13-20] 20 BP: (122-165)/(73-100) 154/94 FiO2: [48 %-96 %] 93 % General: No acute distress, resting quietly HEENT: Normocephalic, atraumatic, EOMI Heart: Normal rate, well perfused Lungs: Respirations non-labored Abdomen: Soft, nondistended, incisions clean/dry/intact with exofin overlying Extremities: Moves all extremities, no edema Assessment: Principal Problem: Intractable low back pain (POA: Unknown) Date Noted: 06/25/2025 Active Problems: HTN (hypertension) (POA: Yes) Date Noted: 06/25/2025 ADHD (POA: Yes) Date Noted: 06/25/2025 Tobacco abuse (POA: Yes) Date Noted: 06/25/2025 1 Day Post-Op Procedure(s) (LRB): LAPAROSCOPIC CHOLECYSTECTOMY (N/A) Plan: - Continue care per primary team - Please page surgery dumper central [employer] mixing [employer] with any questions or concerns Tabitha Armas MD 12:52 AM 06/27/2025 * Operative Report - Nav Vidales MD - 06/26/2025 2:41 PM EDT Operative Report Location: [facility] Patient: Kim Jackson Age: 54 yr/o : 1970 Sex: male Medical Record: [id number] Date of Operation/Procedure: 06/26/2025 Event Time Procedure Start 06/26/2025 1350 Pre-operative Diagnosis Code: * No Diagnosis Codes entered * Pre-operative Diagnosis Free Text: acute cholecystitis Post-operative Diagnosis: No change from Preoperative Diagnosis Surgeons and Role: * Nav Vidales MD - Primary Procedure(s) Performed: Procedure(s) and Anesthesia Type: * LAPAROSCOPIC CHOLECYSTECTOMY - General Indications for Operation/Procedure: This is a 54 y/o gentleman who initially presented with back pain and was found to have transaminitis, hyperbilirubinemia and stones on ultrasound. Complications: None Infection Present: Yes: Evidence of an infection noted due to cholecystitis located gallbladder. Description of procedure: The patient was brought back to the operating room and placed on the table in the supine position. General anesthesia with endotracheal intubation was achieved by the BILLING REP/Anesthesiologist. The patient then had their arms placed out to their side and a foot plate was used with all bony prominences padded and protected appropriately. The patient was then secured to the table in multiple locations. The patient had SCDs attached and working, preoperative antibiotics were given. The patient was then prepped and draped, followed by a timeout confirming correct patient procedure and location. Local anesthetic was then injected at the umbilicus. The skin was elevated with piercing towel clamps and the Veress needle was inserted at this site. The hanging drop test was performed to confirm intra-abdominal placement and the abdomen was insufflated to 15mmHg without complication. A small skin incision was made and a 5mm trocar was placed at the umbilicus. The laparoscope was then inserted noting no iatrogenic injury with gaining intra-abdominal access. The patient was then placed in reverse Trendelenburg position with left side down. We then proceeded to place a 12mm trocar to the right of the epigastrium and two right upper quadrant 5mm trocars. All were done after anesthetizing theskin, made a small skin incision and placed the trocars into the abdomen under direct visualization. Next the fundus of the gallbladder was retracted cephalad and the infundibulum to the right lower quadrant. With a mix of blunt and electrocautery dissection the overlying peritoneum was stripped off of the gallbladder showing the critical structures below. We were able to identify the cyst duct laterally and cystic artery medially and noting these to be the only two structures entering the gallbladder. We ensured there was no fatty or fibrous tissue left between these structures. The lower third of the gallbladder was then separate off the cystic plate completing the critical view of safety. The cystic artery and duct were then doubly clipped on the stay side with one clip placed on the go side and divided in-between. The gallbladder was then removed off the cystic plate using electrocautery and the gallbladder was placed into an endocatch bag. We then evaluated our dissection bed andnoted no active bleeding. The clips were seen to be in good position. The RUQ was then irrigated until a clear effluent was suctioned. We then proceeded to remove the gallbladder and endobag through t he 12mm trocar. The specimen was then sent off the field to Pathology for further testing. We then reapproximated the fascia of the 12mm trocar site using the suture pass device and 0 Vicryl suture. Following this, the pneumoperitoneum was released and all instruments and trocars removed from the abdomen. The patient was then returned to supine position. The trocar sites were secured with 4-0 Vicryl suture in a subcuticular fashion. The remainder of the local anesthetic was used. At the end of the case hemostasis was appropriate and all counts were correct x2. The patient was then weaned from anesthesia, extubated in the OR and brought to the PACU in stable condition. Dr Vidales was present for all critical aspects of the case. Anesthesia Plan Type: general, regional Final Anesthesia Used: general, regional Regional Anesthesia Used: No Block Found Specimens: Order Name Source Comment Collection Info Order Time SURGICAL SPECIMEN Gallbladder Pre-op diagnosis: UNKNOWN Collected By: Nav Vidales MD 06/26/2025 2:18 PM MyChart Release to Patient. Per [place] House Bill 529 Suspicion of Malignancy or Genetic Marker test results are REQUIRED to be RELEASED to the PATIENT at 3 DAYS 3 Day Release Grafts/Implants: * No implants in log * Estimated Blood Loss: Minimal Fluids/Drains: None Josey Dias MD 06/26/2025 2:41 PM I was present for all critical aspects of the procedure. Agree with dictation. Lilian Vidales MD * Plan of Care - Myranda George RN - 06/25/2025 10:48 PM EDT Problem: Risk for Fall (All Patients) Goal: Patient will be free from falls Outcome: Progressing Problem: Knowledge Deficit Goal: Patient/family/caregiver demonstrates understanding of disease process, treatment plan, medications, procedures, and discharge instructions Description: Complete learning assessment and assess knowledge base. Outcome: Progressing Problem: Pain/Discomfort Goal: Patient's pain/discomfort is manageable Description: Assess and monitor patient's pain using appropriate pain scale. Collaborate with interdisciplinary team and initiate plan and interventions as ordered. Re-assess patient's pain level 30 - 60 minutes after pain management intervention. Outcome: Progressing Problem: Safety Goal: Patient will be injury free during hospitalization Description: Assess and monitor vitals signs, neurological status including level of consciousness and orientation. Ensure arm band on. Outcome: Progressing Goal: Patient will be injury free from thrombolytics or mechanical thrombectomy Outcome: Progressing Problem: Potential for Infection Goal: Remains infection free Description: Assess and monitor vital signs, skin (color, moisture, integrity, turgor), respiratorystatus, urinary and gastrointestinal status, and labs (WBC, cultures). Administer antibiotics and antipyretics as ordered. Ensure aseptic care of all intravenous lines, invasive tubes/drains and wounds. Monitor for signs and symptoms of infection (redness, warmth, discharge, increased body temperature). Wash hands properly before and after each patient care activity. Follow isolation guidelines per hospital protocol/policy. Collaborate with interdisciplinary team and initiate plan and interventions as ordered. Outcome: Progressing Problem: Fall Precautions Goal: No falls during hospitalization Description: Patient will not fall during hospitalization Outcome: Progressing * Case Management - Nancy Russell RN - 06/25/2025 3:24 PM EDT Care Management Initial Assessment Note Patient Name: Kim Jackson : 1970 Date: 06/25/2025 Time: 3:24 PM Discharge Plan: This CM met the patient at bedside, introduced myself and my role. The patient information on the facesheet was confirmed and verified. The patient lives with his spouse. Prior to admission this patient was able to preform their ADLs independently. The patient has the following DME at home: none at this time. The patient discharge plan is return home to the address listed. The patient is agreeable to [facility]. The patient's spouse - [place] to transport ([phone]) when ready for discharge. Care Management to continue to follow throughout discharge. Source of Information: Self;Medical Record Social Needs Screening: Discharge Barriers: Upright lumbar spine x-rays when able Admission from: Home/Fdc, no current nsg services Living Arrangement: House;Lives with spouse/significant other Support Systems: Spouse/significant other Does the patient have a Smart Phone, tablet or a computer with a camera and microphone?: Yes Do you currently see a primary care physician?: Yes PCP: Varsha Lopez APRN Do you currently have a pharmacy?: Yes Pharmacy: [facility] - [place], [place] - [address] [place] [address] Patient approves for a primary designated person to be contacted and involved in the discharge planning process?: Yes Designee Name and Relationship: spouse - Fransisco Jackson Effective Date: 06/25/25 Who typically provides your care at home and what are their ages?: Self How much supervision is your caregiver able to provide?: As much as needed Do you feel that the above care provider can continue to care for you after discharge?: Yes Home Services Prior to Admission: None Durable Medical Equipment Prior to Admission: None Resp Therapy Prior to Admission: None Unplanned Readmission Risk Score: Predictive Model Details 8.1% (Low) Factor Value Calculated 06/25/2025 15:04 53% Number of active inpatient medication orders 33 Risk of Unplanned Readmission Model 22% ECG/EKG order present in last 6 months 15% Imaging order present in last 6 months 10% Age 54 1% Current length of stay 0.495 days Pt Been in Any Inpt Facility in Past 30 Days?: Yes Discussed Meds to Bed with patient?: Yes Would the patient like to have their discharge medications delivered to their bedside from our [facility] upon discharge? If Yes, add appropriate [facility] as preferred pharmacy using Review SURGERY ATTENDANT Meds.: Yes Anticipated Mode of Transportation at Discharge - For Adult Patients Only : Private Transportation Morning (6AM-11AM) Transport Contact Info: fransisco jackson [phone] Afternoon/Evening (11AM-9PM) Transport Contact Info: fransisco jackson [phone] Signed: Nancy Russell RN [phone] * Nurse - Karen Stafford LPN - 06/25/2025 12:18 PM EDT Contacted spine to have them come back and speak with the family. * Occupational Therapy - Johanny Hunt OT - 06/25/2025 9:40 AM EDT Images from the original note were not included. [facility] Patient Room Number: 4L09/4L09-1 Patient Identification: Kim Jackson is a 54 yr/o male. : 1970 Admit Date: 06/25/2025 Admitting Diagnosis: Intractable low back pain [M54.59] Attending Provider: Raven Viera,* OT Order (From admission, onward) OT eval and treat Once Ordering Provider: Michaela العراقي APRN Note Type: Evaluation ATTEMPT & Sign Off OT IP Evaluation - 06/25/25 0940 General Current Hospitalization Summary Pt is a 54 YOM [place] 06[place] following stay at [facility] for LBP that has been ongoing for 2 weeks describes as sharp radiating into hips, leftAMA. PCP reviewed MRI and noted L3-4 posterior elements of inflammation and infectious process and was advised to go to ED. PMHx: ADHD, HTN, migraines, IV drug use (10 yrs ago), multiple spine surgeries, and osteomyelitis. Reason Evaluation/Treatment not performed Other (Comment) Pt observed fully dressed in bed upon entry. Pt reports requiring no assistance with dressing/bathing. Pt reports getting up to the bathroom with no concerns regarding room mobility or hygiene. Pt educated on OT role IP verbalizing understanding reporting feeling at his baseline. Skilled OT is not indicated at this time. Will sign off. Family/Caregiver Present Spouse Assessment Patient/Caregiver Agrees With Goals/Plan Yes Plan Evaluation/Treatment Completed or Attempted Yes Discharge Yes Johanny Hunt OT Upon discharge from the hospital, the most recent note serves as the discharge summary for therapy.See above discharge recommendations. * Physical Therapy - Radha Perez - 06/25/2025 9:11 AM EDT Images from the original note were not included. [facility] Patient Room Number: 4L09/4L09-1 Patient Identification: Kim Jackson is a 54 yr/o male. : 1970 Admit Date: 06/25/2025 Admitting Diagnosis: Intractable low back pain [M54.59] Attending Provider: Raven Viera,* PT Order (From admission, onward) PT Evaluate and Treat Once Ordering Provider: Michaela العراقي APRN Note Type: Evaluation PT Evaluation - 06/25/25 0911 General Current Hospitalization Summary Pt is a 54 YOM [place] following stay at [facility] for LBP that has been ongoing for 2 weeks describes as sharp radiating into hips, leftAMA. PCP reviewed MRI and noted L3-4 posterior elements of inflammation and infectious process and was advised to go to ED. PMHx: ADHD, HTN, migraines, IV drug use (10 yrs ago), multiple spine surgeries, and osteomyelitis. Reason Evaluation/Treatment not performed Other (Comment) Pt reports he has been ambulating ad omid and transferring independently. Pt reports he is at his baseline from a mobility standpoitn. No skilled therapy wrratned at this time. Will DC orders. Family/Caregiver Present Spouse Radha Perez, Student PT Upon discharge from the hospital, the most recent note serves as the discharge summary for therapy.See above discharge recommendations. Cosigned by Varsha Adams, PT at 06/25/2025 10:54 AM EDT documented in this encounter Plan of Treatment Upcoming Encounters Date Type Department Care Team (Late st Contact Info) Description 07/07/2025 10:30 AM EDT Office Visit [facility] [address] [facility] [address] [place] [address] Isela Anne APRN [address] [facility] [address] [place] [address] Scheduled Orders Name Type Priority Associated Diagnoses Orde r Schedule Lyme Total Antibody Lab Add-On Once for 1 Occurrences starting 06/25/2025 until 06/25/2025 Scheduled Referrals Name Type Priority Associated Diagnoses Orde r Schedule Follow up appointment with current provider Outpatient Referral Routine Acute cholecystitis Ordered: 06/27/2025 documented as of this encounter Procedures Procedure Name Priority Date/Time Associated Diagnosis Comments GLUCOSE-GLUCOMETER Routine 06/27/2025 4: 12 PM EDT GLUCOSE-GLUCOMETER Routine 06/27/2025 11:13 AM EDT GLUCOSE-GLUCOMETER Routine 06/27/2025 6: 54 AM EDT CBC W/DIFF Routine 06/27/2025 4:26 AM EDT BILIRUBIN,TOTAL AND DIRECT Timed 06/27/2025 4:26 AM EDT COMPREHENSIVE METABOLIC PANEL (CMP) Routine 06/27/2025 4:26 AM EDT GLUCOSE-GLUCOMETER Routine 06/26/2025 10:08 PM EDT SURGICAL SPECIMEN Routine 06/26/2025 2:17 PM EDT LAPAROSCOPIC CHOLECYSTECTOMY 06/26/2025 12:59 PM EDT ACUTE CHOLECYSTITIS GLUCOSE-GLUCOMETER Routine 06/26/2025 11:38 AM EDT CROSSMATCH PACKED CELLS STAT 06/26/2025 8:07 AM EDT TYPE AND SCREEN Routine 06/26/2025 8:07 AM EDT DIFFERENTIAL, MANUAL, BLOOD After office visit 06/26/2025 4:44 AM EDT TICK-BORNE DISEASE PANEL Routine 06/26/2025 4:44 AM EDT CBC W/DIFF Routine 06/26/2025 4:44 AM EDT BILIRUBIN,TOTAL AND DIRECT Routine 06/26/2025 4:44 AM EDT LIPASE Routine 06/26/2025 4:44 AM EDT HEMOGLOBIN A1C Routine 06/26/2025 4:44 AM EDT COMPREHENSIVE METABOLIC PANEL (CMP) Routine 06/26/2025 4:44 AM EDT HEPATITIS,ACUTE PANEL Routine 06/25/2025 4:44 PM EDT CULTURE, BLOOD Timed 06/25/2025 4:44 PM EDT COMPREHENSIVE METABOLIC PANEL (CMP) STAT 06/25/2025 4:44 PM EDT URINALYSIS WITH REFLEX Routine 06/25/2025 4:43 PM EDT US ABDOMEN RUQ STAT 06/25/2025 3:24 PM EDT XR L SPINE AP & LATERAL-STANDING Routine 06/25/2025 10:43 AM EDT ECG 12-LEAD Routine 06/25/2025 6:04 AM EDT BLOOD TYPE CONFIRMATION Routine 06/25/2025 5:57 AM EDT PROCALCITONIN Add-On 06/25/2025 5:57 AM EDT PARTIAL THROMBOPLASTIN TIME Routine 06/25/2025 5:57 AM EDT ERYTHROCYTE SEDIMENTATION RATE Routine 06/25/2025 5:57 AM EDT PROTIME-INR Routine 06/25/2025 5:57 AM EDT CBC W/DIFF Routine 06/25/2025 5:57 AM EDT C-REACTIVE PROTEIN Routine 06/25/2025 5: 57 AM EDT MAGNESIUM Add-On 06/25/2025 5:57 AM EDT COMPREHENSIVE METABOLIC PANEL (CMP) Routine 06/25/2025 5:57 AM EDT documented in this encounter Results * (ABNORMAL) Glucose-Glucometer (06/27/2025 4:12 PM EDT) Glucose Glucometer 237(H) 71 - 139 mg/dL 06/27/2025 4:13 PM EDT [facility] ([facility]) Blood VENOUS BLOOD SPECIMEN / Unknown 06/27/2025 4:12 PM EDT 06/27/2025 4:13 PM EDT us Raven Viera MD LAB BLOOD ORDERABLES F inal Result Performing Organization Address City/[facility]/ZIP Co de Phone Number [facility] ([facility]) [address] [place] [address] * (ABNORMAL) Glucose-Glucometer (06/27/2025 11:13 AM EDT) Glucose Glucometer 392(H) 71 - 139 mg/dL 06/27/2025 11:15 AM EDT [facility] ([id number]) Blood VENOUS BLOOD SPECIMEN / Unknown 06/27/2025 11:13 AM EDT 06/27/2025 11:15 AM EDT us Raven Viera MD LAB BLOOD ORDERABLES F inal Result Performing Organization Address City/[facility]/ZIP Co de Phone Number [facility] ([id number]) [address] [place] [address] * (ABNORMAL) Glucose-Glucometer (06/27/2025 6:54 AM EDT) Glucose Glucometer 222(H) 71 - 139 mg/dL 06/27/2025 6:56 AM [facility] ([id number]) Comment:CLINICIAN PERFORMED Blood VENOUS BLOOD SPECIMEN / Unknown 06/27/2025 6:54 AM EDT 06/27/2025 6:56 AM EDT us Raven Viera MD LAB BLOOD ORDERABLES F inal Result [facility] ([id number]) [address] [phone] * (ABNORMAL) Comprehensive Metabolic Panel (CMP) (06/27/2025 4:26 AM EDT) Sodium 136 136 - 145 mmol/L 06/27/2025 5:24 AM [facility] ([id number]) Comment:Excess protein and/o r lipids can falsely decrease sodium levels (pseudo hyponatremia). Potassium 4.1 3.5 - 5.1 mmol/L 06/27/2025 5:24 AM [facility] (12750) Comment:Falsely elevated pot assium can occur in patients with high WBC or platelet counts. Chloride 103 98 - 107 mmol/L 06/27/2025 5:24 AM [facility] (93200) Comment:Falsely elevated chl oride levels can be seen in patients taking bromide containing medications. Carbon Dioxide 24 22 - 29 mmol/L 06/27/2025 5:24 AM [facility] (50635) Anion Gap 9 5 - 13 mmol/L 06/27/2025 5:24 AM [facility] (10930) Comment:Calculation: Na - (C l + CO2) Glucose, Random 246(H) 71 - 99 mg/dL 06/27/2025 5:24 AM [facility] (56571) Blood Urea Nitrogen (BUN) 18 8 - 26 mg/dL 06/27/2025 5:24 AM [facility] (26162) Creatinine, Blood 0.84 0.73 - 1.18 mg/dL 06/27/2025 5:24 AM [facility] (23295) BUN/Creatinine Ratio 21.4 RATIO 06/27/2025 5:24 AM [facility] (92741) Estimated GFR (Cr) 105 >60 mL/min/1.7 3m2 06/27/2025 5:24 AM [facility] (13937) Comment:eGFR calculated base d on IDMS traceable, enzymatic creatinine method using the CKD-EPI 2020 equation. Total Protein 6.6 6.4 - 8.2 g/dL 06/27/2025 5:24 AM [facility] (82476) Albumin 3.7 3.5 - 5.2 g/dL 06/27/2025 5:24 AM [facility] (97343) Globulin 2.9 1.5 - 4.5 g/dL 06/27/2025 5:24 AM [facility] (36603) Albumin/Globulin Ratio 1.3 1.1 - 2.5 RATIO 06/27/2025 5:24 AM [facility] (84885) Calcium 8.9 8.4 - 10.2 mg/dL 06/27/2025 5:24 AM [facility] (48697) Total Bilirubin 1.7(H) 0.3 - 1.2 mg/dL 06/27/2025 5:24 AM [facility] (13893) AST/SGOT 54(H) 5 - 34 U/L 06/27/2025 5:24 AM [facility] (03090) ALT/SGPT 116(H) 0 - 55 U/L 06/27/2025 5:24 AM [facility] (52291) Alkaline Phosphatase 240(H) 40 - 150 U/L 06/27/2025 5:24 AM [facility] (46576) Blood VENOUS BLOOD SPECIMEN / Unknown Venipuncture / Unknown 06/27/2025 4:26 AM EDT 06/27/2025 4:53 AM EDT us Raven Viera MD LAB BLOOD ORDERABLES F inal Result [facility] ([facility]) [address] [place] [address] * (ABNORMAL) CBC w/Diff (06/27/2025 4:26 AM EDT) [facility] White Blood Cells 12.99(H) 4.50 - 11.00 10*3/uL LAB DEVICE: Campus Job-10 06/27/2025 5:03 AM [facility] ([facility]) Red Blood Cells 4.61 4.50 - 5.90 10*6/uL LAB DEVICE: [employer]-10 06/27/2025 5:03 AM [facility] ([facility]) Hemoglobin 13.9 13.5 - 17.5 g/dL LAB DEVICE: [employer]-10 06/27/2025 5:03 AM [facility] ([facility]) Hematocrit 40.9(L) 41.0 - 53.0 % LAB DEVICE: [employer] Job-10 06/27/2025 5:03 AM [facility] ([facility]) Mean Corpuscular Volume 88.7 80.0 - 100.0 fL LAB DEVICE: [employer]-10 06/27/2025 5:03 AM [facility] ([facility]) Mean Corpuscular Hemoglobin 30.2 26.0 - 34.0 pg LAB DEVICE: [employer]-10 06/27/2025 5:03 AM [facility] ([facility]) Mean Corpuscular Hemoglobin Concentration 34.0 31.0 - 37.0 g/dL LAB DEVICE: [employer]-10 06/27/2025 5:03 AM [facility] ([facility]) % Red Blood Cell Distribution Width 14.3 12.0 - 16.8 % LAB DEVICE: [employer]-10 06/27/2025 5:03 AM [facility] ([facility]) Platelet Count 276 140 - 440 10*3/uL LAB DEVICE: [employer]-10 06/27/2025 5:03 AM [facility] ([facility]) Mean Platelet Volume 10.4 8.4 - 12.4 fL LAB DEVICE: [employer]-10 06/27/2025 5:03 AM [facility] ([facility]) % Neutrophils 74.4 45.0 - 80.0 % LAB DEVICE: [employer]-10 06/27/2025 5:03 AM [facility] ([facility]) % Lymphocytes 16.5 15.0 - 50.0 % LAB DEVICE: C2C REI SoftwareSMEX XN-10 06/27/2025 5:03 AM [facility] ([facility]) % Monocytes 7.5 0.0 - 15.0 % LAB DEVICE: SYSMEX XN-10 06/27/2025 5:03 AM [facility] ([facility]) % Eosinophils 0.2 0.0 - 7.0 % LAB DEVICE: SYSMEX XN-10 06/27/2025 5:03 AM [facility] ([facility]) % Basophils 0.2 0.0 - 2.0 % LAB DEVICE: [email or web address].comEX XN-10 06/27/2025 5:03 AM [facility] ([facility]) % Immature Granulocytes 1.2(H) 0.0 - 1.0 % LAB DEVICE: Campus Job-10 06/27/2025 5:03 AM [facility] ([facility]) % Nucleated RBCs 0 <=0 /100 WBCs LAB DEVICE: [employer]-10 06/27/2025 5:03 AM [facility] ([facility]) Absolute Neutrophil Count 9.66(H) 2.00 - 8.80 10*3/uL LAB DEVICE: Campus Job-10 06/27/2025 5:03 AM [facility] ([facility]) Absolute Lymphocytes 2.14 0.70 - 5.50 10*3/uL LAB DEVICE: Viewpoints XN-10 06/27/2025 5:03 AM [facility] ([facility]) Absolute Monocytes 0.98 0.00 - 1.70 10*3/uL LAB DEVICE: C2C [employer] XN-10 06/27/2025 5:03 AM [facility] ([facility]) Absolute Eosinophils 0.03 0.00 - 0.80 10*3/uL LAB DEVICE: [employer]ac[employer]EX XN-10 06/27/2025 5:03 AM [facility] ([facility]) Absolute Basophils 0.03 0.00 - 0.20 10*3/uL LAB DEVICE: Viewpoints XN-10 06/27/2025 5:03 AM [facility] ([facility]) Absolute Immature Granulocytes 0.15(H) 0.00 - 0.10 10*3/uL LAB DEVICE: Campus Job-10 06/27/2025 5:03 AM EDT [facility] ([id number]) Blood VENOUS BLOOD SPECIMEN / Unknown Venipuncture / Unknown 06/27/2025 4:26 AM EDT 06/27/2025 4:50 AM EDT us Raven Viera MD LAB BLOOD ORDERABLES F inal Result [facility] ([id number]) [address] [place] [address] * (ABNORMAL) Bilirubin,Total and Direct (06/27/2025 4:26 AM EDT) Total Bilirubin 1.7(H) 0.3 - 1.2 mg/dL 06/27/2025 5:24 AM EDT [facility] ([facility]) Comment:New reference range due to change in Bilirubin assay. Direct Bilirubin 0.8(H) 0.0 - 0.5 mg/dL 06/27/2025 5:24 AM EDT [facility] ([id number]) Indirect Bilirubin 0.9 0.0 - 1.1 mg/dL 06/27/2025 5:24 AM EDT [facility] ([id number]) Blood VENOUS BLOOD SPECIMEN / Unknown Venipuncture / Unknown 06/27/2025 4:26 AM EDT 06/27/2025 4:53 AM EDT us Raven Viera MD LAB BLOOD ORDERABLES F inal Result [facility] ([id number]) [address] [place] [address] * (ABNORMAL) Glucose-Glucometer (06/26/2025 10:08 PM EDT) Glucose Glucometer 319(H) 71 - 139 mg/dL 06/26/2025 10:11 PM EDT [facility] ([id number]) Comment:CLINICIAN PERFORMED Blood VENOUS BLOOD SPECIMEN / Unknown 06/26/2025 10:08 PM EDT 06/26/2025 10:11 PM EDT us Raven Viera MD LAB BLOOD ORDERABLES F inal Result [facility] ([id number]) [address] [phone] * Surgical Specimen: Gallbladder (06/26/2025 2:17 PM EDT) Case Report Surgical Pathology Report Case: [id number] Authorizing Provider: Nav Vidales MD Collected: 06/26/2025 1417 Ordering Location: [facility] Received: 06/26/2025 1520 Pathologist: Chary Tolentino MD Specimen: Gallbladder, GALLBLADDER 06/29/2025 9:51 AM EDT [facility] Diagnosis GALLBLADDER, CHOLECYSTECTOMY: MILD CHRONIC CHOLECYSTITIS. NEGATIVE FOR DYSPLASIA AND CARCINOMA. 06/29/2025 9:51 AM EDT [facility] at 0951 EDT Clinical History INTRACTABLE LOWER BACK PAIN 06/29/2025 9:51 AM EDT [facility] Microscopic Description Microscopic examination performed. 06/29/2025 9:51 AM EDT [facility] Gross Description Received in formalin labeled gallbladder is an 8.0 x 2.9 x 2.7 cm smooth, green-marrufo intact gallbladder. The cystic duct is 0.7 cm in diameter. The wall is up to 0.2 cm, the mucosa is marrufo and velvety, and the lumen contains a moderate amount of green-marrufo viscous bile and no calculi. Egg Caser sections of the gallbladder wall and blue-inked margin of the cystic duct are submitted in block A1. Kim Tapia MBA, MT, HTL, PA 06/26/2025 /am1 06/29/2025 9:51 AM EDT [facility] Sign Out Location [facility] [address] [address] 06/29/2025 9:51 AM EDT [facility] Case Flag Normal Normal 06/29/2025 9:51 AM EDT [facility] Tissue MISCELLANEOUS SAMPLES / Unknown 06/26/2025 2:17 PM EDT 06/26/2025 3:20 PM EDT Comment:Pre-op diagnosis: UNKNOWN us Nav Vidales MD PATHOLOGY/CYTOLOGY ORDERABLES Fi nal Result [facility] [address] [facility] [address] [place] [address] * (ABNORMAL) Glucose-Glucometer (06/26/2025 11:38 AM EDT) Glucose Glucometer 146(H) 71 - 139 mg/dL 06/26/2025 11:40 AM EDT [facility] ([id number]) Blood VENOUS BLOOD SPECIMEN / Unknown 06/26/2025 11:38 AM EDT 06/26/2025 11:40 AM EDT us Raven Viera MD LAB BLOOD ORDERABLES F inal Result [facility] ([id number]) [address] [place] [address] * Packed Red Cells (06/26/2025 8:07 AM EDT) Packed Red Blood Cells Product Order [facility] BB Blood Bank BLOOD SPECIMEN FROM PATIENT / Unknown 06/26/2025 8:07 AM EDT 06/26/2025 8:29 AM EDT us Alfredito Miranda MD BLOOD BANK PRODUCT ORDERA BLES Final Result Performing Organization Address City/[facility]/ZIP Co de Phone Number [facility] BB [address] [place] [address], [facility] [phone] * Type and Screen (06/26/2025 8:07 AM EDT) ABO/RH(D) A POS 06/26/2025 9:26 AM EDT [facility] BB Antibody Screen NEG 9:26 AM EDT [facility] BB Crossmatch Expiration 06/29/2025 23:59 06/26/2025 9:26 AM EDT [facility] BB Blood VENOUS BLOOD SPECIMEN / Unknown Venipuncture / Unknown 06/26/2025 8:07 AM EDT 06/26/2025 8:29 AM EDT Michelle Putnam [employer] BLOOD BANK TEST ORDERABLES Fi nal Result Performing Organization Address City/[facility]/ZIP Co de Phone Number [facility] BB [address] [place], [place] [id number] [place] [address] * (ABNORMAL) Hemoglobin A1C (06/26/2025 4:44 AM EDT) [facility] Hemoglobin A1C 6.0(H) 4.3 - 5.6 % LAB DEVICE: Adiana D100 06/26/2025 11:41 PM EDT [facility] Estimated Average Glucose 126 mg/dL 06/26/2025 11:41 PM EDT [facility] Blood VENOUS BLOOD SPECIMEN / Unknown Venipuncture / Unknown 06/26/2025 4:44 AM EDT 06/26/2025 5:46 AM EDT Narrative [facility] - 06/26/2025 11:41 PM EDT A1C% Reference Range: 4.3 - 5.6 Normal range 5.7 - 6.4 Pre-diabetic -increased risk for developing diabetes mellitus. >=6.5 Diabetic -diagnostic of diabetes mellitus. Note: For diagnosis of diabetes in individuals without unequivocal hyperglycemia, results should be confirmed by repeat testing. Patients with conditions that shorten erythrocyte survival, such as recovery from acute blood loss, hemolytic anemia, kidney disease, or the presence of unstable hemogloblins like HbSS, HbCC, and HbSC may yield falsely decreased HbA1c test results. Iron deficiency may yield falsely increased HbA1c test results. us Raven Viera MD LAB BLOOD ORDERABLES F inal Result [facility] [address] [place] [address] * Differential, Manual, Blood (06/26/2025 4:44 AM EDT) % Segmented Neutrophils 55.0 45.0 - 80.0 % 06/26/2025 8:00 AM [facility] ([id number]) % Lymphocytes 28.0 15.0 - 50.0 % 06/26/2025 8:00 AM [facility] (06312) % Atypical Lymphocytes 7.0 <=8.0 % 06/26/2025 8:00 AM [facility] (59720) % Monocytes 3.0 <=15.0 % 06/26/2025 8:00 AM [facility] ([id number]) % Eosinophils 7.0 <=7.0 % 06/26/2025 8:00 AM [facility] (65908) % Nucleated RBCs 0 <=0 /100 WBCs LAB DEVICE: Viewpoints XN-10 06/26/2025 8:00 AM [facility] (20588) Absolute Neutrophil Count 4.56 2.00 - 8.80 10*3/uL 06/26/2025 8:00 AM [facility] ([id number]) Absolute Lymphocytes 2.32 0.70 - 5.50 10*3/uL 06/26/2025 8:00 AM [facility] (26029) Absolute Atypical Lymphocytes 0.58 0.00 - 0.90 10*3/uL 06/26/2025 8:00 AM [facility] (21480) Absolute Monocytes 0.25 <=1.70 10*3/uL 06/26/2025 8:00 AM [facility] (47559) Absolute Eosinophils 0.58 <=0.80 10*3/uL 06/26/2025 8:00 AM [facility] (90206) Platelet Estimate Adequate Adequate 06/26/2025 8:00 AM [facility] (63329) Platelet Morphology Normal 06/26/2025 8:00 AM [facility] (74896) Red Blood Cell Morphology Normal 06/26/2025 8:00 AM [facility] (32987) White Blood Cell Morphology Normal 06/26/2025 8:00 AM [facility] (93567) Blood VENOUS BLOOD SPECIMEN / Unknown Venipuncture / Unknown 06/26/2025 4:44 AM EDT 06/26/2025 5:46 AM EDT us Raven Viera MD LAB BLOOD ORDERABLES F inal Result [facility] ([id number]) [address] [place] [address] * (ABNORMAL) CBC w/Diff (06/26/2025 4:44 AM EDT) White Blood Cells 8.29 4.50 - 11.00 10*3/uL LAB DEVICE: Campus Job-10 06/26/2025 8:00 AM [facility] (70318) Red Blood Cells 4.50 4.50 - 5.90 10*6/uL LAB DEVICE: [employer] Job-10 06/26/2025 8:00 AM [facility] (57135) Hemoglobin 13.9 13.5 - 17.5 g/dL LAB DEVICE: [employer] Job-10 06/26/2025 8:00 AM [facility] (30786) Hematocrit 39.5(L) 41.0 - 53.0 % LAB DEVICE: [employer] Job-10 06/26/2025 8:00 AM [facility] (89359) Mean Corpuscular Volume 87.8 80.0 - 100.0 fL LAB DEVICE: [employer] Job-10 06/26/2025 8:00 AM [facility] (65367) Mean Corpuscular Hemoglobin 30.9 26.0 - 34.0 pg LAB DEVICE: SYR2G XN-10 06/26/2025 8:00 AM [facility] (62523) Mean Corpuscular Hemoglobin Concentration 35.2 31.0 - 37.0 g/dL LAB DEVICE: [employer] Job-10 06/26/2025 8:00 AM [facility] (72733) % Red Blood Cell Distribution Width 14.1 12.0 - 16.8 % LAB DEVICE: View[employer] XN-10 06/26/2025 8:00 AM [facility] (66896) Platelet Count 247 140 - 440 10*3/uL LAB DEVICE: S[employer] XN-10 06/26/2025 8:00 AM EDT [facility] (11904) Mean Platelet Volume 10.2 8.4 - 12.4 fL LAB DEVICE: S[employer] XN-10 06/26/2025 8:00 AM EDT [facility] ([id number]) % Nucleated RBCs 0 <=0 /100 WBCs LAB DEVICE: SYSMEX XN-10 06/26/2025 8:00 AM EDT [facility] ([id number]) Blood VENOUS BLOOD SPECIMEN / Unknown Venipuncture / Unknown 06/26/2025 4:44 AM EDT 06/26/2025 5:46 AM EDT us Raven Viera MD LAB BLOOD ORDERABLES F inal Result Performing Organization Address [facility]/ZIP Co de Phone Number [facility] ([id number]) [address] [place] [id number] * (ABNORMAL) Lipase (06/26/2025 4:44 AM EDT) Lipase 68(H) 0 - 59 U/L 06/26/2025 6:36 AM EDT [facility] ([id number]) Blood VENOUS BLOOD SPECIMEN / Unknown Venipuncture / Unknown 06/26/2025 4:44 AM EDT 06/26/2025 5:57 AM EDT us Raven Viera MD LAB BLOOD ORDERABLES F inal Result Performing Organization Address [facility]/ZIP Co de Phone Number [facility] ([id number]) [address] [place] [address] * (ABNORMAL) Comprehensive Metabolic Panel(CMP) (06/26/2025 4:44 AM EDT) Sodium 137 136 - 145 mmol/L 06/26/2025 6:36 AM EDT [facility] ([id number]) Comment:Excess protein and/o r lipids can falsely decrease sodium levels (pseudo hyponatremia). Potassium 3.6 3.5 - 5.1 mmol/L 06/26/2025 6:36 AM [facility] (41006) Comment:Falsely elevated pot assium can occur in patients with high WBC or platelet counts. Chloride 103 98 - 107 mmol/L 06/26/2025 6:36 AM [facility] (42700) Comment:Falsely elevated chl oride levels can be seen in patients taking bromide containing medications. Carbon Dioxide 23 22 - 29 mmol/L 06/26/2025 6:36 AM [facility] (07600) Anion Gap 11 5 - 13 mmol/L 06/26/2025 6:36 AM [facility] (54766) Comment:Calculation: Na - (C l + CO2) Glucose, Random 150(H) 71 - 99 mg/dL 06/26/2025 6:36 AM [facility] (09255) Blood Urea Nitrogen (BUN) 16 8 - 26 mg/dL 06/26/2025 6:36 AM [facility] (99310) Creatinine, Blood 0.84 0.73 - 1.18 mg/dL 06/26/2025 6:36 AM [facility] (59022) BUN/Creatinine Ratio 19.0 RATIO 06/26/2025 6:36 AM [facility] (75657) Estimated GFR (Cr) 105 >60 mL/min/1.7 3m2 06/26/2025 6:36 AM [facility] (87870) Comment:eGFR calculated base d on IDMS traceable, enzymatic creatinine method using the CKD-EPI 2020 equation. Total Protein 6.4 6.4 - 8.2 g/dL 06/26/2025 6:36 AM [facility] (53679) Albumin 3.6 3.5 - 5.2 g/dL 06/26/2025 6:36 AM [facility] (40806) Globulin 2.8 1.5 - 4.5 g/dL 06/26/2025 6:36 AM [facility] (53929) Albumin/Globulin Ratio 1.3 1.1 - 2.5 RATIO 06/26/2025 6:36 AM [facility] (63050) Calcium 9.1 8.4 - 10.2 mg/dL 06/26/2025 6:36 AM [facility] (63399) Total Bilirubin 2.6(H) 0.3 - 1.2 mg/dL 06/26/2025 6:36 AM EDT [facility] (41267) AST/SGOT 46(H) 5 - 34 U/L 06/26/2025 6:36 AM EDT [facility] (74612) ALT/SGPT 102(H) 0 - 55 U/L 06/26/2025 6:36 AM EDT [facility] (96741) Alkaline Phosphatase 227(H) 40 - 150 U/L 06/26/2025 6:36 AM T [facility] ([id number]) Blood VENOUS BLOOD SPECIMEN / Unknown Venipuncture / Unknown 06/26/2025 4:44 AM EDT 06/26/2025 5:57 AM EDT us Raven Viera MD LAB BLOOD ORDERABLES F inal Result Performing Organization Address [facility] Co de Phone Number [facility] ([facility]) [address] [place] [address] * (ABNORMAL) Bilirubin,Total and Direct (06/26/2025 4:44 AM EDT) Total Bilirubin 2.6(H) 0.3 - 1.2 mg/dL 06/26/2025 6:36 AM T [facility] ([id number]) Comment:New reference range due to change in Bilirubin assay. Direct Bilirubin 1.3(H) 0.0 - 0.5 mg/dL 06/26/2025 6:36 AM [facility] (59434) Indirect Bilirubin 1.3(H) 0.0 - 1.1 mg/dL 06/26/2025 6:36 AM T [facility] (30927) Blood VENOUS BLOOD SPECIMEN / Unknown Venipuncture / Unknown 06/26/2025 4:44 AM EDT 06/26/2025 5:57 AM EDT us Raven Viera MD LAB BLOOD ORDERABLES F inal Result Performing Organization Address City/[facility]/ZIP Co de Phone Number [facility] ([facility]) [address] [place] [address] * Tick-borne Disease Panel (06/26/2025 4:44 AM EDT) [facility] Tick-Borne Disease PNL Negative Negative 06/26/2025 4:02 PM EDT EXTERNAL Blood VENOUS BLOOD SPECIMEN / Unknown Venipuncture / Unknown 06/26/2025 4:44 AM EDT 06/26/2025 5:46 AM EDT Narrative EXTERNAL - 06/26/2025 4:02 PM EDT See Scanned Report us Raven Viera MD LAB BLOOD ORDERABLES F inal Result EXTERNAL * Culture,Blood (06/25/2025 4:44 PM EDT) [facility] Culture No Growth Final. 07/01/2025 1:00 AM EDT [facility] Blood BLOOD SPECIMEN / Unknown Venipuncture / Unknown 06/25/2025 4:44 PM EDT 06/25/2025 6:55 PM EDT us Raven Viera MD MICROBIOLOGY - GENERAL ORDERABLES Final Result [facility] [address] [place] [address] * (ABNORMAL) Comprehensive Metabolic Panel (CMP) (06/25/2025 4:44 PM EDT) [facility] Sodium 139 136 - 145 mmol/L 06/25/2025 6:22 PM EDT [facility] ([id number]) Comment:Excess protein and/o r lipids can falsely decrease sodium levels (pseudo hyponatremia). Potassium 06/25/2025 6:22 PM EDT [facility] (18369) Comment:Hemolyzed potassium of (4.6). This result may be falsely elevated by 0.2 - 2.0 mmol/L at this level of hemolysis. Chloride 104 98 - 107 mmol/L 06/25/2025 6:22 PM [facility] (85683) Comment:Falsely elevated chl oride levels can be seen in patients taking bromide containing medications. Carbon Dioxide 23 22 - 29 mmol/L 06/25/2025 6:22 PM [facility] (38126) Anion Gap 12 5 - 13 mmol/L 06/25/2025 6:22 PM [facility] (51142) Comment:Calculation: Na - (C l + CO2) Glucose, Random 112(H) 71 - 99 mg/dL 06/25/2025 6:22 PM [facility] (33246) Blood Urea Nitrogen (BUN) 14 8 - 26 mg/dL 06/25/2025 6:22 PM [facility] (41524) Creatinine, Blood 0.77 0.73 - 1.18 mg/dL 06/25/2025 6:22 PM [facility] (24516) BUN/Creatinine Ratio 18.2 RATIO 06/25/2025 6:22 PM [facility] (28045) Estimated GFR (Cr) 108 >60 mL/min/1.7 3m2 06/25/2025 6:22 PM [facility] (20711) Comment:eGFR calculated base d on IDMS traceable, enzymatic creatinine method using the CKD-EPI 2020 equation. Total Protein 7.0 6.4 - 8.2 g/dL 06/25/2025 6:22 PM [facility] (40823) Albumin 3.8 3.5 - 5.2 g/dL 06/25/2025 6:22 PM [facility] (15568) Globulin 3.2 1.5 - 4.5 g/dL 06/25/2025 6:22 PM [facility] (49092) Albumin/Globulin Ratio 1.2 1.1 - 2.5 RATIO 06/25/2025 6:22 PM [facility] (33924) Calcium 9.4 8.4 - 10.2 mg/dL 06/25/2025 6:22 PM [facility] (40879) Total Bilirubin 3.5(H) 0.3 - 1.2 mg/dL 06/25/2025 6:22 PM [facility] (06156) AST/SGOT 06/25/2025 6:22 PM EDT [facility] (15629) Comment:Hemolyzed ALT/SGPT 112(H) 0 - 55 U/L 06/25/2025 6:22 PM EDT [facility] (19806) Alkaline Phosphatase 237(H) 40 - 150 U/L 06/25/2025 6:22 PM EDT [facility] (03724) Blood VENOUS BLOOD SPECIMEN / Unknown Venipuncture / Unknown 06/25/2025 4:44 PM EDT 06/25/2025 5:12 PM EDT us Raven Viera MD LAB BLOOD ORDERABLES F inal Result [facility] (55677) [address] [place] [phone] * Hepatitis,Acute Panel (06/25/2025 4:44 PM EDT) Hepatitis A Antibody (IgM), Qualitative Non-Reac tive Non-Reactive, Indeterminate 06/26/2025 12:07 AM EDT [facility] Comment:IgM antiHAV not dete cted. Does not exclude the possibility of exposure to or infection with HAV. Levels of IgM antiHAV may be below the cutoff of early infection. Hepatitis B Surface Antigen, Qualitative Non-Reac tive Non-Reactive 06/26/2025 12:07 AM EDT [facility] Comment:Cannot rule out dinorah y infection. To determine susceptibility to HBV, order HBV surface antibody. Hepatitis B Core Antibody (IgM), Qualitative Non-Reac tive Non-Reactive, Indeterminate 06/26/2025 12:07 AM EDT [facility] Hepatitis C Antibody, Qualitative Non-Reac tive Non-Reactive, Indeterminate 06/26/2025 12:07 AM EDT [facility] Comment:No evidence of Hepat itis C infection. Does not exclude the possibility of exposure to HCV, antibody level may be below the cutoff in early infection. Blood Venipuncture / Unknown 06/25/2025 4:44 PM EDT 06/25/2025 6:58 PM EDT us Raven Viera MD LAB BLOOD ORDERABLES F inal Result [facility] [address] [place] [address] * (ABNORMAL) Urinalysis with Reflex to culture (06/25/2025 4:43 PM EDT) Color, Urine Yellow 06/25/2025 5:25 PM [facility] (25909) Clarity, Urine Clear 06/25/2025 5:25 PM [facility] (65559) Specific [place], Urine 1.012 1.005 - 1.030 [arb'U] 06/25/2025 5:25 PM [facility] (83656) pH, Urine 7.0 5.0 - 9.0 [pH] 06/25/2025 5:25 PM [facility] (50520) Protein, Urine Negative Negative, 10 mg/dL, 15 mg/dL, 20 mg/dL, Trace 06/25/2025 5:25 PM [facility] (81316) Glucose, Urine Negative Negative 06/25/2025 5:25 PM [facility] (01896) Ketones, Urine Negative Negative 06/25/2025 5:25 PM [facility] (36249) Bilirubin, Urine Negative Negative mg/dL 06/25/2025 5:25 PM [facility] (20809) Blood, Urine Trace(A) Negative [arb'U] 06/25/2025 5:25 PM [facility] (80455) Nitrite, Urine Negative Negative 06/25/2025 5:25 PM [facility] (18401) Urobilinogen, Urine 2 mg/dL(A) Normal 06/25/2025 5:25 PM [facility] (96630) Leukocyte Esterase, Urine Negative Negative 06/25/2025 5:25 PM [facility] (59745) Reflex Microscopic? 06/25/2025 5:25 PM [facility] (64218) Comment:Microscopic performe d Red Blood Cells, Urine 5(H) 0 - 2 [HPF] 06/25/2025 5:25 PM [facility] (27905) White Blood Cells, Urine 2 0 - 3 [HPF] 06/25/2025 5:25 PM EDT [facility] (77606) Squamous Epithelial Cells, Urine 0 0 - 4 [HPF] 06/25/2025 5:25 PM EDT [facility] (37608) Bacteria, Urine None None [HPF] 5:25 PM EDT [facility] (48436) Transitional Epithelial Cells, Urine <1 0 - 2 [HPF] 06/25/2025 5:25 PM EDT [facility] ([id number]) Urine MID-STREAM URINE SPECIMEN / Unknown Non-blood Collection / Unknown 06/25/2025 4:43 PM EDT 06/25/2025 5:09 PM EDT us Raven Viera MD URINE ORDERABLES Final Result [facility] ([id number]) [address] [place] [address] * US ABDOMEN RUQ, includes liver (06/25/2025 3:24 PM EDT) Pathologist [facility] RAD WORKSTATION ID [id number] [facility] Anatomical Region Laterality Modality Abdomen Ultrasound 06/25/2025 3:29 PM EDT Narrative 06/25/2025 3:31 PM EDT REVIEWING YOUR TEST RESULTS IN [facility] IS NOT A SUBSTITUTE FOR DISCUSSING THOSE RESULTS WITH YOUR HEALTH CARE PROVIDER. PLEASE CONTACT YOUR PROVIDER VIA [facility] TO DISCUSS ANY QUESTIONS OR CONCERNS YOU MAY HAVE REGARDING THESE TEST RESULTS. RADIOLOGY REPORT FACILITY: [facility] UNIT/AGE/GENDER: N.4L IN AGE:54 Y SEX:M PATIENT NAME/: YANELIS Lindsey ALVAREZ 1970 UNIT NUMBER: [id number] ACCESSION NUMBER: [id number] Right upper quadrant ultrasound. 06/25/2025 at 1507 hours HISTORY: Elevated liver function tests. TECHNIQUE: Multiple transabdominal images were obtained of the right upper quadrant. There are no prior studies available for comparison. FINDINGS: The liver parenchyma is unremarkable. There is no evidence of biliary ductal dilatation. The gallbladder is also within normal limits. Multiple gallstones are seen within the gallbladder. The visualized pancreas is heterogeneous. The right kidney is also within normal limits. There is a small right renal cyst. There is no evidence of stones, hydronephrosis or hydroureter. No free fluid is identified. Visualized IVC and abdominal aorta are unremarkable. IMPRESSION: Multiple gallstones within the gallbladder Dictated by: Raegan Ramos M.D. Images and Report reviewed and interpreted by: Raegan Ramos M.D. <PS><Electronically signed by: Raegan Ramos M.D.> 06/25/2025 1530 1529 1529 Procedure Note Raegan Ramos MD - 06/25/2025 REVIEWING YOUR TEST RESULTS IN [employer]FORMER[facility] IS NOT A SUBSTITUTE FORDISCUSSING THOSE RESULTS WITH YOUR HEALTH CARE PROVIDER. PLEASE CONTACT YOUR PROVIDER VIA [employer] TO DISCUSS ANY QUESTIONS ORCONCERNS YOU MAY HAVE REGARDING THESE TEST RESULTS. RADIOLOGY REPORT FACILITY: [facility] UNIT/AGE/GENDER: N.4L IN AGE:54 Y SEX:M PATIENT NAME/: KIM JCAKSON S 1970 UNIT NUMBER: [id number] ACCESSION NUMBER: [id number] Right upper quadrant ultrasound. 06/25/2025 at 1507 hours HISTORY: Elevated liver function tests. TECHNIQUE: Multiple transabdominal images were obtained of the right upper quadrant. There are no prior studies available for comparison. FINDINGS: The liver parenchyma is unremarkable. There is no evidence of biliary ductal dilatation. The gallbladder is also within normal limits. Multiple gallstones are seen within the gallbladder. The visualized pancreas is heterogeneous. The right kidney is also within normal limits. There is a small right renal cyst. There is no evidence of stones, hydronephrosis or hydroureter. No free fluid is identified. Visualized IVC and abdominal aorta are unremarkable. IMPRESSION: Multiple gallstones within the gallbladder Dictated by: Raegan Ramos M.D. Images and Report reviewed and interpreted by: Raegan Ramos M.D. <PS><Electronically signed by: Raegan Ramos M.D.> 06/25/2025 1530 1529 1529 us Raven Viera MD [facility] US ORDERABLES Meghana l Result * XR L Spine Ap & Lateral-Standing (06/25/2025 10:43 AM EDT) Pathologist [facility] RAD WORKSTATION ID [id number] [place] Anatomical Region Laterality Modality Spine, L-spine [facility] Radiographic Imaging 06/25/2025 11:4 4 AM EDT Narrative 06/25/2025 11:46 AM EDT REVIEWING YOUR TEST RESULTS IN [facility] IS NOT A SUBSTITUTE FOR DISCUSSING THOSE RESULTS WITH YOUR HEALTH CARE PROVIDER. PLEASE CONTACT YOUR PROVIDER [facility] TO DISCUSS ANY QUESTIONS OR CONCERNS YOU MAY HAVE REGARDING THESE TEST RESULTS. RADIOLOGY REPORT FACILITY: [facility] UNIT/AGE/GENDER: N.4L IN AGE:54 Y SEX:M PATIENT NAME/: KIM JACKOSN S 1970 UNIT NUMBER: [id number] ACCESSION NUMBER: [id number] EXAMINATION: XR L SPINE AP AND LATERAL-STANDING CLINICAL INDICATION/HISTORY: LBP. COMPARISON: None TECHNIQUE: 2 views FINDINGS: Lumbar Spine: No evidence for acute fracture. Normal vertebral body heights. Mild degenerative disc disease at L3-S1 levels. Posterior pedicle screw and betsy fixation at L5-S1 without radiographic evidence for complication. Sacrum and SI Joints: No acute findings. Soft Tissues: Normal. IMPRESSION: 1. No evidence of acute fracture. 2. Posterior fusion hardware L5-S1 without evidence for complication. Dictated by: Spenser Schuler Images and Report reviewed and interpreted by: Spenser Schuler <PS><Electronically signed by: Spenser Schuler> 06/25/2025 1145 1144 1144 Procedure Note Spenser Schuler, DO - 06/25/2025 REVIEWING YOUR TEST RESULTS IN [facility] IS NOT A SUBSTITUTE FORDISCUSSING THOSE RESULTS WITH YOUR HEALTH CARE PROVIDER. PLEASE CONTACT YOUR PROVIDER VIA [employer] TO DISCUSS ANY QUESTIONS ORCONCERNS YOU MAY HAVE REGARDING THESE TEST RESULTS. RADIOLOGY REPORT FACILITY: [facility] UNIT/AGE/GENDER: NKunal4L IN AGE:54 Y SEX:M PATIENT NAME/: KIM JACKSON S 1970 UNIT NUMBER: [id number] ACCESSION NUMBER: [id number] EXAMINATION: XR L SPINE AP AND LATERAL-STANDING CLINICAL INDICATION/HISTORY: LBP. COMPARISON: None TECHNIQUE: 2 views FINDINGS: Lumbar Spine: No evidence for acute fracture. Normal vertebral body heights. Mild degenerative disc disease at L3-S1 levels. Posterior pedicle screw and betsy fixation at L5-S1 without radiographic evidence for complication. Sacrum and SI Joints: No acute findings. Soft Tissues: Normal. IMPRESSION: 1. No evidence of acute fracture. 2. Posterior fusion hardware L5-S1 without evidence for complication. Dictated by: Spenser Schuler Images and Report reviewed and interpreted by: Spenser Schuler <PS><Electronically signed by: Spenser Schuler> 06/25/2025 1145 1144 1144 Primitivo Christianson MD IMG DIAGNOSTIC IMAGING OR DERABLES Final Result * EKG 12 lead (06/25/2025 6:04 AM EDT) 06/25/2025 6:04 AM EDT Narrative [facility] - 06/25/2025 7:41 AM EDT CARDIOLOGY REPORT FACILITY: [facility] PATIENT NAME/: KIM JACKSON 1970 UNIT/AGE/GENDER: AGE: 54 YR GENDER: M UNIT NUMBER: [id number] ACCESSION NUMBER: [id number] DATE OF EXAM: 06/25/2025 06:04 EXAMINATION(S): ECG 12-LEAD FINAL REPORT Procedure: ELECTROCARDIOGRAM RESULT Heart Rate 82 P-R Interval 132 ms QRS Interval 112 ms QT Interval 392 ms QTC Interval 458 ms P [place] 3 deg QRS [place] 251 deg T Wave [place] 23 deg DATE: 06/25/2025 06:04 SINUS RHYTHM NONSPECIFIC IVCD WITH LAD Summary: Abnormal ECG Electronically signed by Devon Leslie M.D. 06/25/2025 07:41 Procedure Note Devon Leslie MD - 06/25/2025 CARDIOLOGY REPORT FACILITY: [facility] PATIENT NAME/: KIM JACKSON 1970 UNIT/AGE/GENDER: AGE: 54 YR GENDER: M UNIT NUMBER: [id number] ACCESSION NUMBER: [id number] DATE OF EXAM: 06/25/2025 06:04 EXAMINATION(S): ECG 12-LEAD FINAL REPORT Procedure: ELECTROCARDIOGRAM RESULT Heart Rate 82 P-R Interval 132 ms QRS Interval 112 ms QT Interval 392 ms QTC Interval 458 ms P [place] 3 deg QRS [place] 251 deg T Wave [place] 23 deg DATE: 06/25/2025 06:04 SINUS RHYTHM NONSPECIFIC IVCD WITH LAD Summary: Abnormal ECG Electronically signed by Devon Leslie M.D. 06/25/2025 07:41 us Michaela العراقي APRN ECG ORDERABLES Final Result [facility] * Blood Type Confirmation (06/25/2025 5:57 AM EDT) ABO/RH(D) A POS 06/26/2025 10:04 AM EDT [facility] BB Comment:Specimen [id number] used to complete testing. Blood VENOUS BLOOD SPECIMEN / Unknown Venipuncture / Unknown 06/25/2025 5:57 AM EDT 06/26/2025 9:06 AM EDT us Raven Viera MD BLOOD BANK TEST ORDERA BLES Final Result [facility] BB [address] [phone] * Magnesium (06/25/2025 5:57 AM EDT) Magnesium 2.0 1.6 - 2.6 mg/dL 06/25/2025 5:01 PM EDT [facility] ([id number]) Blood VENOUS BLOOD SPECIMEN / Unknown Venipuncture / Unknown 06/25/2025 5:57 AM EDT 06/25/2025 6:26 AM EDT us Raven Viera MD LAB BLOOD ORDERABLES F inal Result Performing Organization Address City/[facility]/ZIP Co de Phone Number [facility] ([facility]) [address] [phone] * Procalcitonin (06/25/2025 5:57 AM EDT) Procalcitonin 0.22 0.10 - 0.50 ng/mL 06/25/2025 5:20 PM EDT [facility] ([facility]) Blood VENOUS BLOOD SPECIMEN / Unknown Venipuncture / Unknown 06/25/2025 5:57 AM EDT 06/25/2025 6:26 AM EDT us Raven Viera MD LAB BLOOD ORDERABLES F inal Result Performing Organization Address [facility] Co de Phone Number [facility] ([facility]) [address] [place], [place] [phone] * (ABNORMAL) Erythrocyte Sedimentation Rate (06/25/2025 5:57 AM EDT) Erythrocyte Sedimentation Rate 38(H) <=15 mm/Hr LAB DEVICE: ISED 06/25/2025 7:02 AM EDT [facility] ([facility]) Blood VENOUS BLOOD SPECIMEN / Unknown Venipuncture / Unknown 06/25/2025 5:57 AM EDT 06/25/2025 6:26 AM EDT us Michaela العراقي APRN LAB BLOOD ORDERABLES Final Re sult Performing Organization Address City/[facility]/ZIP Co de Phone Number [facility] ([id number]) [address] [place] [address] * (ABNORMAL) C-Reactive Protein (06/25/2025 5:57 AM EDT) C-Reactive Protein 5.4(H) <0.5 mg/dL 06/25/2025 6:55 AM [facility] ([id number]) Blood VENOUS BLOOD SPECIMEN / Unknown Venipuncture / Unknown 06/25/2025 5:57 AM EDT 06/25/2025 6:26 AM EDT us Michaela العراقي [employer] LAB BLOOD ORDERABLES Final Re sult [facility] ([id number]) [address] [place] [address] * (ABNORMAL) Comprehensive metabolic panel (06/25/2025 5:57 AM EDT) [facility] Sodium 138 136 - 145 mmol/L 06/25/2025 6:55 AM [facility] ([id number]) Comment:Excess protein and/o r lipids can falsely decrease sodium levels (pseudo hyponatremia). Potassium 3.3(L) 3.5 - 5.1 mmol/L 06/25/2025 6:55 AM [facility] (41114) Comment:Falsely elevated pot assium can occur in patients with high WBC or platelet counts. Chloride 103 98 - 107 mmol/L 06/25/2025 6:55 AM [facility] (30449) Comment:Falsely elevated chl oride levels can be seen in patients taking bromide containing medications. Carbon Dioxide 23 22 - 29 mmol/L 06/25/2025 6:55 AM [facility] (57764) Anion Gap 12 5 - 13 mmol/L 06/25/2025 6:55 AM [facility] (55650) Comment:Calculation: Na - (C l + CO2) Glucose, Random 172(H) 71 - 99 mg/dL 06/25/2025 6:55 AM [facility] (52925) Blood Urea Nitrogen (BUN) 17 8 - 26 mg/dL 06/25/2025 6:55 AM [facility] (16450) Creatinine, Blood 0.90 0.73 - 1.18 mg/dL 06/25/2025 6:55 AM [facility] (09770) BUN/Creatinine Ratio 18.9 RATIO 06/25/2025 6:55 AM [facility] (81264) Estimated GFR (Cr) 103 >60 mL/min/1.7 3m2 06/25/2025 6:55 AM [facility] (73449) Comment:eGFR calculated base d on IDMS traceable, enzymatic creatinine method using the CKD-EPI 2020 equation. Total Protein 6.5 6.4 - 8.2 g/dL 06/25/2025 6:55 AM [facility] (59165) Albumin 3.7 3.5 - 5.2 g/dL 06/25/2025 6:55 AM [facility] (82226) Globulin 2.8 1.5 - 4.5 g/dL 06/25/2025 6:55 AM [facility] (44219) Albumin/Globulin Ratio 1.3 1.1 - 2.5 RATIO 06/25/2025 6:55 AM [facility] (74215) Calcium 9.2 8.4 - 10.2 mg/dL 06/25/2025 6:55 AM [facility] (64588) Total Bilirubin 3.9(H) 0.3 - 1.2 mg/dL 06/25/2025 6:55 AM [facility] (78880) AST/SGOT 49(H) 5 - 34 U/L 06/25/2025 6:55 AM [facility] (76813) ALT/SGPT 100(H) 0 - 55 U/L 06/25/2025 6:55 AM [facility] (20866) Alkaline Phosphatase 222(H) 40 - 150 U/L 06/25/2025 6:55 AM [facility] ([id number]) Blood VENOUS BLOOD SPECIMEN / Unknown Venipuncture / Unknown 06/25/2025 5:57 AM EDT 06/25/2025 6:26 AM EDT us Michaela العراقي [employer] LAB BLOOD ORDERABLES Final Re sult [facility] ([id number]) [address] [place] [address] * Partial Thromboplastin Time (06/25/2025 5:57 AM EDT) Partial Thromboplastin Time 28.5 25.1 - 36.5 seconds LAB DEVICE: ACL TOP 550 CTS 06/25/2025 6:50 AM EDT [facility] ([id number]) Blood VENOUS BLOOD SPECIMEN / Unknown Venipuncture / Unknown 06/25/2025 5:57 AM EDT 06/25/2025 6:26 AM EDT [facility] ([id number]) - 06/25/2025 6:50 AM EDT Anticoagulants may alter the results of Laboratory Coagulation assays. New-generation anticoagulants such as direct Thrombin inhibitors (Dabigatran/Pradaxa, Argatroban, Bivalrudin) and direct/indirect factor Xa inhibitors (Rivaroxaban/Xarelto, Apixaban/Eliquis, Danaparoid/Orgaran, Fondaparinux/Arixtra) have been shown to affect the results of Laboratory Coagulation assays, creating falsely elevated or decreased values. Correlation with medication history is advised us Michaela العراقي APRN LAB BLOOD ORDERABLES Final Re sult [facility] ([id number]) [address] [place] [address] * Protime-INR (06/25/2025 5:57 AM EDT) Pathologist [facility] Prothrombin Time 11.0 10.3 - 13.3 seconds LAB DEVICE: ACL TOP 550 CTS 06/25/2025 6:50 AM EDT [facility] ([id number]) INR 1.0 See Comment INR LAB DEVICE: ACL TOP 550 CTS 06/25/2025 6:50 AM EDT [facility] ([id number]) Blood VENOUS BLOOD SPECIMEN / Unknown Venipuncture / Unknown 06/25/2025 5:57 AM EDT 06/25/2025 6:26 AM EDT [facility] ([id number]) - 06/25/2025 6:50 AM EDT Anticoagulants may alter the results of Laboratory Coagulation assays. New-generation anticoagulants such as direct Thrombin inhibitors (Dabigatran/Pradaxa, Argatroban, Bivalrudin) and direct/indirect factor Xa inhibitors (Rivaroxaban/Xarelto, Apixaban/Eliquis, Danaparoid/Orgaran, Fondaparinux/Arixtra) have been shown to affect the results of Laboratory Coagulation assays, creating falsely elevated or decreased values. Correlation with medication history is advised INR Therapeutic Ranges: Low Intensity Range: 2.0-3.0 High Intensity Range: 3.0-4.5 us Michaela العراقي APRN LAB BLOOD ORDERABLES Final Re sult [facility] ([id number]) [address] [place], [place] [id number] * (ABNORMAL) CBC w/Diff (06/25/2025 5:57 AM EDT) White Blood Cells 8.44 4.50 - 11.00 10*3/uL LAB DEVICE: SYS[facility] XN-10 06/25/2025 6:36 AM [facility] ([id number]) Red Blood Cells 4.54 4.50 - 5.90 10*6/uL LAB DEVICE: SYS[facility] XN-10 06/25/2025 6:36 AM [facility] ([id number]) Hemoglobin 13.8 13.5 - 17.5 g/dL LAB DEVICE: S[facility] XN-10 06/25/2025 6:36 AM [facility] ([id number]) Hematocrit 39.3(L) 41.0 - 53.0 % LAB DEVICE: [facility] XN-10 06/25/2025 6:36 AM [facility] ([id number]) Mean Corpuscular Volume 86.6 80.0 - 100.0 fL LAB DEVICE: S[facility] XN-10 06/25/2025 6:36 AM [facility] ([id number]) Mean Corpuscular Hemoglobin 30.4 26.0 - 34.0 pg LAB DEVICE: S[facility] XN-10 06/25/2025 6:36 AM [facility] ([id number]) Mean Corpuscular Hemoglobin Concentration 35.1 31.0 - 37.0 g/dL LAB DEVICE: [facility] Job-10 06/25/2025 6:36 AM [facility] ([facility]) % Red Blood Cell Distribution Width 14.0 12.0 - 16.8 % LAB DEVICE: [employer] XN-10 06/25/2025 6:36 AM [facility] ([facility]) Platelet Count 224 140 - 440 10*3/uL LAB DEVICE: [facility] Job-10 06/25/2025 6:36 AM [facility] ([facility]) Mean Platelet Volume 9.9 8.4 - 12.4 fL LAB DEVICE: [facility] Job-10 06/25/2025 6:36 AM [facility] ([facility]) % Neutrophils 56.3 45.0 - 80.0 % LAB DEVICE: [facility] Job-10 06/25/2025 6:36 AM [facility] ([facility]) % Lymphocytes 28.9 15.0 - 50.0 % LAB DEVICE: [facility] Job-10 06/25/2025 6:36 AM [facility] ([facility]) % Monocytes 10.8 0.0 - 15.0 % LAB DEVICE: [facility] [employer]-10 06/25/2025 6:36 AM [facility] ([facility]) % Eosinophils 3.0 0.0 - 7.0 % LAB DEVICE: [facility] Job-10 06/25/2025 6:36 AM [facility] ([facility]) % Basophils 0.5 0.0 - 2.0 % LAB DEVICE: [facility] Job-10 06/25/2025 6:36 AM [facility] ([facility]) % Immature Granulocytes 0.5 0.0 - 1.0 % LAB DEVICE: [employer] XN-10 06/25/2025 6:36 AM [facility] ([facility]) % Nucleated RBCs 0 <=0 /100 WBCs LAB DEVICE: [facility] Job-10 06/25/2025 6:36 AM [facility] ([facility]) Absolute Neutrophil Count 4.76 2.00 - 8.80 10*3/uL LAB DEVICE: [facility] Job-10 06/25/2025 6:36 AM [facility] ([id number]) Absolute Lymphocytes 2.44 0.70 - 5.50 10*3/uL LAB DEVICE: [employer] XN-10 06/25/2025 6:36 AM EDT [facility] ([id number]) Absolute Monocytes 0.91 0.00 - 1.70 10*3/uL LAB DEVICE: [employer] XN-10 06/25/2025 6:36 AM EDT [facility] ([id number]) Absolute Eosinophils 0.25 0.00 - 0.80 10*3/uL LAB DEVICE: [employer] XN-10 06/25/2025 6:36 AM EDT [facility] ([id number]) Absolute Basophils 0.04 0.00 - 0.20 10*3/uL LAB DEVICE: [employer] XN-10 06/25/2025 6:36 AM [facility] ([id number]) Absolute Immature Granulocytes 0.04 0.00 - 0.10 10*3/uL LAB DEVICE: [employer] XN-10 06/25/2025 6:36 AM [facility] ([id number]) Blood VENOUS BLOOD SPECIMEN / Unknown Venipuncture / Unknown 06/25/2025 5:57 AM EDT 06/25/2025 6:26 AM EDT Michaela العراقي APRN LAB BLOOD ORDERABLES Final Re sult [facility] ([id number]) [address] [id number] documented in this encounter Visit Diagnoses Not on filedocumented in this encounter Admitting Diagnoses Diagnosis Intractable low back pain documented in this encounter Administered Medications Inactive Administered Medications - up to 3 most recent administrations Medication Order MAR Action Action Date Dose Rate Site 0.9% NaCl infusion Intravenous, at 20 mL/hr, As needed per protocol PRN, Saline lock or KVO NS to maintain patent IV access, Starting on Ashlee 06/25/25 at 0521, 1,000 mL, Until 06/27/25 at 1853, Routine acetaminophen (TYLENOL) tablet 1,000 mg 1,000 mg, Oral, Every 8 hours, First dose on Sun06/26/25 at 2200, Maximum Recommended Dose for Adults of Acetaminophen = 4 gm Per Day., Until Discontinued, Routine Given 06/27/2025 2:21 PM EDT 1,000 mg Given 06/26/2025 10:03 PM EDT 1,000 mg Alum & Mag Hydroxide-Simeth (MAALOX) 200-200-20 MG/5ML suspension 15 mL 15 mL, Oral, Every 6 hours PRN, Indigestion, Starting on Ashlee 06/25/25 at 0511, Ask patient for preferred agent., 30 mL, Until 06/27/25 at 1853, Routine amphetamine-dextroamphetamine (ADDERALL XR) 24 hr capsule 30 mg 30 mg, Oral, Every morning, First dose on Ashlee 06/25/25 at 0800, Until Discontinued, Routine, Previous Med: amphetamine-dextroamphetamine (ADDERALL XR) 30 MG 24 hr capsule - Orig Sig - Take 30 mg by mouth every morning. Given 06/27/2025 9:03 AM EDT 30 mg Given 06/26/2025 9:15 AM EDT 30 mg Given 06/25/2025 9:06 AM EDT 30 mg amphetamine-dextroamphetamine (ADDERALL) tablet 10 mg 10 mg, Oral, Daily, First dose (after last reorder) on Ashlee 06/25/25 at 1630, Until Discontinued, Routine, Previous Med: amphetamine-dextroamphetamine (ADDERALL) 10 MG tablet - Orig Sig - Take 10 mg by mouth nightly. Given 06/27/2025 2:21 PM EDT 10 mg Given 06/26/2025 4:24 PM EDT 10 mg Given 06/25/2025 5:38 PM EDT 10 mg bisacodyl (DULCOLAX) suppository 10 mg 10 mg, Rectal, Daily as needed, Constipation, Starting on Ashlee 06/25/25 at 0511, If no response from Milk of Magnesia., Until 06/27/25 at 1853, Routine calcium carbonate (TUMS) chewable tablet 500 mg 500 mg, Oral, Every 6 hours PRN, Indigestion, Starting on Ashlee 06/25/25 at 0511, Ask patient for preferred agent., Until 06/27/25 at 1853, Routine cloNIDine (CATAPRES) tablet 0.1 mg 0.1 mg, Oral, Every 8 hours PRN, syst >180, stephen >90, Starting on Ashlee 06/25/25 at 0640, Until 06/27/25 at 1853, Routine cyclobenzaprine (FLEXERIL) tablet 10 mg 10 mg, Oral, Every 8 hours PRN, Muscle spasms, Starting on Ashlee 06/25/25 at 0512, Until 06/27/25 at 1853, Routine Given 06/27/2025 4:42 PM EDT 10 mg Given 06/26/2025 8:37 PM EDT 10 mg Given 06/25/2025 6:02 AM EDT 10 mg docusate sodium (COLACE) capsule 100 mg 100 mg, Oral, 2 times daily, First dose on Ashlee 06/25/25 at 0800, Until Discontinued, Routine Given 06/27/2025 9:04 AM EDT 100 mg Given 06/26/2025 8:38 PM EDT 100 mg enoxaparin (LOVENOX) syringe 40 mg 40 mg, Subcutaneous, Daily, First dose on 06/27/25 at 1415, Deep subQ injection. Alternate right and left side of abdomen at least 2 inches away from belly button. Pinch an inch of cleansed skin and insert the full needle at 90 degree angle into the skin fold, then administer. Rotate Injection Sites Between Left & Right Anterolateral And Posterolateral Abdomen - No Heparin/Fragmin/Arixtra Concurrently. Rotate Injection Sites Between Left & Right Anterolateral And Posterolateral Abdomen - No Heparin/Fragmin/Arixtra Concurrently., 0.4 mL, Until Discontinued, RoutineIndications:VTE Prophylaxis fluticasone (FLONASE) 50 MCG/ACT 1 spray 1 spray, Each Nare, Daily, First dose (after last modification) on Sun06/26/25 at 0630, To Each Nostril., Until Discontinued, Routine Given 06/26/2025 6:27 AM EDT 1 spray insulin lispro injection 0-6 Units 0-6 Units, Subcutaneous, 4 times daily before meals and at bedtime, First dose on Sun06/26/25 at 2200, Low correction factor insulin. - If meal-time insulin scheduled, add correction insulin to same syringe and administer via one injection. - Administer within 1 hour of blood glucose assessment. - If patient is NPO, administer correction factor insulin in response to POCT blood glucose checks unless otherwise ordered by provider. Blood Glucose Units 0 - 70 * [facility] hypoglycemia standing orders 71 - 139 0 140 - 179 1 180 - 219 2 220 - 259 3 260 - 299 4 300 - 339 5 340 - 400 6 401 or greater 6 and contact provider with blood glucose level and insulin administration. , Until Discontinued, Routine Given 06/27/2025 4:18 PM EDT 3 Units Given 06/27/2025 11:25 AM EDT 6 Units Given 06/27/2025 7:30 AM EDT 3 Units lidocaine (LIDODERM) 5 % 3 patch 3 patch, Transdermal, Daily, First dose (after last modification) on 06/27/25 at 0800, Patch(s) Should be Removed For 12 Hours per 24 Hours., Administer over 12 Hours, Until Discontinued, Routine, Time to remove patch: 9:00 AM lidocaine 1%-EPINEPHrine 1:100,000 inj Intra-op PRN, Starting on Sun06/26/25 at 1358, Until Sun06/26/25 at 1435, Intra-op, Routine Given 06/26/2025 1:58 PM EDT 10 mLs losartan (COZAAR) tablet 100 mg 100 mg, Oral, Daily, First dose on Ashlee 06/25/25 at 0800, Until Discontinued, Routine, Previous Med: losartan (COZAAR) 100 MG tablet - Orig Sig - Take 100 mg by mouth daily. Given 06/27/2025 9:03 AM EDT 100 mg Given 06/25/2025 9:05 AM EDT 100 mg magnesium hydroxide (MILK OF MAGNESIA) 400 MG/5ML suspension 15 mL 15 mL, Oral, Daily as needed, Constipation, Starting on Sun06/25/25 at 0511, Shake Well., 30 mL, Until 06/27/25 at 1853, Routine magnesium sulfate 2 GM/50ML infusion 2 g 2 g, Intravenous, at 25 mL/hr, As needed per protocol PRN, Other, Per Protocol, Starting on Sun06/25/25 at 0521, DO NOT USE if serum creatinine is greater than 2 and notify MD. Serum Magnesium Level 1.3 To 1.5 mg/dL: Give X 1 Dose. Draw Serum Magnesium Level in A.M. & Continue Supplementation Per Protocol. Serum Magnesium Level Less Than 1.3 mg/dL: Give X 2 Doses Draw Serum Magnesium & Potassium in the A.M. & Continue Supplementation Per Protocol., 50 mL, Administer over 120 Minutes, Until 06/27/25 at 1853, RoutineIndications:Low Serum Magnesium Level morphine (PF) injection 2 mg 2 mg, Intravenous, Every 4 hours PRN, Severe pain, if unable to tolerate oral or if pain unrelieved by oral medications., Starting on 06/26/25 at 1819, 0.5 mL, Until 06/27/25 at 1852, Routine Given 06/27/2025 9:04 AM EDT 2 mg Given 06/27/2025 4:21 AM EDT 2 mg Given 06/26/2025 11:04 PM EDT 2 mg nicotine (NICODERM CQ) 14 MG/24HR 1 patch 1 patch, Transdermal, Daily, First dose on Ashlee 06/25/25 at 0800, Dispose Of Partial Doses In Black Waste Containers., Administer over 24 Hours, Until Discontinued, Routine Patch/Ointment Applied 06/27/2025 9:07 AM EDT 1 patch Left Arm Patch/Ointment Applied 06/26/2025 9:17 AM EDT 1 patch Right Arm Patch/Ointment Applied 06/25/2025 9:06 AM EDT 1 patch Left Arm ondansetron (ZOFRAN) injection 4 mg 4 mg, Intravenous, Every 6 hours PRN, Nausea, Vomiting, Starting on Ashlee 06/25/25 at 0511, Give if unable to tolerate oral., 2 mL, Until 06/27/25 at 1853, Routine ondansetron (ZOFRAN) tablet 4 mg 4 mg, Oral, Every 6 hours PRN, Nausea, Vomiting, Starting on Ashlee 06/25/25 at 0511, Until 06/27/25 at 1853, Routine oxyCODONE-acetaminophen (PERCOCET) 10-325 MG 1 tablet 1 tablet, Oral, Every 4 hours PRN, Severe pain, Starting on 06/27/25 at 0941, Maximum Recommended Dose for Adults of Acetaminophen = 4 gm Per Day., Until 06/27/25 at 1852, Routine Given 06/27/2025 11:25 AM EDT 1 tablet oxyCODONE-acetaminophen (PERCOCET) 5-325 MG 1 tablet 1 tablet, Oral, Every 4 hours PRN, Moderate pain, Starting on 06/27/25 at 0941, Maximum Recommended Dose for Adults of Acetaminophen = 4 gm Per Day., Until 06/27/25 at 1852, Routine potassium chloride 10 mEq in 100 mL IVPB 10 mEq, Intravenous, at 100 mL/hr, As needed per protocol PRN, Other, If Patient s Potassium is Less than 3 AND is unable to take potassium per mouth/per tube or Symptomatic Give 10 meq Over 1 Hour (Peripheral, Starting on Ashlee 06/25/25 at 0521, Do not use if serum creatinine is greater than 2, and notify physician. For Serum Potassium Level Less than 3 mg/dL - Give 10 meq over 1 Hour x 2 Doses. Repeat Serum Potassium Level 2 Hours After Last Dose and Draw Serum Magnesium Level. If Serum Magnesium Level is Less Than 1.6 mg/dL, Then [facility] the Magnesium Replacement Protocol , 100 mL, Administer over 60 Minutes, Until 06/27/25 at 1853, Routine potassium chloride 10 mEq in 50 mL IVPB 10 mEq, Intravenous, at 50 mL/hr, As needed per protocol PRN, Other, If Patient s Potassium is Less than 3 AND is unable to take potassium per mouth/per tube or Symptomatic Give 10 meq Over 1 Hour (Central Line),, Starting on Ashlee 06/25/25 at 0521, Do not use if serum creatinine is greater than 2, and notify physician. For Serum Potassium Level Less than 3 mg/dL - Give 10 meq over 1 Hour x 2 Doses. Repeat Serum Potassium Level 2 Hours After Last Dose and Draw Serum Magnesium Level. If Serum Magnesium Level is Less Than 1.6 mg/dL, Then [facility] the Magnesium Replacement Protocol. , 50 mL, Administer over 60 Minutes, Until 06/27/25 at 1853, Routine potassium chloride 20 MEQ/15ML (10%) solution 20-40 mEq 20-40 mEq, Tube, As needed per protocol PRN, Other, If Able To Take Oral Medications For Potassium Replacement, Starting on Ashlee 06/25/25 at 0521, Do not use if serum creatinine is greater than 2, and notify physician. Serum Potassium Level 3.5 To 3.9 mg/dL: Give 20 meq Now & 20 meq in Two Hours. Repeat Serum Potassium Level 2 Hours After Last Dose. Serum Potassium Level 3.1 To 3.4 mg/dL: Give 40 meq Now & 20 meq in Two Hours. Repeat Serum Potassium Level 2 Hours After Last Dose. For Serum Potassium Level 3 mg/dL or Less : Give 40 meq Now & 20 meq in Two Hours. Notify Physician. Repeat Serum Potassium Level 2 Hours After Last Dose and Draw Serum Magnesium Level. If Magnesium is Less Than 1.6 mg/dL, Then [facility] the Magnesium Replacement Protocol., 30 mL, Until 06/27/25 at 1853, Routine potassium chloride SA (KLOR-CON M) CR tablet 20-40 mEq 20-40 mEq, Oral, As needed per protocol PRN, Other, If Able To Take Oral Medications For Potassium Replacement, Starting on Ashlee 06/25/25 at 0521, Do not use if serum creatinine is greater than 2, and notify physician. Serum Potassium Level 3.5 To 3.9 mg/dL: Give 20 meq Now & 20 meq in Two Hours. Repeat Serum Potassium Level 2 Hours After Last Dose. Serum Potassium Level 3.1 To 3.4 mg/dL: Give 40 meq Now & 20 meq in Two Hours. Repeat Serum Potassium Level 2 Hours After Last Dose. For Serum Potassium Level 3 mg/dL or Less : Give 40 meq Now & 20 meq in Two Hours. Notify Physician. Repeat Serum Potassium Level 2 Hours After Last Dose and Draw Serum Magnesium Level. If Magnesium is Less Than 1.6 mg/dL, Then [facility] the Magnesium Replacement Protocol., Until 06/27/25 at 1853, Routine Given 06/25/2025 10:09 AM EDT 40 mEq tamsulosin (FLOMAX) 0.4 mg 0.4 mg, Oral, Nightly, First dose on Ashlee 06/25/25 at 2100, Capsules should be swallowed whole; do not crush, chew, or open., Until Discontinued, Routine, Previous Med: tamsulosin (FLOMAX) 0.4 MG CAPS - Orig Sig - Take 0.4 mg by mouth nightly. Given 06/26/2025 8:37 PM EDT 0.4 mg Given 06/25/2025 9:03 PM EDT 0.4 mg documented in this encounter Active and Recently Administered Medications Times are shown in EDT. Scheduled Medication Order 06/25/2025 06/26/2025 06/27/2025 acetaminophen (TYLENOL) tablet 1,000 mg 1,000 mg, Oral, Every 8 hours, First dose on Sun06/26/25 at 2200, Maximum Recommended Dose for Adults of Acetaminophen = 4 gm Per Day., Until Discontinued, Routine 2202 (Given - Provider: Nazia Kirkpatrick RN) 0640 (Hold - Provider: Nazia Kirkpatrick RN - Reason: NPO)1421 (Given - Provider: Yaritza Lopez LPN) amphetamine-dextroampheta mine (ADDERALL XR) 24 hr capsule 30 mg 30 mg, Oral, Every morning, First dose on Sun06/25/25 at 0800, Until Discontinued, Routine, Previous Med: amphetamine-dextroampheta mine (ADDERALL XR) 30 MG 24 hr capsule - Orig Sig - Take 30 mg by mouth every morning. 09 (Given - Provider: Karen Stafford LPN) 0915 (Given - Provider: Karen Stafford LPN) 0903 (Given - Provider: Yaritza Lopez LPN) amphetamine-dextroampheta mine (ADDERALL) tablet 10 mg 10 mg, Oral, Daily, First dose (after last reorder) on Sun06/25/25 at 1630, Until Discontinued, Routine, Previous Med: amphetamine-dextroampheta mine (ADDERALL) 10 MG tablet - Orig Sig - Take 10 mg by mouth nightly. 1738 (Given - Provider: Karen Stafford LPN) 1624 (Given - Provider: Karen Stafford LPN) 1421 (Given - Provider: Yaritza Lopez LPN) ceFAZolin 2 g/50 mL in D5W (COMPLETED) 2 g, Intravenous, at 120 mL/hr, call center professional to O.R., First dose on Sun06/27/25 at 0600, For 1 dose, 60 mL, Administer over 30 Minutes, Routine 1345 (Given - Provider: Lukas De León) 0600 (Due) docusate sodium (COLACE) capsule 100 mg(Linked Group 1) 100 mg, Oral, 2 times daily, First dose on Sun06/25/25 at 0800, Until Discontinued, Routine 09 (Not Given - Provider: Karen Stafford LPN - Reason: Patient/family refused)2102 (Not Given - Provider: Myranda Ariel, RN - Reason: Patient/family refused) 0800 (Not Given - Provider: Karen Stafford LPN - Reason: Patient/family refused)2037 (Given - Provider: Nazia Kirkpatrick RN) 0904 (Given - Provider: Yaritza Lopez LPN) enoxaparin (LOVENOX) syringe 40 mg 40 mg, Subcutaneous, Daily, First dose on Sun06/27/25 at 1415, Deep subQ injection. Alternate right and left side of abdomen at least 2 inches away from belly button. Pinch an inch of cleansed skin and insert the full needle at 90 degree angle into the skin fold, then administer. Rotate Injection Sites Between Left & Right Anterolateral And Posterolateral Abdomen - No Heparin/Fragmin/Arixtra Concurrently. Rotate Injection Sites Between Left & Right Anterolateral And Posterolateral Abdomen - No Heparin/Fragmin/Arixtra Concurrently., 0.4 mL, Until Discontinued, Routine 1422 (Not Given - Provider: Yaritza Lopez LPN - Reason: Patient/family refused) fluticasone (FLONASE) 50 MCG/ACT 1 spray 1 spray, Each Nare, Daily, First dose (after last modification) on Sun06/26/25 at 0630, To Each Nostril., Until Discontinued, Routine 06 (Given - Provider: Myranda George RN) 0800 (Due) insulin lispro injection 0-6 Units 0-6 Units, Subcutaneous, 4 times daily before meals and at bedtime, First dose on Sun06/26/25 at 2200, Low correction factor insulin. - If meal-time insulin scheduled, add correction insulin to same syringe and administer via one injection. - Administer within 1 hour of blood glucose assessment. - If patient is NPO, administer correction factor insulin in response to POCT blood glucose checks unless otherwise ordered by provider. Blood Glucose Units 0 - 70 * [facility] hypoglycemia standing orders 71 - 139 0 140 - 179 1 180 - 219 2 220 - 259 3 260 - 299 4 300 - 339 5 340 - 400 6 401 or greater 6 and contact provider with blood glucose level and insulin administration. , Until Discontinued, Routine 7 (Given - Provider: Nazia Kirkpatrick RN) 0730 (Given - Provider: Nazia Kirkpatrick RN)1125 (Given - Provider: Yaritza Lopez LPN)1618 (Given - Provider: Yaritza Lopez LPN) lidocaine (LIDODERM) 5 % 3 patch 3 patch, Transdermal, Daily, First dose (after last modification) on [facility] 06/27/25 at 0800, Patch(s) Should be Removed For 12 Hours per 24 Hours., Administer over 12 Hours, Until Discontinued, Routine, Time to remove patch: 9:00 AM 0902 (Not Given - Provider: Yaritza Lopez LPN - Reason: Other - Comment: pt will hold it until later) losartan (COZAAR) tablet 100 mg 100 mg, Oral, Daily, First dose on Ashlee 06/25/25 at 0800, Until Discontinued, Routine, Previous Med: losartan (COZAAR) 100 MG tablet - Orig Sig - Take 100 mg by mouth daily. 0905 (Given - Provider: Karen Stafford LPN) 0800 (Hold - Provider: Karen Stafford LPN - Reason: Hold for Procedure) 0903 (Given - Provider: Yaritza Lopez LPN) nicotine (NICODERM CQ) 14 MG/24HR 1 patch 1 patch, Transdermal, Daily, First dose on Ashlee 06/25/25 at 0800, Dispose Of Partial Doses In Black Waste Containers., Administer over 24 Hours, Until Discontinued, Routine 0906 (Patch/Ointment Applied - Provider: Karen Stafford LPN) 0916 (Patch/Ointment Removed - Provider: Karen Stafford LPN)0917 (Patch/Ointment Applied - Provider: Karen Stafford LPN) 0904 (Patch/Ointment Removed - Provider: Yaritza Lopez LPN)0907 (Patch/Ointment Applied - Provider: Yaritza Lopez LPN)1652 (Due: Patch/Ointment Removed - Provider: Automatic Discharge Provider - Comment: Time automatically adjusted from order being discontinued) tamsulosin (FLOMAX) 0.4 mg 0.4 mg, Oral, Nightly, First dose on Ashlee 06/25/25 at 2100, Capsules should be swallowed whole; do not crush, chew, or open., Until Discontinued, Routine, Previous Med: tamsulosin (FLOMAX) 0.4 MG CAPS - Orig Sig - Take 0.4 mg by mouth nightly. 2103 (Given - Provider: Myranda George, RN) 2036 (Given - Provider: Nazia Kirkpatrick, RN) Continuous Medication Order 06/25/2025 06/26/2025 06/27/2025 0.9% NaCl infusion (CANCELED) Intravenous, at 100 mL/hr, Continuous, Starting on Ashlee 06/25/25 at 0515, 1,000 mL, Until 06/27/25 at 0941, Routine 0633 (New Bag - Provider: Henrique River, JENSEN) lactated ringers infusion (CANCELED) Intravenous, at 25 mL/hr, Continuous, Starting on Sun06/26/25 at 1200, KVO, 1,000 mL, Until Sun06/26/25 at 1610, Pre-op, Routine 1320 (New Bag - Provider: Lukas De León)1429 (Stopped - Provider: Torres Wise CRNA) PRN Medication Order 06/25/2025 06/26/2025 06/27/2025 0.9% NaCl infusion Intravenous, at 20 mL/hr, As needed per protocol PRN, Saline lock or KVO NS to maintain patent IV access, Starting on Ashlee 06/25/25 at 0521, 1,000 mL, Until 06/27/25 at 1853, Routine Alum & Mag Hydroxide-Simeth (MAALOX) 200-200-20 MG/5ML suspension 15 mL(Linked Group 2) 15 mL, Oral, Every 6 hours PRN, Indigestion, Starting on Ashlee 06/25/25 at 0511, Ask patient for preferred agent., 30 mL, Until 06/27/25 at 1853, Routine bisacodyl (DULCOLAX) suppository 10 mg(Linked Group 1) 10 mg, Rectal, Daily as needed, Constipation, Starting on Ashlee 06/25/25 at 0511, If no response from Milk of Magnesia., Until 06/27/25 at 1853, Routine calcium carbonate (TUMS) chewable tablet 500 mg(Linked Group 2) 500 mg, Oral, Every 6 hours PRN, Indigestion, Starting on Ashlee 06/25/25 at 0511, Ask patient for preferred agent., Until 06/27/25 at 1853, Routine cloNIDine (CATAPRES) tablet 0.1 mg 0.1 mg, Oral, Every 8 hours PRN, syst >180, stephen >90, Starting on Ashlee 06/25/25 at 0640, Until 06/27/25 at 1853, Routine cyclobenzaprine (FLEXERIL) tablet 10 mg 10 mg, Oral, Every 8 hours PRN, Muscle spasms, Starting on Ashlee 06/25/25 at 0512, Until 06/27/25 at 1853, Routine 0602 (Given - Provider: Henrique River RN) 2037 (Given - Provider: Nazia Kirkpatrick RN) 1642 (Given - Provider: Yaritza Lopez LPN) HYDROcodone-acetaminophen (NORCO) 7.5-325 MG per tablet 1 tablet (CANCELED) 1 tablet, Oral, Every 4 hours PRN, Severe pain, Starting on Ashlee 06/25/25 at 0511, Maximum Recommended Dose for Adults of Acetaminophen = 4 gm Per Day., Until Sun06/26/25 at 1819, Routine 0602 (Given - Provider: Henrique River RN)1841 (Given - Provider: Karen Stafford LPN) 0713 (Given - Provider: Karen Stafford LPN)1624 (Given - Provider: Karen Stafford LPN) HYDROcodone-acetaminophen (NORCO) 7.5-325 MG per tablet 2 tablet (CANCELED)(Linked Group 3) 2 tablet, Oral, Every 4 hours PRN, Severe pain, Starting on 06/26/25 at 1819, Maximum Recommended Dose for Adults of Acetaminophen = 4 gm Per Day., Until 06/27/25 at 0941, Routine 2036 (Given - Provider: Nazia Kirkpatrick RN) HYDROmorphone (DILAUDID) injection 0.5 mg (CANCELED) 0.5 mg, Intravenous, Every 10 min PRN, Severe pain, Starting on Sun06/26/25 at 1448, For 10 doses, Maximum cumulative dose 2 mg. For PACU use ONLY For IV administration, dilute 2 mg to final volume of 10 mL and give ordered dose SLOW push over 2-3 minutes., 0.25 mL, Until Sun06/26/25 at 1610, PACU, Routine 1450 (Given - Provider: Venessa Tapia RN)1500 (Given - Provider: Venessa Tapia, RN)1515 (Given - Provider: Venessa Tapia RN)1530 (Given - Provider: Venessa Tapia RN) lidocaine 1%-EPINEPHrine 1:100,000 inj (CANCELED) Intra-op PRN, Starting on Sun06/26/25 at 1358, Until Sun06/26/25 at 1435, Intra-op, Routine 1358 (Given - Provider: Nav Vidales MD - Comment: given to sterile field to be used intraop by surgeon) magnesium hydroxide (MILK OF MAGNESIA) 400 MG/5ML suspension 15 mL(Linked Group 1) 15 mL, Oral, Daily as needed, Constipation, Starting on Ashlee 06/25/25 at 0511, Shake Well., 30 mL, Until 06/27/25 at 1853, Routine magnesium sulfate 2 GM/50ML infusion 2 g 2 g, Intravenous, at 25 mL/hr, As needed per protocol PRN, Other, Per Protocol, Starting on Ashlee 06/25/25 at 0521, DO NOT USE if serum creatinine is greater than 2 and notify MD. Serum Magnesium Level 1.3 To 1.5 mg/dL: Give X 1 Dose. Draw Serum Magnesium Level in A.M. & Continue Supplementation Per Protocol. Serum Magnesium Level Less Than 1.3 mg/dL: Give X 2 Doses Draw Serum Magnesium & Potassium in the A.M. & Continue Supplementation Per Protocol., 50 mL, Administer over 120 Minutes, Until 06/27/25 at 1853, Routine melatonin tablet 3 mg 3 mg, Oral, Nightly PRN, Sleep, Starting on Ashlee 06/25/25 at 0511, Until 06/27/25 at 1853, Routine morphine (PF) injection 2 mg (CANCELED) 2 mg, Intravenous, Every 4 hours PRN, Severe pain, if unable to tolerate oral or if pain unrelieved by oral medications., Starting on Ashlee 06/25/25 at 0511, 0.5 mL, Until Sun06/26/25 at 1819, Routine 2119 (Given - Provider: Myranda George RN) 0435 (Given - Provider: Myranda George RN)1113 (Given - Provider: Karen Stafford LPN) morphine (PF) injection 2 mg(Linked Group 3) 2 mg, Intravenous, Every 4 hours PRN, Severe pain, if unable to tolerate oral or if pain unrelieved by oral medications., Starting on 06/26/25 at 1819, 0.5 mL, Until 06/27/25 at 1852, Routine 1841 (Given - Provider: Karen Stafford LPN)2304 (Given - Provider: Nazia Kirkpatrick, JENSEN) 0421 (Given - Provider: Nazia Kirkpatrick RN)0904 (Given - Provider: Yaritza Lopez LPN) nicotine polacrilex (NICORETTE) gum 2 mg 2 mg, Oral, Every 2 hour PRN, Smoking cessation, Starting on Ashlee 06/25/25 at 0513, Until 06/27/25 at 1853, Routine ondansetron (ZOFRAN) injection 4 mg(Linked Group 4) 4 mg, Intravenous, Every 6 hours PRN, Nausea, Vomiting, Starting on Ashlee 06/25/25 at 0511, Give if unable to tolerate oral., 2 mL, Until 06/27/25 at 1853, Routine ondansetron (ZOFRAN) tablet 4 mg(Linked Group 4) 4 mg, Oral, Every 6 hours PRN, Nausea, Vomiting, Starting on Ashlee 06/25/25 at 0511, Until 06/27/25 at 1853, Routine oxyCODONE-acetaminophen (PERCOCET) 10-325 MG 1 tablet 1 tablet, Oral, Every 4 hours PRN, Severe pain, Starting on 06/27/25 at 0941, Maximum Recommended Dose for Adults of Acetaminophen = 4 gm Per Day., Until 06/27/25 at 1852, Routine 1125 (Given - Provider: Yaritza Lopez LPN) oxyCODONE-acetaminophen (PERCOCET) 5-325 MG 1 tablet 1 tablet, Oral, Every 4 hours PRN, Moderate pain, Starting on 06/27/25 at 0941, Maximum Recommended Dose for Adults of Acetaminophen = 4 gm Per Day., Until 06/27/25 at 1852, Routine potassium chloride 10 mEq in 100 mL IVPB(Linked Group 5) 10 mEq, Intravenous, at 100 mL/hr, As needed per protocol PRN, Other, If Patient s Potassium is Less than 3 AND is unable to take potassium per mouth/per tube or Symptomatic Give 10 meq Over 1 Hour (Peripheral, Starting on Ashlee 06/25/25 at 0521, Do not use if serum creatinine is greater than 2, and notify physician. For Serum Potassium Level Less than 3 mg/dL - Give 10 meq over 1 Hour x 2 Doses. Repeat Serum Potassium Level 2 Hours After Last Dose and Draw Serum Magnesium Level. If Serum Magnesium Level is Less Than 1.6 mg/dL, Then [place] the Magnesium Replacement Protocol , 100 mL, Administer over 60 Minutes, Until 06/27/25 at 1853, Routine 1009 (See Alternative - Provider: Karen Stafford LPN) potassium chloride 10 mEq in 50 mL IVPB(Linked Group 5) 10 mEq, Intravenous, at 50 mL/hr, As needed per protocol PRN, Other, If Patient s Potassium is Less than 3 AND is unable to take potassium per mouth/per tube or Symptomatic Give 10 meq Over 1 Hour (Central Line),, Starting on Ashlee 06/25/25 at 0521, Do not use if serum creatinine is greater than 2, and notify physician. For Serum Potassium Level Less than 3 mg/dL - Give 10 meq over 1 Hour x 2 Doses. Repeat Serum Potassium Level 2 Hours After Last Dose and Draw Serum Magnesium Level. If Serum Magnesium Level is Less Than 1.6 mg/dL, Then [place] the Magnesium Replacement Protocol. , 50 mL, Administer over 60 Minutes, Until 06/27/25 at 1853, Routine 1009 (See Alternative - Provider: Karen Stafford LPN) potassium chloride 20 MEQ/15ML (10%) solution 20-40 mEq(Linked Group 5) 20-40 mEq, Tube, As needed per protocol PRN, Other, If Able To Take Oral Medications For Potassium Replacement, Starting on Ashlee 06/25/25 at 0521, Do not use if serum creatinine is greater than 2, and notify physician. Serum Potassium Level 3.5 To 3.9 mg/dL: Give 20 meq Now & 20 meq in Two Hours. Repeat Serum Potassium Level 2 Hours After Last Dose. Serum Potassium Level 3.1 To 3.4 mg/dL: Give 40 meq Now & 20 meq in Two Hours. Repeat Serum Potassium Level 2 Hours After Last Dose. For Serum Potassium Level 3 mg/dL or Less : Give 40 meq Now & 20 meq in Two Hours. Notify Physician. Repeat Serum Potassium Level 2 Hours After Last Dose and Draw Serum Magnesium Level. If Magnesium is Less Than 1.6 mg/dL, Then [place] the Magnesium Replacement Protocol., 30 mL, Until 06/27/25 at 1853, Routine 1009 (See Alternative - Provider: Karen Stafford LPN) potassium chloride SA (KLOR-CON M) CR tablet 20-40 mEq(Linked Group 5) 20-40 mEq, Oral, As needed per protocol PRN, Other, If Able To Take Oral Medications For Potassium Replacement, Starting on Ashlee 06/25/25 at 0521, Do not use if serum creatinine is greater than 2, and notify physician. Serum Potassium Level 3.5 To 3.9 mg/dL: Give 20 meq Now & 20 meq in Two Hours. Repeat Serum Potassium Level 2 Hours After Last Dose. Serum Potassium Level 3.1 To 3.4 mg/dL: Give 40 meq Now & 20 meq in Two Hours. Repeat Serum Potassium Level 2 Hours After Last Dose. For Serum Potassium Level 3 mg/dL or Less : Give 40 meq Now & 20 meq in Two Hours. Notify Physician. Repeat Serum Potassium Level 2 Hours After Last Dose and Draw Serum Magnesium Level. If Magnesium is Less Than 1.6 mg/dL, Then [place] the Magnesium Replacement Protocol., Until 06/27/25 at 1853, Routine 1009 (Given - Provider: Karen Stafford LPN) Linked Groups Order Group 1: docusate sodium (COLACE) capsule 100 mgJump to med 100 mg, Oral, 2 times daily, First dose on Ashlee 06/25/25 at 0800, Until Discontinued, Routine And magnesium hydroxide (MILK OF MAGNESIA) 400 MG/5ML suspension 15 mLJump to med 15 mL, Oral, Daily as needed, Constipation, Starting on Ashlee 06/25/25 at 0511, Shake Well., 30 mL, Until 06/27/25 at 1853, Routine And bisacodyl (DULCOLAX) suppository 10 mgJump to med 10 mg, Rectal, Daily as needed, Constipation, Starting on Ashlee 06/25/25 at 0511, If no response from Milk of Magnesia., Until 06/27/25 at 1853, Routine Group 2: calcium carbonate (TUMS) chewable tablet 500 mgJump to med 500 mg, Oral, Every 6 hours PRN, Indigestion, Starting on Ashlee 06/25/25 at 0511, Ask patient for preferred agent., Until 06/27/25 at 1853, Routine Or Alum & Mag Hydroxide-Simeth (MAALOX) 200-200-20 MG/5ML suspension 15 mLJump to med 15 mL, Oral, Every 6 hours PRN, Indigestion, Starting on Ashlee 06/25/25 at 0511, Ask patient for preferred agent., 30 mL, Until 06/27/25 at 1853, Routine Group 3: HYDROcodone-acetaminophen (NORCO) 5-325 MG per tablet 1 tablet (CANCELED) 1 tablet, Oral, Every 4 hours PRN, Moderate pain, Starting on Sun06/26/25 at 1819, Maximum Recommended Dose for Adults of Acetaminophen = 4 gm Per Day., Until 06/27/25 at 0941, Routine And HYDROcodone-acetaminophen (NORCO) 7.5-325 MG per tablet 2 tablet (CANCELED)Jump to med 2 tablet, Oral, Every 4 hours PRN, Severe pain, Starting on Sun06/26/25 at 1819, Maximum Recommended Dose for Adults of Acetaminophen = 4 gm Per Day., Until 06/27/25 at 0941, Routine And morphine (PF) injection 2 mgJump to med 2 mg, Intravenous, Every 4 hours PRN, Severe pain, if unable to tolerate oral or if pain unrelieved by oral medications., Starting on Sun06/26/25 at 1819, 0.5 mL, Until 06/27/25 at 1852, Routine Group 4: ondansetron (ZOFRAN) injection 4 mgJump to med 4 mg, Intravenous, Every 6 hours PRN, Nausea, Vomiting, Starting on Ashlee 06/25/25 at 0511, Give if unable to tolerate oral., 2 mL, Until 06/27/25 at 1853, Routine Or ondansetron (ZOFRAN) tablet 4 mgJump to med 4 mg, Oral, Every 6 hours PRN, Nausea, Vomiting, Starting on Ashlee 06/25/25 at 0511, Until 06/27/25 at 1853, Routine Group 5: potassium chloride SA (KLOR-CON M) CR tablet 20-40 mEqJump to med 20-40 mEq, Oral, As needed per protocol PRN, Other, If Able To Take Oral Medications For Potassium Replacement, Starting on Ashlee 06/25/25 at 0521, Do not use if serum creatinine is greater than 2, and notify physician. Serum Potassium Level 3.5 To 3.9 mg/dL: Give 20 meq Now & 20 meq in Two Hours. Repeat Serum Potassium Level 2 Hours After Last Dose. Serum Potassium Level 3.1 To 3.4 mg/dL: Give 40 meq Now & 20 meq in Two Hours. Repeat Serum Potassium Level 2 Hours After Last Dose. For Serum Potassium Level 3 mg/dL or Less : Give 40 meq Now & 20 meq in Two Hours. Notify Physician. Repeat Serum Potassium Level 2 Hours After Last Dose and Draw Serum Magnesium Level. If Magnesium is Less Than 1.6 mg/dL, Then [place] the Magnesium Replacement Protocol., Until 06/27/25 at 1853, Routine Or potassium chloride 20 MEQ/15ML (10%) solution 20-40 mEqJump to med 20-40 mEq, Tube, As needed per protocol PRN, Other, If Able To Take Oral Medications For Potassium Replacement, Starting on Ashlee 06/25/25 at 0521, Do not use if serum creatinine is greater than 2, and notify physician. Serum Potassium Level 3.5 To 3.9 mg/dL: Give 20 meq Now & 20 meq in Two Hours. Repeat Serum Potassium Level 2 Hours After Last Dose. Serum Potassium Level 3.1 To 3.4 mg/dL: Give 40 meq Now & 20 meq in Two Hours. Repeat Serum Potassium Level 2 Hours After Last Dose. For Serum Potassium Level 3 mg/dL or Less : Give 40 meq Now & 20 meq in Two Hours. Notify Physician. Repeat Serum Potassium Level 2 Hours After Last Dose and Draw Serum Magnesium Level. If Magnesium is Less Than 1.6 mg/dL, Then [place] the Magnesium Replacement Protocol., 30 mL, Until 06/27/25 at 1853, Routine Or potassium chloride 10 mEq in 100 mL IVPBJump to med 10 mEq, Intravenous, at 100 mL/hr, As needed per protocol PRN, Other, If Patient s Potassium is Less than 3 AND is unable to take potassium per mouth/per tube or Symptomatic Give 10 meq Over 1 Hour (Peripheral, Starting on Ashlee 06/25/25 at 0521, Do not use if serum creatinine is greater than 2, and notify physician. For Serum Potassium Level Less than 3 mg/dL - Give 10 meq over 1 Hour x 2 Doses. Repeat Serum Potassium Level 2 Hours After Last Dose and Draw Serum Magnesium Level. If Serum Magnesium Level is Less Than 1.6 mg/dL, Then [place] the Magnesium Replacement Protocol , 100 mL, Administer over 60 Minutes, Until 06/27/25 at 1853, Routine Or potassium chloride 10 mEq in 50 mL IVPBJump to med 10 mEq, Intravenous, at 50 mL/hr, As needed per protocol PRN, Other, If Patient s Potassium is Less than 3 AND is unable to take potassium per mouth/per tube or Symptomatic Give 10 meq Over 1 Hour (Central Line),, Starting on Ashlee 06/25/25 at 0521, Do not use if serum creatinine is greater than 2, and notify physician. For Serum Potassium Level Less than 3 mg/dL - Give 10 meq over 1 Hour x 2 Doses. Repeat Serum Potassium Level 2 Hours After Last Dose and Draw Serum Magnesium Level. If Serum Magnesium Level is Less Than 1.6 mg/dL, Then [place] the Magnesium Replacement Protocol. , 50 mL, Administer over 60 Minutes, Until 06/27/25 at 1853, Routine documented in this encounter Additional Health Concerns Infection Onset Date Last Indicated Resolved Time Rule Out COVID-19 06/25/2025 06/25/2025 06/27/2025 11:16 AM EDT documented as of this encounter Care Teams Social Welfare Research Worker Relationship Specialty Start Date End Date Varsha Lopez APRN [address] [place] [address] PCP - General 05/01/11 documented as of this encounter
--- OUTSIDE RECORDS SUMMARY | 2025-06-26 13:20 | XMS_ITS | Encounter Summary ---
Author Organization [facility] Address [address] [place] [address] Care Team Providers Care Mis Specialist Name Role Phone Yohanneswernerblessing Varsha MARIA TERESA Primary Care Provider Encounter Details Date Type Department Care Team (Late st Contact Info) Description 06/26/2025 1:20 PM EDT Anesthesia Event [facility] [address] [place] [address] Geneva Ramos MD [address] [place] [address] [id number] Lukas De León Anesthesia Record Procedure Summary Procedure Name Responsible Anesthesiologist Anesthesia Start Time Anesthesia Stop Time LAPAROSCOPIC CHOLECYSTECTOMY Geneva Ramos MD 06/26/25 1320 06/26/25 1444 Events Date Time Event Comment 06/26/2025 1210 1320 Anesthesia in Room 1320 An Start 1320 An Start Data 1326 An Induction 1328 An Intubation 1350 an kylee now Incision 1431 An Emergence 1432 An Extubation 1434 an stop data 1444 Anesthesia Handoff Torres Andino as handed off to Recovery nurse. 1444 An Stop Meds Name Total ceFAZolin 2 g/50 mL in D5W 2 g propofol 10mg/ml inj 200 mg rocuronium 10mg/ml 70 mg lidocaine PF 1% inj 50 mg dexamethasone 4mg/ml inj 4 mg fentaNYL 0.05 mg/mL 100 mcg midazolam 1mg/mL 2 mg magnesium sulfate 50% 2,000 mg dexmedeTOMIDine (PRECEDEX) 400 mcg in so dium chloride 0.9 % 100 mL drip 20 mcg ondansetron inj 4 mg sugammadex (BRIDION) 200 mg/2 mL inj 200 mg lactated ringers infusion 800 mL * Agents Name O2 Air Fi Sevoflurane Et Sevoflurane * Blood No blood administrations on file. Lines, Drains, and Airways Type Details Placement Removal Non-Surgical Enteral Tube Tube Type: Orogastric; Tube Location: Mouth 06/26/25 1358 by Wound 06/26/25; 1421; Surg ical; Closed Surgi; Abdomen (X4 LAP SITES) 06/26/25 1421 by Twin Shaw, JENSEN ADULT Peripheral IV Size: 20 G; Orientat ion: Anterior, Right; Location: Forearm; Site Prep: Chlorhexidine ; Local Anesthetic: None; Inserted by: Luann Gaines RN; Insertion attempts: 1; Patient Tolerance: Tolerated well 06/25/25 0600 by Henrique River RN 06/27/25 1644 by Yaritza Lopez LPN ETT Location: Mouth; Siz e: 7.5; Cuff: Cuffed; Secured@:22 cm; Blade: Mac 3; Grade View: 1; Devices used: Stylet; Technique: Atraumatic, Cricoid pressure, Rapid sequence induction; Post Intubation check: Bilateral breath sounds, End tidal CO2; Dentition: Same as pre-op; Insertion attempts: 1 06/26/25 1328 by Lukas De León 06/26/25 1432 by Torres Wise CRNA ADULT Peripheral IV Size: 18 G; Orientat ion: Left; Location: Hand; Site Prep: Chlorhexidine ; Insertion attempts: 1; Patient Tolerance: Tolerated well 06/26/25 1335 by Lukas De León 06/27/25 1644 by Yaritza Lopez LPN documented in this encounter Social History Tobacco Use Types Packs/Day Years Used Date Smoking Tobacco: Every Day Cigarettes 0.5 32 Started: 06/25/1993 Smokeless Tobacco: Current Alcohol Use Standard Drinks/Week Comments Never 0 (1 standard drink = 0.6 oz pur e alcohol) Sex and Gender Information Value Date Recorded Sex Assigned at Not on file Legal Sex Male 4:45 PM EST Gender Identity Not on file Sexual Orientation Not on file documented as of this encounter Functional Status * Are You Deaf or do You Have Serious Difficulty Hearing? Answer Date of Assessment Author No 06/25/2025 3:00 AM Henrique Guntre RN * Patient's Vision Adequate to Safely Complete Daily Activities Answer Date of Assessment Author Yes 06/25/2025 3:00 AM Henrique Gunter RN * Do You Have Serious Difficulty Walking or Climbing Stairs? Answer Date of Assessment Author No 06/25/2025 3:00 AM Henrique Gunter RN * Do You Have Difficulty Dressing or Bathing? Answer Date of Assessment Author No 06/25/2025 3:00 AM Henrique Gunter RN * Because of a Physical, Mental, or Emotional Condition, Do You Have Serious Difficulty Concentrating, Remembering or Making a Decision? Answer Date of Assessment Author No 06/25/2025 3:00 AM Henrique Gunter RN documented as of this encounter Mental Status * Because of a Physical, Mental or Emotional Problem, Do You Have Difficulty Doing Errands Alone Suchas Visiting a Doctor's Office or Shopping? Answer Entry Date Author No 06/25/2025 3:00 AM Henrique Gunter RN documented in this encounter OR Notes * Anesthesia Postprocedure Evaluation - Geneva Ramos MD - 06/26/2025 2:56 PM EDT Post-Anesthesia Evaluation Patient: Luiz Bailey Patient is stable postoperatively and has adequately recovered from anesthesia as described below unless otherwise noted. Patient is determined to have stable airway patency and respiratory function including respiratory rate and oxygen saturation. Patient has a stable heart rate, blood pressure and adequate hydration. Patient's mental status is acceptable. Patient's temperature is appropriate. Pain and nausea are adequately controlled. Vitals Value Taken Time BP 122/96 06/26/25 14:50 Temp Pulse 90 06/26/25 14:50 Resp 15 06/26/25 14:50 SpO2 93 % 06/26/25 14:50 Temp src Anesthesia complications or comments: None The MD was aware and immediately available for lofton portions with frequent periodic monitoring throughout the case. * Anesthesia Preprocedure Evaluation - Geneva Ramos MD - 06/26/2025 11:44 AM EDT Relevant Problems OTHER (+) HTN (hypertension) (+) Intractable low back pain Review of Systems Patient summary reviewed. nursing notes reviewed. Allergies Reviewed: Patient has no known allergies. No history of anesthetic complications. Pulmonary: Positive (+) for current smoker. Negative (-) for asthma. Neuro/Psych: Positive (+) for headaches. Cardiovascular: Positive (+) for hypertension. Endo: Positive (+) obesity Obesity represents increased surgical risk and specific medication calculations impacting medical decision making. GI: Positive (+) for GERD. Musculoskeletal: Positive (+) for low back pain. Physical Exam Airway: Mallampati: III TM distance: >3 FB Neck ROM: Full Cardiovascular: Cardiovascular exam normal. Pulmonary: Pulmonary exam normal. Additional findings: LEFT EYE IRRITATION Anesthesia Plan ASA: 3 Anesthesia Plan: general and regional Anesthesia Plan Comments: EOI BLOCK FOR POST OP PAIN - IF PROCEDURE CONVERTS TO OPEN Premedication: Antiemetics Planned Post Procedure Care: Inpatient Anesthetic Plan and Risks discussed with: Patient. Risk and benefits of anesthesia explained. Informed consent obtained. Use of blood products discussed with Patient who consented to blood products. Plan discussed with: VIDEO POKER FLOORMAN documented in this encounter Plan of Treatment Upcoming Encounters Date Type Department Care Team (Late st Contact Info) Description 07/07/2025 10:30 AM EDT Office Visit [facility] Dolan [address] [place] [address] Isela Anne APRN [address] [facility] [address] [place] [address] documented as of this encounter Visit Diagnoses Not on filedocumented in this encounter Administered Medications Inactive Administered Medications - up to 3 most recent administrations Medication Order MAR Action Action Date Dose Rate Site ceFAZolin 2 g/50 mL in D5W 2 g, Intravenous, at 120 mL/hr, body recall instructor to O.R., First dose on 06/27/25 at 0600, For 1 dose, 60 mL, Administer over 30 Minutes, Routine Given 06/26/2025 1:45 PM EDT 2 g dexAMETHasone (DECADRON) injection Intravenous, PRN, Starting on Sun06/26/25 at 1347, Administer over 5 Minutes, Until Sun06/26/25 at 1444, Anesthesia Intra-op, Routine Given 06/26/2025 1:47 PM EDT 4 mg dexmedeTOMIDine (PRECEDEX) 400 mcg in sodium chloride 0.9 % 100 mL drip Intravenous, Continuous PRN, Starting on Sun06/26/25 at 1405, 100 mL, Until Sun06/26/25 at 1444, Anesthesia Intra-op, Routine Bolus 06/26/2025 2:19 PM EDT 8 mcg Bolus 06/26/2025 2:13 PM EDT 6 mcg New Bag 06/26/2025 2:05 PM EDT 6 mcg fentaNYL (PF) (SUBLIMAZE) injection Intravenous, PRN, Starting on Sun06/26/25 at 1326, Until Sun06/26/25 at 1444, Anesthesia Intra-op, Routine Given 06/26/2025 2:00 PM EDT 50 mcg Given 06/26/2025 1:26 PM EDT 50 mcg lactated ringers infusion Intravenous, at 25 mL/hr, Continuous, Starting on Sun06/26/25 at 1200, KVO, 1,000 mL, Until Sun06/26/25 at 1610, Pre-op, Routine New Bag 06/26/2025 1:20 PM EDT lidocaine injection 1% Other, PRN, Starting on Sun06/26/25 at 1326, Until Sun06/26/25 at 1444, Anesthesia Intra-op, Routine Given 06/26/2025 1:26 PM EDT 50 mg magnesium sulfate 50 % injection Intravenous, PRN, Starting on Sun06/26/25 at 1405, Until Sun06/26/25 at 1444, Anesthesia Intra-op, Routine Given 06/26/2025 2:22 PM EDT 200 mg Given 06/26/2025 2:19 PM EDT 600 mg Given 06/26/2025 2:13 PM EDT 600 mg midazolam (VERSED) injection Intravenous, PRN, Starting on Sun06/26/25 at 1326, Until Sun06/26/25 at 1444, Anesthesia Intra-op, Routine Given 06/26/2025 1:26 PM EDT 1 mg Given 06/26/2025 1:05 PM EDT 1 mg ondansetron (ZOFRAN) injection Intravenous, PRN, Starting on Sun06/26/25 at 1426, Until Sun06/26/25 at 1444, Anesthesia Intra-op, Routine Given 06/26/2025 2:26 PM EDT 4 mg propofol (DIPRIVAN) 200 MG/20ML injection Intravenous, PRN, Starting on Sun06/26/25 at 1326, Until Sun06/26/25 at 1444, Anesthesia Intra-op, Routine Given 06/26/2025 1:26 PM EDT 200 mg rocuronium (ZEMURON) injection Intravenous, PRN, Starting on Sun06/26/25 at 1326, Until Sun06/26/25 at 1444, Anesthesia Intra-op, Routine Given 06/26/2025 2:05 PM EDT 20 mg Given 06/26/2025 1:26 PM EDT 50 mg sugammadex (BRIDION) injection Intravenous, PRN, Starting on Sun06/26/25 at 1428, Until Sun06/26/25 at 1444, Anesthesia Intra-op, Routine Given 06/26/2025 2:28 PM EDT 200 mg documented in this encounter Additional Health Concerns Infection Onset Date Last Indicated Resolved Time Rule Out COVID-19 06/25/2025 06/25/2025 06/27/2025 11:16 AM EDT documented as of this encounter Care Teams Mis Specialist Relationship Specialty Start Date End Date Varsha Lopez APRN [address] [place] [address] PCP - General 05/01/11 documented as of this encounter
[2025-07-02 15:36] LABS: Hematocrit 41.0 % (42.0-52.0); Hemoglobin 13.6 g/dL (14.1-18.0); Immature Granulocytes % 1.3 %; Mean Corpuscular HGB Conc 33.2 g/dL (31.8-35.4); Mean Corpuscular Hemoglobin 30.8 pg (27.0-31.2); Mean Corpuscular Volume 92.8 fl (80-94); Nucleated Red Blood Cells % 0 %; Platelet Count 379 K/mm3 (142-424); Red Blood Count 4.42 M/mm3 (4.60-6.20); Red Cell Distribution Width-SD 46.6 fL; White Blood Count 12.3 K/mm3 (4.8-10.8)
[2025-07-02 18:30] LABS: Albumin Level 3.7 g/dl (3.5-5.0); Chloride 94 mmol/L (98-107); Sodium 129 mmol/L (136-145)
[2025-07-02 18:31] LABS: Potassium 4.8 mmoL/L (3.5-5.1)
[2025-07-02 18:33] LABS: Alanine Aminotransferase 53 U/L (12-78); Anion Gap 9.8 mEq/L (5-15); Aspartate Amino Transferase 35 U/L (17-59); Blood Urea Nitrogen 32 mg/dl (9-20); Carbon Dioxide 30 mmol/L (22.0-30.0); Creatinine,Serum 0.90 mg/dl (0.66-1.25); Estimated Glomerular Filt Rate 89 ml/min (>60); GFR (African American) 107 ML/MIN (>60)
[2025-07-02 18:34] LABS: Albumin/Globulin Ratio 1.2 (1.1-1.8); Alkaline Phosphatase 161 U/L (38-126); Bilirubin,Total 0.9 mg/dl (0.2-1.3); Calcium 8.6 mg/dl (8.4-10.2); Globulin 3.1 g/dL (1.3-3.2); Glucose 145 mg/dl (74-100); Total Protein,Serum 6.8 g/dl (6.3-8.2)
--- OUTSIDE RECORDS SUMMARY | 2025-07-03 11:05 | XMS_ITS | Clinical Summary ---
Author Organization [facility] Address [address] [place] [address], [address] [place] [address] Care Team Providers Care Mechanical Service Representative Name Role Phone Huyen Vasquez MD Primary Care Provider [phone] Social History Tobacco Use Types Packs/Day Years Used Date Smoking Tobacco: Never Assessed Sex and Gender Information Value Date Recorded Sex Assigned at Not on file Legal Sex Male 10:14 PM EST Gender Identity Not on file Sexual Orientation Not on file Plan of Treatment Not on file Care Teams Mechanical Service Representative Relationship Specialty Start Date End Date Huyen Vasquez MD [address] [place] [address] PCP - General Family Practice 09/01/24
--- OUTSIDE RECORDS SUMMARY | 2025-07-03 11:05 | XMS_ITS | Encounter Summary ---
Author Organization [facility] Address [address] [place] [address] Care Team Providers Care Decontamination Technician Name Role Phone Bib Dye MD Primary Care Provider [phone] Encounter Details Date Type Department Care Team (Late st Contact Info) Description 06/29/2025 Telephone [facility] [address] [place] [address] Ericka Jacobson MA Social History Tobacco Use Types Packs/Day Years Used Date Smoking Tobacco: Never Assessed Sex and Gender Information Value Date Recorded Sex Assigned at Not on file Legal Sex Male 6:30 PM EDT Gender Identity Not on file Sexual Orientation Not on file documented as of this encounter Miscellaneous Notes * Telephone Encounter - Eircka Jacobson MA - 06/29/2025 2:02 PM EDT Cassie called the office to see if Dr Vidales will call in pain meds and pt to make an appt for 07-07-25 for transition continuation of care to his PCP DR Marnie Barnett CCMA sent message to Dr Vidales and pharmacy with allergies was updated Ericka Jacobson MA documented in this encounter Plan of Treatment Not on file documented as of this encounter Visit Diagnoses Not on filedocumented in this encounter Care Teams Decontamination Technician Relationship Specialty [place] [id number] [place] [id number] PCP - General Family Medicine 06/29/25 documented as of this encounter
--- OUTSIDE RECORDS SUMMARY | 2025-07-03 11:05 | XMS_ITS | Clinical Summary ---
Author Organization [facility] Address [address] [place] [address] Care Team Providers Care Barnworker Groom Name Role Phone Bib Dye MD Primary Care Provider [phone] Allergies No known active allergies Active Problems Problem Noted Date Diagnosed Date Cholelithiasis without obstruction 06/29/2025 Acute cholecystitis 06/27/2025 Attention deficit hyperactivity disorder 025 Hypertensive disorder 06/25/2025 Intractable low back pain 06/25/2025 Tobacco user 06/25/2025 Encounters Date Type Department Care Team Description 06/29/2025 Telephone [facility] [address] [facility] [address] [place] [address] Ericka Jacobson MA from Last 3 Months Social History Tobacco Use Types Packs/Day Years Used Date Smoking Tobacco: Never Assessed Sex and Gender Information Value Date Recorded Sex Assigned at Not on file Legal Sex Male 6:30 PM EDT Gender Identity Not on file Sexual Orientation Not on file Plan of Treatment Not on file Care Teams Barnworker Groom Relationship Specialty [place] [id number] [place] [id number] PCP - General Family Medicine 06/29/25
--- OUTSIDE RECORDS SUMMARY | 2025-07-03 11:06 | XMS_ITS | Data Portability ---
Author Organization [facility] Address [address] [address] [place] [address] Assessment No assessment recorded. Plan of Treatment Reminders Order Date Submit Date Provider Last Modified By Organization Details Last Modified Time Details Appointments None recorded. Lab lipid panel, serum 2023 BARRY Not available 4 16:58:44 HbA1c (hemoglobin A1c), blood 2023 BARRY Not available 4 17:01:08 testosteron e, free + total, serum 2023 BARRY Not available 4 11:05:53 CBC w/ auto diff 2023 BARRY Not available 4 16:47:39 urinalysis, dipstick [address] [facility], [place], [address], 4 12:06:55 testosteron e, free + total, serum 2023 024 [email or web address] Not available 4 09:27:44 lh (luteinizin g hormone), serum 2023 024 6 Not available 4 09:27:57 FSH (follicle-s timulating hormone), serum 2023 024 6 Not available 4 09:28:11 Referral pain management referral 2023 justino [facility]-, [address] [facility], [place], [address], 5 09:08:45 Procedures None recorded. Surgeries None recorded. Imaging None recorded. Medication Orders montelukast 10 mg tablet 2023 024 [facility] [id number], [address] [facility] , [place], [address], 4 10:55:33 promethazin e-DM 6.25 mg-15 mg/5 mL oral syrup 2023 [facility] [id number], [address] [facility] [address], [place], [address], 4 10:55:30 sumatriptan 100 mg tablet 2023 024 [facility] [id number], [address] [facility] [address], [place], [address], 4 11:11:43 sildenafil 25 mg tablet 2023 024 [facility] [id number], [address] [facility] [address], [place], [address], 4 11:14:39 losartan 100 mg tablet 2023 024 [facility] [id number], [address] [facility] , [place], [address], 4 11:11:02 doxycycline hyclate 100 mg capsule 2023 024 [facility] [id number], [address] [facility] , [place], [address], 4 12:06:00 cefdinir 300 mg capsule 2023 024 [facility] [id number], [address] [facility] [place], [address], 12:05:52 testosteron e cypionate 200 mg/mL intramuscul ar oil 2023 024 [facility] [id number], [address] [facility] [place], [address], 10:12:32 Patient TargetsNo targets recorded. Patient Instructions Encounter Date Encounter Id Patient Instructions Last Modified By Organization Details Last Modified Time 06/09/2024 [id number] high cholesterol : care instructions Not available 06/09/2024 09:25:54 smoking cessatio n counseling, greater than 3 minutes up to 10 minutes* [email or web address] Not available 06/09/2024 11:59:09 high blood pressure: care instructions Not available 06/09/2024 09:25:32 learning about high blood pressure Not available 06/09/2024 09:25:32 06/18/2024 [id number] attention defici t hyperactivity disorder (ADHD) in adults: care instructions Not available 06/18/2024 10:27:31 high blood pressure: care instructions Not available 06/18/2024 10:22:50 learning about high blood pressure Not available 06/18/2024 10:22:50 06/23/2024 [id number] sore throat: car e instructions Not available 06/23/2024 09:58:20 07/17/2024 [id number] tick bite: care instructions Not available 07/17/2024 11:04:46 08/14/2024 [id number] hypogonadism: ca re instructions Not available 08/14/2024 10:55:27 seasonal allergies: care instructions Not available 08/14/2024 10:55:27 smoking cessatio n counseling, greater than 3 minutes up to 10 minutes* [email or web address] Not available 08/21/2024 07:59:17 Reason for Referral Pain Management Referral for Chronic low back pain Referring Physician: Huyen Vasqeuz, Family Medicine, Encounter Date: 08/14/2024 Results Created Date Observation Date Name Description Value Unit Range Abnormal Flag Note LastModifiedBy Organization Detail LastModifiedTime 05/27/20 24 05/27/2024 CBC W AUTO DIFFE RENTI AL PANEL - BLOOD leukocytes [#/volume] in blood by automated count 7.6 x(10) 3/uL 5.4 - 9.9 Not Available [facility] [address] [place] [address] [place], [address], 05/27/2024 15:41:34 05/27/20 24 05/27/2024 CBC W AUTO DIFFE RENTI AL PANEL - BLOOD erythrocytes [#/volume] in blood by automated count 4.70 x(10) 6/uL 4.16 - 5.62 Not Available [address] [place], [address], 05/27/2024 15:41:34 05/27/20 24 05/27/2024 CBC W AUTO DIFFE RENTI AL PANEL - BLOOD hemoglobin [mass/volume ] in blood 14.8 g/dL 13.2 - 16.5 Not Available [address] [place], [address], 05/27/2024 15:41:34 05/27/20 24 05/27/2024 CBC W AUTO DIFFE RENTI AL PANEL - BLOOD hematocrit [volume fraction] of blood by automated count 43.1 % 37.4 - 53.8 Not Available [address] [place], [address], 05/27/2024 15:41:34 05/27/20 24 05/27/2024 CBC W AUTO DIFFE RENTI AL PANEL - BLOOD erythrocyte mean corpuscular volume [entitic volume] by automated count 91.7 fL 80.5 - 96.9 Not Available [address] [place], [address], 05/27/2024 15:41:34 05/27/20 24 05/27/2024 CBC W AUTO DIFFE RENTI AL PANEL - BLOOD erythrocyte mean corpuscular hemoglobin [entitic mass] by automated count 31.5 pg 27.7 - 33.3 Not Available [facility] [address] [place] [address] [place], [address], 05/27/2024 15:41:34 05/27/20 24 05/27/2024 CBC W AUTO DIFFE RENTI AL PANEL - BLOOD erythrocyte mean corpuscular hemoglobin concentratio n [mass/volume ] by automated count 34.3 g/dL 32.8 - 35.0 Not Available [facility] [address] [place] [address] [place], [address], 05/27/2024 15:41:34 05/27/20 24 05/27/2024 CBC W AUTO DIFFE RENTI AL PANEL - BLOOD erythrocyte distribution width [ratio] by automated count 12.1 % 11.6 - 14.8 Not Available [facility] [address] [place] [address] [place], [address], 05/27/2024 15:41:34 05/27/20 24 05/27/2024 CBC W AUTO DIFFE RENTI AL PANEL - BLOOD platelets [#/volume] in blood by automated count 240 x(10) 3/uL 129 - 332 Not Available [address] [place], [address], 05/27/2024 15:41:34 05/27/20 24 05/27/2024 COMPR EHENS SUYAPA METAB OLIC 2000 PANEL - SERUM OR PLASM A sodium [moles/volum e] in serum or plasma 136 mmol/ L 137 - 145 low Not Available [address] [place], [address], 05/27/2024 16:14:51 05/27/20 24 05/27/2024 COMPR EHENS SUYAPA METAB OLIC 2000 PANEL - SERUM OR PLASM A potassium [moles/volum e] in serum or plasma 4.4 mmol/ L 3.4 - 5.1 Not Available [facility] [address] [place] [address] [place], [address], 05/27/2024 16:14:51 05/27/20 24 05/27/2024 COMPR EHENS SUYAPA METAB OLIC 1999 PANEL - SERUM OR PLASM A chloride [moles/volum e] in serum or plasma 104 mmol/ L 98 - 107 Not Available [facility] [address] [place] [address] [place], [address], 05/27/2024 16:14:51 05/27/20 24 05/27/2024 COMPR EHENS SUYAPA METAB OLIC 1999 PANEL - SERUM OR PLASM A carbon dioxide, total [moles/volum e] in serum or plasma 26 mmol/ L 22 - 30 Not Available [facility] [address] [place] [address] [place], [address], 05/27/2024 16:14:51 05/27/20 24 05/27/2024 COMPR EHENS SUYAPA METAB OLIC 2000 PANEL - SERUM OR PLASM A urea nitrogen [mass/volume ] in serum or plasma 21 mg/dL 9 - 20 high Not Available [facility] [address] [place] [address] [place], [address], 05/27/2024 16:14:51 05/27/20 24 05/27/2024 COMPR EHENS SUYAPA METAB OLIC 2000 PANEL - SERUM OR PLASM A creatinine [mass/volume ] in serum or plasma 0.8 mg/dL 0.66 - 1.25 Not Available [facility] [address] [place] [address] [place], [address], 05/27/2024 16:14:51 05/27/20 24 05/27/2024 COMPR EHENS SUYAPA METAB OLIC 2000 PANEL - SERUM OR PLASM A glucose [mass/volume ] in serum or plasma 90 mg/dL 74 - 100 Not Available [facility] [address] [place] [address] [place], [address], 05/27/2024 16:14:51 05/27/20 24 05/27/2024 COMPR EHENS SUYAPA METAB OLIC 2000 PANEL - SERUM OR PLASM A calcium [mass/volume ] in serum or plasma 9.9 mg/dL 8.6 - 10.3 Not Available [facility] [address] [place] [address] [place], [address], 05/27/2024 16:14:51 05/27/20 24 05/27/2024 COMPR EHENS SUYAPA METAB OLIC 2000 PANEL - SERUM OR PLASM A protein [mass/volume ] in serum or plasma 7.1 g/dL 6.3 - 8.2 Not Available [facility] - [address] [place], [address], 05/27/2024 16:14:51 05/27/20 24 05/27/2024 COMPR EHENS SUYAPA METAB OLIC 2000 PANEL - SERUM OR PLASM A albumin [mass/volume ] in serum or plasma 4.4 g/dL 3.5 - 5.0 Not Available [facility] - [address] [place], [address], 05/27/2024 16:14:51 05/27/20 24 05/27/2024 COMPR EHENS SUYAPA METAB OLIC 2000 PANEL - SERUM OR PLASM A globulin [mass/volume ] in serum by calculation 2.7 g/dL 2.0 - 3.5 Not Available [facility] [address] [place] [address] [place], [address], 05/27/2024 16:14:51 05/27/20 24 05/27/2024 COMPR EHENS SUYAPA METAB OLIC 2000 PANEL - SERUM OR PLASM A albumin/glob ulin [mass ratio] in serum or plasma 1.6 g/dL 1.0 - 2.5 Not Available [facility] - [address] [place], [address], 05/27/2024 16:14:51 05/27/20 24 05/27/2024 COMPR EHENS SUYAPA METAB OLIC 1999 PANEL - SERUM OR PLASM A bilirubin.to richelle [mass/volume ] in serum or plasma 0.6 mg/dL 0.2 - 1.3 Not Available [facility] [address] [place] [address] [place], [address], 05/27/2024 16:14:51 05/27/20 24 05/27/2024 COMPR EHENS SUYAPA METAB OLIC 1999 PANEL - SERUM OR PLASM A aspartate aminotransfe rase [enzymatic activity/vol ume] in serum or plasma 36 U/L 17 - 59 Not Available [facility] [address] [place] [address] [place], [address], 05/27/2024 16:14:51 05/27/20 24 05/27/2024 COMPR EHENS SUYAPA METAB OLIC 1999 PANEL - SERUM OR PLASM A alanine aminotransfe rase [enzymatic activity/vol ume] in serum or plasma 25 U/L 0 - 49 Not Available [facility] [address] [place] [address] [place], [address], 05/27/2024 16:14:51 05/27/20 24 05/27/2024 COMPR EHENS SUYAPA METAB OLIC 1999 PANEL - SERUM OR PLASM A alkaline phosphatase [enzymatic activity/vol ume] in serum or plasma 50 U/L 38 - 126 Not Available [facility] [address] [place] [address] [place], [address], 05/27/2024 16:14:51 05/27/20 24 05/27/2024 COMPR EHENS SUYAPA METAB OLIC 1999 PANEL - SERUM OR PLASM A anion gap 4 in serum or plasma 10.4 mmol/ L 8 - 16 Not Available [facility] [address] [place] [address] [place], [address], 05/27/2024 16:14:51 05/27/20 24 05/27/2024 COMPR EHENS SUYAPA METAB OLIC 2000 PANEL - SERUM OR PLASM A glomerular filtration rate/1.73 sq M.predicted [volume rate/area] in serum or plasma 102 < 90 mL/mi n/1.7 3 sq m MAY BE INDIC ATIVE OF DECLI JAROD KIDNE Y FUNCT ION. * GFR IS ESTIM ATED USING CREAT ININE , AGE, GENDE R AND RACE. PATIE NT'S VALUE S SHOUL D BE INTER PRETE D A TREND . ESTIM ATED GFR VALUE S ARE NOT ACCUR ATE IN: OBESE (BMI >34) OR UNDER WEIGH T (BMI <20) PEOPL E, THE VERY OLD OR VERY YOUNG , RACES OTHER THAN CAUCA TING OR AFRIC AN AMERI CAN, AND PEOPL E WITH ACUTE KIDNE Y FAILU RE, ACUTE ILLNE SSES, OR AMPUT ATION S. BETWE EN 30-60 mL/mi n/1.7 3 sq m, CLINI IBIS CORRE LATIO N IS NEEDE D. Not Available [facility] [address] [place] [address] [place], [address], 05/27/2024 16:14:51 05/27/20 24 05/27/2024 HEMOG LOBIN A1C/H EMOGL OBIN. TOTAL IN BLOOD hemoglobin A1C/hemoglob in.total in blood 5.6 % 0.0 - 5.6 Not Available [facility] [address] [place] [address] [place], [address], 05/27/2024 16:29:18 05/27/20 24 05/27/2024 HEMOG LOBIN A1C/H EMOGL OBIN. TOTAL IN BLOOD glucose mean value [mass/volume ] in blood estimated from glycated hemoglobin 114 mg/dL 74 - 100 high GLYCO HEMOG LOBIN : DIABE TIC: >/= 6.5 % PREDI ABETI C: 5.7-6 .4 % GOAL FOR THERA PY FOR DIABE TIC CONTR OL: < 7.0 % Not Available [facility] [address] [facility] [place], [address], 05/27/2024 16:29:18 05/27/20 24 05/27/2024 PROST ATE SPECI FIC AG [MASS /VOLU ME] IN SERUM OR PLASM A prostate specific Ag [mass/volume ] in serum or plasma 0.3 NG/mL 0.0 - 3.9 ORTHO CLINI IBIS DIAGN OSTIC S IMMUN OMETR IC IMMUN OASSA Y. PATIE NT RESUL TS OBTAI KIARRA USING DIFFE RENT MANUF ACTUR ERS OR METHO DS MAY NOT BE OSMAN RABLE . HIGH LEVEL S OF BIOTI N (CARI MIN B7) MAY INTER FERE WITH TSH, LIZA TIN, PSA, TESTO STERO NE, TROPO MELISSA, BETA- HCG, CEA, CKMB, VITAM IN B12, IPTH, FOLAT E, PROLA CTIN AND NT-WI OBNP. BIOTI N CAN BE FOUND IN VITAM INS AND DIETA RY SUPPL EMENT S. INGES TING HIGH LEVEL S OF BIOTI N CAN CAUSE CLINI JACKIE SIGNI FICAN T VARIA TIONS IN TEST RESUL TS. Not Available [facility] [address] [place] [address] [place], [address], 05/27/2024 16:45:42 05/27/20 24 05/28/2024 HEPAT ITIS C VIRUS IGG AB [PRES ENCE] IN SERUM OR PLASM A BY IMMUN OASSA Y hepatitis C virus IgG Ab [presence] in serum or plasma by immunoassay Non Reacti ve non reacti ve normal HCV antib amilcar alone does not diffe renti ate betwe en previ ously resol les infec tion and activ e infec tion. Equiv ocal and React suyapa HCV antib amilcar resul ts shoul d be follo wed up with an HCV RNA test to suppo rt the diagn osis of activ e HCV infec tion. Perfo rmed at: [facility] [address] [facility], [place] [address] Lab Direc tor: Dc zheng PhD, Phone : [phone] Not Available [facility] [address] [place] [address] [place], [address], 05/28/2024 06:08:50 05/27/20 24 05/31/2024 TESTO STERO NE FREE AND TOTAL PANEL [MASS /VOLU ME] - SERUM OR PLASM A testosterone [mass/volume ] in serum or plasma 200 NG/dL 264-91 6 abnormal Not Available [facility] [address] [place] [address] [place], [address], 05/31/2024 20:07:50 05/27/20 24 05/31/2024 TESTO STERO NE FREE AND TOTAL PANEL [MASS /VOLU ME] - SERUM OR PLASM A testosterone free [mass/volume ] in serum or plasma 1.2 pg/mL 7.2-24 .0 abnormal Adult male refer ence inter katia is based on a popul ation of healt hy nonob pavan males (BMI <30) betwe en 19 and 39 years old. Yi diggs et.al . JCEM 2017, 102;1 161-1 173. PMID: 43334 103. Perfo rmed at: [facility] [address] [place] [address] Lab Direc tor: Michelle burgess MD, Phone : [phone] Perfo rmed at: [facility] [address] [place] [address] Lab Direc tor: Dc zheng PhD, Phone : [phone] Not Available [facility] [address] [place] [address] [place], [address], 05/31/2024 20:07:50 06/09/20 24 06/10/2024 FOLLI TROPI N [UNIT S/VOL UME] IN SERUM OR PLASM A follitropin [units/volum e] in serum or plasma 5.5 mIU/m L 1.5-12 .4 normal [facility] [address] [place] [address] Lab Direc tor: Dc zheng PhD, Phone : [phone] Not Available [facility] [address] [facility] [place], [address], 06/10/2024 08:10:58 06/09/20 24 06/10/2024 LUTRO PIN [UNIT S/VOL UME] IN SERUM OR PLASM A lutropin [units/volum e] in serum or plasma 5.3 mIU/m L 1.7-8. 6 normal Perfo rmed at: [facility] n [address] [facility], [place] [address] Lab Direc tor: Dc zheng PhD, Phone : [phone] Not Available [facility] [address] [place] [address] [place], [address], 06/10/2024 08:10:59 06/09/20 24 06/12/2024 TESTO STERO NE FREE AND TOTAL PANEL [MASS /VOLU ME] - SERUM OR PLASM A testosterone [mass/volume ] in serum or plasma 169 NG/dL 264-91 6 abnormal Not Available [facility] [address] [place] [address] [place], [address], 06/12/2024 19:06:44 06/09/20 24 06/12/2024 TESTO STERO NE FREE AND TOTAL PANEL [MASS /VOLU ME] - SERUM OR PLASM A testosterone free [mass/volume ] in serum or plasma 1.3 pg/mL 7.2-24 .0 abnormal Adult male refer ence inter katia is based on a popul ation of healt hy nonob pavan males (BMI <30) betwe en 19 and 39 years old. Yi diggs, et.al . JCEM 2017, 102;1 161-1 173. PMID: 63163 103. Perfo rmed at: [facility] [address]ms [address] [facility] [place] [address] Lab Direc tor: Michelle burgess MD, Phone : [phone] Perfo rmed at: [facility] n [address] [place] [address] Lab Direc tor: Dc zheng PhD, Phone : [phone] Not Available [address] [place], [address], 06/12/2024 19:06:44 08/14/20 24 08/14/2024 HEMOG YURY WITHO UT PLATE LETS AND WITH MANUA L DIFFE RENTI AL PANEL - BLOOD leukocytes [#/volume] in blood by automated count 9.4 x(10) 3/uL 5.4 - 9.9 Not Available [address] [place], [address], 08/14/2024 16:47:39 08/14/20 24 08/14/2024 HEMOG YURY WITHO UT PLATE LETS AND WITH MANUA L DIFFE RENTI AL PANEL - BLOOD erythrocytes [#/volume] in blood by automated count 4.67 x(10) 6/uL 4.16 - 5.62 Not Available [address] [place], [address], 08/14/2024 16:47:39 08/14/20 24 08/14/2024 HEMOG YURY WITHO UT PLATE LETS AND WITH MANUA L DIFFE RENTI AL PANEL - BLOOD hemoglobin [mass/volume ] in blood 14.6 g/dL 13.2 - 16.5 Not Available [address] [place], [address], 08/14/2024 16:47:39 08/14/20 24 08/14/2024 HEMOG YURY WITHO UT PLATE LETS AND WITH MANUA L DIFFE RENTI AL PANEL - BLOOD hematocrit [volume fraction] of blood by automated count 42.7 % 37.4 - 53.8 Not Available [address] [place], [address], 08/14/2024 16:47:39 08/14/20 24 08/14/2024 HEMOG YURY WITHO UT PLATE LETS AND WITH MANUA L DIFFE RENTI AL PANEL - BLOOD erythrocyte mean corpuscular volume [entitic volume] by automated count 91.4 fL 80.5 - 96.9 Not Available [address] [place], [address], 08/14/2024 16:47:39 08/14/20 24 08/14/2024 HEMOG YURY WITHO UT PLATE LETS AND WITH MANUA L DIFFE RENTI AL PANEL - BLOOD erythrocyte mean corpuscular hemoglobin [entitic mass] by automated count 31.3 pg 27.7 - 33.3 Not Available [address] [place], [address], 08/14/2024 16:47:39 08/14/20 24 08/14/2024 HEMOG YURY WITHO UT PLATE LETS AND WITH MANUA L DIFFE RENTI AL PANEL - BLOOD erythrocyte mean corpuscular hemoglobin concentratio n [mass/volume ] by automated count 34.2 g/dL 32.8 - 35.0 Not Available [address] [place], [address], 08/14/2024 16:47:39 08/14/20 24 08/14/2024 HEMOG YURY WITHO UT PLATE LETS AND WITH MANUA L DIFFE RENTI AL PANEL - BLOOD erythrocyte distribution width [ratio] by automated count 13.3 % 11.6 - 14.8 Not Available [address] [place], [address], 08/14/2024 16:47:39 08/14/20 24 08/14/2024 HEMOG YURY WITHO UT PLATE LETS AND WITH MANUA L DIFFE RENTI AL PANEL - BLOOD platelets [#/volume] in blood by automated count 288 x(10) 3/uL 129 - 332 Not Available [address] [place], [address], 08/14/2024 16:47:39 08/14/20 24 08/14/2024 HEMOG YURY WITHO UT PLATE LETS AND WITH MANUA L DIFFE RENTI AL PANEL - BLOOD neutrophils/ 100 leukocytes in blood by automated count 70.3 % 40 - 70 high Not Available [facility] [address] [place] [address] [place], [address], 08/14/2024 16:47:39 08/14/20 24 08/14/2024 HEMOG YURY WITHO UT PLATE LETS AND WITH MANUA L DIFFE RENTI AL PANEL - BLOOD lymphocytes/ 100 leukocytes in blood by automated count 14.7 % 15 - 45 low Not Available [address] [place], [address], 08/14/2024 16:47:39 08/14/20 24 08/14/2024 HEMOG YURY WITHO UT PLATE LETS AND WITH MANUA L DIFFE RENTI AL PANEL - BLOOD monocytes/10 0 leukocytes in blood by automated count 9.8 % 0 - 12 Not Available [address] [place], [address], 08/14/2024 16:47:39 08/14/20 24 08/14/2024 HEMOG YURY WITHO UT PLATE LETS AND WITH MANUA L DIFFE RENTI AL PANEL - BLOOD eosinophils/ 100 leukocytes in blood by automated count 4.5 % 0 - 5 Not Available [address] [place], [address], 08/14/2024 16:47:39 08/14/20 24 08/14/2024 HEMOG YURY WITHO UT PLATE LETS AND WITH MANUA L DIFFE RENTI AL PANEL - BLOOD basophils/10 0 leukocytes in blood by automated count 0.3 % 0 - 1 Not Available [address] [place], [address], 08/14/2024 16:47:39 08/14/20 24 08/14/2024 HEMOG YURY WITHO UT PLATE LETS AND WITH MANUA L DIFFE RENTI AL PANEL - BLOOD immature granulocytes /100 leukocytes in blood by automated count 0.4 % 0.0 - 0.5 Not Available [facility] [address] [facility] [place], [address], 08/14/2024 16:47:39 08/14/20 24 08/14/2024 HEMOG YURY WITHO UT PLATE LETS AND WITH MANUA L DIFFE RENTI AL PANEL - BLOOD neutrophils [#/volume] in blood by automated count 6.6 x(10) 3/uL 1.8 - 7.2 Not Available [facility] [address] [facility] [place], [address], 08/14/2024 16:47:39 08/14/20 24 08/14/2024 HEMOG YURY WITHO UT PLATE LETS AND WITH MANUA L DIFFE RENTI AL PANEL - BLOOD lymphocytes [#/volume] in blood by automated count 1.4 x(10) 3/uL 1.1 - 2.7 [place] LYMPH OCYTE REFER ENCE RANGE EFFEC TIVE 09/05. INFAN TS NEUTR OPENI A: <0.25 x(10) 3/uL ADULT S MILD NEUTR OPENI A: 1.00- 1.80 x(10) 3/uL MODER ATE NEUTR OPENI A: 0.50- 1.0 x(10) 3/uL SEVER E NEUTR OPENI A: <0.50 x(10) 3/uL [place] NEUTR OPHIL REFER ENCE RANGE EFFEC TIVE 09/05. NEW IMMAT URE GRANU LOCYT E REFER ENCE RANGE EFFEC TIVE 09/05. Not Available [facility] [address] [facility] [place], [address], 08/14/2024 16:47:39 08/14/20 24 08/14/2024 LIPID 1996 PANEL - SERUM OR PLASM A cholesterol [mass/volume ] in serum or plasma 170 mg/dL 0 - 200 Not Available [facility] [address] [facility] [place], [address], 08/14/2024 16:58:44 08/14/20 24 08/14/2024 LIPID 1995 PANEL - SERUM OR PLASM A triglyceride [mass/volume ] in serum or plasma 132 mg/dL 0 - 149 Not Available [facility] [address] [place] [address] [place], [address], 08/14/2024 16:58:44 08/14/20 24 08/14/2024 LIPID 1995 PANEL - SERUM OR PLASM A cholesterol in HDL [mass or moles/volume ] in serum or plasma 36 mg/dL 40 - 59 low Not Available [facility] [address] [place] [address] [place], [address], 08/14/2024 16:58:44 08/14/20 24 08/14/2024 LIPID 1995 PANEL - SERUM OR PLASM A cholesterol in LDL [mass/volume ] in serum or plasma by calculation 107.6 mg/dL less than - 100 high Not Available [facility] [address] [place] [address] [place], [address], 08/14/2024 16:58:44 08/14/20 24 08/14/2024 LIPID 1996 PANEL - SERUM OR PLASM A cholesterol in VLDL [mass/volume ] in serum or plasma by calculation 26.4 mg/dL 10 - 50 Not Available [facility] [address] [place] [address] [place], [address], 08/14/2024 16:58:44 08/14/20 24 08/14/2024 LIPID 1995 PANEL - SERUM OR PLASM A cholesterol in LDL/choleste rol in HDL [mass ratio] in serum or plasma 3.0 HDL: HDL < 40 MG/DL = MAJOR RISK FACTO R FOR CAD. HDL >= 60 MG/DL = NEGAT SUYAPA RISK FACTO R FOR CAD. LDL: OPTIM AL: <100 MG/DL LOW RISK: 100-1 29 MG/DL MODER ATE RISK: 130-1 59 MG/DL HIGH RISK: 160-1 89 MG/DL VERY HIGH RISK: =/>19 0 MG/DL THIS IS A CALCU LATED LDL RESUL T. ATP-I II GUIDE LINES RECOM MEND THE DIREC T LDL METHO D. Not Available [facility] [address] [facility] [place], [address], 08/14/2024 16:58:44 08/14/20 24 08/14/2024 HEMOG LOBIN A1C/H EMOGL OBIN. TOTAL IN BLOOD hemoglobin A1C/hemoglob in.total in blood 6.2 % 0.0 - 5.6 high Not Available [facility] [address] [facility] [place], [address], 08/14/2024 17:01:08 08/14/20 24 08/14/2024 HEMOG LOBIN A1C/H EMOGL OBIN. TOTAL IN BLOOD glucose mean value [mass/volume ] in blood estimated from glycated hemoglobin 131 mg/dL 74 - 100 high GLYCO HEMOG LOBIN : DIABE TIC: >/= 6.5 % PREDI ABETI C: 5.7-6 .4 % GOAL FOR THERA PY FOR DIABE TIC CONTR OL: < 7.0 % Not Available [facility] [address] [facility] [place], [address], 08/14/2024 17:01:08 08/14/20 24 08/17/2024 TESTO STERO NE FREE AND TOTAL PANEL [MASS /VOLU ME] - SERUM OR PLASM A testosterone [mass/volume ] in serum or plasma 163 NG/dL 264-91 6 abnormal Not Available [facility] [address] [facility] [place], [address], 08/17/2024 11:05:53 08/14/20 24 08/17/2024 TESTO STERO NE FREE AND TOTAL PANEL [MASS /VOLU ME] - SERUM OR PLASM A testosterone free [mass/volume ] in serum or plasma 1.3 pg/mL 7.2-24 .0 abnormal Adult male refer ence inter katia is based on a popul ation of healt hy nonob pavan males (BMI <30) betwe en 19 and 39 years old. Yi diggs, et.al . JCEM 2017, 102;1 161-1 173. PMID: 48728 103. Perfo rmed at: - [facility] [place] [address] [facility] , [place] [address] Lab Direc tor: Michelle burgess MD, Phone : [phone] Perfo rmed at: - [facility] [address] [facility], [place] [address] Lab Direc tor: Dc zheng PhD, Phone : [phone] Not Available [facility] [address] [place] [address] [place], [address], 08/17/2024 11:05:53 08/14/20 24 08/14/2024 urina lysis , dipst ick Leukocytes Negati ve Not Available [address] [facility], [place], [address], 08/14/2024 10:38:56 08/14/20 24 08/14/2024 urina lysis , dipst ick Nitrite negati ve Not Available [address] [facility], [place], [address], 08/14/2024 10:38:56 08/14/20 24 08/14/2024 urina lysis , dipst ick Urobilinogen .2 Not Available Rob padilla [address] [place] [address] [address] [facility], [place], [address], 08/14/2024 10:38:56 08/14/20 24 08/14/2024 urina lysis , dipst ick Protein Negati ve Not Available [address] [address], [place], [address], 08/14/2024 10:38:56 08/14/20 24 08/14/2024 urina lysis , dipst ick pH 6.5 Not Available [address] [address], [place], [address], 08/14/2024 10:38:56 08/14/20 24 08/14/2024 urina lysis , dipst ick Blood Negati ve Not Available [address], [place], [address], 08/14/2024 10:38:56 08/14/20 24 08/14/2024 urina lysis , dipst ick Specific Quail 1.020 Not Available [address] [facility], [place], [address], 08/14/2024 10:38:56 08/14/2008/14/2024 urina lysis , dipst ick Ketone Negati ve Not Available [address] [facility], [place], [address], 08/14/2024 10:38:56 08/14/20 24 08/14/2024 urina lysis , dipst ick Bilirubin Negati ve Not Available [address] [facility], [place], [address], 08/14/2024 10:38:56 08/14/20 24 08/14/2024 urina lysis , dipst ick Glucose Negati ve Not Available [address] [facility], [place], [address], 08/14/2024 10:38:56 08/14/20 24 08/14/2024 urina lysis , dipst ick Appearance Clear Not Available [address], [place], [address], 08/14/2024 10:38:56 08/14/20 24 08/14/2024 urina lysis , dipst ick Color Dark Yellow Not Available [address] [address], [place], [address], 08/14/2024 10:38:56 Result Notes None recorded. Problems Name Problem SNOMED Code Status Onset Date Resolution Date Notes Provider Name and Address Organization Details Recorded Time Chronic migraine without aura 4272391242277 05 Active 2023 HUYEN VASQUEZ MD [address] [place] [address] [place], [address] , [facility] 4 09:16:12 Trying to give up smoking 535385907 Active 2023 HUYEN VASQUEZ MD [address] [place] [address] [place], [address] , [facility] 4 09:18:46 Benign essential hypertensi on 4726190 Active 2023 HUYEN VASQUEZ MD [address] [place] [address] [place], [address] , [facility] 4 09:18:52 Abdominal mass 005651909 Active 2023 HUYEN VASQUEZ MD [address] [place] [address] [place], [address] , [facility] 4 09:21:59 Chronic low back pain 287600281 Active 2023 HUYEN VASQUEZ MD [address] [place] [address] [place], [address] , [facility] 4 10:51:15 Prediabete s 569172219 Active 2023 HUYEN VASQUEZ MD [address] [place] [address] [place], [address] , [facility] 4 18:01:28 Hypertrigl yceridemia 894280232 Active 2023 HUYEN VASQUEZ MD [address] [place] [address] [place], [address] , [facility] 4 18:02:20 Acute maxillary sinusitis 94974460 Active 2023 MARITZA JOHN NP [address] [place] [address] [place], [address] , [facility] 4 14:40:20 Lipoma of skin and subcutaneo us tissue of trunk 876637183 Active 2023 HUYEN VASQUEZ MD [address] [place] [address] [place], [address] , [facility] 4 09:51:08 Smokes tobacco daily 269095494 Active 2023 HUYEN VASQUEZ MD [address] [place] [address] [place], [address] , [facility] 4 10:19:59 Erectile dysfunctio n 797922463 Active 2023 HUYEN VASQUEZ MD [address] [place] [address] [place], [address] , [facility] 4 10:25:22 Male hypogonadi sm 32186352 Active 2023 HUYEN VASQUEZ MD [address] [place] [address] [place], [address] , [facility] 4 12:04:50 Seasonal allergic rhinitis 676942623 Active 2023 HUYEN VASQUEZ MD [address] [place] [address] [place], [address] , [facility] 4 12:07:37 Problem Notes None recorded. Medical Equipment None Reported. Allergies No known drug allergies Medications Name Sig Start Date Stop Date Status Note LastModified by Organization Details LastModified Time losartan 50 mg tablet TAKE 1 TABLET BY MOUTH DAILY FOR HIGH BLOOD PRESSURE 07/17 completed Not Available Not Available Not Available butorphanol 10 mg/mL nasal spray Take 1 spray 4 times a day by nasal route as needed for 7 days, for migraine headache. 06/23 completed Not Available Not Available Not Available methocarbam ol 500 mg tablet Take 1 tablet 3 times a day by oral route as needed for 30 days, for muscle spasm. 2023 active Not Available Not Available Not Avai lable promethazin e-DM 6.25 mg-15 mg/5 mL oral syrup Take 5 mL every 4 hours by oral route as needed for 5 days. 2023 active Not Available Not Available Not Avai lable doxycycline hyclate 100 mg capsule Take 1 capsule twice a day by oral route with meal(s) for 1 day, for infection . 08/14 completed Not Available Not Available Not Available sumatriptan 100 mg tablet TAKE 1 TABLET BY MOUTH AT ONSET OF HEADACHE; MAY REPEAT 1 TABLET IN 2 HOURS IF NEEDED. 2023 active Not Available Not Available Not Avai lable hydrocodone 5 mg-acetamin ophen 325 mg tablet Take 1 tablet every 8 hours by oral route as needed for 5 days, for back pain. 06/09 completed Not Available Not Available Not Available Medrol (Rio) 4 mg tablets in a dose pack 24 mg PO on day 1, then decr. by 4 mg/day x5 days per dose pack instructi ons 06/09 completed Not Available Not Available Not Available dextroamphe tamine-amph etamine 10 mg tablet TAKE 1 TABLET BY MOUTH ONCE DAILY UPON AWAKENING active Not Available Not Available No t Available sumatriptan 5 mg/actuatio n nasal spray 2024 active Not Available Not Available Not Avai lable Debrox 6.5 % ear drops Instill 3 drops twice a day by otic route as directed for 7 days, for ear wax. 06/23 completed Not Available Not Available Not Available Zithromax Z-Rio 250 mg tablet TAKE 2 TABLETS (500 MG) BY ORAL ROUTE ONCE DAILY FOR 1 DAY THEN 1 TABLET (250 MG) BY ORAL ROUTE ONCE DAILY FOR 4 DAYS 06/09 completed Not Available Not Available Not Available sildenafil 25 mg tablet TAKE 1 TABLET BY MOUTH DAILY NEEDED FOR ERECTILE DYSFUNCTI ON active Not Available Not Available No t Available diphenhydra mine 50 mg/mL injection solution INJECT 1 ML INTRAMUSC ULARY ONCE DAILY NEEDED FOR HEADACHE active Not Available Not Available No t Available dextroamphe tamine-amph etamine ER 20 mg 24hr capsule,ext end release TAKE 1 CAPSULE BY MOUTH EVERY MORNING (SWALLOW WHOLE) active Not Available Not Available No t Available losartan 25 mg tablet TAKE 1 TABLET BY MOUTH DAILY FOR HIGH BLOOD PRESSURE DIRECTED 02/10 completed Not Available Not Available Not Available nicotine 21 mg/24 hr daily transdermal patch Apply 1 patch every day by transderm al route as directed for 30 days, for smoking cessation . 2023 active Not Available Not Available Not Avai lable montelukast 10 mg tablet TAKE 1 TABLET BY MOUTH DAILY DIRECTED FOR 30 DAYS FOR ALLERGY 2023 active Not Available Not Available Not Avai lable testosteron e cypionate 200 mg/mL intramuscul ar oil INJECT 0.25ML INTO THE MUSCLE EVERY 2 WEEKS DIRECTED FOR 30 DAYS. DISCARD REMAINDER . active Not Available Not Available No t Available ketorolac 60 mg/2 mL intramuscul ar solution Inject 2 mL every day by intramusc ular route as needed for 12 days. 06/09 completed Not Available Not Available Not Available ondansetron 4 mg disintegrat ing tablet Place 2 tablets twice a day by transling ual route as needed for 10 days, for nausea. 2023 active Not Available Not Available Not Avai lable cefdinir 300 mg capsule Take 1 capsule every 12 hours by oral route as directed for 7 days, for ear infection . 08/14 completed Not Available Not Available Not Available topiramate 100 mg tablet TAKE 1 TABLET BY MOUTH DAILY DIRECTED FOR HEADACHE 2023 active Not Available Not Available Not Avai lable losartan 100 mg tablet TAKE 1 TABLET BY MOUTH DAILY FOR HYPERTENS ION active Not Available Not Available No t Available dextroamphe tamine-amph etamine 5 mg tablet TAKE 1 TABLET BY MOUTH DAILY EVERY EVENING active Not Available Not Available No t Available nicotine (polacrilex ) 4 mg buccal lozenge Take 1 tablet every 2 hours by oral route as needed for 15 days, for smoking tobacco. 2023 active Not Available Not Available Not Avai lable lisinopril 20 01/16 completed Not Available Not Available Not Available Mucinex 1,200 mg tablet, extended release Take 1 tablet twice a day by oral route as needed for 7 days, for cough. 06/09 completed Not Available Not Available Not Available guanfacine ER 1 mg tablet,exte nded release 24 hr TAKE 1 TABLET BY MOUTH ONCE DAILY - SWALLOW WHOLE - DON T TAKE WITH HIGH FAT MEAL active Not Available Not Available No t Available Solu-Medrol (PF) 125 mg/2 mL solution for injection Take 125 mg every day by injection route for 1 day. 06/09 completed Not Available Not Available Not Available buprenorphi ne 8 mg-naloxone [address] 1 FILM UNDER TONGUE EVERY DAY active Not Available Not Available No t Available naloxone 4 mg/actuatio n nasal spray ADMINISTE R A SINGLE SPRAY IN ONE NOSTRIL UPON SIGNS OF OPIOID OVERDOSE. CALL 911. REPEAT AFTER 3 MINUTES IF NO RESPONSE. active Not Available Not Available No t Available Qulipta 60 mg tablet TAKE 1 TABLET BY MOUTH DAILY DIRECTED FOR MIGRAINE HEADACHE 2023 active Not Available Not Available Not Avai lable Vitals Date Recorded Body height Body mass index (BMI) Body weight Respiratory rate Body temperature Heart rate Oxygen saturation Oxygen saturation in Arterial blood by Pulse oximetry Systolic And Diastolic Provider Name and Address Organization Details Last Updated DateTime 4 175.26 cm 27.9 kg/m2 49272.9 6 g 16 /min 97.7 [degF] 78 /min 91 % 91 % 118/86 mm[Hg] [address] [place], [address], [facility] 4 08:53:54 Date Recorded Body height Body mass index (BMI) Body weight Heart rate Respiratory rate Oxygen saturation Oxygen saturation in Arterial blood by Pulse oximetry Pain severity - 0-10 verbal numeric rating [Score] - Reported Body temperature Systolic And Diastolic Provider Name and Address Organization Details Last Updated DateTime 4 175.26 cm 28.4 kg/m2 86857.7 4 g 86 /min 18 /min 91 % 91 % 0 98.5 [degF] 134/82 mm[Hg] [address] [place], [address], [facility] 4 10:01:34 Date Recorded Body height Body mass index (BMI) Body weight Respiratory rate Body temperature Heart rate Oxygen saturation Oxygen saturation in Arterial blood by Pulse oximetry Systolic And Diastolic Provider Name and Address Organization Details Last Updated DateTime 4 175.26 cm 28.5 kg/m2 11943.3 3 g 18 /min 97.2 [degF] 86 /min 92 % 92 % 139/91 mm[Hg] [address] [place], [address], [facility] 4 09:51:03 Date Recorded Body height Body mass index (BMI) Body weight Heart rate Respiratory rate Oxygen saturation Oxygen saturation in Arterial blood by Pulse oximetry Systolic And Diastolic Provider Name and Address Organization Details Last Updated DateTime 4 175.26 cm 28.6 kg/m2 78493.4 3 g 85 /min 16 /min 94 % 94 % 140/88 mm[Hg] [address] [place], [address], [facility] 4 11:01:38 Date Recorded Body height Body weight Body temperature Heart rate Respiratory rate Oxygen saturation Oxygen saturation in Arterial blood by Pulse oximetry Systolic And Diastolic Provider Name and Address Organization Details Last Updated DateTime 4 175.26 cm 12204.3 6 g 98 [degF] 91 /min 16 /min 94 % 94 % 137/86 mm[Hg] [address] [place], [address], [facility] 4 10:37:46 Social History Question Answer Notes LastModified by [employer] ion Details LastModified Time Tobacco Smoking Status Current Every Day Smoker Bianca Onel [address] [place] [address] [place], [address], [facility] 12/27/2023 16:09:56 Are You Blind Or Do You Have Difficulty Seeing? No Information not available 12/27/2023 What Is Your Level Of Caffeine Consumption? Moderate [email or web address] Information not available 12/27/2023 Are You Deaf Or Do You Have Serious Difficulty Hearing? No [email or web address] Information not available 12/27/2023 What Type Of Diet Are You Following? REGULAR [email or web address] Information not available 12/27/2023 What Is The Highest Grade Or Level Of School You Have Completed Or The Highest Degree You Have Received? [id number] [email or web address] Information not available 12/27/2023 What Is The Fluoride Status Of Your Home? Fluoridated [email or web address] Information not available 12/27/2023 Are There Any Guns Present In Your Home? No [email or web address] Information not available 12/27/2023 Which Of Your Hands Is Dominant? Right [email or web address] Information not available 12/27/2023 Where Do You Live? SingleLevelHouse Information not available 12/27/2023 How Long Have You Lived There? 10 [email or web address] Information not available 12/27/2023 Do You Have Any Pets? Yes [email or web address] Information not available 12/27/2023 What Is Your Relationship Status? Information not available 12/27/2023 Do You Use Your Seat Belt Or Car Seat Routinely? Yes Information not available 12/27/2023 Are You Sexually Active? No [email or web address] Information not available 12/27/2023 Do You Have Smoke And Carbon Monoxide Detectors In Your Home? Yes [email or web address] Information not available 12/27/2023 Are You Passively Exposed To Smoke? No [email or web address] Information not available 12/27/2023 How Much Tobacco Do You Smoke? 0.5 PPD [email or web address] Information not available 12/27/2023 How Many Years Have You Smoked Tobacco? 20 [email or web address] Information not available 12/27/2023 Do You Have Difficulty Walking Or Climbing Stairs? No [email or web address] Information not available 12/27/2023 Do You Have Any Dietary Restrictions? No [email or web address] Information not available 12/27/2023 Sex: Unknown Functional Status Question Answer Note LastModified by Organizat ion Details LastModified Time Do you use any illicit or recreational drugs? No [email or web address] Information not available 12/27/2023 What is your level of alcohol consumption? None [email or web address] Information not available 12/27/2023 Do you have transportation difficulties? No [email or web address] Information not available 12/27/2023 Are you able to walk independently without assistance or assistive devices? YESWOREST [email or web address] Information not available 12/27/2023 Do you have difficulty doing errands alone? No Information not available 12/27/2023 Are you able to care for yourself independently? Yes [email or web address] Information not available 12/27/2023 Do you have difficulty dressing, bathing, grooming, or toileting? No [email or web address] Information not available 12/27/2023 Mental Status Question Answer Note LastModified by Organizat ion Details LastModified Time Do you feel stressed (tense, restless, nervous, or anxious, or unable to sleep at night)? [id number] [email or web address] Information not available 12/27/2023 Do you have difficulty concentrating, remembering or making decisions? No [email or web address] Information no t available 12/27/2023 Family History Relationship Description Onset Age of this Age Resolved Age Notes LastModified by Organization Details LastModified Time Father Hypertensive disorder [email or web address] Not available 12/26 16:09:04 Medical History No medical history recorded. Past Encounters Encounter ID Performer Location Encounter Start Date Encounter Closed Date Diagnosis/Indication Diagnosis SNOMED-CT Code Diagnosis ICD10 Code Diagnosis IMO Codes Diagnosis Note [id number] HUYEN VASQUEZ MD [facility] [address] [place] [address] 12/27/2023 15:53:12 02/15/2024 05:50:08 Chronic migraine without aura [id number] 47493 G43.709 Chronic uncontroll ed medical condition Patient failed management with Imitrex, Nurtec, ubrelvy, Topamax Start Topiramate 100 mg po qd for chronic management Start Sumatripta n nasal spray for acute management Refilled diphenhydr amine, Ketorolac IM Qulipta samples given x 28 days for better management Benign ess ential hypertension 4664083 I10 - Chronic uncontroll ed medical condition - Blood pressure above goal, <130/80. - No cp, sob, vision changes, palpitatio ns - Switch Lisinopril to Losartan due to Lisinopril inducing headache - Patient to measure blood pressure at home and write these values down and bring them to their next appointmen t. - Follow-up in 3 weeks. - Adjust management as needed - Labs ordered CBC, CMP, microalbum in/cr ratio Diabetes m ellitus screening 696604989 Z13.1 A1C ordered Hyperlipid emia screening 022784494 Z13.220 Lipid panel ordered Nausea 182601900 R11.0 Intermitte nt nausea 2/2 uncontroll ed migraine headache Trying to give up smoking 320136027 Z72.0 Smokes tobacco less than 1PPD ~ 25 years Interested to try Nicotine patches Abdominal mass 098660047 R19.00 Chronic multiple painless subcutaneo us abdominal lumps for many years Denies unintentio nal weight loss, changes in appetite, night sweats, hematochez ia, melena US abdomen ordered to rule out acute pathology Advised to seek care promptly for severe symptoms if unable to reach us Contact our office if you are confused about your care or have other concerns. Return as needed Chronic low back pain 27 8398168 M54.50 Chronic uncontroll ed low back pain S/P 5 Lumbar surgeries, last one was 2009 due to disc prolapse and spine infection Needing PT referral [id number] HUYEN VASQUEZ MD [facility] [address] [place] [address] 01/17/2024 16:53:43 03/05/2024 04:54:08 Chronic migraine without aura 5688980925 01899 G43.709 Chronic uncontroll ed medical condition Patient failed management with Imitrex, Nurtec, ubrelvy, Topamax Continue current management Advised to seek care promptly for severe symptoms if unable to reach us Contact our office if you are confused about your care or have other concerns. Return as needed Benign ess ential hypertension 2390016 I10 - Chronic uncontroll ed medical condition - Blood pressure at goal - No cp, sob, vision changes, palpitatio ns - Continue Losartan - Adjust management as needed - microalbum in/cr ratio wnls - Follow-up in 3 months Chronic ki dney disease stage 3A 315895695 N18.31 12/27/23: CMP notable for elevated creatinine at 1.5, GFR 49 No urinary symptoms Albumin/cr ratio wnl Home meds reviewed; Patient instructed to minimize using Ketorolac for migraine as possible; Patient verbalized understand ing and agreed with plan Will start SGLT-2i at next [email or web address] Prediabetes 229043057 R7 3.03 12/27/23: A1c 6% Keep monitoring and adjust management as needed Hypertriglyceridemia 302 320112 E78.1 12/27/23: elevated triglyceri de at 230, T cholestero l 196, HDL 51, LDL 99; A1c 6%. Try to eat a healthy diet rich in fresh fruits and vegetables , as well as beans, legumes, and whole grains, and limited in refined carbohydra ashwin and animal proteins. Work on controllin g portion size for calorie-de nse, fried, or fatty foods. Also, try to incorporat e gradually progressiv e and regular aerobic exercise, stretching , and resistance training, as best physically able, to a goal of >30 minutes a day, 5 or more days a week, into your daily routine. [id number] MARITZA JOHN NP [facility] [address] [place] [address] 02/01/2024 14:05:26 03/12/2024 01:41:59 Acute maxillary sinusitis 25220410 J01.00 Patient's symptoms and exam consistent with acute sinusitis, will treat as below. Reviewed patient instructio ns with patient, patient verbalized understand ing. [id number] HUYEN VASQUEZ MD [facility] [address] [place] [address] 02/11/2024 08:30:44 03/14/2024 07:54:47 Chronic migraine without aura 7029009950 56885 G43.709 Chronic uncontroll ed medical condition Patient failed management with Imitrex, Nurtec, ubrelvy, Topamax Needing refill of Butorphano l nasal spray Needing Neurology referral for further evaluation MRI brain ordered to rule out acute pathology Advised to seek care promptly for severe symptoms if unable to reach us Contact our office if you are confused about your care or have other concerns. Return as needed Benign ess ential hypertension 8004677 I10 - Chronic uncontroll ed medical condition - Blood pressure above goal - No cp, sob, vision changes, palpitatio ns - Increased Losartan to 50 mg po qd; Denies any side effect from medication - Adjust management as needed - microalbum in/cr ratio wnls - Follow-up in 3 months Chronic ki dney disease stage 3A 463458439 N18.31 12/27/23: CMP notable for elevated creatinine at 1.5, GFR 49 No urinary symptoms Albumin/cr ratio wnl Home meds reviewed; Patient instructed to minimize using Ketorolac for migraine as possible; Patient verbalized understand ing and agreed with plan Hypertriglyceridemia 302 418385 E78.1 12/27/23: elevated triglyceri de at 230, T cholestero l 196, HDL 51, LDL 99; A1c 6%. Try to eat a healthy diet rich in fresh fruits and vegetables ; Also, try to incorporat e gradually progressiv e and regular aerobic exercise, stretching , and resistance training, as best physically able, to a goal of >30 minutes a day, 5 or more days a week, into your daily routine. Lipoma of skin and subcutaneous tissue of trunk [id number] D17.1 Chronic multiple painless subcutaneo us abdominal lumps for many years Denies unintentio nal weight loss, changes in appetite, night sweats, hematochez ia, melena 01/18/24: US abdomen: palpable areas first 1 in the midline above the umbilicus thenext 1 left laterally represent lipomas; lesions are hyperechoi c to isoechoic, have a partiallyc ircumscrib ed border, are oval in shape, and located in thesubcuta neous fat tissues. Both are compatible with lipomas. 1 in the mid abdomen measuring 5.4 x 5.8 x 1.4 cm the other 1 measuring 1.8 x 3.6 x 1.5 cm. Advised to seek care promptly for severe symptoms if unable to reach us Contact our office if you are confused about your care or have other concerns. Return as needed [id number] HUYEN VASQUEZ MD [facility] [address] [place] [address] 03/19/2024 08:52:10 04/01/2024 08:16:07 Acute bronchitis 31527412 J20.9 Acute productive cough of yellowish sputum associated with chest tightness Declined Covid/Flu test Start Z-rio x 5 days for acute management Spasm of m uscle of lower back [id number] M62.830 Severe acute right lower back pain 2/2 mechanical fall Start Methocarba mol & Hydrocodon e prn for acute pain management Discussed with patient about the proper management which is conservati ve and includes ice, analgesics , and modificati on of activity. Patient verbalized understand ing and agreed with the plan. Chronic mi graine without aura [id number] 02902 G43.709 Chronic uncontroll ed migraine headache Failed previous management with OTC analgesics Needing refill of Butorphano l Controlled Substance Agreement signed:03/10 UDS ordered 03/19/24 OARRS Reviewed: 01/01/24 with no concerns Patient aware that non-compli ance or unexpected or inappropri ate results may result in discontinu ation of prescribin g controlled medication s from this office and possible patient terminatio n or discharge. 1 month prescripti ons Advised to seek care promptly for severe symptoms if unable to reach us Contact our office if you are confused about your care or have other concerns. Return as needed Productive cough-yellow sputum 102413313 R09.3 Acute productive cough 2/2 acute bronchitis Start Mucinex as needed for cough Benign ess ential hypertension 6298317 I10 - Chronic uncontroll ed medical condition - Blood pressure at goal - No cp, sob, vision changes, palpitatio ns - Continue Losartan to 50 mg po qd; Denies any side effect from medication - Adjust management as needed - microalbum in/cr ratio wnls - Follow-up in 3 weeks for re-evaluat ion Impacted c erumen of bilateral ears [id number] 599024 H61.23 [id number] HUYEN VASQUEZ MD [facility] [address] [place] [phone] 05/22/2024 12:53:32 05/28/2024 09:40:31 Attention deficit hyperactivity disorder, combined type [id number] F90.2 Instructed patient to follow up with his provider for formal diagnosis ORRAS reviewed with no any controlled medication s prescribed F/U as needed [id number] HUYEN VASQUEZ MD [facility] [address] [place] [phone] 05/27/2024 08:41:06 06/02/2024 08:42:05 Erectile dysfunction 276467209 F52.21 Patient reports chronic erectile dysfunctio n > 5 years. Patient reports symptoms including inability to achieve/ma intaining a penile erection and sufficient rigidity duration for satisfacto ry sexual activity. Patient reports absence of morning erection over last 5 years. Patient would like to check his testostero ne to make sure he doesn't have low testostero ne. Check testostero ne, PSA, cbc Chronic ki dney disease stage 3A [id number] N18.31 12/27/23: CMP notable for elevated creatinine at 1.5, GFR 49 No urinary symptoms Albumin/cr ratio wnl Home meds reviewed; Patient instructed to minimize using Ketorolac for migraine as possible; Patient verbalized understand ing and agreed with plan CMP ordered Prediabetes 591397966 R7 3.03 12/27/23: A1c 6% Keep monitoring and adjust management as needed Hepatitis C screening 41 0770098 Z11.59 Chronic mi graine without aura [id number] 85426 G43.709 Chronic uncontroll ed migraine headache Failed previous management with OTC analgesics Controlled Substance Agreement signed:03/10 UDS ordered 03/19/24 OARRS Reviewed: 05/27/24 with no concerns Continue same management Needing a new Neurology referral to Radha Mcdonald Advised to seek care promptly for severe symptoms if unable to reach us Contact our office if you are confused about your care or have other concerns. Return as needed Smokes tobacco daily 449 249423 Z72.0 ~ 1 ppd > 10 years Start Nicotine lozenges Screening for malignant neoplasm of colon 991300907 Z12.11 Needing colonoscop y screening Bursitis o f olecranon of left elbow 1875010353 75304 M70.22 Acute on chronic left prepatella r bursitis of left elbow 2/2 fall on left elbow ~ 3 months ago Swelling, erythema on PE but no warmth, fever, chills Start Medrol rio x 5 days Lt Elbow xray ordered to rule out acute pathology [id number] HUYEN VASQUEZ MD [facility] [address] [place] [address] 06/09/2024 08:40:21 06/10/2024 22:06:39 Primary hypogonadism 485914403 E29.1 Chronic uncontroll ed medical condition associated with low energy and fatigue 05/27/24: T testostero ne low of 200, F testostero ne low of 1.2, PSA wnl, CBC wnl; Plan to re check testostero ne level again today and start treatment at next appointmen t. F/U in 2 weeks for low testostero ne therapy Fatigue 92054956 R53.83 Most likely 2/2 low testostero ne level Will re check testostero ne level today and start therapy at next appointmen t Benign ess ential hypertension 2329475 I10 - Chronic uncontroll ed medical condition - Blood pressure at goal - No cp, sob, vision changes, palpitatio ns - Continue Losartan 50 mg po qd; Denies any side effect from medication - Adjust management if needed - microalbum in/cr ratio wnls Hypertriglyceridemia 302 616075 E78.1 Chronic uncontroll ed medical condition 12/27/23: elevated triglyceri de at 230, T cholestero l 196, HDL 51, LDL 99; A1c 6%. Prefers lifestyle modificati on and healthy diet Smokes tobacco daily 449 253530 Z72.0 ~ 1 ppd > 10 years Continue Nicotine lozenges [id number] HUYEN VASQUEZ MD [facility] [address] [place] [phone] 06/18/2024 09:55:43 07/02/2024 09:22:23 Primary hypogonadism 556378282 E29.1 Chronic uncontroll ed medical condition associated with low energy and fatigue 06/09/24: T testostero ne low at 169, F testostero ne low at 1.3, LH/FSH/PSA wnls. 05/27/24: T testostero ne low of 200, F testostero ne low of 1.2, PSA wnl, CBC wnls with no erythrocyt osis or thrombocyt osis. Start Testostero ne 50 mg IM every 2 weeks; Plan to re check testostero ne level in 8 weeks Treatment plan discussed with patient F/U in 1 month Benign ess ential hypertension 1116321 I10 - Chronic uncontroll ed medical condition - Blood pressure above goal - No cp, sob, vision changes, palpitatio ns - Continue Losartan 50 mg po qd; Denies any side effect from medication - Adjust management if needed - microalbum in/cr ratio wnls - F/U in 1 month for re evaluation Hypertriglyceridemia 302 075753 E78.1 Chronic uncontroll ed medical condition 12/27/23: elevated triglyceri de at 230, T cholestero l 196, HDL 51, LDL 99; A1c 6%. Prefers lifestyle modificati on and healthy diet F/U in 1 month, adjust management if needed Adult atte ntion deficit hyperactivity disorder 687717715 F90.9 - Chronic uncontroll ed medical condition -OARRS checked on 06/18/24 and no aberrant activities noted. - Patient follows with Psychology Kathi Wan, currently takes Dextroamph etamine-am phetamine 10 mg po BID; Denies side effects from medication ; Management and treatment by Psychology - Continue to monitor side effects closely. -F/u in 1 month for medication surveillan ce due to high-risk medication use. [id number] HUYEN VASQUEZ MD [facility] [address] [place] [address] 06/23/2024 09:37:11 07/10/2024 07:16:51 Acute otitis media 7375934 H66.92 - Left acute otitis media per physical exam - Augmentin caused GI upset in the past - Prescribed cefdinir x 7 days - Instructed parents to continue OTC Tylenol/Mo sonja as needed for pain/fever - Advised to seek care promptly for severe symptoms if unable to reach us - Contact our office if you are confused about your care or have other concerns. - Return as needed for any worsening symptoms Sore throat 195033545 J0 2.9 Bursitis o f olecranon of left elbow 7757658938 41664 M70.22 Acute on chronic left prepatella r bursitis of left elbow 2/2 fall on left elbow ~ 3 months ago Swelling, erythema on PE but no warmth, fever, chills Completed Medrol rio x 5 days Needing Orthopedic referral Lt Elbow xray ordered to rule out acute pathology [id number] HUYEN VASQUEZ MD [facility] [address] [place] [address] 07/17/2024 10:22:12 07/31/2024 18:01:12 Tick bite 95854172 W57.XXXA Acute unknown tick bite 2 days ago No fever, chills, nausea, vomiting, cp ,sob Start Doxycyclin e x 1 day for Lyme dz prophylaxi s Benign ess ential hypertension 2800268 I10 - Chronic uncontroll ed medical condition - Blood pressure above goal - No cp, sob, vision changes, palpitatio ns - Increased Losartan to 100 mg po qd; Denies any side effect from medication - 12/27/23: microalbum in/cr ratio wnls - F/U in 1 month for re evaluation Chronic mi graine without aura 5091204965 47884 G43.709 Chronic uncontroll ed migraine headache Failed previous management with OTC analgesics Controlled Substance Agreement signed:03/10 UDS ordered 03/19/24 OARRS Reviewed: 06/18/24 with no concerns Continue same management Needing refill of Sumatripta n; Denies side effects from medication Scheduled with Neurology soon at [facility] Advised to seek care promptly for severe symptoms if unable to reach us Contact our office if you are confused about your care or have other concerns. Return as needed Primary hypogonadism 370 763696 E29.1 Chronic uncontroll ed medical condition associated with low energy and fatigue 06/09/24: T testostero ne low at 169, F testostero ne low at 1.3, LH/FSH/PSA wnls. 05/27/24: T testostero ne low of 200, F testostero ne low of 1.2, PSA wnl, CBC wnls with no erythrocyt osis or thrombocyt osis. Continue Testostero ne 50 mg IM every 2 weeks; Plan to re check testostero ne level in 8 weeks Treatment plan discussed with patient Needing refill of Sildenafil prn for erectile dysfunctio n F/U in 1 month [id number] HUEYN VASQUEZ MD [facility] [address] [place] [address] 08/14/2024 10:12:20 09/08/2024 20:02:47 Chronic low back pain 194420237 M54.50 Chronic uncontroll ed low back pain S/P 5 Lumbar surgeries, last one was 2009 due to disc prolapse and spine infection Needing pain management referral Male hypogonadism 160459 06 E29.1 Chronic uncontroll ed medical condition associated with low energy and fatigue 06/09/24: T testostero ne low at 169, F testostero ne low at 1.3, LH/FSH/PSA wnls. Continue Testostero ne 50 mg IM every 2 weeks Recheck testostero ne, CBC today and adjust management if needed at next appointmen t Treatment plan discussed with patient Needing refill of Sildenafil prn for erectile dysfunctio n F/U in 1 month Hypertriglyceridemia 302 283776 E78.1 Chronic uncontroll ed medical condition 12/27/23: elevated triglyceri de at 230, T cholestero l 196, HDL 51, LDL 99; A1c 6%. Prefers lifestyle modificati on and healthy diet F/U in 1 month, adjust management if needed Prediabetes 819355085 R7 3.03 Chronic medical condition 2/2 insulin resistance & obesity 12/27/23: A1c 6% 05/27/24: A1c 5.6% Keep monitoring and adjust management as needed Seasonal a llergic rhinitis 659034379 J30.2 Chronic uncontroll ed medical condition Failed management with OTC antihistam soni & ICS nasal spray Start Montelukas t 10 mg po qd for better chronic management Viral uppe r respiratory tract infection 252186504 J06.9 VIRAL URI WITH COUGH - Declined Rapid covid, flu and strep tests - Start promethazi ne-DM 6.25 mg-15 mg/5 mL oral syrup for cough - Discussed that this is likely a viral infection and is generally self-limit ing and will resolve on its own in 5-15 days but symptoms including cough could last up to 4 weeks. - Discussed that as this is a viral infection, there is no benefit for antibiotic s at this time. - Encouraged supportive care with Tylenol, ibuprofen and cold/flu medication as needed. - Discussed the importance of staying hydrated with plenty of fluids. - Encouraged humidified air, either from a warm shower or a humidifier to help with soothing dry, irritated airways. Urgent mechelle jeronimo to urinate 14153165 R39.15 Urgent desire to urinate, stopped few days ago Patient currently denies any dysuria, urgency, hematuria, suprapubic pain, abnormal urethral discharge, abdominal/ cva pain. UA dipstick negative for UTI today No need for antibiotic at this time Advised to seek care promptly for severe symptoms if unable to reach us Contact our office if you are confused about your care or have other concerns. Return as needed for any worsening symptoms Trying to give up smoking 189171268 Z72.0 Smokes tobacco less than 1PPD ~ 25 years Continue Nicotine lozenges Health Concerns Section Related Observation LastModified by Organization Detai ls LastModified Time None Recorded Concern Status LastModified by Organization Details LastModified Time None Recorded Advance Directives Directive None Recorded Payers Insurance Date Sequence Insurance Name Policy Number Policy Lepe Covered Member ID Lepe Member ID Guarantor Name 05/22/2024 1 [employer] [id number] Cassie Gouldmire [id number] Luiz Bailey 09/16/2024 1 UMR [id number] Cassie Gouldmire [id number] Luiz Bailey 02/11/2024 1 UMR [id number] Cassie Gouldmire [id number] Luiz Bailey 03/19/2024 1 *SELF PAY* ristopher Husseinradhika Notes Date Note Type Note Provider Name and Address Organization Details Recorded Time 06/09/2024 text/html ROS as noted in the HPI A pleasant 53 years old gentleman with past medical history of HTN who presents to clinic today for follow up on lab results. Erectile dysfunction/low energy: Patient reports chronic erectile dysfunction > 1year. Patient also reports associated symptoms include fatigue and low energy. 05/27/24: T testosterone low of 200, F testosterone low of 1.2, PSA wnl, CBC wnl; Plan to re check testosterone level again today and start treatment at next appointment. HUYEN VASQUEZ MD [address] [place] [address] [place], [phone], [facility] 06/09/2024 09:49:44 06/18/2024 text/html ROS as noted in the HPI A pleasant 53 YO M PMH hypertension presents to clinic today to start testosterone therapy. Low testosterone/hypogon adism: Patient complains of persistent fatigue, low energy levels, and decreased libido. He reports that these symptoms have been ongoing for the past 2 years. Patient also mentions experiencing difficulty concentrating. He denies any significant changes in weight, diet, or exercise habits. Patient has not taken any medications or supplements that could affect testosterone levels. 05/27/24: T testosterone low at 200, F testosterone low at 1.2; 06/09/24: T testosterone low at 169, F testosterone low at 1.3, LH/FSH/PSA wnls. 05/27/24: CBC wnls with no erythrocytosis or thrombocytosis. Plan to start testosterone therapy today. HUYEN VASQUEZ MD [address] [place] [address] [place], [phone], [facility] 06/18/2024 10:28:03 06/23/2024 text/html ROS as noted in the HPI A pleasant 53 YO M presents to clinic today for left ear pain x 3 days. Left ear pain: Patient reports left ear pain that began 3 days ago associated with sore throat. He describes the pain as sharp. The pain is associated with decreased hearing in the left ear, mild fever. Patient denies ear drainage or discharge. Patient denies any recent cold or upper respiratory infection. HUYEN VASQUEZ MD [address] [place] [address] [place], [phone], [facility] 06/23/2024 10:39:34 07/17/2024 text/html ROS as noted in the HPI A pleasant 53 YO M PMH hypertension presents to clinic today for testosterone therapy refill. Low testosterone/hypogon adism: 05/27/24: T testosterone low at 200, F testosterone low at 1.2; 06/09/24: T testosterone low at 169, F testosterone low at 1.3, LH/FSH/PSA wnls. 05/27/24: CBC wnls with no erythrocytosis or thrombocytosis. Patient currently on 50 mg SQ every 2 weeks; Denies any side effects from medication. HUYEN VASQUEZ MD [address] [place] [address] [place], [phone], [facility] 07/17/2024 12:40:03 08/14/2024 text/html ROS as noted in the HPI A pleasant 53 YO M PMH hypertension presents to clinic today for follow up & urinary urgency. Low testosterone/hypogon adism: 06/09/24: T testosterone low at 169, F testosterone low at 1.3, LH/FSH/PSA wnls. 05/27/24: CBC wnls with no erythrocytosis or thrombocytosis. Patient currently on 50 mg SQ every 2 weeks; Denies any side effects from medication. Will recheck testosterone level today. Urgency: Patient reports urinary urgency with dysuria few years ago associated with cloudy urine. Patient currently denies any dysuria, urgency, hematuria, suprapubic pain, abnormal urethral discharge, abdominal/cva pain. Patient would like to check his urine to make sure he doesn't have UTI. HUYEN VASQUEZ MD [address] [place] [address] [place], [phone], [facility] 08/14/2024 12:54:52
--- OUTSIDE RECORDS SUMMARY | 2025-07-03 11:06 | XMS_ITS | Clinical Summary ---
Author Organization [facility] Address [address] [place] [address] Care Team Providers Care Sanitary Chemist Name Role Phone Jet Hagan PA-C Unavailable [phone] Monty Henry MD Unavailable Bib Dye MD Primary Care Provider Allergies No known active allergies Medications anastrozole [...] patient's age to complete this topic Insurance [facility] Care Teams Sanitary Chemist Relationship Specialty Start Date End Date Bib Dye MD [address] [place], [place] [phone] PCP - General Family Medicine 03/06/25 Jet Hagan PA-C [address] [place] [address] [address] Physician Candy Catcher 12/26/24 Monty Henry MD [address] [place] [address] [address] Orthopedic Surgery 12/26/24
--- OUTSIDE RECORDS SUMMARY | 2025-07-03 11:08 | XMS_ITS | Clinical Summary ---
Author Organization [facility] Address [address] [place] [address] Care Team Providers Care Daycare Manager Name Role Phone Varsha Lopez APRN Primary Care Provider Allergies No known active allergies Medications amphetamine-dextr oamphetamine (ADDERALL XR) 30 MG 24 hr capsule Take 30 mg by mouth every morning. Active amphetamine-dextr oamphetamine (ADDERALL) 10 MG tablet Take 10 mg by mouth nightly. Active losartan (COZAAR) 100 MG tablet Take 100 mg by mouth daily. Active Testosterone Enanthate 50 MG/0.5ML CAR A-IJ Inject 0.5 mLs into the skin twice a week Sunday and . Active tamsulosin (FLOMAX) 0.4 MG CAPS Take 0.4 mg by mouth nightly. Active cyclobenzaprine (FLEXERIL) 10 MG tablet Take 1 tablet by mouth every 8 (eight) hours as needed for Muscle spasms. 30 tablet 06/27/2025 4:52 PM EDT 5 Active lidocaine (LIDODERM) 5 % Place 3 patches onto the skin daily. Remove & Discard patch within 12 hours or as directed by MD. 21 patch 5 Active oxyCODONE-acetami nophen (PERCOCET) 5-325 MGIndications:Acu te cholecystitis Take 1-2 tablets by mouth every 4 (four) hours as needed for Pain. Max Daily Amount: 12 tablets 12 tablet 06/27/2025 4:52 PM EDT 5 07/27/20 25 Active ketorolac (TORADOL) 10 MG tablet Take 60 mg by mouth every 6 (six) hours as needed for Pain (migraine). 06/25/20 25 Discontin ued(Enter ed in error) diphenhydrAMINE (BENADRYL) 50 MG capsule Take 50 mg by mouth every 6 (six) hours as needed for Itching. 06/25/20 25 Discontin ued(Enter ed in error) Active Problems Problem Noted Date Diagnosed Date Acute cholecystitis 06/27/2025 Intractable low back pain 06/25/2025 HTN (hypertension) 06/25/2025 ADHD 06/25/2025 Tobacco abuse 06/25/2025 Encounters Date Type Department Care Team Description 06/26/2025 1:20 PM EDT Anesthesia Event MD Periop Services [address] [place] [address] Geneva Ramos MD Woods, James 06/26/2025 1:00 PM EDT - 06/26/2025 3:10 PM EDT Surgery MD [facility] [address] [place] [address] Nav Vidales MD LAPAROSCOPIC CHOLECYSTECTOMY 06/25/2025 3:12 AM EDT - 06/27/2025 4:52 PM EDT Hospital Encounter [facility] [address] [place] [address] Brandi Osullivan MD Hiser-Kohler, Melissa M, MD Acute cholecystitis (Primary Dx) Discharge Disposition: Home or Self Care from Last 3 Months Family History Medical History Relation Comments Heart disease Father Relation Status Comments Father Alive Mother Alive Social History Tobacco Use Types Packs/Day Years [...] Sign Reading Time Taken Comments Blood Pressure 161/81 06/27/2025 3:39 PM EDT Pulse 92 06/27/2025 3:39 PM EDT Temperature 36.6 C (97.9 F) 06/27/2025 3:39 PM EDT Respiratory Rate 16 06/27/2025 3:39 PM EDT Oxygen Saturation 99% 06/27/2025 3:39 PM EDT Inhaled Oxygen Concentration - - Weight 96.2 kg (212 lb) 06/25/2025 3:16 AM EDT Height 175.3 cm (5' 9 ) 06/25/2025 3:16 AM EDT Body Mass Index 31.31 06/25/2025 3:16 AM EDT Plan of Treatment Upcoming Encounters Date Type Department Care Team (Late st Contact Info) Description 07/07/2025 10:30 AM EDT Office Visit [facility] [id number] [place] [address] Isela Anne APRN [address] [facility] [address] [place] [address] Health Maintenance Due Date Last Done Comments CT Colonography 1972 Colonoscopy 1972 Colorectal Cancer Screening 1972 FIT-DNA 1972 FIT 1972 FOBT 1972 Sigmoidoscopy 1972 Hepatitis B (HepB) Vaccine ( 1 of 3 - 19+ 3-dose series) 1991 Pneumococcal Vaccines >50 yo (1 of 2 - PCV) 1991 Lung Cancer Screening Risk Assessment 2022 Shingles (Shingrix) (1 of 2) 2022 Annual SDOH Screening 09/10/2024 Influenza Vaccine (#1) 2025 08/13/2017 Tdap/Td Vaccine >11 yo (3 - Td or Tdap) 06/07/2027 06/07/2017, 10/17/2016 RSV 50+ and (1 - 1-dose 75+ series) 2047 Haemophilus Influenzae Type B (Hib) Vaccine Aged Out No longer eligible b ased on patient's age to complete this topic Hepatitis A (HepA) Vaccine Aged Out N o longer eligible based on patient's age to complete this topic Meningococcal ACWY Aged Out No longer eligible based on patient's age to complete this topic Polio (IPV) Aged Out No longer eligi ble based on patient's age to complete this topic Rotavirus (RV) Vaccine Aged Out No lo nger eligible based on patient's age to complete this topic Procedures Procedure Name Priority Date/Time Associated Diagnosis Comments GLUCOSE-GLUCOMETER Routine 06/27/2025 4:12 PM EDT GLUCOSE-GLUCOMETER Routine 06/27/2025 11:13 AM EDT GLUCOSE-GLUCOMETER Routine 06/27/2025 6: 54 AM EDT BILIRUBIN,TOTAL AND DIRECT Timed 06/27/2025 4:26 AM EDT COMPREHENSIVE METABOLIC PANEL (CMP) Routine 06/27/2025 4:26 AM EDT CBC W/DIFF Routine 06/27/2025 4:26 AM EDT GLUCOSE-GLUCOMETER Routine 06/26/2025 10:08 PM EDT SURGICAL SPECIMEN Routine 06/26/2025 2:1 7 PM EDT LAPAROSCOPIC CHOLECYSTECTOMY 06/26/2025 12:59 PM EDT ACUTE CHOLECYSTITIS GLUCOSE-GLUCOMETER Routine 06/26/2025 11:38 AM EDT CROSSMATCH PACKED CELLS STAT 06/26/2025 8:07 AM EDT TYPE AND SCREEN Routine 06/26/2025 8:07 AM EDT HEMOGLOBIN A1C Routine 06/26/2025 4:44 AM EDT DIFFERENTIAL, MANUAL, BLOOD After office visit 06/26/2025 4:44 AM EDT COMPREHENSIVE METABOLIC PANEL (CMP) Routine 06/26/2025 4:44 AM EDT CBC W/DIFF Routine 06/26/2025 4:44 AM EDT LIPASE Routine 06/26/2025 4:44 AM EDT BILIRUBIN,TOTAL AND DIRECT Routine 06/26/2025 4:44 AM EDT TICK-BORNE DISEASE PANEL Routine 06/26/2025 4:44 AM EDT COMPREHENSIVE METABOLIC PANEL (CMP) STAT 06/25/2025 4:44 PM EDT HEPATITIS,ACUTE PANEL Routine 06/25/2025 4:44 PM EDT CULTURE, BLOOD Timed 06/25/2025 4:44 PM EDT URINALYSIS WITH REFLEX Routine 06/25/2025 4:43 PM EDT US ABDOMEN RUQ STAT 06/25/2025 3:24 PM EDT XR L SPINE AP & LATERAL-STANDING Routine 06/25/2025 10:43 AM EDT ECG 12-LEAD Routine 06/25/2025 6:04 AM EDT BLOOD TYPE CONFIRMATION Routine 06/25/2025 5:57 AM EDT MAGNESIUM Add-On 06/25/2025 5:57 AM EDT PROCALCITONIN Add-On 06/25/2025 5:57 AM EDT ERYTHROCYTE SEDIMENTATION RATE Routine 06/25/2025 5:57 AM EDT C-REACTIVE PROTEIN Routine 06/25/2025 5: 57 AM EDT COMPREHENSIVE METABOLIC PANEL (CMP) Routine 06/25/2025 5:57 AM EDT PARTIAL THROMBOPLASTIN TIME Routine 06/25/2025 5:57 AM EDT PROTIME-INR Routine 06/25/2025 5:57 AM EDT CBC W/DIFF Routine 06/25/2025 5:57 AM EDT from Last 3 Months Results * (ABNORMAL) Glucose-Glucometer (06/27/2025 4:12 PM EDT) Only the most recent of5 resultswithin the time period is included. [facility] Glucose Glucometer 237(H) 71 - 139 mg/dL 06/27/2025 4:13 PM EDT [facility] ([id number]) Blood VENOUS BLOOD SPECIMEN / Unknown 06/27/2025 4:12 PM EDT 06/27/2025 4:13 PM EDT us Raven Viera MD LAB BLOOD ORDERABLES F inal Result [facility] ([id number]) [address] [place] [address] * (ABNORMAL) CBC w/Diff (06/27/2025 4:26 AM EDT) Only the most recent of3 resultswithin the time period is included. [facility] White Blood Cells 12.99(H) 4.50 - 11.00 10*3/uL LAB DEVICE: SYSMAphria XN-10 06/27/2025 5:03 AM EDT [facility] ([id number]) Red Blood Cells 4.61 4.50 - 5.90 10*6/uL LAB DEVICE: SYSMEX XN-10 06/27/2025 5:03 AM [facility] ([id number]) Hemoglobin 13.9 13.5 - 17.5 g/dL LAB DEVICE: SYSMEX XN-10 06/27/2025 5:03 AM [facility] ([id number]) Hematocrit 40.9(L) 41.0 - 53.0 % LAB DEVICE: SYSMEX XN-10 06/27/2025 5:03 AM [facility] ([facility]) Mean Corpuscular Volume 88.7 80.0 - 100.0 fL LAB DEVICE: MILI XN-10 06/27/2025 5:03 AM [facility] ([facility]) Mean Corpuscular Hemoglobin 30.2 26.0 - 34.0 pg LAB DEVICE: MILI XN-10 06/27/2025 5:03 AM [facility] ([facility]) Mean Corpuscular Hemoglobin Concentration 34.0 31.0 - 37.0 g/dL LAB DEVICE: Appforma-10 06/27/2025 5:03 AM [facility] ([facility]) % Red Blood Cell Distribution Width 14.3 12.0 - 16.8 % LAB DEVICE: Appforma-10 06/27/2025 5:03 AM [facility] ([facility]) Platelet Count 276 140 - 440 10*3/uL LAB DEVICE: Appforma-10 06/27/2025 5:03 AM [facility] ([facility]) Mean Platelet Volume 10.4 8.4 - 12.4 fL LAB DEVICE: Appforma-10 06/27/2025 5:03 AM [facility] ([facility]) % Neutrophils 74.4 45.0 - 80.0 % LAB DEVICE: EarbitsEX RatePoint-10 06/27/2025 5:03 AM [facility] ([facility]) % Lymphocytes 16.5 15.0 - 50.0 % LAB DEVICE: CloSysSMPlexxi-10 06/27/2025 5:03 AM [facility] ([facility]) % Monocytes 7.5 0.0 - 15.0 % LAB DEVICE: SYSMEX XN-10 06/27/2025 5:03 AM [facility] ([facility]) % Eosinophils 0.2 0.0 - 7.0 % LAB DEVICE: SYSMEX XN-10 06/27/2025 5:03 AM [facility] ([facility]) % Basophils 0.2 0.0 - 2.0 % LAB DEVICE: SYSMEX XN-10 06/27/2025 5:03 AM [facility] ([facility]) % Immature Granulocytes 1.2(H) 0.0 - 1.0 % LAB DEVICE: SYIDRI ([facility])-10 06/27/2025 5:03 AM [facility] ([id number]) % Nucleated RBCs 0 <=0 /100 WBCs LAB DEVICE: SYSMEX XN-10 06/27/2025 5:03 AM [facility] ([id number]) Absolute Neutrophil Count 9.66(H) 2.00 - 8.80 10*3/uL LAB DEVICE: SYSMEX XN-10 06/27/2025 5:03 AM [facility] ([facility]) Absolute Lymphocytes 2.14 0.70 - 5.50 10*3/uL LAB DEVICE: SYSMEX XN-10 06/27/2025 5:03 AM [facility] ([facility]) Absolute Monocytes 0.98 0.00 - 1.70 10*3/uL LAB DEVICE: SYSMEX XN-10 06/27/2025 5:03 AM [facility] ([facility]) Absolute Eosinophils 0.03 0.00 - 0.80 10*3/uL LAB DEVICE: CloSysSMAphria XN-10 06/27/2025 5:03 AM [facility] ([facility]) Absolute Basophils 0.03 0.00 - 0.20 10*3/uL LAB DEVICE: CloSysSMEX XN-10 06/27/2025 5:03 AM [facility] ([facility]) Absolute Immature Granulocytes 0.15(H) 0.00 - 0.10 10*3/uL LAB DEVICE: MILI XN-10 06/27/2025 5:03 AM [facility] ([facility]) Blood VENOUS BLOOD SPECIMEN / Unknown Venipuncture / Unknown 06/27/2025 4:26 AM EDT 06/27/2025 4:50 AM EDT us Raven Viera MD LAB BLOOD ORDERABLES F inal Result [facility] ([facility]) [address] [place] [address] * (ABNORMAL) Bilirubin,Total and Direct (06/27/2025 4:26 AM EDT) Only the most recent of2 resultswithin the time period is included. Total Bilirubin 1.7(H) 0.3 - 1.2 mg/dL 06/27/2025 5:24 AM EDT [facility] ([id number]) Comment:New reference range due to change in Bilirubin assay. Direct Bilirubin 0.8(H) 0.0 - 0.5 mg/dL 06/27/2025 5:24 AM T [facility] ([id number]) Indirect Bilirubin 0.9 0.0 - 1.1 mg/dL 06/27/2025 5:24 AM [facility] ([id number]) Blood VENOUS BLOOD SPECIMEN / Unknown Venipuncture / Unknown 06/27/2025 4:26 AM EDT 06/27/2025 4:53 AM EDT us Raven Viera MD LAB BLOOD ORDERABLES F inal Result [facility] ([facility]) [address] [place] [address] * (ABNORMAL) Comprehensive Metabolic Panel (CMP) (06/27/2025 4:26 AM EDT) Only the most recent of4 resultswithin the time period is included. [facility] Sodium 136 136 - 145 mmol/L 06/27/2025 5:24 AM [facility] ([id number]) Comment:Excess protein and/o r lipids can falsely decrease sodium levels (pseudo hyponatremia). Potassium 4.1 3.5 - 5.1 mmol/L 06/27/2025 5:24 AM [facility] ([id number]) Comment:Falsely elevated pot assium can occur in patients with high WBC or platelet counts. Chloride 103 98 - 107 mmol/L 06/27/2025 5:24 AM [facility] ([id number]) Comment:Falsely elevated chl oride levels can be seen in patients taking bromide containing medications. Carbon Dioxide 24 22 - 29 mmol/L 06/27/2025 5:24 AM [facility] ([id number]) Anion Gap 9 5 - 13 mmol/L 06/27/2025 5:24 AM [facility] ([id number]) Comment:Calculation: Na - (C l + CO2) Glucose, Random 246(H) 71 - 99 mg/dL 06/27/2025 5:24 AM [facility] ([id number]) Blood Urea Nitrogen (BUN) 18 8 - 26 mg/dL 06/27/2025 5:24 AM [facility] ([id number]) Creatinine, Blood 0.84 0.73 - 1.18 mg/dL 06/27/2025 5:24 AM [facility] ([id number]) BUN/Creatinine Ratio 21.4 RATIO 06/27/2025 5:24 AM [facility] ([id number]) Estimated GFR (Cr) 105 >60 mL/min/1.7 3m2 06/27/2025 5:24 AM [facility] ([id number]) Comment:eGFR calculated base d on IDMS traceable, enzymatic creatinine method using the CKD-EPI 2020 equation. Total Protein 6.6 6.4 - 8.2 g/dL 06/27/2025 5:24 AM [facility] ([id number]) Albumin 3.7 3.5 - 5.2 g/dL 06/27/2025 5:24 AM [facility] ([id number]) Globulin 2.9 1.5 - 4.5 g/dL 06/27/2025 5:24 AM [facility] ([id number]) Albumin/Globulin Ratio 1.3 1.1 - 2.5 RATIO 06/27/2025 5:24 AM [facility] ([id number]) Calcium 8.9 8.4 - 10.2 mg/dL 06/27/2025 5:24 AM [facility] ([id number]) Total Bilirubin 1.7(H) 0.3 - 1.2 mg/dL 06/27/2025 5:24 AM [facility] ([id number]) AST/SGOT 54(H) 5 - 34 U/L 06/27/2025 5:24 AM [facility] ([id number]) ALT/SGPT 116(H) 0 - 55 U/L 06/27/2025 5:24 AM [facility] ([id number]) Alkaline Phosphatase 240(H) 40 - 150 U/L 06/27/2025 5:24 AM [facility] ([id number]) Blood VENOUS BLOOD SPECIMEN / Unknown Venipuncture / Unknown 06/27/2025 4:26 AM EDT 06/27/2025 4:53 AM EDT us Raven Viera MD LAB BLOOD ORDERABLES F inal Result [facility] ([id number]) [address] [id number] * Surgical Specimen: Gallbladder (06/26/2025 2:17 PM EDT) Case Report Surgical Pathology Report Case: [id number] Authorizing Provider: Nav Vidales MD Collected: 06/26/2025 1417 Ordering Location: MD Periop Services Received: 06/26/2025 1520 Pathologist: Chary [...] of green-marrufo viscous bile and no calculi. [employer] Supervisor sections of the gallbladder wall and blue-inked margin of the cystic duct are submitted in block A1. Kim Tapia MBA, MT, HTL, PA 06/26/2025 /am1 06/29/2025 9:51 AM EDT [facility] Sign Out Location [facility] [address] [address] 06/29/2025 9:51 AM EDT [facility] Case Flag Normal Normal 06/29/2025 9:51 AM EDT [facility] Tissue MISCELLANEOUS SAMPLES / Unknown 06/26/2025 2:17 PM EDT 06/26/2025 3:20 PM EDT Comment:Pre-op diagnosis: UNKNOWN Nav Vidales MD PATHOLOGY/CYTOLOGY ORDERABLES Fi nal Result Performing Organization Address City/[facility]/ZIP Co de Phone Number [facility] [address] [place] [address] * Packed Red Cells (06/26/2025 8:07 AM EDT) Packed Red Blood Cells Product Order [facility] BB Blood Bank BLOOD SPECIMEN FROM PATIENT / Unknown 06/26/2025 8:07 AM EDT 06/26/2025 8:29 AM EDT Alfredito Miranda MD BLOOD BANK PRODUCT ORDERA BLES Final Result Performing Organization Address [facility]/ZIP Co de Phone Number [facility] [address] [phone] * Type and Screen (06/26/2025 8:07 AM EDT) ABO/RH(D) A POS 06/26/2025 9:26 AM EDT [facility] BB Antibody Screen NEG 9:26 AM EDT [facility] BB Crossmatch Expiration 06/29/2025 23:59 06/26/2025 9:26 AM EDT [facility] BB Blood VENOUS BLOOD SPECIMEN / Unknown Venipuncture / Unknown 06/26/2025 8:07 AM EDT 06/26/2025 8:29 AM EDT us Michelle Putnam APRN BLOOD BANK TEST ORDERABLES Fi nal Result Performing Organization Address [facility]/ZIP Co de Phone Number [facility] [address] [phone] * Differential, Manual, Blood (06/26/2025 4:44 AM EDT) % Segmented Neutrophils 55.0 45.0 - 80.0 % 06/26/2025 8:00 AM [facility] ([id number]) % Lymphocytes 28.0 15.0 - 50.0 % 06/26/2025 8:00 AM [facility] ([id number]) % Atypical Lymphocytes 7.0 <=8.0 % 06/26/2025 8:00 AM [facility] ([id number]) % Monocytes 3.0 <=15.0 % 06/26/2025 8:00 AM [facility] ([id number]) % Eosinophils 7.0 <=7.0 % 06/26/2025 8:00 AM [facility] ([id number]) % Nucleated RBCs 0 <=0 /100 WBCs LAB DEVICE: MILI XN-10 06/26/2025 8:00 AM [facility] ([id number]) Absolute Neutrophil Count 4.56 2.00 - 8.80 10*3/uL 06/26/2025 8:00 AM [facility] ([id number]) Absolute Lymphocytes 2.32 0.70 - 5.50 10*3/uL 06/26/2025 8:00 AM [facility] ([id number]) Absolute Atypical Lymphocytes 0.58 0.00 - 0.90 10*3/uL 06/26/2025 8:00 AM [facility] ([id number]) Absolute Monocytes 0.25 <=1.70 10*3/uL 06/26/2025 8:00 AM [facility] ([id number]) Absolute Eosinophils 0.58 <=0.80 10*3/uL 06/26/2025 8:00 AM [facility] ([id number]) Platelet Estimate Adequate Adequate 06/26/2025 8:00 AM [facility] ([id number]) Platelet Morphology Normal 06/26/2025 8:00 AM [facility] ([id number]) Red Blood Cell Morphology Normal 06/26/2025 8:00 AM [facility] ([id number]) White Blood Cell Morphology Normal 06/26/2025 8:00 AM [facility] ([id number]) Blood VENOUS BLOOD SPECIMEN / Unknown Venipuncture / Unknown 06/26/2025 4:44 AM EDT 06/26/2025 5:46 AM EDT Raven Viera MD LAB BLOOD ORDERABLES F inal Result Performing Organization Address [facility] Co de Phone Number [facility] ([id number]) [address] [place] [address] * Tick-borne Disease Panel (06/26/2025 4:44 AM EDT) [facility] Tick-Borne Disease PNL Negative Negative 06/26/2025 4:02 PM EDT EXTERNAL Blood VENOUS BLOOD SPECIMEN / Unknown Venipuncture / Unknown 06/26/2025 4:44 AM EDT 06/26/2025 5:46 AM EDT Narrative EXTERNAL - 06/26/2025 4:02 PM EDT See Scanned Report us Raven Viera MD LAB BLOOD ORDERABLES F inal Result Performing Organization Address [facility] de Phone Number EXTERNAL * (ABNORMAL) Lipase (06/26/2025 4:44 AM EDT) [facility] Lipase 68(H) 0 - 59 U/L 06/26/2025 6:36 AM EDT [facility] ([id number]) Blood VENOUS BLOOD SPECIMEN / Unknown Venipuncture / Unknown 06/26/2025 4:44 AM EDT 06/26/2025 5:57 AM EDT Raven Viera MD LAB BLOOD ORDERABLES F inal Result Performing Organization Address [facility] Co de Phone Number [facility] ([id number]) [address] [place] [address] * (ABNORMAL) Hemoglobin A1C (06/26/2025 4:44 AM EDT) [facility] Hemoglobin A1C 6.0(H) 4.3 - 5.6 % LAB DEVICE: BIORAD D100 06/26/2025 11:41 PM EDT [facility] [...] MD LAB BLOOD ORDERABLES F inal Result [facility] [address] [place] [address] * Hepatitis,Acute Panel (06/25/2025 4:44 PM EDT) [...] ORDERABLES F inal Result Performing Organization Address [facility] Co de Phone Number [facility] [address] [place] [address] [place], [place] [id number] * Culture,Blood (06/25/2025 4:44 PM EDT) Culture No Growth Final. 07/01/2025 1:00 AM EDT [facility] Blood BLOOD SPECIMEN / Unknown Venipuncture / Unknown 06/25/2025 4:44 PM EDT 06/25/2025 6:55 PM EDT us Raven Viera MD MICROBIOLOGY - GENERAL ORDERABLES Final Result Performing Organization Address [facility] de Phone Number [facility] [address] [place] [address] [place] [address] * (ABNORMAL) Urinalysis with Reflex to culture (06/25/2025 4:43 PM EDT) Color, Urine Yellow 06/25/2025 5:25 PM EDT [facility] ([id number]) Clarity, Urine Clear 06/25/2025 5:25 PM [facility] ([id number]) Specific [place], Urine 1.012 1.005 - 1.030 [arb'U] 06/25/2025 5:25 PM [facility] ([id number]) pH, Urine 7.0 5.0 - 9.0 [pH] 06/25/2025 5:25 PM [facility] ([id number]) Protein, Urine Negative Negative, 10 mg/dL, 15 mg/dL, 20 mg/dL, Trace 06/25/2025 5:25 PM [facility] ([id number]) Glucose, Urine Negative Negative 06/25/2025 5:25 PM EDT [facility] ([id number]) Ketones, Urine Negative Negative [facility]25 [facility][id number][facility] Bilirubin, Urine Negative Negative mg/dL 06/25/2025 5:25 PM [facility] ([id number]) Blood, Urine Trace(A) Negative [arb'U] 06/25/2025 5:25 PM [facility] ([id number]) Nitrite, Urine Negative Negative 06/25/2025 5:25 PM [facility] ([id number]) Urobilinogen, Urine 2 mg/dL(A) Normal 06/25/2025 5:25 PM [facility] ([id number]) Leukocyte Esterase, Urine Negative Negative 06/25/2025 5:25 PM [facility] ([id number]) Reflex Microscopic? 06/25/2025 5:25 PM [facility] ([id number]) Comment:Microscopic performe d Red Blood Cells, Urine 5(H) 0 - 2 [HPF] 06/25/2025 5:25 PM [facility] ([id number]) White Blood Cells, Urine 2 0 - 3 [HPF] 06/25/2025 5:25 PM [facility] ([id number]) Squamous Epithelial Cells, Urine 0 0 - 4 [HPF] 06/25/2025 5:25 PM [facility] ([id number]) Bacteria, Urine None None [HPF] 5:25 PM [facility] ([id number]) Transitional Epithelial Cells, Urine <1 0 - 2 [HPF] 06/25/2025 5:25 PM [facility] ([id number]) Urine MID-STREAM URINE SPECIMEN / Unknown Non-blood Collection / Unknown 06/25/2025 4:43 PM EDT 06/25/2025 5:09 PM EDT us Raven Veira MD URINE ORDERABLES Final Result [facility] ([id number]) [address] [place] [address] * US ABDOMEN RUQ, includes liver (06/25/2025 3:24 PM EDT) [facility] RAD WORKSTATION ID [id number] Laterality Modality Abdomen Ultrasound 06/25/2025 3:29 PM EDT Narrative 06/25/2025 3:31 PM EDT REVIEWING YOUR TEST RESULTS IN [facility] IS NOT A SUBSTITUTE FOR DISCUSSING THOSE RESULTS WITH YOUR HEALTH CARE PROVIDER. PLEASE CONTACT YOUR PROVIDER [facility]IA [facility] TO DISCUSS ANY QUESTIONS OR CONCERNS YOU MAY HAVE REGARDING THESE TEST RESULTS. RADIOLOGY REPORT FACILITY: [facility] UNIT/AGE/GENDER: N.4L IN AGE:54 Y SEX:M PATIENT NAME/: KIM HILARIO S 1970 UNIT NUMBER: [id number] ACCESSION NUMBER: [id number] Right upper quadrant ultrasound. 06/25/2025 at 1507 [...] - 06/25/2025 REVIEWING YOUR TEST RESULTS IN [facility] IS NOT A SUBSTITUTE FORDISCUSSING THOSE RESULTS WITH YOUR HEALTH CARE PROVIDER. PLEASE CONTACT YOUR PROVIDER [facility] TO DISCUSS ANY QUESTIONS ORCONCERNS YOU MAY HAVE REGARDING THESE TEST RESULTS. RADIOLOGY REPORT FACILITY: [facility] UNIT/AGE/GENDER: N.4L IN AGE:54 Y SEX:M PATIENT NAME/: KIM HILARIO S 1970 UNIT NUMBER: [id number] ACCESSION NUMBER: [id number] Right upper quadrant ultrasound. 06/25/2025 at 1507 [...] 1530 [id number] us Raven Viera MD G US ORDERABLES Meghana l Result * XR L Spine Ap & Lateral-Standing (06/25/2025 10:43 AM EDT) [facility] RAD WORKSTATION ID [id number] [facility] Anatomical Region Laterality Modality Spine, L-spine [facility] Radiographic Imaging 06/25/2025 11:4 4 AM EDT Narrative 06/25/2025 11:46 AM EDT REVIEWING YOUR TEST RESULTS [facility] IS NOT A SUBSTITUTE FOR DISCUSSING THOSE RESULTS WITH YOUR HEALTH CARE PROVIDER. PLEASE CONTACT YOUR PROVIDER VIA [facility] TO DISCUSS ANY QUESTIONS OR CONCERNS YOU MAY HAVE REGARDING THESE TEST RESULTS. RADIOLOGY REPORT FACILITY: [facility] UNIT/AGE/GENDER: N.4L IN AGE:54 Y SEX:M PATIENT NAME/: KIM HILARIO S 1970 UNIT NUMBER: [id number] ACCESSION NUMBER: [id number] EXAMINATION: XR L SPINE AP AND LATERAL-STANDING [...] - 06/25/2025 REVIEWING YOUR TEST RESULTS IN [email or web address] IS NOT A SUBSTITUTE FORDISCUSSING THOSE RESULTS WITH YOUR HEALTH CARE PROVIDER. PLEASE CONTACT YOUR PROVIDER VIA [email or web address] TO DISCUSS ANY QUESTIONS ORCONCERNS YOU MAY HAVE REGARDING THESE TEST RESULTS. RADIOLOGY REPORT FACILITY: [facility] UNIT/AGE/GENDER: N.4L IN AGE:54 Y SEX:M PATIENT NAME/: KIM HILARIO S 1970 UNIT NUMBER: [id number] ACCESSION NUMBER: [id number] EXAMINATION: XR L SPINE AP AND LATERAL-STANDING [...] by: Spenser Schuler> 06/25/2025 1145 1144 1144 us Primitivo Christianson MD IMG DIAGNOSTIC IMAGING OR DERABLES Final Result * EKG 12 lead (06/25/2025 6:04 AM EDT) 06/25/2025 6:04 AM EDT Narrative [facility] - 06/25/2025 7:41 AM EDT CARDIOLOGY REPORT FACILITY: [facility] PATIENT NAME/: KIM HILARIO 1970 UNIT/AGE/GENDER: AGE: 54 YR GENDER: M UNIT NUMBER: [id number] ACCESSION NUMBER: [id number] DATE OF EXAM: 06/25/2025 06:04 EXAMINATION(S): ECG 12-LEAD FINAL REPORT Procedure: ELECTROCARDIOGRAM RESULT Heart Rate 82 P-R Interval 132 ms QRS Interval 112 ms QT Interval 392 ms QTC Interval 458 ms P Draper 3 deg QRS Draper 251 deg T Wave Draper 23 deg DATE: 06/25/2025 06:04 SINUS RHYTHM NONSPECIFIC IVCD WITH LAD Summary: Abnormal ECG Electronically signed by Devon Leslie M.D. 06/25/2025 07:41 Procedure Note Devon Leslie MD - 06/25/2025 CARDIOLOGY REPORT FACILITY: [facility] PATIENT NAME/: KIM HILARIO 1970 UNIT/AGE/GENDER: AGE: 54 YR GENDER: M UNIT NUMBER: [id number] ACCESSION NUMBER: [id number] DATE OF EXAM: 06/25/2025 06:04 EXAMINATION(S): ECG 12-LEAD FINAL REPORT Procedure: ELECTROCARDIOGRAM RESULT Heart Rate 82 P-R Interval 132 ms QRS Interval 112 ms QT Interval 392 ms QTC Interval 458 ms P Draper 3 deg QRS Draper 251 deg T Wave Draper 23 deg DATE: 06/25/2025 06:04 SINUS RHYTHM NONSPECIFIC IVCD WITH LAD Summary: Abnormal ECG Electronically signed by Devon Leslie M.D. 06/25/2025 07:[address] JUDGE ECG ORDERABLES Final Result Performing Organization Address City/[facility]/ZIP Co de Phone Number [place] [facility] * Blood Type Confirmation (06/25/2025 5:57 AM EDT) ABO/RH(D) A POS 06/26/2025 10:04 AM EDT [facility] Comment:Specimen [id number] used to complete testing. Blood VENOUS BLOOD SPECIMEN / Unknown Venipuncture / Unknown 06/25/2025 5:57 AM EDT 06/26/2025 9:06 AM EDT us Raven Viera MD BLOOD BANK TEST ORDERA BLES Final Result Performing Organization Address [facility] Co de Phone Number [facility] [address] [phone] * Procalcitonin (06/25/2025 5:57 AM EDT) Procalcitonin 0.22 0.10 - 0.50 ng/mL 06/25/2025 5:20 PM EDT [facility] ([id number]) Blood VENOUS BLOOD SPECIMEN / Unknown Venipuncture / Unknown 06/25/2025 5:57 AM EDT 06/25/2025 6:26 AM EDT us Raven Viera MD LAB BLOOD ORDERABLES F inal Result Performing Organization Address [facility]/ZIP Co de Phone Number [facility] ([id number]) [address] [place] [address] * Partial Thromboplastin Time (06/25/2025 5:57 AM EDT) Partial Thromboplastin Time 28.5 25.1 - 36.5 seconds LAB DEVICE: ACL TOP 550 CTS 06/25/2025 6:50 AM EDT [facility] ([id number]) Blood VENOUS BLOOD SPECIMEN / Unknown Venipuncture / Unknown 06/25/2025 5:57 AM EDT 06/25/2025 6:26 AM EDT Narrative [facility] ([id number]) - 06/25/2025 6:50 AM EDT Anticoagulants may alter the results of Laboratory Coagulation assays. New-generation anticoagulants such as direct Thrombin inhibitors (Dabigatran/Pradaxa, Argatroban, Bivalrudin) and direct/indirect factor Xa inhibitors (Rivaroxaban/Xarelto, Apixaban/Eliquis, Danaparoid/Orgaran, Fondaparinux/Arixtra) have been shown to affect the results of Laboratory Coagulation assays, creating falsely elevated or decreased values. Correlation with medication history is advised Michaela العراقي APRN LAB BLOOD ORDERABLES Final Re sult Performing Organization Address City/[facility]/ZIP Co de Phone Number [facility] ([facility]) [address] [place] [phone] * (ABNORMAL) Erythrocyte Sedimentation Rate (06/25/2025 5:57 AM EDT) Erythrocyte Sedimentation Rate 38(H) <=15 mm/Hr LAB DEVICE: ISED 06/25/2025 7:02 AM EDT [facility] ([facility]) Blood VENOUS BLOOD SPECIMEN / Unknown Venipuncture / Unknown 06/25/2025 5:57 AM EDT 06/25/2025 6:26 AM EDT Michaela العراقي [address] JUDGE LAB BLOOD ORDERABLES Final Re sult Performing Organization Address City/[facility]/ZIP Co de Phone Number [facility] ([facility]) [address] [place] [phone] * Protime-INR (06/25/2025 5:57 AM EDT) Prothrombin Time 11.0 10.3 - 13.3 seconds LAB DEVICE: ACL TOP 550 CTS 06/25/2025 6:50 AM EDT [facility] ([id number]) INR 1.0 See Comment INR LAB DEVICE: ACL TOP 550 CTS 06/25/2025 6:50 AM EDT [facility] ([id number]) Blood VENOUS BLOOD SPECIMEN / Unknown Venipuncture / Unknown 06/25/2025 5:57 AM EDT 06/25/2025 6:26 AM EDT Narrative [facility] ([id number]) - 06/25/2025 6:50 AM EDT Anticoagulants may [...] Intensity Range: 2.0-3.0 High Intensity Range: 3.0-4.5 Michaela العراقي APRN LAB BLOOD ORDERABLES Final Re sult Performing Organization Address City/[facility]/ZIP Co de Phone Number [facility] ([facility]) [address] [place] [phone] * (ABNORMAL) C-Reactive Protein (06/25/2025 5:57 AM EDT) C-Reactive Protein 5.4(H) <0.5 mg/dL 06/25/2025 6:55 AM EDT [facility] ([id number]) Blood VENOUS BLOOD SPECIMEN / Unknown Venipuncture / Unknown 06/25/2025 5:57 AM EDT 06/25/2025 6:26 AM EDT Michaela العراقي [facility] LAB BLOOD ORDERABLES Final Re sult [facility] ([id number]) [address], [place] [id number] * Magnesium (06/25/2025 5:57 AM EDT) Magnesium 2.0 1.6 - 2.6 mg/dL 06/25/2025 5:01 PM EDT [facility] ([id number]) Blood VENOUS BLOOD SPECIMEN / Unknown Venipuncture / Unknown 06/25/2025 5:57 AM EDT 06/25/2025 6:26 AM EDT us Raven Viera MD LAB BLOOD ORDERABLES F inal Result [facility] ([id number]) [address] [place] [address] from Last 3 Months Advance Directives * Full Code (Latest Code Status on File) Date Activated Date Inactivated Comments 06/25/2025 5:14 AM 06/27/2025 6:57 PM Care Teams Daycare Manager Relationship Specialty Start Date End Date Varsha Lopez APRN [id number] [place] [address] PCP - General 05/01/11
--- OUTSIDE RECORDS SUMMARY | 2025-07-03 11:08 | XMS_ITS | Data Portability ---
Author Organization [place] - [facility], [facility] Address [address] [place] [address] Assessment No assessment recorded. Plan of Treatment Reminders Order Date Submit Date Provider Last Modified By Organization Details Last Modified Time Details Appointments None recorded. Lab None recorded. Referral None recorded. Procedures None recorded. Surgeries None recorded. Imaging XR, hand 2024 025 [email or web address] [facility], [address] [place] [address] , [place], [address], 5 09:45:26 Medication Orders cephalexin 500 mg capsule 2024 025 edy [facility], [address] [place] [address] Dr [place], [place], [id number], 5 14:01:34 Medrol ([place]io) 4 mg tablets in a dose pack 2024 025 edy [facility], [address] [place] [address] Dr [place], [id number], 5 14:01:34 Kenalog 10 mg/mL suspension for injection 2024 025 Not available 5 14:07:42 bupivacaine HCl 0.5 % (5 mg/mL) injection solution 2024 025 Not available 5 14:07:42 Medrol ([place]) 4 mg tablets in a dose pack [address] [facility] [id number], [address] [facility] , [place], [address], 5 09:43:08 Medrol ([place]io) 4 mg tablets in a dose pack 2024 025 [facility] [id number], [address] [facility] , [place], [address], 5 10:11:26 Medrol ([place]io) 4 mg tablets in a dose pack [address] [facility] [id number], [address] [facility] , [place], [address], 5 09:45:26 Patient TargetsNo targets recorded. Patient InstructionsNo instructions recorded. Reason for Referral None Reported. Results Created Date Observation Date Name Description Value Unit Range Abnormal Flag Note LastModifiedBy Organization Detail LastModifiedTime 02/17/20 25 02/16/2025 CBC W/O DIFF note See Note Order ing Provi kelvin: Carmen Chamberlain MD Not Available [address] , [place], [address], 02/16/2025 11:01:10 02/17/20 25 02/16/2025 CBC W/O DIFF white blood cell 13.4 10e3/ uL 4.5-13 .0 high Not Available [address] , [place], [address], 02/16/2025 11:01:10 02/17/20 25 02/16/2025 CBC W/O DIFF red blood cell 4.98 10e6/ uL 4.10-5 .70 normal Not Available [address] , [place], [address], 02/16/2025 11:01:10 02/17/20 25 02/16/2025 CBC W/O DIFF hemoglobin 15.8 g/dL 12.0-1 6.9 normal Not Available [place] [address], [place], [address], 02/16/2025 11:01:10 02/17/20 25 02/16/2025 CBC W/O DIFF hematocrit 44.8 % 36.0-4 9.0 normal Not Available [place] [address], [place], [address], 02/16/2025 11:01:10 02/17/20 25 02/16/2025 CBC W/O DIFF mean cell volume 90 fL 78.0-9 8.0 normal Not Available [place] [address], [place], [address], 02/16/2025 11:01:10 02/17/2002/16/2025 CBC W/O DIFF mean cell HGB 31.7 pg 25.0-3 5.0 normal Not Available [place] [address], [place], [address], 02/16/2025 11:01:02/17/2002/16/2025 CBC W/O DIFF mean cell HGB concentratio n 35.3 g/dL 31.0-3 6.0 normal Not Available [place] [address], [place], [address], 02/16/2025 11:01:10 02/17/2002/16/2025 CBC W/O DIFF red cell distribution width 12.6 % 11.0-1 5.0 normal Not Available [place] [address], [place], [address], 02/16/2025 11:01:10 02/17/20 25 02/16/2025 CBC W/O DIFF platelet count 269 10e3/ uL 150-40 0 normal Not Available [place] [address], [place], [address], 02/16/2025 11:01:10 02/17/20 25 02/16/2025 CBC W/O DIFF performing lab see note - [facility] R [address] [facility] [address] Not Available [address] , [place], [address], 02/16/2025 11:01:10 02/17/20 25 02/16/2025 ELECT ROLYT ES PANEL note See Note Order ing Provi kelvin: Carmen Chamberlain MD Not Available [address] , [place], [address], 02/16/2025 11:17:28 02/17/20 25 02/16/2025 ELECT ROLYT ES PANEL sodium 137 mmol/ L 136-14 5 normal Not Available [address] , [place], [address], 02/16/2025 11:17:28 02/17/20 25 02/16/2025 ELECT ROLYT ES PANEL potassium 4.2 mmol/ L 3.5-5. 1 normal Not Available [address] , [place], [address], 02/16/2025 11:17:28 02/17/20 25 02/16/2025 ELECT ROLYT ES PANEL chloride 99 mmol/ L 98-107 normal Not Available [address] , [place], [address], 02/16/2025 11:17:28 02/17/20 25 02/16/2025 ELECT ROLYT ES PANEL carbon dioxide 30 mmol/ L 24-33 normal Not Available [address] , [place], [address], 02/16/2025 11:17:28 02/17/20 25 02/16/2025 ELECT ROLYT ES PANEL anion gap 12.2 mmol/ L 10-20 normal Not Available [address], [place], [address], 02/16/2025 11:17:28 02/17/20 25 02/16/2025 ELECT ROLYT ES PANEL performing lab see note [place] - [facility] [address] [facility] [address] Not Available [address] , [place], [address], 02/16/2025 11:17:28 02/17/2002/16/2025 BLOOD UREA NITRO GEN note See Note Order ing Provi kelvin: Carmen Chamberlain MD Not Available [address], [place], [address], 02/16/2025 11:17:29 02/17/20 25 02/16/2025 BLOOD UREA NITRO GEN blood urea nitrogen 17 mg/dL 7-18 normal Not Available [address]ram[address], [place], [address], 02/16/2025 11:17:29 02/17/20 25 02/16/2025 BLOOD UREA NITRO GEN performing lab see note [place] - [facility] [address] [facility] [address] Not Available [address], [place], [address], 02/16/2025 11:17:29 02/17/20 25 02/16/2025 CREAT ININE W/GFR note See Note Order ing Provi kelvin: Carmen Chamberlain MD Not Available [address], [place], [address], 02/16/2025 11:17:29 02/17/20 25 02/16/2025 CREAT ININE W/GFR creatinine 1.07 mg/dL 0.70-1 .30 normal Not Available [address] , [place], [address], 02/16/2025 11:17:29 02/17/20 25 02/16/2025 CREAT ININE W/GFR GFR (estimated) 84 mL/mi n >60 normal [IM FRANCESCA NT]: The 2020 CKD-E PI equat ion is now the recom alvarado d stand anshu. This versi on does not inclu de race, as do the 2008 and 2011 CKD-E PI creat inine and creat inine -cyst atin C equat ions. Plebenigno e note that the eGFR now repor massiel is gener ated by the new 2020 CKD-E PI equat ion, which decre ases the eGFR for black s by up to 10% and incre ases the eGFR for non-b lacks by up to 10% in nya rison to the old equat ion. To nya re a legac y eGFR to a curre nt value , a 2008 CKD-E PI calcu lator is easil y searc hable on the inter net. Calcu lated GFR: This calcu lated GFR is advoc ated by the [employer] at[employer] to be used as an indic ator of Chron ic Kidne y Disea se (CKD) . 5 Stage s of Chron ic Kidne y Disea se. Stage 1 90 mL/mi n or more Healt hy kidne ys or Kidne y damag e with isabelle l or high GFR detai ls Stage 2 60 to 89 mL/mi n Kidne y damag e and mild decre ase in GFR detai ls Stage 3 30 to 59 mL/mi n Moder ate decre ase in GFR detai ls Stage 4 15 to 29 mL/mi n Sever e decre ase in GFR detai ls Stage 5 Less than 15 mL/mi n On dialy sis or Kidne y failu re Patie nt's clini anni statu s must be consi dered for the care of your patie nt. Not Available [address], [place], [address], 02/16/2025 11:17:29 02/17/20 25 02/16/2025 CREAT ININE W/GFR performing lab see note ML - [facility] [address] [employer] [facility] [address] Not Available [address] , [place], [address], 02/16/2025 11:17:29 02/17/20 25 02/16/2025 GLYCO HEMOG LOBIN (HGB A1C) note See Note Order ing Provi kelvin: Carmen Chamberlain MD Not Available [address] , [place], [address], 02/16/2025 11:20:40 02/17/20 25 02/16/2025 GLYCO HEMOG LOBIN (HGB A1C) glycohemoglo bin (HGB A1C) 6.2 % 4.5-6. 2 normal Predi abete s: 5.7 - 6.4 Diabe ashwin: >6.4 Glyce pearl contr ol for adult s with diabe ashwin: <7.0 Not Available [address] , [place], [address], 02/16/2025 11:20:40 02/17/20 25 02/16/2025 GLYCO HEMOG LOBIN (HGB A1C) performing lab see note ML - [facility] [address] [facility] [address] [facility] [address] Not Available [address] , [place], [address], 02/16/2025 11:20:40 02/21/20 25 02/20/2025 GLUCO SE POINT OF CARE note See Note Order ing Provi kelvin: Carmen Chamberlain MD Not Available [address] , [place], [address], 02/20/2025 08:15:20 02/21/20 25 02/20/2025 GLUCO SE POINT OF CARE glucose point of care 108 mg/dL 70-99 high Not Available [address] [place], [address], 02/20/2025 08:15:20 02/21/20 25 02/20/2025 GLUCO SE POINT OF CARE performing lab see note [facility] - [id number] [place] [address] Not Available [address] [place], [address], 02/20/2025 08:15:20 11/06/19 25 XR, hand No observ ation record ed. BARRY Tobar [address] [place], [address], 11/06/2024 13:29:18 02/19/20 25 02/18/2025 XR, chest , 2 view [facility] Name: JAMIE [facility] [address] [place], [place] [address] [facility] [address] Phys: Bulmaro GARCIA,[place] [address] : 1969 Age: 54 Sex: M Acct: [id number] Loc: G.LAB PHONE #: Exam Date: 2024 Status : DEP CLI FAX #: [phone] Rad# [id number] Unit# [id number] Admit Date: 2024 EXAMS: CPT CODE: [id number] CHEST 2 VIEWS 43168 EXAMIN ATION: TWO VIEW CHEST XR CLINIC AL INDICA TION: Male, 54 years old. PREOP. TECHNI QUE: 2 View, PA and latera l, X-ray of the chest was perfor med. [id number] . COMPAR KISHAN: 023 FINDIN GS: Lungs are clear. No pleura l effusi on. No pneumo thorax . Cardio medias tinal silhou ette is unrema rkable . Bones are intact . IMPRES DANIELLE: Unrema rkable two-vi ew chest. Electr onical ly signed by: Eric howell MD 2024 11:44 AM EDT RP Workst ation: [id number] Electr onical ly Signed by ERIC Howell on 2024 at 1144 Report ed and signed by: LEONARDO AGULIAR CC: NO PRIMAR Y CARE PHYSIC KAPIL; Eric Chamberlain MD Dictat ed Date/T nata: 2024 (1144) Techno logist : Franco MCGEE Transc ribed Date/T nata: 2024 (1144) Transc riptio nist: DR.SHE DOW Electr onic Signat ure Date/T nata: 2024 (1144) Printe d Date/T nata: 2024 (1147) BATCH NO: N/A PAGE 1 Signed Report CC'ed Logic: Orderi ng Provid er: BULMARO ASENCIO Attend ing Provid er: BULMARO ASENCIO Referr ing Provid er: BULMARO ASENCIO Consul ting Provid er: PHYSIC KAPIL NO [email or web address] [place], [address], 02/18/2025 14:25:31 Result Notes Documentation Provider Name and Address Organization Details Recorded Time Xr, Chest, 2 View : [facility] Ce Name: KIM HILARIO [address] [place] [address] Phys: [place] [address] : 1970 Age: 54 Sex: M Acct: [id number] Loc: G.LAB PHONE #: Exam Date: 02/16/2025 Status: DEP CLI FAX #: Rad# [id number] Unit# [id number] Admit Date: 02/16/2025 EXAMS: CPT CODE: [id number] CHEST 2 VIEWS 89175 EXAMINATION: TWO VIEW CHEST XR CLINICAL INDICATION: Male, 54 years old. PREOP. TECHNIQUE: 2 View, PA and lateral, X-ray of the chest was performed. [id number]. COMPARISON: 27/03/2023 FINDINGS: Lungs are clear. No pleural effusion. No pneumothorax. Cardiomediastinal silhouette is unremarkable. Bones are intact. IMPRESSION: Unremarkable two-view chest. Electronically signed by: Eric Kay MD 02/18/2025 11:44 AM EDT RP at 1144 Reported and signed by: ERIC KAY CC: NO PRIMARY CARE PHYSICIAN; Eric Chamberlain MD Dictated Date/Time: 02/18/2025 (1144) Technologist: Franco VILLAREAL Transcribed Date/Time: 02/18/2025 (1144) Metal Gauge Maker: Electronic Signature Date/Time: 02/18/2025 (1144) Printed Date/Time: 02/18/2025 (1147) BATCH NO: N/A PAGE 1 Signed Report CC'ed Logic: Ordering Provider: BULMARO ASENCIO Attending Provider: BULMARO ASENCIO Referring Provider: BULMARO ASENCIO Consulting Provider: PHYSICIAN BREANNA Fitzgerald [facility], [place] - [facility] [place] 02/18/2025 14:25:31 Problems Name Problem SNOMED Code Status Onset Date Resolution Date Notes Provider Name and Address Organization Details Recorded Time Carpal tunnel syndrome of right wrist 2474138040568 08 Active 2024 Eric Chamberlain MD [address] [place] [address],[place] [address], [place], [address], [place] - [facility] [place] 5 10:10:30 Entrapment of right ulnar nerve at elbow 4178269912 Active 2024 Eric Chamberlain MD [address] [place] [address],[place] [address], [place], [address], [place] - [facility] [place] 5 10:10:49 Problem Notes None recorded. Procedures Surgical History Date Name Laterality Status Provider Name and Address Organization Details Recorded Time 0 Back Surgery completed Karen Christianson [place] - [facility] [place] 06/13/2023 15:36:29 operation on lumbar spine completed Monik Bradford [place] - [facility] [place] 09/14/2022 16:06:12 Imaging Results None recorded. Procedure Notes None recorded. Medical Equipment None Reported. Allergies No known drug allergies Medications Name Sig Start Date Stop Date Status Note LastModified by Organization Details LastModified Time c-ivermectin 36mg cap TAKE ONE CAPSULE BY MOUTH EVERY DAY WITH FOOD FOR 7 DAYS active Not Available Not Available No t Available losartan 50 mg tablet TAKE ONE TABLET BY MOUTH DAILY active Not Available Not Available Not Available amoxicillin 500 mg capsule active Not Available Not Available Not Available fluconazole 100 mg tablet active Not Available Not Available Not Available bromelains 500 mg tablet Take by oral route. active Not Available Not Available Not Available anastrozole 1 mg tablet TAKE 1 TABLET BY MOUTH TWICE A WEEK WITH INJECTIONS active Not Available Not Available N ot Available prednisone 10 mg tablet TAKE THREE TABLETS BY MOUTH TWICE A DAY FOR THREE (3) DAYS, THEN TWO TABLETS TWICE A DAY FOR THREE (3) DAYS, THEN ONE TABLET TWICE A DAY FOR THREE (3) DAYS, THEN ONE TABLET DAILY FOR THREE (3) DAYS active Not Available Not Available No t Available clindamycin HCl 300 mg capsule active Not Available Not Available Not Available azithromycin 250 mg tablet take 2 tablets (500 mg) by oral route once daily for 1 day then 1 tablet (250 mg) by oral route once daily for 4 days active Not Available Not Available No t Available Lidocaine Viscous 2 % mucosal solution active Not Available Not Available Not Available sumatriptan 100 mg tablet TAKE ONE TABLET BY MOUTH AT ONSET OF HEADACHE, MAY REPEAT DOSE ONCE AFTER TWO (2) HOURS FOR CONTINUED HEADACHE PAIN. DO NOT EXCEED TWO (2) DOSES IN 24HRS. active Not Available Not Available No t Available bupivacaine HCl 0.25 % (2.5 mg/mL) injection solution Take 2 mg by injection route. 2022 active Not Available Not Available Not Avai lable lisinopril 20 mg tablet Take 1 tablet every day by oral route. active Not Available Not Available No t Available bupivacaine HCl 0.5 % (5 mg/mL) injection solution Take 10 mg by injection route. 2024 active Not Available Not Available Not Avai lable dextroamphet amine-amphet amine 10 mg tablet TAKE 1 TABLET BY MOUTH ONCE DAILY UPON AWAKENING active Not Available Not Available No t Available fexofenadine 180 mg tablet Take 1 tablet every day by oral route. active Not Available Not Available No t Available carbamazepin e 200 mg tablet TAKE ONE HALF (1/2) TABLET BY MOUTH TWICE DAILY FOR ONE (1) WEEK THEN TAKE ONE (1) TABLET BY MOUTH TWICE DAILY FOR REMAINDER active Not Available Not Available No t Available diphenhydram ine 50 mg/mL injection solution INJECT 1 ML INTRAMUSCUL DEJAH ONCE DAILY NEEDED FOR HEADACHE active Not Available Not Available No t Available magnesium oxide 400 mg (241.3 mg magnesium) tablet Take by oral route. active Not Available Not Available Not Available dextroamphet amine-amphet amine ER 20 mg 24hr capsule,exte nd release TAKE ONE CAPSULE BY MOUTH DAILY active Not Available Not Available Not Available Kenalog 10 mg/mL suspension for injection Take 20 mg by injection route. 2024 active Not Available Not Available Not Avai lable benzonatate 100 mg capsule Take 1-2 Caps by mouth Three times a day. active Not Available Not Available No t Available cephalexin 500 mg capsule Take 1 capsule every 6 hours by oral route for 7 days. 2024 active Not Available Not Available Not Avai lable dextroamphet amine-amphet amine 15 mg tablet TAKE 1 TABLET BY MOUTH ONCE DAILY active Not Available Not Available No t Available montelukast 10 mg tablet active Not Available Not Available Not Available testosterone cypionate 200 mg/mL intramuscula r oil INJECT 0.5ml INTRAMUSCUL DEE twice a week, discard remainder of vial AFTER each injection active Not Available Not Available No t Available methylpredni solone 4 mg tablets in a dose pack take as directed active Not Available Not Available No t Available ketorolac 60 mg/2 mL intramuscula r solution INJECT 2 ML INTRAMUSCUL DEE NEEDED FOR MIGRAINE HEADACHE active Not Available Not Available No t Available Percocet 5 mg-325 mg tablet Take 1 tablet every 6 hours by oral route. 2024 active Not Available Not Available Not Avai lable ondansetron 4 mg disintegrati ng tablet active Not Available Not Available No t Available losartan 100 mg tablet active Not Available Not Available No t Available glucosamine- chondroitin 500 mg-400 mg capsule Take by oral route. active Not Available Not Available Not Available dextroamphet amine-amphet amine 5 mg tablet TAKE 1 TABLET BY MOUTH DAILY EVERY EVENING active Not Available Not Available No t Available amoxicillin 875 mg-potassium clavulanate 125 mg tablet active Not Available Not Available Not Available sumatriptan 6 mg/0.5 mL subcutaneous pen injector INJECT 6MG ONCE, MAY REPEAT ONCE IN ONE (1) HOUR IF NEEDED (MAX 12MG/24 HOURS) active Not Available Not Available No t Available bupropion HCl XL 150 mg 24 hr tablet, extended release TAKE ONE TABLET BY MOUTH DAILY active Not Available Not Available Not Available tadalafil 5 mg tablet TAKE ONE TABLET BY MOUTH DAILY active Not Available Not Available Not Available Vitamin C active Not Available Not Bharti ilable Not Available Toradol active Not Available Not Avail able Not Available zinc sulfate 50 mg zinc (220 mg) capsule Take by oral route. active Not Available Not Available Not Available guanfacine ER 1 mg tablet,exten ded release 24 hr TAKE ONE TABLET BY MOUTH DAILY active Not Available Not Available Not Available buprenorphin e 8 mg-naloxone [address] ONE film UNDER THE TONGUE AND let DISSOLVE ONCE DAILY. DO not swallow, chew, OR move AFTER placement. active Not Available Not Available N ot Available icosapent ethyl 1 gram capsule Take 2 capsules twice a day by oral route. active Not Available Not Available No t Available naloxone 4 mg/actuation nasal spray ADMINISTER A SINGLE SPRAY IN ONE NOSTRIL UPON SIGNS OF OPIOID OVERDOSE. CALL 911. REPEAT AFTER 3 MINUTES IF NO RESPONSE. active Not Available Not Available No t Available Emgality Pen 120 mg/mL subcutaneous pen injector active Not Available Not Available Not Available Emgality Pen active Not Available Not Available Not Available aspirin 81 mg capsule Take 1 capsule every day by oral route. active Not Available Not Available No t Available quercetin 500 mg capsule Take by oral route. active Not Available Not Available Not Available Vitals None Recorded Social History Question Answer Notes LastModified by Organizat ion Details LastModified Time Tobacco Smoking Status Current Every Day Smoker Niya Black null, [place] - [facility] [place] [facility] [place] 06/12/2023 14:33:29 Do You Have An Advance Directive? No [email or web address] Information not available 06/12/2023 Are You Blind Or Do You Have Difficulty Seeing? No Information not available 06/12/2023 What Was The Date Of Your Most Recent Tobacco Screening? 11/14/2022 [email or web address] Information not available 06/12/2023 Are You Passively Exposed To Smoke? No Information not available 06/12/2023 How Much Tobacco Do You Smoke? 0.5 PPD [email or web address] Information not available 06/12/2023 Sex: Male Functional Status Question Answer Note LastModified by Organizat ion Details LastModified Time Do you use any illicit or recreational drugs? No [email or web address] Information not available 06/12/2023 What is your level of alcohol consumption? None [email or web address] Information not available 09/14/2022 Do you or have you ever used smokeless tobacco? Never used smokeless tobacco [email or web address] Information not available 06/12/2023 What is your exercise level? Moderate [email or web address] Information not available 06/12/2023 Mental Status Question Answer Note LastModified by Organization D etails LastModified Time Do you feel stressed (tense, restless, nervous, or anxious, or unable to sleep at night)? [id number] [email or web address] Information not available 06/12/2023 Family History Relationship Description Onset Age of this Age Resolved Age Notes LastModified by Organization Details LastModified Time Father Hypertensive disorder [email or web address] Not available 2022 16:04:36 Medical History Condition Response Spine Problems Y Headaches Y Back Problems Y Hypertension Y Immunizations Vaccine Type Date Status Note Provider Nam e and Address Organization Details Recorded Time Influenza, split virus, quadrivalent, preservative 7 completed Milagros Toncray null, [place] [facility] [place] [facility] [place] 12/03/2024 08:45:52 Tdap 7 completed Milagros Toncray [place] [facility] [place] [facility] [place] 12/03/2024 08:45:52 Tdap 7 completed Milagros Toncray null, [place] [facility] [place] [facility] [place] 12/03/2024 08:45:52 Past Encounters Encounter ID Performer Location Encounter Start Date Encounter Closed Date Diagnosis/Indication Diagnosis SNOMED-CT Code Diagnosis ICD10 Code Diagnosis IMO Codes Diagnosis Note [id number] MD PREET Venegas [address] [address] 11/14/2022 13:42:49 11/14/2022 14:38:29 Left lateral elbow tendinopathy 9926702928 36776 M77.12 [id number] [facility] [address] [place] [address] 12/13/2022 15:19:58 12/13/2022 16:06:25 Left lateral elbow tendinopathy 0764166298 44451 M77.12 Right late ral elbow tendinopathy 0413812339 89801 M77.11 [id number] SANDY LEON [facility] [address] [place], [place] [address] 06/13/2023 15:17:00 06/13/2023 16:05:54 Left lateral elbow tendinopathy 2995515945 87708 M77.12 Pain of mu ltiple joints 01759637 M25.50 [id number] SANDY LEON [facility] [place] [address] 11/06/2024 13:02:30 11/06/2024 13:58:02 Numbness and tingling sensation of skin 7245383052 02 R20.2 [id number] Eric Chamberlain MD [facility] [address] [place] [address] 12/03/2024 08:30:30 12/03/2024 09:19:56 Carpal tunnel syndrome of right wrist 2717616962 38891 G56.01 897597 Entrapment of right ulnar nerve at elbow 5746742311 G56.21 [id number] MD PREET Venegas [facility] [address] [address] 02/03/2025 08:26:38 02/03/2025 09:52:51 Carpal tunnel syndrome of right wrist 5255857559 65333 G56.01 627684 Entrapment of right ulnar nerve at elbow 3221121356 G56.21 [id number] Left media l elbow tendinopathy 4359741759 40335 M77.02 [id number] MD PREET Venegas [facility] [address] [place] [address] 02/25/2025 09:20:30 02/25/2025 10:59:18 Local infection of wound 02417947 T81.49XA [id number] Postoperative pain 17421 9007 G89.18 [id number] SANDY LEON [address] [address] 03/04/2025 10:47:45 03/04/2025 11:30:01 Follow-up orthopedic assessment 136444787 Z47.89 [id number] Health Concerns Section Related Observation LastModified by Organization Detai ls LastModified Time None Recorded Concern Status LastModified by Organization Details LastModified Time None Recorded Advance Directives Directive N: Payers Insurance Date Sequence Insurance Name Policy Number Policy Lepe Covered Member ID Lepe Member ID Guarantor Name 02/03/2025 1 [facility] [id number] Christopher S Colemire [id number] Christopher S Colemire 02/16/2025 SLIDING FEE SCHEDULE - DISCOUNT Christopher S Colemire 12/03/2024 1 [employer] (PPO) Christopher S Colemire [id number] Christopher S Colemire 03/04/2025 2 [facility] (POS) [id number] Christopher S Colemire [id number] Christopher S Colemire 03/04/2025 1 [facility] [facility] [id number] Christopher S Colemire [id number] Christopher S Colemire 02/03/2025 1 [employer] [facility] (PPO) Christopher S Colemire [id number] Christopher S Colemire 12/03/2024 1 [employer] (MEDICARE REPLACEMENT/ADV ANTAGE - HMO) Christopher S Colemire [id number] Christopher S Colemire 12/09/2024 SLIDING FEE SCHEDULE - DISCOUNT Christopher S Colemire 03/10/2025 1 [facility] [id number] Christopher S Colemire [id number] Christopher S Colem[place] Notes Date Note Type Note Provider Name and Address Organization Details Recorded Time 11/06/2024 text/html ROS as noted in the HPI Pt presents today with numbness in fingers of right hand. DOO- 3 months ago. No injury. Pt states he went to the ER around 2 weeks ago, where they gave him a wrist brace, a steroid injection of Decadron, and a Medrol dosepak. Pt states they did not do x-rays. Pt states the Medrol dose rio did help a lot while he was taking it but since he has stopped, it does not help. Pt states he is not wearing the wrist brace and hasn't since they gave it to him, he states it hurt too bad to wear it. Pt is taking Aleve and motrin for pain. We will get x-rays today. Pt has a hx of a left carpal tunnel release done by Dr. Chamberlain around 11-12 years ago.[id number] KLEVER MORRISON NP [address] [place] [address],[address], [place], [address], [facility] & [place] 11/07/2024 10:14:28 12/03/2024 text/html ROS as noted in the HPI Patient is here today for EMG results. Patient stated right is worse than left. He does have some elbow pain. He is having trouble gripping and dropping things with right hand. Medrol pack only seems to help. He is out of that right now. He would like to discuss surgery for right hand. Eric Chamberlain MD [address] [place] [address],[address], [place], [address], [facility] & [place] 12/05/2024 07:21:15 02/03/2025 text/html ROS as noted in the HPI 54 year old male here today to reschedule right carpal tunnel and cubital tunnel release. KLEVER MORRISON NP [address] [place] [address],[address], [place], [address], [facility] & [place] 02/04/2025 09:28:50 02/25/2025 text/html This 54 year old male patient presents in the office 5 days post op RIGHT CARPAL TUNNEL AND CUBITAL TUNNEL RELEASE. There were no sutures to the cubital tunnel, per patient. The carpal tunnel incision has sutures and appears to be . He states that his numbness and tingling is improved slightly. He arrives with his dressing already removed. His called the clinic yesterday about pain medication. CHE1 Eric Chamberlain MD [address] [place] [address],[address], [place], [address], [facility] & [place] 02/27/2025 06:43:50 03/04/2025 text/html ROS as noted in the HPI 54 year old male here today for 12 days post op right cubital and right carpal tunnel release. He states that elbow incision opened up yesterday with some drainage, applied steri-strips. He states trouble with keeping incision on right wrist dry. He stills has a few days left of cephalexin. He finished the medrol dosepak and would like a refill. KLEVER MORRISON NP [address] [facility],[address], [place], [address], [facility] & [place] 03/05/2025 12:40:36
--- OUTSIDE RECORDS SUMMARY | 2025-07-03 11:08 | XMS_ITS | Data Portability ---
Author Organization [place] - [facility] Address [address] [place] [address] Care Team Providers Care Bowling Ball Assembler Name Role Phone [facility] [place] Primary Care Provider Assessment Encounter Date Assessment Date Assessment LastModified by Organization Details LastModified Time 07/24/2022 07/24/2022 I personally spent 25 minutes discussing results with patient and reviewing plan of care for further evaluation of multiple complaints/pr oblems today. Not available 07/24/2022 17:01:15 Plan of Treatment Reminders Order Date Submit Date Provider Last Modified By Organization Details Last Modified Time Details Appointments None recorded. Lab microalbumi n/creatinin e, mass ratio, urine 2022 023 [facility], [address] [place], [address], 3 16:16:45 CMP, serum or plasma 2022 023 [place] [facility], [address] [place] [address], [address], 12:36:53 HbA1c (hemoglobin A1c), blood 2022 023 [facility], [address] [place], [address], 16:11:44 lipid panel, serum 2022 023 [facility], [address] [place] [address], [address], 3 12:36:54 PSA, serum or plasma 2022 023 [employer] [facility], [address] [place] [address], [address], 3 09:28:19 uric acid, serum or plasma 2022 023 [employer] [facility], [address] [place] [address], [address], 3 09:28:17 ESR (erythrocyt e sedimentati on rate), blood 2022 023 [employer] [facility], [address] [place] [address], [address], 3 09:28:17 C reactive protein, QN, serum or plasma 2022 023 [employer] [facility], [address] [place] [address], [address], 3 09:28:17 prothrombin time 2022 023 [employer] [facility], [address] [place] [address], [address], 3 07:55:56 ccp (cyclic citrullinat ed peptide) iga+igg, serum 2022 023 [employer] [facility], [address] [place] [address], [address], 3 09:28:18 hla-B27, blood 2022 023 [facility], [address] [place] [address], [address], 3 12:36:57 borrelia burgdorferi IgG + IgM + total panel, IA, serum 2022 023 [employer] [facility], [address] [place] [address], [address], 3 09:28:18 CBC w/ auto diff 2022 023 [facility], [address] [place] [address], [address], 3 12:36:52 rf (rheumatoid factor), serum 2022 023 [place] [address] [facility], [address] [place] [address], [address], 3 09:28:18 DUSTY (antinuclea r antibodies) screen, serum 2022 023 [place] [address] [facility], [address] [place] [address], [address], 3 09:28:18 TSH + free T4, serum 2022 023 [place] [address] [facility], [address] [place] [address], [address], 3 09:28:18 Referral None recorded. Procedures None recorded. Surgeries None recorded. Imaging None recorded. Medication Orders albuterol sulfate HFA 90 mcg/actuati on aerosol inhaler 2024 025 [place] [facility] [place], [address], [place], [address], 5 15:13:51 hydroxyzine HCl 25 mg tablet 2024 025 [place] [facility] [place], [address], [place], [address], 5 05:01:54 amoxicillin 875 mg-potassiu m clavulanate 125 mg tablet 2024 025 [place] [facility] [place], [address], [place], [address], 5 15:11:48 Nicoderm CQ 14 mg/24 hr daily transdermal patch [id number] [facility] [id number], [address] , [place], [address], 5 13:52:20 Nicoderm CQ 7 mg/24 hr daily transdermal patch [id number] [facility] [id number], [address] , [place], [address], 5 13:52:17 nicotine (polacrilex ) 2 mg buccal lozenge [id number] [facility] [id number], [address] , [place], [address], 5 13:52:26 varenicline tartrate 0.5 mg (11)-1 mg (42) tablets in a dose pack [address] [facility] [id number], [address] , [place], [address], 5 13:51:44 varenicline tartrate 1 mg tablet [id number] [facility] [id number], [address] , [place], [address], 5 13:51:50 Depo-Medrol 40 mg/mL suspension for injection 2022 023 [email or web address] Not available 5 13:51:08 ceftriaxone 1 gram solution for injection 2022 023 Not available 5 13:51:00 doxycycline hyclate 100 mg tablet [id number] [facility] [id number], [address] , [place], [address], 5 13:52:34 prednisone 20 mg tablet 2022 023 [email or web address] [facility] [id number], [address] , [place], [address], 5 13:51:30 sildenafil 25 mg tablet [id number] [facility] [id number], [address] , [place], [address], 5 13:52:06 Imitrex STATdose Pen 6 mg/0.5 mL subcutaneou s pen injector 2021 022 [email or web address] [facility] [id number], [address] , [place], [address], 3 15:19:24 Medrol (Rio) 4 mg tablets in a dose pack [id number] [facility] [address] [facility] [id number], [address] , [place], [address], 5 13:51:22 Patient TargetsNo targets recorded. Patient Instructions Encounter Date Encounter Id Patient Instructions Last Modified By Organization Details Last Modified Time 07/24/2022 [id number] prediabetes: care instructions Not available 07/24/2022 16:15:27 high cholesterol: care instructions Not available 07/24/2022 16:15:27 tennis elbow: care instructions Not available 07/24/2022 16:15:27 tennis elbow: exercises Not available 07/24/2022 16:15:27 learning about healthy weight Not available 07/24/2022 16:15:27 07/09/2023 [id number] learning about healthy weight Not available 07/09/2023 17:15:00 body mass index: care instructions [email or web address] Not available 07/09/2023 17:15:00 03/16/2025 [id number] wheezing or bronchoconstrict ion: care instructions [email or web address] Not available 03/16/2025 15:13:49 smoking cessation counseling, greater than 3 minutes up to 10 minutes* [email or web address] Not available 03/23/2025 13:57:06 Acute Sinusitis: Care Instructions [email or web address] Not available 03/16/2025 15:11:47 smoking cessation encouraged follow up with mental health professional take medication as directed monitor BP heart healthy diet [email or web address] Not available 03/16/2025 15:15:26 Reason for Referral None Reported. 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 Not Available [address] [place], [place], [address], 07/17/2022 06:46:08 07/17/20 22 07/17/2022 CBC W/AUT O DIFFE RENTI AL white blood cell 8.1 10e3/ uL 4.5-13 .0 normal Not Available [place] [address], [place], [address], 07/17/2022 06:46:08 07/17/20 22 07/17/2022 CBC W/AUT O DIFFE RENTI AL red blood cell 4.12 10e6/ uL 4.10-5 .70 normal Not Available [place] [address], [place], [address], 07/17/2022 06:46:08 07/17/20 22 07/17/2022 CBC W/AUT O DIFFE RENTI AL hemoglobin 13.2 g/dL 12.0-1 6.9 normal Not Available [address] Subramanian, [place], [address], 07/17/2022 06:46:08 07/17/20 22 07/17/2022 CBC W/AUT O DIFFE RENTI AL hematocrit 37.7 % 36.0-4 9.0 normal Not Available [address]ram[address], [place], [address], 07/17/2022 06:46:08 07/17/20 22 07/17/2022 CBC W/AUT O DIFFE RENTI AL mean cell volume 92 fL 78.0-9 8.0 normal Not Available [address] [place], [place], [address], 07/17/2022 06:46:08 07/17/20 22 07/17/2022 CBC W/AUT O DIFFE RENTI AL mean cell HGB 32.0 pg 25.0-3 5.0 normal Not Available [address] [place], [place], [address], 07/17/2022 06:46:08 07/17/20 22 07/17/2022 CBC W/AUT O DIFFE RENTI AL mean cell HGB concentratio n 35.0 g/dL 31.0-3 6.0 normal Not Available [address]ram[address], [place], [address], 07/17/2022 06:46:08 07/17/20 22 07/17/2022 CBC W/AUT O DIFFE RENTI AL red cell distribution width 12.9 % 11.0-1 5.0 normal Not Available [place] [address], [place], [address], 07/17/2022 06:46:08 07/17/20 22 07/17/2022 CBC W/AUT O DIFFE RENTI AL platelet count 206 10e3/ uL 150-40 0 normal Not Available [address] [place], [place], [address], 07/17/2022 06:46:08 07/17/20 22 07/17/2022 CBC W/AUT O DIFFE RENTI AL immature granulocyte % 0 0-1 normal Not Available [address] , [place], [address], 07/17/2022 06:46:08 07/17/20 22 07/17/2022 CBC W/AUT O DIFFE RENTI AL neutrophil % 63 % 35-75 normal Not Available [address] , [place], [address], 07/17/2022 06:46:08 07/17/20 22 07/17/2022 CBC W/AUT O DIFFE RENTI AL lymphocyte % 26 % 10-50 normal Not Available [address] , [place], [address], 07/17/2022 06:46:08 07/17/20 22 07/17/2022 CBC W/AUT O DIFFE RENTI AL monocyte % 7 % 0-15 normal Not Available [address] [place]ram[place], [place], [address], 07/17/2022 06:46:08 07/17/20 22 07/17/2022 CBC W/AUT O DIFFE RENTI AL eosinophil % 4 % 0-5 normal Not Available [address] [place], [place], [address], 07/17/2022 06:46:08 07/17/20 22 07/17/2022 CBC W/AUT O DIFFE RENTI AL basophil % 0 % 0-5 normal Not Available [address] [place], [place], [address], 07/17/2022 06:46:08 07/17/20 22 07/17/2022 CBC W/AUT O DIFFE RENTI AL immature granulocyte # 0.03 x1000 /uL 0-0.05 normal Not Available [address] [place], [address], 07/17/2022 06:46:08 07/17/20 22 07/17/2022 CBC W/AUT O DIFFE RENTI AL neutrophil # 5.10 x1000 /uL 1.50-8 .00 normal Not Available [address] [place], [place], [address], 07/17/2022 06:46:08 07/17/20 22 07/17/2022 CBC W/AUT O DIFFE RENTI AL lymphocyte # 2.09 x1000 /uL 1.20-5 .20 normal Not Available [address] [place], [place], [address], 07/17/2022 06:46:08 07/17/20 22 07/17/2022 CBC W/AUT O DIFFE RENTI AL monocyte # 0.55 x1000 /uL 0.30-0 .90 normal Not Available [address] [place]ram[address], [place], [address], 07/17/2022 06:46:08 07/17/20 22 07/17/2022 CBC W/AUT O DIFFE RENTI AL eosinophil # 0.29 x1000 /uL 0.00-0 .50 normal Not Available [address] [place]ram[address], [place], [address], 07/17/2022 06:46:08 07/17/20 22 07/17/2022 CBC W/AUT O DIFFE RENTI AL basophil # 0.02 x1000 /uL 0.00-0 .30 normal Not Available [address] [place], [place], [address], 07/17/2022 06:46:08 07/17/20 22 07/17/2022 CBC W/AUT O DIFFE RENTI AL NRBC automated 0.0 /100_ WBC Not Available [address] [place], [place], [address], 07/17/2022 06:46:08 07/17/20 22 07/17/2022 CBC W/AUT O DIFFE RENTI AL performing lab see note ML - [facility] [address] [facility] [id number] Not Available [address] , [place], [address], 07/17/2022 06:46:08 07/17/20 22 07/17/2022 SEDIM ENTAT ION RATE note See Note Order ing Provi kelvin: [employer] 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 Not Available [address] , [place], [address], 07/17/2022 07:09:06 07/17/20 22 07/17/2022 SEDIM ENTAT ION RATE sedimentatio n rate 8 mm/HR 0-15 normal Not Available [address] , [place], [address], 07/17/2022 07:09:06 07/17/20 22 07/17/2022 SEDIM ENTAT ION RATE performing lab see note [facility] - [facility] [address] [facility] [id number] Not Available [address] , [place], [address], 07/17/2022 07:09:06 07/17/20 22 07/17/2022 GLYCO HEMOG LOBIN (HGB A1C) note See Note Order ing Provi kelvin: [employer] 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 Not Available [address] , [place], [address], 07/17/2022 07:35:34 07/17/20 22 07/17/2022 FE W/TOT AL IRON LEONORA NG CAP iron 119 ug/dL 65-175 normal Not Available [address], [place], [address], 07/17/2022 07:35:34 07/17/20 22 07/17/2022 FE W/TOT AL IRON LEONORA NG CAP total iron binding capacity 295 ug/dL 260-40 0 normal Not Available [address], [place], [address], 07/17/2022 07:35:34 07/17/20 22 07/17/2022 FE W/TOT AL IRON LEONORA NG CAP iron saturation 40 % 20-50 normal Not Available [address] [place], [place], [address], 07/17/2022 07:35:34 07/17/20 22 07/17/2022 FE W/TOT AL IRON LEONORA NG CAP performing lab see note ML - [facility] R [address] [facility] [place] [address] Not Available [address] [place], [place], [address], 07/17/2022 07:35:34 07/17/20 22 07/17/2022 COMP METAB OLIC PANEL note See Note Order ing Provi kelvin: [employer] 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 1 normal Not Available [address] [place], [address], 07/17/2022 07:47:21 07/17/20 22 07/17/2022 COMP METAB OLIC PANEL chloride 103 mmol/ L 98-107 normal Not Available [place] [address] [place], [address], 07/17/2022 07:47:21 07/17/20 22 07/17/2022 COMP METAB OLIC PANEL carbon dioxide 28 mmol/ L 24-33 normal Not Available [address] [place], [address], 07/17/2022 07:47:21 07/17/20 22 07/17/2022 COMP METAB OLIC PANEL anion gap 12.4 mmol/ L 10-20 normal Not Available [address] [place], [address], 07/17/2022 07:47:21 07/17/20 22 07/17/2022 COMP METAB OLIC PANEL glucose 119 mg/dL 70-99 high Not Available [address] [place], [place], [address], 07/17/2022 07:47:21 07/17/20 22 07/17/2022 COMP METAB OLIC PANEL blood urea nitrogen 23 mg/dL 7-18 high Not Available [address] [place], [place], [address], 07/17/2022 07:47:21 07/17/20 22 07/17/2022 COMP METAB OLIC PANEL creatinine 1.08 mg/dL 0.70-1 .30 normal Not Available [address] , [place], [address], 07/17/2022 07:47:21 07/17/20 22 07/17/2022 COMP METAB OLIC PANEL BUN/creatini ne ratio 21 12-20 high Not Available [address] [place], [place], [address], 07/17/2022 07:47:21 07/17/20 22 07/17/2022 COMP METAB OLIC PANEL total protein 6.2 g/dL 6.4-8. 2 low Not Available [address], [place], [address], 07/17/2022 07:47:21 07/17/20 22 07/17/2022 COMP METAB OLIC PANEL albumin 3.8 g/dL 3.4-5. 0 normal Not Available [address] [place], [place], [address], 07/17/2022 07:47:21 07/17/20 22 07/17/2022 COMP METAB OLIC PANEL globulin 2.4 g/dL 1.5-4. 0 normal Not Available [address] [place], [address], 07/17/2022 07:47:21 07/17/20 22 07/17/2022 COMP METAB OLIC PANEL albumin/glob ulin ratio 1.6 0.5-2. 0 normal Not Available [address] [place], [address], 07/17/2022 07:47:21 07/17/20 22 07/17/2022 COMP METAB OLIC PANEL calcium 8.5 mg/dL 8.5-10 .1 normal Not Available [address] [place], [address], 07/17/2022 07:47:21 07/17/20 22 07/17/2022 COMP METAB OLIC PANEL osmolality serum calculated 282 mOsm/ kg 272-28 8 normal Not Available [address] , [place], [address], 07/17/2022 07:47:21 07/17/20 22 07/17/2022 COMP METAB OLIC PANEL glom filtr rate (estimated) > 60 mL/mi n >60 normal Not Available [address] [place], [address], 07/17/2022 07:47:21 07/17/20 22 07/17/2022 COMP METAB OLIC PANEL GFR est (if -amer ican) > 60 mL/mi n >60 normal Not Available [address] [place], [address], 07/17/2022 07:47:21 07/17/20 22 07/17/2022 COMP METAB OLIC PANEL bilirubin total 0.5 mg/dL 0.2-1. 0 normal Use of this assay is not recom alvarado d for patie nts under going treat ment with Eltro mbopa g due to the poten tial for false ly eleva massiel resul ts. Not Available [address] , [place], [address], 07/17/2022 07:47:21 07/17/20 22 07/17/2022 COMP METAB OLIC PANEL SGOT/AST 24 U/L 15-37 normal Not Available [address] [place], [address], 07/17/2022 07:47:21 07/17/20 22 07/17/2022 COMP METAB OLIC PANEL SGPT/ALT 45 U/L 16-63 normal Not Available [address] , [place], [address], 07/17/2022 07:47:21 07/17/20 22 07/17/2022 COMP METAB OLIC PANEL alkaline phosphatase total 52 U/L 46-116 normal Not Available [address] , [place], [address], 07/17/2022 07:47:21 07/17/20 22 07/17/2022 COMP METAB OLIC PANEL performing lab see note - [facility] [address] [facility] [address] Not Available [address] [place], [address], 07/17/2022 07:47:21 07/17/20 22 07/17/2022 LIPID PANEL note See Note Order ing Provi kelvin: [employer] 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 Not Available [address] [place], [address], 07/17/2022 07:47:21 07/17/20 22 07/17/2022 LIPID PANEL triglyceride s 139 mg/dL < 150 normal Natio nal Karis stero l Educa tion Progr am (NCEP ) Guide lines : Radha l < 150 mg/dL Borde rline 150 - 199 mg/dL High 200 - 499 mg/dL Very High >or= 500 mg/dL Not Available [address] [place], [address], 07/17/2022 07:47:21 07/17/20 22 07/17/2022 LIPID PANEL cholesterol 200 mg/dL < 200 high Natio nal Karis stero l Educa tion Progr am (NCEP ) Guide lines : Hong able < 200 mg/dL Borde rline Risk 200 - 239 mg/dL High Risk >or= 240 mg/dL Not Available [address] , [place], [address], 07/17/2022 07:47:21 07/17/20 22 07/17/2022 LIPID PANEL HDL cholesterol 41 mg/dL > 60 low Natio nal Karis stero l Educa tion Progr am Adult Treat ment Panel III (NCEP -ATP III) Guide lines : < 40 mg/dl : Low HDL-C holes terol >or= 60 mg/dl : High HDL-C holes terol Not Available [address] , [place], [address], 07/17/2022 07:47:21 07/17/20 22 07/17/2022 LIPID PANEL LDL cholesterol 131 mg/dL < 100 high Natio nal Karis stero l Educa tion Progr am (NCEP ) Guide lines : Optim al < 100 mg/dL Near/ Above Optim al 100 - 129 mg/dL Borde rline High 130 - 159 mg/dL High 160 - 189 mg/dL Very High >or= 190 mg/dL Not Available [address] [place], [address], 07/17/2022 07:47:21 07/17/20 22 07/17/2022 LIPID PANEL performing lab see note ML - [facility] [address] [facility] [place] [address] Not Available [address] [place], [address], 07/17/2022 07:47:21 07/17/20 22 07/17/2022 MAGNE SIUM note See Note Order ing Provi kelvin: [employer] 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 4 normal Not Available [address] , [place], [address], 07/17/2022 07:47:22 07/17/20 22 07/17/2022 MAGNE SIUM performing lab see note ML - [facility] R [address] [facility] [address] Not Available [address] , [place], [address], 07/17/2022 07:47:22 07/17/20 22 07/17/2022 T4 FREE note See Note Order ing Provi kelvin: 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 Not Available [address] , [place], [address], 07/17/2022 07:47:22 07/17/20 22 07/17/2022 T4 FREE T4 free 0.86 NG/dL 0.76-1 .46 normal This test may be affec massiel by high level s of bioti n, found in some presc ripti on and over- the-c ounte r suppl ement s. [place]int[place] ly, patie nts charly bhardwaj disco ntinu e bioti n 3 days befor e testi ng. Resul ts obtai eugenio after recen t bioti n inges tion charly bhardwaj be inter prete d with cauti on. Not Available [address] , [place], [address], 07/17/2022 07:47:22 07/17/20 22 07/17/2022 T4 FREE performing lab see note ML - [facility] [address] [place] [address] Not Available [address] , [place], [address], 07/17/2022 07:47:22 07/17/20 22 07/17/2022 THYRO ID STIMU LATIN G HORMO NE note See Note Order ing Provi kelvin: 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 Not Available [address] , [place], [address], 07/17/2022 07:47:23 07/17/20 22 07/17/2022 THYRO ID STIMU LATIN G HORMO NE thyroid stimulating hormone 1.99 uIU/m L 0.36-3 .74 normal This test may be affec massiel by high level s of bioti n, found in some presc ripti on and over- the-c ounte r suppl ement s. [place] ly, patie nts shoul d disco ntinu e bioti n 3 days befor e testi ng. Resul ts obtai eugenio after recen t bioti n inges tion shoul d be inter prete d with cauti on. Not Available [address] , [place], [address], 07/17/2022 07:47:23 07/17/20 22 07/17/2022 THYRO ID STIMU LATIN G HORMO NE performing lab see note ML - [facility] [address] [place] [address] Not Available [address] , [place], [address], 07/17/2022 07:47:23 07/17/20 22 07/17/2022 C-KHOA CTIVE PROTE IN note See Note Order ing Provi kelvin: 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 Not Available [address] , [place], [address], 07/17/2022 07:47:23 07/17/20 22 07/17/2022 C-KHOA CTIVE PROTE IN C-reactive protein <2.0 mg/L 0.0-9. 0 normal Not Available [address] , [place], [address], 07/17/2022 07:47:23 07/17/20 22 07/17/2022 C-KHOA CTIVE PROTE IN performing lab see note - [facility] R [address] [facility] [address] Not Available [address] , [place], [address], 07/17/2022 07:47:23 07/17/20 22 07/17/2022 TESTO STERO NE note See Note Order ing Provi kelvin: [employer] 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 Not Available [address] , [place], [address], 07/18/2022 09:15:37 07/17/20 22 07/17/2022 TESTO STERO NE testosterone 352 NG/dL 264-91 6 Adult male refer ence inter katia is based on a popul ation of healt hy nonob pavan males (BMI <30) betwe en 19 and 39 years old. Yi diggs, et.al . JCEM 2017, 102;1 161-1 173. PMID: 16656 103. Perfo rmed At: CB, [facility] [address] [facility], [place], [address] 4541 Dc zheng, PhD, Phone : [phone] Not Available [address] , [place], [address], 07/18/2022 09:15:37 07/17/20 22 07/17/2022 TESTO STERO NE performing lab see note LC2 - [facility] RP CLIEN T# [id number] [address] [place] [address] Not Available [address] , [place], [address], 07/18/2022 09:15:37 07/17/20 22 07/17/2022 LIZA TIN note See Note Order ing Provi kelvin: 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 Not Available [address] , [place], [address], 07/17/2022 07:47:24 07/17/20 22 07/17/2022 LIZA TIN ferritin 55 NG/mL 26-388 normal Not Available [address] , [place], [address], 07/17/2022 07:47:24 07/17/20 22 07/17/2022 LIZA TIN performing lab see note - [facility] [address] [facility] [id number] Not Available [address] , [place], [address], 07/17/2022 07:47:24 07/17/20 22 07/17/2022 VITAM IN D 25-HY DROXY note See Note Order ing Provi kelvin: 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 Not Available [address] , [place], [address], 07/18/2022 08:16:24 07/17/20 22 07/17/2022 VITAM IN D 25-HY DROXY vitamin D 25-hydroxy 52.2 NG/mL 30.0-1 00.0 Vitam in D defic iency has been defin ed by the [facility] and an Endoc rine Socie ty pract ice guide line as a level of serum 25-OH vitam in D less than 20 ng/mL (1,2) . The Endoc rine Socie ty went on to furth er defin e vitam in D insuf ficie ncy as a level betwe en 21 and 29 ng/mL (2). 1. IOM (Inst itute of Medic ine). 2010. Dieta ry refer ence intak es for calci um and D. Tomasz simms [place]: The [facility] . 2. Behzad simon MF, Mona mora NC, Germaine off-F errbravo i GONZALEZ, et al. Evalu ation , treat ment, and preve ntion of vitam in D defic iency : an Endoc rine Socie ty clini anni pract ice guide line. JCEM. 2010; 96(7) :1911 -30. Perfo rmed At: CB, [facility] [address] [place], [address] 2[address] [facility] Keon zheng, PhD, Phone : [phone] Not Available [address] [place], [address], 07/18/2022 08:16:24 07/17/20 22 07/17/2022 VITAM IN D 25-HY DROXY performing lab see note LC2 - [facility] MARIANAIEN T# [id number] Fát[place] [address] Not Available [address] [place], [address], 07/18/2022 08:16:24 07/17/20 22 07/17/2022 VITAM IN B12 FOLAT E note See Note Order ing Provi kelvin: Allis on 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 Not Available [address] [place], [address], 07/18/2022 12:13:58 07/17/20 22 07/17/2022 VITAM IN B12 FOLAT E vitamin B12 987 pg/mL 232-12 45 Not Available [address] [place], [address], 07/18/2022 12:13:58 07/17/20 22 07/17/2022 VITAM IN B12 FOLAT E folic acid 12.6 NG/mL >3.0 . A serum folat e darío ntrat ion of less than 3.1 ng/mL is consi dered to repre sent clini anni defic iency . Perfo rmed At: CB, [facility] [place] [address] [facility] [employer] 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 Perfo rmed At: CB, [facility] [place] [address] [facility] [employer] [facility], [place], [address] 9213 Dc zheng, PhD, Phone : [phone] Not Available [address] [place], [address], 07/20/2022 12:12:31 07/17/20 22 07/17/2022 ANTIN UCLEA R ANTIB ODIES TITER performing lab see note LC2 - [facility] CLIEN T# [id number] Fát[place] [address] Not Available [address] [place], [address], 07/20/2022 12:12:31 07/17/20 22 07/17/2022 hospi richelle labs A1C 6.1 Not Available [address] , [place], [address], 07/17/2022 08:28:24 07/09/20 23 07/10/2023 PROTH ROMBI N TIME (PT) INR 1.0 0.9-1. 2 Refer ence inter katai is for non-a ntico agula massiel patie nts. Sugge sted INR thera peuti c range for Vitam in K antag onist thera py: Stand anshu Dose (mode rate inten sity thera peuti c range ): 2.0 - 3.0 Highe r inten sity thera peuti c range 2.5 - 3.5 Not Available [facility] ([facility]) [address] [place], [address], 07/10/2023 16:36:10 07/09/20 23 07/10/2023 PROTH ROMBI N TIME (PT) prothrombin time 10.4 sec 9.1-12 .0 Not Available [facility] ([facility]) [address] [facility], [place], [address], 07/10/2023 16:36:10 07/09/20 23 07/10/2023 TENZIN EN AUTHO RIARLEYT ION written authorizatio n Eliazar Helton en Autho rizat ion Recei les. Autho rizat ion recei les from PER ORIGI NAL ORDER 07-10 Logge d by Morales jo Not Available [facility] ([facility]) [address] [facility], [place], [address], 07/10/2023 16:36:11 07/09/20 23 07/10/2023 TSH+F REE T4 TSH 0.531 uIU/m L 0.450- 4.500 Not Available [facility] ([facility]) [address] [facility], [place], [address], 07/20/2023 12:36:51 07/09/2007/10/2023 TSH+F REE T4 T4,free(dire ct) 1.38 NG/dL 0.82-1 .77 Not Available [facility] ([facility]) [address] [place], [address], 07/20/2023 12:36:51 07/09/20 23 07/10/2023 CBC WITH DIFFE RENTI AL/PL ATELE T WBC 10.6 x10e3 /uL 3.4-10 .8 Not Available [facility] ([facility]) [address] [place], [address], 07/20/2023 12:36:52 07/09/20 23 07/10/2023 CBC WITH DIFFE RENTI AL/PL ATELE T RBC 4.89 x10e6 /uL 4.14-5 .80 Not Available [facility] ([facility]) [address] [place], [address], 07/20/2023 12:36:52 07/09/20 23 07/10/2023 CBC WITH DIFFE RENTI AL/PL ATELE T hemoglobin 15.3 g/dL 13.0-1 7.7 Not Available [facility] ([facility]) [address] [place], [address], 07/20/2023 12:36:52 07/09/2007/10/2023 CBC WITH DIFFE RENTI AL/PL ATELE T hematocrit 43.5 % 37.5-5 1.0 Not Available [facility] ([facility]) [address] [facility], [place], [address], 07/20/2023 12:36:52 07/09/2007/10/2023 CBC WITH DIFFE RENTI AL/PL ATELE T MCV 89 fL 79-97 Not Available [facility] ([facility]) [address] [facility], [place], [address], 07/20/2023 12:36:52 07/09/2007/10/2023 CBC WITH DIFFE RENTI AL/PL ATELE T MCH 31.3 pg 26.6-3 3.0 Not Available [facility] ([facility]) [address] [facility], [place], [address], 07/20/2023 12:36:52 07/09/2007/10/2023 CBC WITH DIFFE RENTI AL/PL ATELE T MCHC 35.2 g/dL 31.5-3 5.7 Not Available [facility] ([facility]) [address] [facility], [place], [address], 07/20/2023 12:36:52 07/09/2007/10/2023 CBC WITH DIFFE RENTI AL/PL ATELE T RDW 12.6 % 11.6-1 5.4 Not Available [facility] ([facility]) [address] [facility], [place], [address], 07/20/2023 12:36:52 07/09/2007/10/2023 CBC WITH DIFFE RENTI AL/PL ATELE T platelets 286 x10e3 /uL 150-45 0 Not Available [facility] ([facility]) [address] [facility], [place], [address], 07/20/2023 12:36:52 07/09/2007/10/2023 CBC WITH DIFFE RENTI AL/PL ATELE T neutrophils 84 % not estab. Not Available [facility] ([facility]) [address] [facility], [place], [address], 07/20/2023 12:36:52 07/09/20 23 07/10/2023 CBC WITH DIFFE RENTI AL/PL ATELE T lymphs 12 % not estab. Not Available [facility] ([facility]) [address] [facility], [place], [address], 07/20/2023 12:36:52 07/09/2007/10/2023 CBC WITH DIFFE RENTI AL/PL ATELE T monocytes 4 % not estab. Not Available [facility] ([facility]) [address] [facility], [place], [address], 07/20/2023 12:36:52 07/09/2007/10/2023 CBC WITH DIFFE RENTI AL/PL ATELE T eos 0 % not estab. Not Available [facility] ([facility]) [address] [facility], [place], [address], 07/20/2023 12:36:52 07/09/2007/10/2023 CBC WITH DIFFE RENTI AL/PL ATELE T basos 0 % not estab. Not Available [facility] ([facility]) [address] [facility], [place], [address], 07/20/2023 12:36:52 07/09/2007/10/2023 CBC WITH DIFFE RENTI AL/PL ATELE T immature cells [employer] Not Available [facility] ([facility]) [address] [facility], [place], [address], 07/20/2023 12:36:52 07/09/20 23 07/10/2023 CBC WITH DIFFE RENTI AL/PL ATELE T neutrophils (absolute) 8.9 x10e3 /uL 1.4-7. 0 above high normal Not Available [facility] ([facility]) [address] [facility], [place], [address], 07/20/2023 12:36:52 07/09/20 23 07/10/2023 CBC WITH DIFFE RENTI AL/PL ATELE T lymphs (absolute) 1.3 x10e3 /uL 0.7-3. 1 Not Available [facility] ([facility]) [address] [facility], [place], [address], 07/20/2023 12:36:52 07/09/20 23 07/10/2023 CBC WITH DIFFE RENTI AL/PL ATELE T monocytes(ab solute) 0.4 x10e3 /uL 0.1-0. 9 Not Available [facility] ([facility]) [address] [facility], [place], [address], 07/20/2023 12:36:52 07/09/20 23 07/10/2023 CBC WITH DIFFE RENTI AL/PL ATELE T eos (absolute) 0.0 x10e3 /uL 0.0-0. 4 Not Available [facility] ([facility]) [address] [facility], [place], [address], 07/20/2023 12:36:52 07/09/20 23 07/10/2023 CBC WITH DIFFE RENTI AL/PL ATELE T baso (absolute) 0.0 x10e3 /uL 0.0-0. 2 Not Available [facility] ([facility]) [address] [facility], [place], [address], 07/20/2023 12:36:52 07/09/2007/10/2023 CBC WITH DIFFE RENTI AL/PL ATELE T immature granulocytes 0 % not estab. Not Available [facility] ([facility]) [address] [facility], [place], [address], 07/20/2023 12:36:52 07/09/20 23 07/10/2023 CBC WITH DIFFE RENTI AL/PL ATELE T immature grans (abs) 0.0 x10e3 /uL 0.0-0. 1 Not Available [facility] ([facility]) [address] [facility], [place], [address], 07/20/2023 12:36:52 07/09/20 23 07/10/2023 CBC WITH DIFFE RENTI AL/PL ATELE T NRBC [employer]CH[employer]IC Not Available [facility] ([facility]) [address] [facility], [place], [address], 07/20/2023 12:36:52 07/09/2007/10/2023 CBC WITH DIFFE RENTI AL/PL ATELE T hematology comments: [employer] MECH[employer]IC Not Available [facility] ([facility]) [address] [facility], [place], [address], 07/20/2023 12:36:52 07/09/2007/10/2023 COMP. METAB OLIC PANEL (14) glucose 150 mg/dL 70-99 above high normal Not Available [facility] ([facility]) [address] [facility], [place], [address], 07/20/2023 12:36:53 07/09/20 23 07/10/2023 COMP. METAB OLIC PANEL (14) BUN 20 mg/dL 6-24 Not Available [facility] ([facility]) [address] [facility], [place], [address], 07/20/2023 12:36:53 07/09/20 23 07/10/2023 COMP. METAB OLIC PANEL (14) creatinine 0.90 mg/dL 0.76-1 .27 Not Available [facility] ([facility]) [address] [facility], [place], [address], 07/20/2023 12:36:53 07/09/20 23 07/10/2023 COMP. METAB OLIC PANEL (14) eGFR 104 mL/mi n/1.7 3 >59 Not Available [facility] ([facility]) [address] [facility], [place], [address], 07/20/2023 12:36:53 07/09/20 23 07/10/2023 COMP. METAB OLIC PANEL (14) BUN/creatini ne ratio 22 9-20 above high normal Not Available [facility] ([facility]) [address] [facility], [place], [address], 07/20/2023 12:36:53 07/09/20 23 07/10/2023 COMP. METAB OLIC PANEL (14) sodium 138 mmol/ L 134-14 4 Not Available [facility] ([facility]) [address] [facility], [place], [address], 07/20/2023 12:36:53 07/09/20 23 07/10/2023 COMP. METAB OLIC PANEL (14) potassium 4.7 mmol/ L 3.5-5. 2 Not Available [facility] ([facility]) [address] [facility], [place], [address], 07/20/2023 12:36:53 07/09/20 23 07/10/2023 COMP. METAB OLIC PANEL (14) chloride 102 mmol/ L 96-106 Not Available [facility] ([facility]) [address] [facility], [place], [address], 07/20/2023 12:36:53 07/09/20 23 07/10/2023 COMP. METAB OLIC PANEL (14) carbon dioxide, total 24 mmol/ L 20-29 Not Available [facility] ([facility]) [address] [facility], [place], [address], 07/20/2023 12:36:53 07/09/20 23 07/10/2023 COMP. METAB OLIC PANEL (14) calcium 9.8 mg/dL 8.7-10 .2 Not Available [facility] ([facility]) [address] [facility], [place], [address], 07/20/2023 12:36:53 07/09/20 23 07/10/2023 COMP. METAB OLIC PANEL (14) protein, total 7.1 g/dL 6.0-8. 5 Not Available [facility] ([facility]) [address] [facility], [place], [address], 07/20/2023 12:36:53 07/09/20 23 07/10/2023 COMP. METAB OLIC PANEL (14) albumin 4.8 g/dL 4.1-5. 1 Not Available [facility] ([facility]) [address] [facility], [place], [address], 07/20/2023 12:36:53 07/09/20 23 07/10/2023 COMP. METAB OLIC PANEL (14) globulin, total 2.3 g/dL 1.5-4. 5 Not Available [facility] ([facility]) [address] [facility], [place], [address], 07/20/2023 12:36:53 07/09/20 23 07/10/2023 COMP. METAB OLIC PANEL (14) A/G ratio 2.1 1.2-2. 2 Not Available [facility] ([facility]) [address] [facility], [place], [address], 07/20/2023 12:36:53 07/09/20 23 07/10/2023 COMP. METAB OLIC PANEL (14) bilirubin, total 0.4 mg/dL 0.0-1. 2 Not Available [facility] ([facility]) [address] [facility], [place], [address], 07/20/2023 12:36:53 07/09/20 23 07/10/2023 COMP. METAB OLIC PANEL (14) alkaline phosphatase 68 IU/L 44-121 Not Available [facility] ([facility]) [address] [facility], [place], [address], 07/20/2023 12:36:53 07/09/2002 0707/10/2023 COMP. METAB OLIC PANEL (14) AST (SGOT) 24 IU/L 0-40 Not Available [facility] ([facility]) [address] [facility] [place], [address], 07/20/2023 12:36:53 07/09/20 23 07/10/2023 COMP. METAB OLIC PANEL (14) ALT (SGPT) 29 IU/L 0-44 Not Available [facility] ([facility]) [address] [facility], [place], [address], 07/20/2023 12:36:53 07/09/2007/10/2023 LIPID PANEL cholesterol, total 188 mg/dL 100-19 9 Not Available [facility] ([facility]) [address] [place], [address], 07/20/2023 12:36:54 07/09/2007/10/2023 LIPID PANEL triglyceride s 75 mg/dL 0-149 Not Available [facility] ([facility]) [address] [facility], [place], [address], 07/20/2023 12:36:54 07/09/20 23 07/10/2023 LIPID PANEL HDL cholesterol 62 mg/dL >39 Not Available [facility] ([facility]) [address] [place], [address], 07/20/2023 12:36:54 07/09/2007/10/2023 LIPID PANEL VLDL cholesterol anni 14 mg/dL 5-40 Not Available [facility] ([facility]) [address] [place], [address], 07/20/2023 12:36:54 07/09/2007/10/2023 LIPID PANEL LDL chol calc ([facility]) 112 mg/dL 0-99 above high normal Not Available [facility] ([facility]) [address] [place], [address], 07/20/2023 12:36:54 07/09/2007/10/2023 LIPID PANEL comment: [employer]CH[employer]IC Not Available [facility] ([facility]) [address] [facility], [place], [address], 07/20/2023 12:36:54 07/09/20 23 07/10/2023 PSA TOTAL (REFL EX TO FREE) prostate specific Ag 0.3 NG/mL 0.0-4. 0 Maru ECLIA metho dolog y. Accor ding to the Ameri can Urolo gical Assoc iatio n, Serum PSA shoul d decre ase and remai n at undet ectab le level s after radic al prost atect sonal. The AUA defin es bioch emica l recur rence as an initi al PSA value 0.2 ng/mL or great er follo wed by a subse quent confi rmato ry PSA value 0.2 ng/mL or great er. Value s obtai eugenio with diffe rent assay metho ds or kits canno t be used inter patel eably . Resul ts canno t be inter prete d as absol zack evide nce of the prese nce or absen ce of jerald camacho se. Not Available [facility] ([facility]) [address] [facility], [place], [address], 07/20/2023 12:36:55 07/09/2007/10/2023 PSA TOTAL (REFL EX TO FREE) reflex criteria Commen t The perce nt free PSA is perfo rmed on a refle x basis only when the total PSA is betwe en 4.0 and 10.0 ng/mL . Not Available [facility] ([facility]) [address] [facility], [place], [address], 07/20/2023 12:36:55 07/09/2007/10/2023 RHEUM ATOID FACTO R (RF) rheumatoid factor (rf) <10.0 IU/mL <14.0 Not Available [facility] ([facility]) [address] [facility], [place], [address], 07/20/2023 12:36:56 07/09/2007/20/2023 HLA B 27 DISEA SE ASSOC IATIO N hla-B27 Negati ve HLA-B *27 Negat suyapa B27 allel e inter preta tion for all loci based on IMGT/ HLA datab ase versi on 3. 0 This test was devel oped and its perfo rmanc e kristal cteri stics deter mined by [facility]. It has not been clear ed or appro les by the Food and Drug Admin istra tion. [facility] CLIA ID Hubert summers [id number] THis test was perfo rmed using Polym erase Chain React ion (PCR) and Seque nce Speci fic Oligo nucle otide Probe s (SSOP ) techn ique. Seque nce Based Typin g (SBT) may be used as a suppl ement al metho d when neces federico. If you have quest ions, pleas e call HLA custo monica servi ce at [phone] or email at [facility] [email or web address]. Not Available [facility] ([facility]) [address] [facility], [place], [address], 07/20/2023 12:36:56 07/09/20 23 07/10/2023 LYME DISEA SE SEROL OGY W/REF AJ lyme total antibody moreno Negati ve negati ve Lyme antib odies not detec massiel. Refle x testi ng is not indic ated. No labor atory evide nce of infec tion with B. burgd orfer i (Lyme disea se). Negat suyapa resul ts may occur in patie nts recen tly infec massiel (less than or equal to 14 days) with B. burgd orfer i. If recen t infec tion is suspe cted, repea t testi ng on a new sampl e colle cted in 7 to 14 days is recom alvarado d. Not Available [facility] ([facility]) [address] [facility], [place], [address], 07/20/2023 12:36:57 07/09/2007/10/2023 ANTI- CCP AB, IGG/I GA anti-ccp Ab, IgG/IgA 1 units 0-19 Negat suyapa <20 Weak posit suyapa 20 - 39 Moder ate posit suyapa 40 - 59 Stron g posit suyapa >59 Not Available [facility] ([facility]) [address] [place], [address], 07/20/2023 12:36:58 07/09/2007/10/2023 DUSTY W/RFX TO ALL IF POSIT SUYAPA DUSTY direct Negati ve negati ve Not Available [facility] ([facility]) [address] [facility], [place], [address], 07/20/2023 12:36:59 07/09/2007/10/2023 URIC ACID uric acid 5.1 mg/dL 3.8-8. 4 Jameya richard vivar t for gout patie nts: <6.0 Not Available [facility] ([facility]) [address] [facility], [place], [address], 07/20/2023 12:37:00 07/09/2007/10/2023 SEDIM ENTAT ION RATE- WESTE RGREN sedimentatio n rate-westerg hugh 9 mm/HR 0-30 Not Available [facility] ([facility]) [address] [place], [address], 07/20/2023 12:37:00 07/09/2007/10/2023 C-KHOA CTIVE PROTE IN, QUANT C-reactive protein, quant 1 mg/L 0-10 Not Available [facility] ([facility]) [address] [place], [address], 07/20/2023 12:37:01 07/09/20 23 07/10/2023 PLEAS E NOTE please note Commen t The date and/o r time of colle ction was not indic ated on the requi sitio n as requi red by state and [place] al law. The date of recei pt of the speci men was used as the colle ction date if not suppl ied. Not Available [facility] ([facility]) [address], [place], [address], 07/20/2023 12:37:02 07/09/20 23 07/09/2023 micro album in/cr eatin ine, mass ratio , urine Microalbumin 30 mg/L Not Available [address] [place], [address], 07/09/2023 15:54:37 07/09/2007/09/2023 micro album in/cr eatin ine, mass ratio , urine Creatinine 200 mg/dL Not Available [address] [place], [address], 07/09/2023 15:54:37 07/09/20 23 07/09/2023 micro album in/cr eatin ine, mass ratio , urine Ratio < 30 mg/g Not Available [place] [id number] [place], [address], 07/09/2023 15:54:37 07/09/20 23 07/09/2023 HbA1c (hemo globi n A1c), blood HbA1C 6.2 % Not Available [address] [place], [address], 07/09/2023 08:39:22 Result Notes None recorded. Problems Name Problem SNOMED Code Status Onset Date Resolution Date Notes Provider Name and Address Organization Details Recorded Time Suspecte d COVID-19 115438119 Completed 01/12/2021 Removal Reason: Problem added by user from the COVID-19 watch flag BARTOLO Hollingsworth - [facility] 08:33:07 Suspecte d COVID-19 [id number] Completed 01/12/2021 Removal Reason: Problem added by user from the COVID-19 watch flag Melba Adamsrod null, [place] - [facility] 1 08:33:07 Backache 804935183 Active 2015 Crystal Karthik null, [place] - [facility] 6 12:51:50 Hyperten sive disorder 12579899 Active 2015 Crystal Karthik null, [place] - [facility] 6 12:52:01 Depressi ve disorder 56381876 Active 2015 Crystal Karthik null, [place] - [facility] 6 12:52:05 Slowing of urinary stream 80486405 Active 2015 Crystal Karthik [place], [place] - [facility] 6 12:52:15 Multiple lipomata 943365818 Active 2015 Bib Renebrisa null, [place] - [facility] 6 12:55:41 Nicotine dependen ce 07055104 Active 2017 Melba Cannon RN [address], [place], [address], [place] [facility] 8 09:07:23 Migraine 41635277 Active 2017 Redd Lee null[place] - [facility] 8 09:29:03 Degenera tion of lumbar interver tebral disc 34178495 Active 2017 Alfredito Corbett MD [address], [place], [address], [place] [facility] 8 16:41:29 Contact dermatit is 80315576 Active 2020 Jet Arreaga null, [place] - [facility] 1 13:17:41 Chronic sinusiti s 07529378 Active 2021 Karla Art APRN [address], [place], [address], [place] [facility] 2 10:55:57 History of lumbar laminect sonal 23011931038 660283 Active 2021 Karla Art APRN [address], [place], [address], [place] [facility] 2 16:08:44 Prediabe ashwin 044558793 Active 2021 Karla Art, 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 [address], [place], [address], [place] [facility] 2 16:14:29 Hyperlip idemia 40732909 Active 2021 Karla Art APRN [address], [place], [address], [place] [facility] 2 16:15:03 Strain of abdomina l muscle 013246684 Active 2022 Khai Peoples, DO [address], [place], [address], [place] [facility] 3 14:25:28 Communit y acquired pneumoni a 700175807 Active 2022 Khai Peoples, DO [address], [place], [address], [place] - [facility] 3 14:43:54 Tobacco dependen ce syndrome 77004369 Active 2022 Khai Peoples, DO [address], [place], [address], [place] - [facility] 3 14:46:01 Problem Notes None recorded. Procedures Surgical History Date Name Laterality Status Provider Name and Address Organization Details Recorded Time 09/08/20 20 Diastolic B/P 80-89 mm Hg completed Elaina De León [place] - [facility] 09/08/2020 13:23:01 09/08/20 20 Systolic B/P 130-139 mm Hg completed [facility] [place] - [facility] 09/08/2020 13:22:57 01/04/20 19 Medication Reconcilliation completed Sondra Collado [place] - [facility] 01/03/2019 15:57:51 09/17/19 18 Cerumen Removal completed Penny Cruzito, 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 [address], [place], [address], [place] - [facility] 09/17/2017 20:57:53 Back Surgery completed Crystal Karthik [place] - [facility] 08/29/2016 12:53:55 Remove lamina/facets lumbar completed Crystal Karthik [place] [facility] 08/29/2016 12:54:16 Carpal tunnel surgery [facility] [place] [facility] 07/11/2018 16:22:02 Imaging Results None recorded. Procedure Notes None recorded. Medical Equipment None Reported. Allergies No known drug allergies Medications Name Sig Start Date Stop Date Status Note LastModified by Organization Details LastModified Time c-ivermec tin 36mg cap TAKE ONE CAPSULE BY MOUTH EVERY DAY WITH FOOD FOR 7 DAYS 05/17 completed Not Available Not Available Not Available losartan 50 mg tablet TAKE ONE TABLET BY MOUTH DAILY active Not Available Not Available No t Available Seroquel 300 mg tablet take 1 tablet (300 mg) by oral route once daily 07/20 completed Seroquel 300 mg oral tablet;R ecorded Status: Recorded on: 10/24/19 13 9:56AM;D iscontin ued Status: Disconti nued on: 07/20/20 15 1:00PM;U ser: [email or web address] Not Available Not Available Not Available cyclobenz aprine 10 mg tablet TAKE 1 TABLET BY MOUTH THREE TIMES DAILY NEEDED FOR MUSCLE SPASMS(P AIN) 05/17 completed Not Available Not Available Not Available atorvasta tin 40 mg tablet TAKE 1 TABLET BY MOUTH ONCE DAILY 05/31 completed Not Available Not Available Not Available anastrozo le 1 mg tablet TAKE 1 TABLET BY MOUTH TWICE A WEEK WITH INJECTIO NS active Not Available Not Available No t Available clonidine HCl 0.1 mg tablet take 1 tablet (0.1 mg) by oral route 2 times per day for 14 days 02/20 completed clonidin e HCl 0.1 mg oral tablet;R ecorded Status: Recorded on: 09/06/20 11 11:26AM; Disconti nued Status: Disconti nued on: 02/21/20 12 3:25PM;U ser: geoff godinez;Est. Completi on: 11/29/19 12;Print ed: 09/06/20 11 Not Available Not Available Not Available prednison e 10 mg tablet TAKE THREE TABLETS BY MOUTH TWICE A DAY FOR THREE (3) DAYS, THEN TWO TABLETS TWICE A DAY FOR THREE (3) DAYS, THEN ONE TABLET TWICE A DAY FOR THREE (3) DAYS, THEN ONE TABLET DAILY FOR THREE (3) DAYS 06/28 completed Not Available Not Available Not Available Depo-Medr ol 40 mg/mL suspensio n for injection Take 80 mg every day by injectio n route for 1 day. 03/16 completed Not Available Not Available Not Available dihydroer gotamine 0.5 mg/pump act. (4 mg/mL) nasal spray INSTILL ONE (1) SPRAY IN EACH NOSTRIL (MAY REPEAT IN 15 MINUTES) 01/28 completed Not Available Not Available Not Available clindamyc in HCl 300 mg capsule Take 1 capsule 3 times a day by oral route for 10 days. 07/11 completed Not Available Not Available Not Available trazodone 50 mg tablet TAKE 1 TO 3 TABLETS BY MOUTH nightly NEEDED FOR SLEEP FOR UP TO FIVE doses active Not Available Not Available No t Available azithromy jordan 250 mg tablet take 2 tablets (500 mg) by oral route once daily for 1 day then 1 tablet (250 mg) by oral route once daily for 4 days 05/17 completed Not Available Not Available Not Available aspirin 325 mg tablet take 1 tablet (325 mg) by oral route every 4 hours as needed 07/20 completed aspirin 325 mg oral tablet;R ecorded Status: Recorded on: 10/24/19 13 9:56AM;D iscontin ued Status: Disconti nued on: 07/20/20 15 1:00PM;U ser: [email or web address] Not Available Not Available Not Available sumatript an 100 mg tablet Take by oral route for 9 days. 07/09 completed Not Available Not Available Not Available hydrocodo ne 5 mg-acetam inophen 325 mg tablet TAKE 1 TABLET BY MOUTH EVERY 6 HOURS NEEDED 05/17 completed Not Available Not Available Not Available Celestone Soluspan 6 mg/mL suspensio n for injection Take 6 mg by injectio n route. 12/13 completed Not Available Not Available Not Available meloxicam 15 mg tablet take 1 tablet (15 mg) by oral route once daily for 30 days 07/20 completed meloxica m 15 mg oral tablet;P rescribe Status: Prescrib ed on: 10/22/19 14 8:03PM;D iscontin ued Status: Disconti nued on: 07/20/20 15 1:00PM;U ser: neuss;Es t. Completi on: 01/21/20 14;Indic ation: Chronic Back Pain - (724.2); Pharmacy Verified : 10/22/19 14 8:03PM Not Available Not Available Not Available naltrexon e 50 mg tablet TAKE ONE TABLET BY MOUTH DAILY active Not Available Not Available No t Available lisinopri l 20 mg tablet TAKE 1 TABLET BY MOUTH ONCE DAILY 07/09 completed Not Available Not Available Not Available prednison e 20 mg tablet Take 3 tablets every day by oral route for 5 days. 03/16 completed Not Available Not Available Not Available dextroamp hetamine- amphetami ne 10 mg tablet TAKE ONE TABLET BY MOUTH AT 1 PM active Not Available Not Available No t Available dexametha sone 6 mg tablet Take 1 tablet every day by oral route. 08/30 completed Not Available Not Available Not Available Neurontin 800 mg tablet take 1 tablet (800 mg) by oral route 3 times per day for 30 days 07/20 completed Neuronti n 800 mg oral tablet;R ecorded Status: Recorded on: 02/10/20 14 2:32PM;D iscontin ued Status: Disconti nued on: 07/20/20 15 1:00PM;U ser: neuss;Es t. Completi on: 08/08/20 14 Not Available Not Available Not Available sumatript an 50 mg tablet 05/17 completed Not Available Not Available Not Available butalbita l 50 mg-acetam inophen 325 mg tablet take 1 - 2 tablets by oral route every 4 hours as needed not to exceed 6 tablets per 24hrs for 15 days 04/10 completed butalbit al-aceta minophen 50-325 mg oral tablet;R ecorded Status: Recorded on: 04/08/20 14 6:53PM;D iscontin ued Status: Disconti nued on: 04/10/20 14 4:49PM;U ser: neuss;Es t. Completi on: 04/23/20 14;Indic ation: Tension- Type Headache - (05.3078 10) Not Available Not Available Not Available topiramat e 25 mg tablet TAKE 2 TABLETS BY MOUTH EVERY DAY 05/17 completed Not Available Not Available Not Available prochlorp erazine maleate 10 mg tablet Take 1 tablet 3 times a day by oral route. 04/01 completed Not Available Not Available Not Available divalproe x 500 mg tablet,de layed release 01/28 completed Not Available Not Available Not Available Tamiflu 75 mg capsule take 1 capsule (75 mg) by oral route 2 times per day for 5 days 11/06 completed Not Available Not Available Not Available sulfameth oxazole 800 mg-trimet hoprim 160 mg tablet Take 1 tablet every 12 hours by oral route for 7 days. 09/08 completed Not Available Not Available Not Available sildenafi l 25 mg tablet TAKE 1 TABLET BY MOUTH DAILY 03/16 completed Not Available Not Available Not Available triamcino lone acetonide 0.1 % topical cream APPLY A THIN LAYER TO THE AFFECTED AREA(S) BY TOPICAL ROUTE TWO (2) TIMES PER DAY 05/17 completed Not Available Not Available Not Available butalbita l-acetami nophen-ca ffeine 50 mg-325 mg-40 mg tablet take 1 tablet by oral route every 4 hours as needed not to exceed 6 tablets per 24hrs 02/16 completed butalbit al-aceta minophen -caff 50-325-4 0 mg oral tablet;R ecorded Status: Recorded on: 05/01/20 14 4:35PM;D iscontin ued Status: Disconti nued on: 02/17/20 15 4:19PM;U ser: neuss;Es t. Completi on: 05/31/20 14 Not Available Not Available Not Available Depo-Medr ol 80 mg/mL suspensio n for injection 1 ml 05/17 completed Not Available Not Available Not Available Zantac 150 mg tablet Take 1 tablet twice a day by oral route as needed for 30 days. 07/11 completed Not Available Not Available Not Available Kenalog 40 mg/mL suspensio n for injection Take 2 mL by injectio n route. 02/20 completed Not Available Not Available Not Available meloxicam 7.5 mg tablet TAKE 1 TABLET BY MOUTH EVERY DAY 01/28 completed Not Available Not Available Not Available carbamaze pine 200 mg tablet TAKE ONE HALF (1/2) TABLET BY MOUTH TWICE DAILY FOR ONE (1) WEEK THEN TAKE ONE (1) TABLET BY MOUTH TWICE DAILY FOR REMAINDE R 06/28 completed Not Available Not Available Not Available Nicoderm CQ 7 mg/24 hr daily transderm al patch Apply 1 patch every day by transder mal route for 21 days. 03/16 completed Not Available Not Available Not Available ceftriaxo ne 1 gram solution for injection Inject 1g IM x1 now 03/16 completed Not Available Not Available Not Available amitripty line 25 mg tablet Take 1 tablet every day by oral route at bedtime for 30 days. 07/11 completed Not Available Not Available Not Available diphenhyd ramine 50 mg/mL injection solution INJECT 1 ML INTRAMUS CULARLY ONCE DAILY NEEDED FOR MIGRAINE HEADACHE 03/16 completed Not Available Not Available Not Available dextroamp hetamine- amphetami ne ER 20 mg 24hr capsule,e xtend release TAKE ONE CAPSULE BY MOUTH DAILY active Not Available Not Available No t Available trazodone 100 mg tablet take 1 tablet (100 mg) by oral route once daily at bedtime for 30 days 02/20 completed trazodon e 100 mg oral tablet;R ecorded Status: Recorded on: 09/07/20 11 2:31PM;D iscontin ued Status: Disconti nued on: 02/21/20 12 3:08PM;U ser: geoff godinez;Est. Completi on: 12/06/19 12 Not Available Not Available Not Available Nicoderm CQ 14 mg/24 hr daily transderm al patch Apply 1 patch every day by transder mal route for 21 days. 03/16 completed Not Available Not Available Not Available benzonata te 100 mg capsule Take 1-2 Caps by mouth Three times a day. 03/16 completed Not Available Not Available Not Available cephalexi n 500 mg capsule TAKE ONE CAPSULE BY MOUTH FOUR TIMES DAILY FOR SEVEN DAYS 03/16 completed Not Available Not Available Not Available pantopraz ole 40 mg tablet,de layed release 05/17 completed Not Available Not Available Not Available clotrimaz ole-betam ethasone 1 %-0.05 % topical cream APPLY CREAM TOPICALL Y TO THE AFFECTED AND SURROUND ING AREAS OF SKIN TWICE DAILY IN THE MORNING AND EVENING 01/28 completed Not Available Not Available Not Available metoprolo l tartrate 50 mg tablet TAKE ONE TABLET BY MOUTH EVERY DAY 10/22 completed metoprol ol tartrate 50 mg oral tablet;R ecorded Status: Recorded on: 10/23/19 13 2:16PM;D iscontin ued Status: Disconti nued on: 10/22/19 14 8:00PM;U ser: geoff godinez;Est. Completi on: 11/23/19 13 Not Available Not Available Not Available dextroamp hetamine- amphetami ne 15 mg tablet TAKE 1 TABLET BY MOUTH ONCE DAILY active Not Available Not Available No t Available triamcino lone acetonide 0.025 % topical ointment 05/17 completed Not Available Not Available Not Available gabapenti n 300 mg capsule take 1 capsule (300 mg) by oral route 3 times per day for 30 days 02/09 completed gabapent in 300 mg oral capsule; Recorded Status: Recorded on: 11/27/19 14 3:36PM;D iscontin ued Status: Disconti nued on: 02/10/20 14 4:23PM;U ser: [email or web address] Not Available Not Available Not Available diclofena c sodium 75 mg tablet,de layed release take 1 tablet (75 mg) by oral route 2 times per day for 30 days 10/22 completed diclofen ac sodium 75 mg oral tablet,d elayed release (/EC); Recorded Status: Recorded on: 11/04/19 13 10:54AM; Disconti nued Status: Disconti nued on: 10/22/19 14 8:00PM;U ser: tom; Est. Completi on: 12/05/19 13;Indic ation: Back Pain - (724.2); Printed: 11/04/19 13 Not Available Not Available Not Available hydroxyzi ne HCl 25 mg tablet Take 1 tablet 3 times a day by oral route for 15 days. 04/07 completed Not Available Not Available Not Available mupirocin 2 % topical ointment APPLY A SMALL AMOUNT OF OINTMENT TO THE AFFECTED AREA(S) TOPICALL Y 3 TIMES A DAY FOR 10 DAYS active Not Available Not Available No t Available Levaquin 500 mg tablet take 1 tablet (500 mg) by oral route once daily for 10 days 06/15 completed Levaquin 500 mg oral tablet;P rescribe Status: Prescrib ed on: 04/24/20 14 2:08PM;D iscontin ued Status: Disconti nued on: 06/15/20 14 10:53AM; User: liana;Es t. Completi on: 05/04/20 14;Pharm acyVerif ied: 04/24/20 14 2:08PM Not Available Not Available Not Available Viagra 100 mg tablet take 1 tablet by oral route QD 90 minutes before sexual activity 07/20 completed Viagra 100 mg oral tablet;R ecorded Status: Recorded on: 02/25/20 14 8:28PM;D iscontin ued Status: Disconti nued on: 07/20/20 15 1:00PM;U ser: neuss;Es t. Completi on: 01/21/20 15;Indic ation: Erectile Dysfunct ion - (10.6078 40);Prin massiel: 02/25/20 14 Not Available Not Available Not Available Tylenol-C odeine #3 300 mg-30 mg tablet take 1 tablet by oral route every 6 hours as needed 10/24 completed Tylenol- Codeine #3 300-30 mg oral tablet;R ecorded Status: Recorded on: 05/24/20 12 10:46AM; Disconti nued Status: Disconti nued on: 10/24/19 13 9:56AM;U ser: [email or web address]; Indicati on: Pain - (16.7809 00) Not Available Not Available Not Available testoster one cypionate 200 mg/mL intramusc ular oil INJECT 0.5ml INTRAMUS CULARLY twice a week, discard remainde r of vial AFTER each injectio n active Not Available Not Available No t Available ibuprofen 600 mg tablet Take 1 tablet 3 times a day by oral route as needed. 07/11 completed Not Available Not Available Not Available methylpre dnisolone 4 mg tablets in a dose pack take as directed 03/16 completed Not Available Not Available Not Available albuterol sulfate HFA 90 mcg/actua tion aerosol inhaler INHALE TWO (2) PUFFS THREE (3) TIMES DAILY active Not Available Not Available No t Available ketorolac 60 mg/2 mL intramusc ular solution Inject 2 mL every 6 hours by intramus cular route. 03/16 completed Not Available Not Available Not Available dextroamp hetamine- amphetami ne ER 30 mg 24hr capsule,e xtend release TAKE ONE CAPSULE BY MOUTH EVERY MORNING (swallow whole) active Not Available Not Available No t Available lithium carbonate 300 mg tablet take 1 tablet (300 mg) by oral route 3 times per day 07/20 completed lithium carbonat e 300 mg oral tablet;R ecorded Status: Recorded on: 10/24/19 13 9:56AM;D iscontin ued Status: Disconti nued on: 07/20/20 15 1:00PM;U ser: [email or web address] Not Available Not Available Not Available piroxicam 20 mg capsule take 1 capsule (20 mg) by oral route once daily for 30 days 10/22 completed piroxica m 20 mg oral capsule; Recorded Status: Recorded on: 10/24/19 13 10:30AM; Disconti nued Status: Disconti nued on: 10/22/19 14 8:00PM;U ser: [email or web address];Sadie t. Completi on: 01/23/20 13;Print ed: 10/24/19 13 Not Available Not Available Not Available fluticaso ne propionat e 50 mcg/actua tion nasal spray,fernanda [facility] 1 spray every day by intranas al route. 07/11 completed Not Available Not Available Not Available doxycycli ne hyclate 100 mg tablet Take 1 tablet twice a day by oral route for 7 days. 03/16 completed Not Available Not Available Not Available Augmentin 500 mg-125 mg tablet Take 1 tablet 3 times a day by oral route for 7 days. 10/17 completed Not Available Not Available Not Available dextroamp hetamine- amphetami ne 5 mg tablet TAKE 1 TABLET BY MOUTH DAILY EVERY EVENING 03/16 completed Not Available Not Available Not Available amoxicill in 875 mg-potass ium clavulana te 125 mg tablet TAKE ONE (1) TABLET BY MOUTH EVERY 12 HOURS FOR 10 DAYS active Not Available Not Available No t Available Benadryl 25 mg capsule take 1 capsule (25 mg) by oral route every 4 hours as needed 10/22 completed Benadryl 25 mg oral capsule; Recorded Status: Recorded on: 10/24/19 13 9:56AM;D iscontin ued Status: Disconti nued on: 10/22/19 14 8:00PM;U ser: [email or web address] Not Available Not Available Not Available neomycin- polymyxin -hydrocor t 3.5 mg-10,000 unit/mL-1 % ear drops,fernanda p INSTILL 4 DROPS INTO AFFECTED EAR(S) BY OTIC ROUTE 3 TIMES PER DAY x 5 days 10/01 completed Not Available Not Available Not Available sumatript an 6 mg/0.5 mL subcutane ous pen injector INJECT 6MG ONCE, MAY REPEAT ONCE IN ONE (1) HOUR IF NEEDED (MAX 12MG/24 HOURS) 07/09 completed Not Available Not Available Not Available nicotine (polacril ex) 2 mg buccal lozenge Take 1 tablet every 8 hours by oral route as needed for 90 days. 03/16 completed Not Available Not Available Not Available bupropion HCl XL 150 mg 24 hr tablet, extended release TAKE ONE TABLET BY MOUTH DAILY 03/16 completed Not Available Not Available Not Available tadalafil 5 mg tablet TAKE ONE TABLET BY MOUTH DAILY active Not Available Not Available No t Available tadalafil 10 mg tablet TAKE ONE TABLET BY MOUTH ONE HOUR prior TO sexual activity (DO not take more THAN ONE TABLET in a 24hr period). Must last 90 DAYS active Not Available Not Available No t Available topiramat e 50 mg tablet Take 1 tablet every day by oral route for 90 days. 07/09 completed Not Available Not Available Not Available ketorolac 60mg/2ml 06/28 completed Not Available Not Available Not Available metoprolo l tartrate 1 qd 10/24 completed metropro lol 50mg;Rec orded Status: Recorded on: 06/03/20 12 5:34PM;D iscontin ued Status: Disconti nued on: 10/24/19 13 9:56AM;U ser: [email or web address];E st. Completi on: 07/03/20 12;Print ed: 06/03/20 12 Not Available Not Available Not Available Benadryl 50mg /1ml 07/09 completed Not Available Not Available Not Available Robaxin 1 tid 10/24 completed robaxin 750mg;Re corded Status: Recorded on: 02/21/20 12 3:25PM;D iscontin ued Status: Disconti nued on: 10/24/19 13 9:56AM;U ser: [email or web address] ryh;Est. Completi on: 04/21/20 12;Indic ation: - (-5);Annette nted: 02/21/20 12 Not Available Not Available Not Available Medrol ([place]) 10/17 completed Not Available Not Available Not Available Yoon 1 PO QD 05/17 completed Not Available Not Available Not Available Baby Aspirin 1 PO QD 01/28 completed Not Available Not Available Not Available Trazodone 1 qhs 09/07 completed tranzodo ne 100mg;Re corded Status: Recorded on: 09/06/20 11 11:30AM; Disconti nued Status: Disconti nued on: 09/07/20 11 2:31PM;U ser: [email or web address] ryh;Est. Completi on: 10/18/19 12;Indic ation: - (-5);Annette nted: 09/06/20 11 Not Available Not Available Not Available varenicli ne tartrate 1 mg tablet Take 1 tablet twice a day by oral route for 30 days. 03/16 completed Not Available Not Available Not Available varenicli ne tartrate 0.5 mg (11)-1 mg (42) tablets in a dose pack Take 1 startr pk by oral route as directed . 03/16 completed Not Available Not Available Not Available guanfacin e ER 1 mg tablet,ex tended release 24 hr TAKE ONE TABLET BY MOUTH AT BEDTIME, swallow whole AND don't take WITH a high fat meal active Not Available Not Available No t Available buprenorp josh 8 mg-naloxo ne 2 mg sublingua l film place ONE film UNDER THE TONGUE AND let DISSOLVE ONCE DAILY. DO not swallow, chew, OR move AFTER placemen t. 03/16 completed Not Available Not Available Not Available Vascepa 1 gram capsule Take 2 capsules every day by oral route for 30 days. 03/16 completed Not Available Not Available Not Available naloxone 4 mg/actuat ion nasal spray ADMINIST ER A SINGLE SPRAY IN ONE NOSTRIL UPON SIGNS OF OPIOID OVERDOSE . CALL 911. REPEAT AFTER 3 MINUTES IF NO RESPONSE . active Not Available Not Available No t Available Emgality Pen 120 mg/mL subcutane ous pen injector Inject 240 mL by subcutan eous route. 07/09 completed Not Available Not Available Not Available Aimovig Autoinjec tor 140 mg/mL subcutane ous auto-inje ctor 03/16 completed Not Available Not Available Not Available Emgality 300 mg/3 mL (100 mg/mL x 3) subcutane ous syringe 05/17 completed Not Available Not Available Not Available Ubrelvy 100 mg tablet 07/09 completed Not Available Not Available Not Available Reyvow 100 mg tablet 05/17 completed Not Available Not Available Not Available Nurte ODT 75 mg disintegr ating tablet Take 1 tablet at onset of migraine (Max 1 tab/24 hours) 07/09 completed Gave 2 sample packs of 2 tablet each Not Available Not Available Not Available Vitals Date Recorded Body height Body mass index (BMI) Body weight Provider Name and Address Organization Details Last Updated DateTime 03/16/2025 176.53 cm 28.7 kg/m2 91977.7 g Yesica Orellana [place] - [facility] 03/16/2025 13:49:45 Date Recorded Body height Body mass index (BMI) Body weight Body temperature Heart rate Oxygen saturation Oxygen saturation in Arterial blood by Pulse oximetry Respiratory rate Pain severity - 0-10 verbal numeric rating [Score] - Reported Systolic And Diastolic Provider Name and Address Organization Details Last Updated DateTime 5 176.53 cm 28.7 kg/m2 05568.7 g 98.4 [degF] 88 /min 99 % 99 % 18 /min 5 149/103 mm[Hg] Magdalena Mcmullen [place] - [facility] 5 14:34:40 Date Recorded Body height Body mass index (BMI) Body weight Pain severity - 0-10 verbal numeric rating [Score] - Reported Heart rate Oxygen saturation Oxygen saturation in Arterial blood by Pulse oximetry Respiratory rate Systolic And Diastolic Provider Name and Address Organization Details Last Updated DateTime 3 176.53 cm 32.3 kg/m2 111283. 51 g 3 85 /min 97 % 97 % 16 /min 124/78 mm[Hg] Karen Nicolasvelasquez [place] - [facility] 3 15:22:12 Date Recorded Body height Body mass index (BMI) Body weight Heart rate Oxygen saturation Oxygen saturation in Arterial blood by Pulse oximetry Respiratory rate Pain severity - 0-10 verbal numeric rating [Score] - Reported Systolic And Diastolic Provider Name and Address Organization Details Last Updated DateTime 2 176.53 cm 31.4 kg/m2 17166.9 5 g 102 /min 98 % 98 % 16 /min 8 122/76 mm[Hg] Wendy Goetz [place] - [facility] 2 15:41:23 Date Recorded Body height Body mass index (BMI) Body weight Body temperature Heart rate Oxygen saturation Oxygen saturation in Arterial blood by Pulse oximetry Respiratory rate Pain severity - 0-10 verbal numeric rating [Score] - Reported Systolic And Diastolic Provider Name and Address Organization Details Last Updated DateTime 3 176.53 cm 32 kg/m2 57371.3 2 g 97.7 [degF] 82 /min 97 % 97 % 16 /min 3 142/108 mm[Hg] Valentine Lopez [place] - [facility] 3 14:19:56 Social History Question Answer Notes LastModified by Organizat ion Details LastModified Time Tobacco Smoking Status Current Every Day Smoker Melba savage [place] - [facility] 08/29/2016 12:52:46 Able To Swim? Yes Information not available 08/29/2016 Do You Have An Advance Directive? No Information not available 02/22/2017 Do You Wear A Helmet When Biking? No Information not available 01/28/2021 Are You Blind Or Do You Have Difficulty Seeing? No Information not available 08/29/2016 What Is Your Level Of Caffeine Consumption? Moderate Information not available 08/29/2016 How Much Tobacco Do You Chew? None Information not available 08/29/2016 Are You Deaf Or Do You Have Serious Difficulty Hearing? No Information not available 08/29/2016 What Type Of Diet Are You Following? REGULAR Information not available 01/28/2021 Which Illicit Or Recreational Drugs Have You Used? None [email or web address] Information not available 02/22/2017 Swimming/diving No Informati on not available 08/29/2016 Hard Of Hearing Or Deaf In One Or Both Ears? No Information not available 08/29/2016 Legally Blind In One Or Both Eyes? No Information no t available 08/29/2016 Live Alone Or With Others? With Others Information not available 07/11/2018 What Was The Date Of Your Most Recent Tobacco Screening? 03/16/2025 [email or web address] Information not available 03/16/2025 How Many Children Do You Have? 1 Information not available 01/28/2021 What Is Your Current Pack Years? [email or web address] Information not available 01/28/2021 Do You Use Protection During Sex? No Information not available 07/11/2018 What Is Your Relationship Status? Information not available 07/11/2018 Seat Belts Used Routinely Yes Information not available 08/29/2016 Are You Sexually Active? Yes Information not available 08/29/2016 Smoke Alarm In Home Yes Information not available 02/22/2017 At What Age Did You Start Smoking Tobacco? 20 [email or web address] Information not available 02/22/2017 Are You Passively Exposed To Smoke? Yes Information no t available 02/22/2017 How Much Tobacco Do You Smoke? 1 PPD Information not available 10/01/2017 General Stress Level Low [email or web address] Information not available 02/22/2017 Do You Use Sunscreen Routinely? No Information not available 08/29/2016 Has Tobacco Cessation Counseling Been Provided? Yes [email or web address] Information not available 02/22/2017 On What Date Was Tobacco Cessation Counseling Provided? 03/16/2025 [email or web address] Information not available 03/16/2025 How Many Years Have You Smoked Tobacco? 25 Information not available 10/01/2017 Do You Have Difficulty Walking Or Climbing Stairs? No Information not available 01/28/2021 Sex: Male Functional Status Question Answer Note LastModified by Organizat ion Details LastModified Time Do you or have you ever used any other forms of tobacco or nicotine? No Information not available 03/16/2025 What is your level of alcohol consumption? None Information not available 07/11/2018 Do you or have you ever used smokeless tobacco? Never used smokeless tobacco Information not available 04/01/2020 Are you currently employed? Yes Information not available 08/29/2016 Are you able to walk independently without assistance or assistive devices? [facility] Information not available 01/28/2021 Do you have difficulty doing errands alone? No Information not available 01/28/2021 Are you able to care for yourself independently? Yes Information not available 08/29/2016 What is your occupation? employed [email or web address] Information not available 02/22/2017 Do you have difficulty dressing, bathing, grooming, or toileting? No Information not available 01/28/2021 Do you or have you ever used e-cigarettes or vape? Never used electronic cigarettes Information not available 04/01/2020 What is your exercise level? Occasional Information not available 08/29/2016 Mental Status Question Answer Note LastModified by Organization D etails LastModified Time Do you have difficulty concentrating, remembering or making decisions? No Information no t available 01/28/2021 Family History Relationship Description Onset Age of this Age Resolved Age Notes LastModified by Organization Details LastModified Time Maternal Grandmother Leukemia bcogan Not available 01/28 12:44:05 Father Hypertensive disorder Not available 2017 16:20:12 Paternal Grandfather Hypertensive disorder Not available 2017 16:20:12 Maternal Grandfather Type 2 diabetes mellitus bcogan Not available 2020 12:44:05 Medical History Condition Response Fracture Y Headaches Y Hypertension Y Depression Y Immunizations Vaccine Type Date Status Note Provider Nam e and Address Organization Details Recorded Time Tdap 7 completed Not Available [facility] 03/16/2025 14:17:47 Influenza, split virus, quadrivalent, preservative 7 completed Not Available [facility] 09/27/2019 03:54:47 Tdap 7 completed Not Available [facility] 09/27/2019 03:54:23 Past Encounters Encounter ID Performer Location Encounter Start Date Encounter Closed Date Diagnosis/Indication Diagnosis SNOMED-CT Code Diagnosis ICD10 Code Diagnosis IMO Codes Diagnosis Note [id number] Darya Felton APRN [address] [place] [address] 08/29/2016 12:49:16 08/29/2016 13:50:54 Pansinusitis 848729611 J32.4 [id number] Bib Dye MD [address] [place] [address] 09/05/2016 11:26:07 09/05/2016 12:30:13 Multiple lipomata 022323784 D17.9 [id number] Kari Gómez MD [address] [place] [address] 10/17/2016 13:03:34 10/17/2016 14:40:28 Administration of diphtheria, pertussis, and tetanus vaccine 293802266 Z23 Puncture w ound of foot 03520393 S91.332A [id number] Fili Shabazz MD [address] [place] [address] 02/20/2017 11:15:40 02/20/2017 14:34:50 Contact dermatitis 99051692 L25.9 Body mass index 30+ - obesity 773120124 Z68.39 [id number] Penny East APRN [address] [address] 06/25/2017 10:23:36 06/25/2017 12:40:40 Cellulitis of lower limb 115636249 L03.879 [id number] Darya Felton [address] [place] [address] 08/13/2017 11:06:46 08/13/2017 12:37:52 Body mass index 30+ - obesity 413217518 Z68.36 Active or passive immunization 782454589 Z23 Ankle pain 981890661 M25 .571 gentle ROM exercises, wear good support, elevate and ice packs after being up on it for a while for comfort, anti-infla mmatories as directed OTC. Disorder of inner ear 23 5494464 H83.93 pt has a lot of fine small hairs in ear canal which may be contributi ng to the 'funny feeling he describes as something moving around in his ears but he does not actually have pain [id number] Penny East [address] [place] [address] 09/17/2017 15:17:08 09/17/2017 17:25:47 Acute bacterial sinusitis 55723668 J01.90 Impacted cerumen 0083231 6 H61.23 [id number] Rachel Ledezma[address] [place] [address] 09/18/2017 09:14:39 09/18/2017 10:56:30 Acute sinusitis 22461035 J01.90 Cough 32885537 R05 [id number] Rachel Ledezma [address] [place] [address] 10/01/2017 08:49:03 10/01/2017 10:03:19 Hypertensive disorder 72569889 I10 Nicotine dependence 5629 4008 F17.200 Gastroesop hageal reflux disease 792237889 K21.9 Acute sinusitis 24719963 J01.90 [id number] Rachel Ledezma [address] [place] [address] 11/09/2017 14:02:33 11/09/2017 15:09:10 Fever 677900693 R50.9 Cough 10512821 R05 [id number] Penny East APRN [facility] [address] [place] [address] 12/13/2017 09:13:27 12/13/2017 09:57:08 Migraine 19213731 G43.535 [id number] Alfredito Corbett MD [address] [place] [address] 07/11/2018 15:58:17 07/11/2018 18:51:28 Backache 974218831 M54.9 Depressive disorder 3548 9007 F32.89 Migraine 14256711 G43.90 9 Hypertensive disorder 38 736087 I10 Multiple lipomata 689468 002 D17.9 Nicotine dependence 5629 4008 F17.200 Slowing of urinary stream 51727818 R39.12 Lumbar radiculopathy 128 888830 M54.16 Closed fra cture of scapula 03128239 S42.101D Adult heal th examination 617428450 Z00.00 Body mass index 30+ - obesity 371262110 Z68.32 [id number] Alfredito Corbett MD [address] [place] [address] 08/14/2018 15:39:52 08/14/2018 16:50:57 Backache 358713413 M54.9 Degenerati on of lumbar intervertebral disc 83467422 M51.36 Body mass index 30+ - obesity 094005265 Z68.32 [id number] Alfredito Corbett MD [address] [place] [address] 08/30/2018 10:18:47 08/30/2018 11:31:21 Degeneration of lumbar intervertebral disc 02137388 M51.36 Acute bron chitis with bronchospasm 53129522 J20.9 Body mass index 30+ - obesity 652580103 Z68.32 [id number] Alfredito Corbett MD [address] [place] [address] 10/17/2018 12:29:31 10/17/2018 13:12:49 Acute bronchitis 38450916 J20.9 Influenza 0567578 J11.1 Body mass index 30+ - obesity 800491326 Z68.33 [id number] Alfredito Corbett MD [address] [place] [address] 11/06/2018 13:35:02 11/06/2018 14:34:58 Backache 908887271 M54.9 Degenerati on of lumbar intervertebral disc 86981337 M51.36 Closed fra cture of scapula 09576774 S42.101D Body mass index 30+ - obesity 986670707 Z68.33 [id number] Alfredito Corbett MD [address] [place] [address] 01/03/2019 15:53:01 01/03/2019 16:36:23 Backache 262623172 M54.9 Degenerati on of lumbar intervertebral disc 64344099 M51.36 Depressive disorder 3548 9007 F32.89 Migraine 31439784 G43.90 9 Hypertensive disorder 38 249162 I10 Multiple lipomata 049594 002 D17.9 Nicotine dependence 5629 4008 F17.200 Slowing of urinary stream 14032838 R39.12 Seasonal a llergic rhinitis 426522360 J30.2 Benign ess ential hypertension 1258832 I10 Body mass index 30+ - obesity 888924966 Z68.33 [id number] Alfredito Corbett MD [address] [place] [address] 02/20/2019 08:45:48 02/20/2019 12:27:29 Migraine 49920488 G43.909 improved, controlled Contact de rmatitis caused by urushiol from Eastern poison adelina 723091088 L25.5 Body mass index 30+ - obesity 671638109 Z68.31 [id number] Huyen Osorio MD [address] [place] [address] 04/01/2020 16:47:03 04/01/2020 17:26:17 Tinea cruris 210651899 B35.6 Use clotrimazo le betamethas one as prescribed . See us back or go to Er right away should gets worse or develops any new symptoms or complaints . Follow up with us in one week. Get fasting labs in our clinic as soon as possible Body mass index 30+ - obesity 548580337 Z68.33 Take a low fat diet, exercise and loose weight. Follow up in 3 months. Active or passive immunization 600838645 Z23 Patient has declined to get Td/Tdap and Influenza vaccines despite counsellin g and education Venereal d isease screening 262659855 Z11.3 Hyperlipid emia screening 975202141 Z13.005 [id number] Darya Felton [place] [address] [place] [address] 05/31/2020 08:34:09 05/31/2020 09:51:05 Hypertensive disorder 87178649 I10 Atypical chest pain 1025 09372 R07.89 Nicotine dependence 5629 4008 F17.200 Abscess 770654759 L02.91 right scrotal area [id number] Darya Felton [address] [place] [address] 09/08/2020 13:14:31 09/08/2020 14:01:53 Pain of shoulder region 58165454 M25.519 Pain of le ft shoulder joint 6957748830 6560707 M25.999 [id number] Darya Felton [address] [place] [address] 12/01/2020 16:04:53 12/01/2020 17:55:00 Viral screening 110692857 Z11.52 Sinusitis 62878279 J32.9 Migraine 24832720 G43.90 9 [id number] Darya Felton [address] [place] [address] 12/06/2020 09:25:28 12/06/2020 10:42:47 Pain of shoulder region 42993504 M25.519 with decreased ROM he has been doing ROM exercises at home and taking OTC NSAIDS and has had steroids Migraine 82533141 G43.90 9 [id number] Jet Gibson, [facility] [address] [place] [address] 01/28/2021 12:43:24 01/28/2021 13:35:59 Contact dermatitis 75998164 L25.9 Nicotine dependence 5629 4008 F17.200 Screening for cardiovascular system disease 558692319 Z13.6 Hypertensive disorder 38 756924 I10 [id number] Karla Art APRN [address] [place] [address] 05/17/2022 15:57:19 05/17/2022 17:25:20 Migraine 80785476 G43.909 Gave sumatripta n since it did give him some relief and he is going on a trip and would like to have this on hand. Left trige paulette neuralgia 0767516174 2582763 G50.0 Discussed symptoms are likely related to this and not migraines. Discussed course of trigeminal neuralgia. Will trial Tegretol. F/U 1 month. [id number] Karla Art APRN [address] [place] [address] 06/28/2022 15:01:00 06/28/2022 16:06:17 Migraine 06364580 G43.909 Start Emgality. Use Nurtec PRN. Stop Topamax (ineffecti ve). See Neuro as scheduled. Vitamin D deficiency 347 33488 E55.9 Optic neuritis 28147235 H46.9 Attend appt. with Neuro - MRI results state cannot rule out neuritis or mass Fatigue 75128674 R53.83 Chronic sinusitis 292020 00 J32.9 Gave phone number for ENT that he was referred to - advised to call to get scheduled since they had not called him to schedule yet. [id number] Karla Art APRN [address] [place] [address] 07/24/2022 15:33:24 07/24/2022 16:34:14 Body mass index 30+ - obesity 708527931 Z68.31 History of lumbar laminectomy 2581720357 5088942 Z98.890 Right late ral elbow tendinopathy 0033295442 26152 M77.11 F/U PRN if symptoms worsen or no improvemen t Migraine 67188944 G43.90 9 Continue Emgality as directed by myself and also recommende d by Neuro - F/U with me PRN and Neuro again as scheduled. Low back pain 240786839 M54.50 Discussed with history I feel the Medrol Rio will help short-term - he is scheduled to go to chiropract or within next week also. Discussed starting meloxicam or diclofenac if pain returns after the Medrol Rio - patient verbalized understand ing. Has had MRI's in the past he reports most recent was 2019, although in chart last one I can see is 2018. Prediabetes 600424110 R7 3.03 Discussed diet control to help lower A1C of 6.1 - repeat A1C/CMP in 6 months. Hyperlipidemia 97703304 E78.5 Advised on low fat/low cholestero l diet. Repeat lipid panel in 3 months. [id number] Suresh Calabrese MD [facility] [address] [place] [address] 07/09/2023 14:57:52 07/09/2023 16:15:17 Prediabetes 471453034 R73.03 Hyperlipidemia 08279582 E78.5 Hypertensive disorder 38 770931 I10 Depressive disorder 3548 9007 F32.89 Pain of mu ltiple joints 33832827 M25.50 Nocturia 093457934 R35.1 Erectile dysfunction 860 348232 F52.21 Body mass index 30+ - obesity 989173784 Z68.32 Obesity 564704322 E66.9 [id number] Khai Peoples DO [facility] [address] [place] [place] [place] [address] 08/22/2023 14:02:18 08/22/2023 15:13:00 Community acquired pneumonia 509318701 J18.9 Community- acquired pneumonia, left lower lobe. Patient will be given Depo-Medro l and ceftriaxon e today in the practice. Patient will then follow-up with doxycyclin e for 7 days and prednisone for 5 days. Tobacco de pendence syndrome 08690511 F17.200 Tobacco dependence syndrome. Patient was agreeable to tobacco cessation today. Patient will be started on nicotine replacemen t therapy in the form of patches starting at 14 mg for 3 weeks followed by 7 mg for 3 weeks and then titrating off. Patient will also be started on Chantix with the starter pack followed by the 1 mg twice daily for 5 additional months. Chantix side effects and blackbox warning discussed with patient in detail. [id number] Yamilka pink APRN [facility] [address] [place] [address] 03/16/2025 13:42:38 03/16/2025 14:15:16 Migraine 92733146 G43.909 Depressive disorder 3548 9007 F32.89 [id number] Elkin Rosales MD [facility] [address] [place] [address] 03/16/2025 14:16:48 03/16/2025 15:24:36 Acute maxillary sinusitis 10457672 J01.00 98526947 Anxiety 26219259 F41.9 43661 Cigarette smoker 2343491 7 F17.210 [id number] [facility] 68118171 R06.2 05206 Hypertensive disorder 38 159108 I10 Health Concerns Section Related Observation LastModified by Organization Detai ls LastModified Time None Recorded Concern Status LastModified by Organization Details LastModified Time None Recorded Advance Directives Directive N: Payers Insurance Date Sequence Insurance Name Policy Number Policy Lepe Covered Member ID Lepe Member ID Guarantor Name 09/08/2020 1 [employer] [facility] Uriel Bailey [id number] Luiz Bailey 09/08/2020 2 [employer]EF[employer] - [employer] (PPO) Uriel Bailey [id number] Luiz Bailey 09/08/2020 1 [employer] Bailey [id number] Luiz Bailey 09/08/2020 1 [employer] [employer] [place]ICA[place]MO[place] Bailey [id number] Luiz Bailey 07/20/2023 1 [place] - [place]MO[place] Uriel Bailey [id number] Kennedybibianaer Colem[place] 07/09/2023 [place] [facility] Uriel summers Cole[place] [id number] Christopher Colemire 06/28/2022 1 [employer]ETNA (PPO) [id number] Uriel summers [place] [id number] Christopher Colemire 12/01/2020 [place] Vaibhav S Colemire [id number] Christopher Colemire 09/08/2020 2 [place] [facility] [employer] - FFS/TRADITION AL Uriel r Colemire [id number] Christopher Colemire 02/20/2017 1 [employer] [facility] Cassie Colemire [id number] Christopher Colemire 07/20/2023 [place] Uriel summers Colem[place] [id number] Christopher Colemire 03/16/2025 1 *SELF PAY* Ch ristopher Colemire 09/08/2020 1 [place] [id number] Uriel summers [place] [id number] Christopher Colemire 09/08/2020 1 [employer] [employer] [place] ([place]) [place] Vaibhav S Colem[place] [id number] Christopher Colemire 05/17/2022 1 [place] BLUE CROSS (PPO) [id number] Cassie Colemire [id number] Christopher Colemire 03/26/2025 1 [facility] [id number] Uriel r Colemire [id number] Christopher Colemire 09/08/2020 1 [employer] [employer] [place] (MEDICA[place]AC[place] - [place]MO) [place] Vaibhav S Colemire [id number] Christopher Colemire 09/08/2020 2 [place] [facility] HEALTH CHOICES - FFS/TRADITION AL Vaibhav Portillo [place] [id number] Christopher Colemire 09/08/2020 [place] [facility] Bailey [id number] Luiz Gouldmire 09/08/2020 1 [place] [id number] Uriel Bailey [id number] Luiz Bailey 05/17/[address] [facility] (MEDICAID REPLACEMENT - HMO) Vaibhav Bailey [id number] Luiz Bailey Notes Date Note Type Note Provider Name and Address Organization Details Recorded Time 07/24/2022 text/html Luiz is a 51 year old male who presents today for follow-up on recent labs to discuss abnormal results. His A1C was 6.1 with glucose 119 indicating prediabetes. His lipid panel was abnormal with elevated TC (200) and LDL (131). His BUN was elevated at 23 and total protein 6.2. He admits he does not drink enough water through the day and that he drinks mostly coffee. Luiz complains of back pain x 1 week. He has not identified any known injury, he states he woke up with it one morning. He has had a history of back pain. He states the last time he was treated by chiropractor. He took it easy over the weekend and it has not gotten better. He rates the pain 8/10. He reports he did give himself a shot of toradol and did feel some better for a couple of days. He states ibuprofen does not help and he has taken meloxicam in the past but does not recall if it helped or not. He previously had a lumbar laminectomy which he had complications from although it was several years ago. He complains of elbow pain on the right and admits he is right hand dominant. He states certain motions and positions will cause shooting pain down the forearm. He has noticed some swelling in lateral aspect of his elbow. 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 He started the Emgality x1 month ago and states they will get better for 3-5 days and he is not having migraines as much just nagging headaches. He did take an Imitrex a few nights ago. He has seen Neuro which was not able to access his MRI on disc [facility] had given him the wrong disc. His Neurologist wants him to continue the Emgality, but also restart the Topamax that I had told him to D/C due to being ineffective so he has since restarted that. He needs refills on Imitrex injections. Karla Art APRN [address], [place], [address], [place] - [facility] 07/24/2022 17:01:31 07/09/2023 text/html Pt presents to establish care. Pt states ongoing headaches, dx'd as migraine type but Pt states started 2-3 years prior, unilateral but bounces, retro-orbital, unilateral tearing and rhinorrhea endorsed. Modest response to current migraine tx. Following with Neuro. Pt s chronic low back currently stable with good control using current regimen. Pt reminded on good lifting technique, use of back brace and work/rest intervals. Pt notes 3-4x/nightly nocturia, endorses frequency, low void volumes, no dysuria, hematuria. BPH famhx but denies prostate ca famhx. Pt states currently following with Ortho for left elbow pain, ongoing for years . Pt describes left shoulder pain as dull and grinding, without radiation, constant with a waxing and waning course, worst in AC joint area, associated intermittent parathesias in the right hand and some upper extremity weakness secondary to pain, relieved by rest, NSAIDs, warmth. Denies recent imaging. Pt with hx of depression/anxiety; denies any significant mood changes. No worsening depression, spikes of anxiety, denies sleep/appetite/GI alterations, Stable with current regimen. Not currently following with counseling. Pt is a current everyday smoker, smoking approximately 1 PPD with 35 pack years. Discussed necessity of and methods for smoking cessation. Pt currently in contemplative stage and does not wish to set a quit date at this time but is amenable to cessation attempts. Suresh Calabrese MD [address], [place], [address], [facility] - [facility] 07/09/2023 17:15:20 08/22/2023 text/html 52-year-old male seen in the office today for an acute visit for cough and congestion for 2 days.Patient states on Sunday he began with a fluish feeling in his chest that progressed to lack of energy and trouble breathing. Patient states has had cough for the last 2 days that is nonproductive and also causing some chest soreness secondary to his cough. Patient has been a smoker for approximately 10 years of a half a pack to a pack per day. Patient states he started to feel hot and cold today. Patient also has sick contacts that have been out with the flu. Patient has started with nausea today and decreased appetite. Patient also had a bout of diarrhea today. Khai Peoples, [address], [place], [address], [place] - [facility] 08/22/2023 15:10:47 03/16/2025 text/html Scheduling error. pt was moved to Dr. Bobby perry, 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 [address], [place], [address], [facility] - [facility] 03/18/2025 16:21:26 03/16/2025 text/html Patient is 54 y/o and is here today wanting scripts for Adderall 20 mg and 15 mg for ADHD, and wants to discuss increasing dose of Cialis. Patient reports he has been without meds for 2 days and is starting to have increase anxiety. Elkin Rosales MD [address], [place], [address], [place] - [facility] 03/16/2025 15:17:05
--- OUTSIDE RECORDS SUMMARY | 2025-07-03 11:09 | XMS_ITS | Clinical Summary ---
Author Organization Healthcare Address [address] [place] [address] Care Team Providers Care Relief Master Name Role Phone Karla Art APRN Primary [...] 2022 [facility]-Zoster Vaccines (1 of 2) 2022 [id number] Vaccine (1 - season) 2025 [facility]-Influenza Vaccine [...] age to complete this topic Care Teams Relief Master Relationship Specialty Start Date End Date Karla Art APRN [address] [place] [address] [place] [address] PCP - General Family Medicine 08/16/22
--- OUTSIDE RECORDS SUMMARY | 2025-07-03 11:09 | XMS_ITS | Encounter Summary ---
Author Organization [facility] [place] [address] Care Team Providers Care Student Specialist Name Role Phone Dangelo Pinzon MD Unavailable [phone] No Pcp, Per Patient Primary Care [...] and heating? Not hard at all 06/22/2025 [facility] [place] of Occupat ional Health - Occupational Stress [...] money to get more. Never true 06/22/2025 [facility] Utilities Answer Date Recorded In the past 12 months has th e electric, gas, oil, or water company threatened to shut off services in your home? No 06/22/2025 [facility] IP Transportation Answer D ate Recorded In [...] 6:28 PM EDT Alma Donaldson RN * [place] Suicide Severity Rating Scale (Q shift for [...] documented as of this encounter Care Teams Student Specialist Relationship Specialty Start Date End Date No Pcp, Per Patient PCP - General 10/26/24 Dangelo Pinzon MD [address] Consulting Physician Ophthalmology 12/30/20 documented as of this encounter
--- OUTSIDE RECORDS SUMMARY | 2025-07-03 11:09 | XMS_ITS | Clinical Summary ---
Author Organization [facility] Address [address] [place] [address] Phone Care Team Providers Care Drug Clerk Name Role Phone Dangelo Pinzon MD Unavailable [phone] No Pcp, Per Patient Primary Care [...] e fluticasone propionate (FLONASE) 50 mcg/actuation Nasl [place], Suspension 1 [place] in each nostril 2 times daily. 16 g 5 1:37 PM EDT 03/13/20 25 Active dextroamphetam [...] days. 14 Tablet 06/23/20 25 025 Active Problems Problem Noted Date Diagnosed Date [...] PM EDT Hospital Encounter [place] 7[place] [address] Willard Rhodes MD Fry, Isaiah J, MD Febrile illness (Primary Dx); Frontal headache; Elevated liver enzymes Discharge Disposition: Left Against Medical Advice 06/21/2025 Travel from Last 3 Months Immunizations Immunization Administration [...] Score 0 06/22/2025 Overall Financial Resource Strain (CARDI) Answe r Date Recorded How hard is it for you to pa y for the very basics like food, housing, medical care, and heating? Not hard at all 06/22/2025 [facility] [place] [facility] - Occupational Stress [...] money to get more. Never true 06/22/2025 [facility] Utilities Answer Date Recorded In the past 12 months has th e [employer], gas, oil, or water company threatened to shut off services in your home? No 06/22/2025 [facility] HRSN CMS IP Transportation Answer D ate [...] Procedure Name Priority Date/Time Associated Diagnosis Comments DRUG CONFIRMATION, OPIATES - URINE Routine 06/23/2025 4:35 PM EDT DRUG CONFIRMATION, BUPRENORPHINE AND METAB - URINE Routine 06/23/2025 4:35 PM EDT DRUG CONFIRMATION, AMPHETAMINES - URINE Routine 06/23/2025 4:35 PM EDT URINALYSIS REFLEX Routine 06/23/2025 4:3 5 PM EDT DRUGS OF ABUSE WITH REFLEX TO CONFIRMATION, URINE Routine 06/23/2025 4:35 PM EDT SODIUM LEVEL URINE Routine 06/23/2025 4: 35 PM EDT POTASSIUM LEVEL URINE Routine 06/23/2025 4:35 PM EDT ALBUMIN/CREATININE RATIO, RANDOM URINE Routine 06/23/2025 4:35 PM EDT OSMOLALITY URINE Routine 06/23/2025 4:3 5 PM EDT CREATININE LEVEL URINE Routine 4:35 [...] IV CONTRAST STAT 06/21/2025 10:44 PM EDT JANELLE MOUNTAIN SPOTTED FEVER IGG/IGM -REF LAB Routine 06/21/2025 10:34 PM EDT LYME AB TOTAL EARLY Routine [...] (NO STAIN) STAT 06/21/2025 7:31 PM EDT [id number] A/B Routine 06/21/2025 7:2 8 PM EDT [...] CX STAT 06/21/2025 7 :01 PM EDT from Last 3 Months Results * (ABNORMAL) URINALYSIS REFLEX (06/23/2025 4:35 PM EDT) Only the most recent of2 resultswithin the time period is included. UA Color Yellow 06/23/2025 5:10 PM EDT [facility] UA Appear Cloudy(A) Clear 06/23/2025 5:10 PM EDT [facility] UA Glucose 1+ (70-100 mg/dL)(A) Negative mg/dL 06/23/2025 5:10 PM EDT [facility] UA Ketones Negative Negative mg/dL 06/23/2025 5:10 [...] 06/23/2025 5:10 PM EDT [facility] UA Nitrite Negative Negative 06/23/2025 5:10 PM EDT [facility] UA Leuk Est Negative Negative 06/23/2025 5:10 PM EDT [facility] UA Spec Grav 1.012 1.001 - 1.035 [...] 06/23/2025 5:10 PM EDT [facility] Urine STRUCTURE OF URINARY TRACT PROPER / Unknown 06/23/2025 4:35 PM EDT 06/23/2025 4:43 PM EDT Shaan Gomez MD URINE ORDERABLES Final Result [facility] [address] [facility] , [place] [address] * (ABNORMAL) DRUG CONFIRMATION, OPIATES - URINE [...] 1:55 PM EDT [facility] Tiygyovv-2-Msyiwru nide <25 Cutoff 25 ng/mL ng/mL 06/25/2025 1:55 PM EDT [facility] Gdlbsuhf-0-Zahwcfw nide <25 Cutoff 25 ng/mL ng/mL 06/25/2025 1:55 PM EDT [facility] Urine STRUCTURE OF URINARY TRACT PROPER / Unknown 06/23/2025 4:35 PM EDT 06/23/2025 4:43 PM EDT us Shaan Gomez MD URINE ORDERABLES Final Result [facility] [address] [facility] , [facility] [address] * (ABNORMAL) DRUG CONFIRMATION, BUPRENORPHINE AND METAB [...] URINE ORDERABLES Final Result [facility] [address] [facility] , [place] [address] * (ABNORMAL) DRUG CONFIRMATION, AMPHETAMINES - URINE [...] Final Result [facility] [address] [facility], [place] [address] * EXTRA MCKEON URINE CX (06/23/2025 4:35 PM EDT) Only the most recent of2 resultswithin the time period is included. Urine STRUCTURE OF URINARY TRACT PROPER / Unknown 06/23/2025 4:35 PM EDT 06/23/2025 4:43 PM EDT Shaan Gomez MD MICROBIOLOGY - GENERAL ORDERABLE S Final Result Performing Organization Address City/[facility]/ZIP Co de Phone Number [facility] [address] [place] [address] * (ABNORMAL) DRUGS OF ABUSE WITH REFLEX [...] 100 ng/mL 06/23/2025 5:18 PM EDT [facility] Urine Creatinine 55.0 mg/dL 06/23/20 25 5:18 PM EDT [facility], [facility] Comment: Greater than 20: Consistent with valid sample Greater than 2 but less than 20: Possible dilution Less than 2: Questionable valid sample Urine STRUCTURE OF URINARY TRACT PROPER / Unknown 06/23/2025 4:35 PM EDT 06/23/2025 4:43 PM EDT Narrative [facility], [facility] - 06/23/2025 5:18 PM EDT These drug [...] URINE ORDERABLES Final Result Performing Organization Address City/[facility]/ZIP Co de Phone Number [facility] [employer] [address] , [place] [phone] * MICROALBUMIN/CREATININE RATIO URINE (06/23/2025 4:35 PM EDT) Urine Albumin 14.1 mg/L 06/23/2025 5:18 PM EDT [facility], [facility] Urine Creatinine 55.0 mg/dL 06/23/2025 5:18 PM EDT [facility], [facility] Ur Albumin/Creat Ratio 26 0 - 30 mg/g 06/23/2025 5:18 PM EDT [facility], [facility] Urine STRUCTURE OF URINARY TRACT PROPER / Unknown 06/23/2025 4:35 PM EDT 06/23/2025 4:43 PM EDT Shaan Gomez MD URINE ORDERABLES Final Result Performing Organization Address City/[facility]/ZIP Co de Phone Number [facility], [address] , [place] [phone] * SODIUM LEVEL URINE (06/23/2025 4:35 PM EDT) Urine Sodium 76 mmol/L 06/23/2025 5:05 PM EDT [facility] Urine STRUCTURE OF URINARY TRACT PROPER / Unknown 06/23/2025 4:35 PM EDT 06/23/2025 4:43 PM EDT us Shaan Gomez MD URINE ORDERABLES Final Result [facility], [facility] [address] [facility] [place] [address] * PROTEIN LEVEL URINE (06/23/2025 4:35 PM EDT) Urine Protein 12.2 mg/dL 06/23/2025 5:18 PM EDT [facility] Urine STRUCTURE OF URINARY TRACT PROPER / Unknown 06/23/2025 4:35 PM EDT 06/23/2025 4:43 PM EDT us Shaan Gomez MD URINE ORDERABLES Final Result Performing Organization Address [facility]/ZIP Co de Phone Number [facility] [address] [facility] , [place] [address] * POTASSIUM LEVEL URINE (06/23/2025 4:35 PM EDT) Urine Potassium 23.3 mmol/L 5:18 PM EDT [facility] Urine STRUCTURE OF URINARY TRACT PROPER / Unknown 06/23/2025 4:35 PM EDT 06/23/2025 4:43 PM EDT us Shaan Gomez MD URINE ORDERABLES Final Result Performing Organization Address City/[facility]/ZIP Co de Phone Number [facility], [facility] [address] [facility] [place] [address] * OSMOLALITY URINE (06/23/2025 4:35 PM EDT) Urine Osmolality 376 50 - 1,400 mOsm/kg 06/23/2025 6:26 PM EDT [facility] Urine STRUCTURE OF URINARY TRACT PROPER / Unknown 06/23/2025 4:35 PM EDT 06/23/2025 4:43 PM EDT Narrative [facility] [employer] [facility] - 06/23/2025 6:26 PM EDT Normal Range: 50 mOSM/kg during maximum water diuresis to 1400 mOSM/kg during maximum urinary concentration. Reference range valid for random specimens only. us Shaan Gomez MD URINE ORDERABLES Final Result Performing Organization Address [facility] Co de Phone Number [facility] [employer] [address] , [place] [phone] * CREATININE LEVEL URINE (06/23/2025 4:35 PM EDT) Urine Creatinine 55.0 mg/dL 06/23/2025 5:18 PM EDT [facility] Urine STRUCTURE OF URINARY TRACT PROPER / Unknown 06/23/2025 4:35 PM EDT 06/23/2025 4:43 PM EDT us Shaan Gomez MD URINE ORDERABLES Final Result Performing Organization Address [facility] Co de Phone Number [facility] [employer] [address] , [place] [address] * VANCOMYCIN LEVEL AUC1 (06/23/2025 10:12 AM EDT) Vancomycin AUC1 4.5 mcg/mL 10:44 AM EDT [facility] [employer] [facility] Blood VENOUS BLOOD / Unknown Venipuncture / Unknown 06/23/2025 10:12 AM EDT 06/23/2025 10:15 AM EDT us Shaan Gomez MD CHEMISTRY ORDERABLES Final Resul t Performing Organization Address City/[facility]/ZIP Co de Phone Number [facility] [employer] [address] , [place] [address] * CREATINE KINASE (06/23/2025 10:12 AM EDT) Pathologist [facility] CK 61 39 - 308 U/L 06/23/2025 12:04 PM EDT [facility] [employer] [facility] Blood VENOUS BLOOD / Unknown Venipuncture / Unknown 06/23/2025 10:12 AM EDT 06/23/2025 10:15 AM EDT us Shaan Gomez MD CHEMISTRY ORDERABLES Final Resul t Performing Organization Address [facility] Co de Phone Number [facility] [employer] [address] , [place] [address] * ECG AND WAVEFORMS - TELEMETRY (06/23/2025 7:12 AM EDT) Only the most recent of5 resultswithin the time period is included. [facility] ECG INTERPRET NSR [facility] 06/23/2025 7:12 AM EDT Narrative [facility] - 06/23/2025 7:14 AM EDT ROUTINE/PB NJ 0.13 QRS 0.10 RR 0.67 QT 0.33 QTc 0.40 See Clinical Report link for waveform capture us Unknown Provider POINT OF CARE CARDIOLOGY Final Result Performing Organization Address [facility] Co de Phone Number [facility] [address] [place] [address] * ACUTE HEPATITIS PANEL (06/23/2025 5:09 AM EDT) Pathologist [facility] Hep Bs Ag Non-Reacti ve Non-React chichi 06/23/2025 7:19 AM EDT [facility] [employer] [facility] Comment:HBsAg not detected. Does not exclude possibility of exposure to HBV. Hep B Core IgM Non-Reacti ve Non-React chichi 06/23/2025 7:19 AM EDT [facility] [employer] [facility] Hep A IgM Non-Reacti ve Non-React chichi 06/23/2025 7:19 AM EDT [facility] Hep C Ab Non-Reacti ve Non-React chichi 06/23/2025 7:19 AM EDT [facility] Comment:No antibodies to HCV detected. Does not exclude possibility of exposure to HCV. Blood VENOUS BLOOD / Unknown Venipuncture / Unknown 06/23/2025 5:09 AM EDT 06/23/2025 6:32 AM EDT Narrative [facility], [facility] - 06/23/2025 7:19 AM EDT Test performed using [employer] electrochemiluminescence immunassay (ECLIA). us Shaan Gomez MD CHEMISTRY ORDERABLES Final Resul t [facility], [facility] [address] [facility] , [place] [address] * (ABNORMAL) CBC WITH DIFF [...] 06/23/2025 6:42 AM EDT [facility] MPV 10.6 8.8 - 12.5 fL 06/23/2025 6:42 AM EDT [facility] Neut Percent 75.3 % 06/23/2025 6:42 AM EDT [facility] Comment:Neutrophils equals s egs plus bands Imm Gran% 0.4 % 06/23/2025 6:42 AM EDT [facility] Comment:Automated count of m etamyelocytes, myelocytes and promyelocytes. Lymph Percent 12.6 % 06/23/2025 6:42 AM EDT [facility] Canyon Percent 6.5 % 06/23/2025 6:42 AM EDT [facility] Eos Percent 5.1 % 06/23/2025 6:42 AM EDT [facility] Baso Percent 0.1 % 06/23/2025 6:42 AM EDT [facility] Neut # 6.4(H) 1.6 - 6.1 x10(3)/mcL 06/23/2025 6:42 AM EDT [facility] Comment:Neutrophils equals s egs plus bands IMMGRAN# 0.0 0.0 - 0.1 x10(3)/mcL 06/23/2025 6:42 AM EDT [facility] Comment:Automated count of m etamyelocytes, myelocytes and promyelocytes. An absolute IG <0.1 is reported as 0.0. Lymph # 1.1(L) 1.2 - 3.9 x10(3)/mcL 06/23/2025 6:42 AM EDT [facility] Canyon # 0.6 0.3 - 0.9 x10(3)/mcL 06/23/2025 6:42 AM EDT [facility] Eos# 0.4 0.0 - 0.5 x10(3)/mcL 06/23/2025 6:42 AM EDT [facility] Baso # 0.0 0.0 - 0.1 x10(3)/mcL 06/23/2025 6:42 AM EDT [facility] Blood VENOUS BLOOD / Unknown Venipuncture / Unknown 06/23/2025 5:09 AM EDT 06/23/2025 6:32 AM EDT us Shaan Gomez MD HEMATOLOGY ORDERABLES Final Resu lt [facility] [address] [facility], [place] [address] * (ABNORMAL) COMPREHENSIVE METABOLIC PANEL (06/23/2025 5:09 [...] mg/dL 06/23/2025 7:04 AM EDT [facility] ALT 100(H) <=41 U/L 06/23/2025 7:04 AM EDT [facility], [facility] AST 51(H) <=40 U/L 06/23/2025 7:04 AM EDT [facility], [facility] Alk Phos 127 40 - 129 U/L 06/23/2025 7:04 AM EDT [facility] eGFR (CKD-EPIcr 2020) 98 >=60 mL/min/1.7 3 m2 06/23/2025 7:04 AM EDT [facility] Comment:Estimated GFR was ca lculated using the CKD-EPIcr (2020) equation refit without race. The equation is recommended by the National Kidney Foundation - [place] [employer] Nephrology Task Force. Blood VENOUS BLOOD / Unknown Venipuncture / Unknown 06/23/2025 5:09 AM EDT 06/23/2025 6:31 AM EDT us Shaan Gomez MD CHEMISTRY ORDERABLES Final Resul t [facility] [address] [facility] , [place] [address] * MRI LUMBAR SPINE W WO CONTRAST [...] the ordering clinician. us Shaan Gomez MD [facility] MRI ORDERABLES Final Result * REPEAT LACTIC ACID (06/22/2025 2:19 AM EDT) Only the most recent of2 resultswithin the time period is included. Lactic Acid 0.9 0.5 - 1.9 mmol/L 06/22/2025 2:46 AM EDT [facility] Blood VENOUS BLOOD / Unknown Venipuncture / Unknown 06/22/2025 2:19 AM EDT 06/22/2025 2:24 AM EDT us Willard Rhodes MD CHEMISTRY ORDERABLES Final Result [facility] [address] [facility] , [place] [address] * CT CHEST ABDOMEN PELVIS WO ORAL [...] AB TOTAL EARLY (06/21/2025 10:34 PM EDT) B burgdorferi Abs, Total Negative Negative 06/22/2025 8:56 AM EDT [facility] Comment:No laboratory eviden ce of infection with B. burgdorferi (Lyme disease). If recent infection is suspected, repeat testing on a new sample collected in 7 - 14 days is recommended. Blood VENOUS BLOOD / Unknown Venipuncture / Unknown 06/21/2025 10:34 PM EDT 06/21/2025 10:39 PM EDT Willard Rhodes MD IMMUNOLOGY ORDERABLES Final Result [facility] [employer] [address] , [place] [address] * JANELLE HAZLET SPOTTED FEVER IGG/IGM -REF LAB (06/21/2025 10:34 PM EDT) RMSF IgG <1:64 <1:64 06/24/2025 10:49 PM EDT [facility] Comment: INTERPRETIVE INFORMATION: Rickettsia [facility]ickettsii [facility]ever) Ab, IgG Less than [...] IgM <1:64 <1:64 06/24/2025 10:49 PM EDT [employer] Comment: INTERPRETIVE INFORMATION: Rickettsia rickettsii ([facility] Spotted [facility]ever) Ab, IgM Less than [...] IgM results for routine diagnostic testing of Dennis Spotted Fever, as the response may not be specific for the agent (resulting in false positives) and the IgM response may be persistent from past infection. Performed By: [employer] [address] [place] [address] Glue Mixer: Misha Ludwig MD, PhD CLIA Number: [id number] Blood VENOUS BLOOD / Unknown Venipuncture / Unknown 06/21/2025 10:34 PM EDT 06/21/2025 10:39 PM EDT Willard Rhodes MD IMMUNOLOGY ORDERABLES Final Result [facility] [address] [place] [address] * CSF CELL COUNT WITH DIFF (06/21/2025 9:51 PM EDT) Pathologist [facility] CSF Tube Num 4 number 06/21/2025 10:44 PM EDT [facility] CSF Color Colorless Colorless color 06/21/2025 10:44 [...] DENNIS HARRIS Final Result [facility] [address] [facility] , [address] [place] [phone] * MENINGITIS/ENCEPH PANEL (06/21/2025 9:51 PM EDT) [...] 06/21/2025 11:29 PM EDT [facility] Comment:The [employer] pa marques does not distinguish between latent [...] 06/21/2025 11:29 PM EDT [facility] (HHV-6) Human herpesvirus 6 Not Detected Not Detected 06/21/2025 11:29 PM EDT [facility], [facility] Comment:The [employer] [place] pa marques does not distinguish between latent and active HHV-6 infection. Detection of this virus may indicate primary infection, secondary reactivation, or the presence of latent virus. Results should always be interpreted in conjunction with other clinical, laboratory and epidemiological information. (HPeV) Human parechovirus Not Detected Not Detected 06/21/2025 11:29 PM EDT [facility] (VZV) Varicella zoster virus Not Detected Not Detected 06/21/2025 11:29 PM EDT [facility] Cryptococcus neoformans/manuela Not Detected Not Detected 06/21/2025 11:29 PM EDT [facility] Cerebrospinal Fluid LUMBAR PUNCTURE / Unknown 06/21/2025 9:51 PM EDT 06/21/2025 9:55 PM EDT Willard Rhodes MD BODY FLUIDS AND STOOLS DENNIS HARRIS Final Result Performing Organization Address [facility] de Phone Number [facility], [address] , [place] [address] * CEREBROSPINAL FLUID CULTURE (STAIN INCLUDED) (06/21/2025 9:51 PM EDT) [facility] Culture No growth at 94 hours. 06/25/2025 9:49 PM EDT [facility] Stain Rare WBCs 06/25/2025 9:49 PM EDT [facility], [facility] Stain No organisms seen 06/25/2025 9:49 PM EDT [facility], [facility] Cerebrospinal Fluid LUMBAR PUNCTURE / Unknown 06/21/2025 9:51 PM EDT 06/21/2025 9:55 PM EDT Willard Rhodes MD MICROBIOLOGY - GENERAL DENNIS HARRIS Final Result Performing Organization Address [facility] Co de Phone Number [address] , [place] [address] * (ABNORMAL) PROTEIN CEREBROSPINAL FLUID (06/21/2025 9:51 PM EDT) [facility] Protein CSF 62(H) 15 - 45 mg/dL 06/21/2025 10:43 PM EDT [facility] Cerebrospinal Fluid LUMBAR PUNCTURE / Unknown 06/21/2025 9:51 PM EDT 06/21/2025 9:55 PM EDT us Willard Rhodes MD BODY FLUIDS AND STOOLS BUDDYE STEVEN Final Result Performing Organization Address [facility] Co de Phone Number [facility] [employer] [address] , [address] [place] [phone] * (ABNORMAL) GLUCOSE CEREBROSPINAL FLUID (06/21/2025 9:51 PM EDT) [facility] Glucose CSF 102(H) 40 - 70 mg/dL 06/21/2025 10:43 PM EDT [facility] Cerebrospinal Fluid LUMBAR PUNCTURE / Unknown 06/21/2025 9:51 PM EDT 06/21/2025 9:55 PM EDT Willard Rhodes MD BODY FLUIDS AND STOOLS BUDDYE STEVEN Final Result Performing Organization Address [facility] Phone Number [facility] [employer] [address] , [place] [address] * CT HEAD WO CONTRAST (06/21/2025 8:44 [...] 1.82(H) <=0.49 ng/mL 06/21/2025 9:03 PM EDT [facility] Blood VENOUS BLOOD / Unknown Venipuncture / Unknown 06/21/2025 8:10 PM EDT 06/21/2025 8:17 PM EDT Narrative [facility] - 06/21/2025 9:03 PM EDT Procalcitonin <0.50 [...] Willard Rhodes MD CHEMISTRY ORDERABLES Final Result [facility] [address] [place] [address] , [place] [address] * XR CHEST AP PORTABLE (06/21/2025 7:54 [...] ordering clinician. us Willard Rhodes MD IMG DIAGNOSTIC IMAGING [facility] Final Result * STREP A DNA (06/21/2025 7:34 PM EDT) [facility] Strep A DNA Not Detected Not Detected 06/21/2025 7:58 PM EDT [facility] Comment:Not Detected results do not preclude Streptococcus [...] PM EDT 06/21/2025 7:43 PM EDT Narrative [facility] - 06/21/2025 7:58 PM EDT The [employer] Strep A assay utilizes nucleic acid purification and polymerase chain reaction (PCR) technology to detect Streptococcus pyogenes by targeting a segment of the Streptococcus pyogenes genome. us Willard Rhodes MD MICROBIOLOGY - GENERAL [facility] Final Result [facility] [address] [place] [address] * (ABNORMAL) BLOOD GAS, VENOUS (06/21/2025 7:31 [...] 06/21/2025 7:55 PM EDT [facility] O2 Sat. Venous 62.4 40.0 - 70.0 % 06/21/2025 7:55 PM EDT [facility] [employer] O2 RA 06/21/2025 7:55 PM EDT [facility] Blood VENOUS BLOOD / Unknown Venipuncture / Unknown 06/21/2025 7:31 PM EDT 06/21/2025 7:42 PM EDT us Willard Rhodes MD CHEMISTRY ORDERABLES Final Result [facility] [address] [facility], [place] [address] * BLOOD CULTURE (NO STAIN) (06/21/2025 7:31 PM EDT) Only the most recent of2 resultswithin the time period is included. Culture Result No Growth at 120 hours. BLOOD CULTURE (NO STAIN) 06/26/2025 10:00 PM EDT [facility] Blood VENOUS BLOOD / Unknown Venipuncture / Unknown 06/21/2025 7:31 PM EDT 06/21/2025 7:42 PM EDT us Willard Rhodes MD MICROBIOLOGY - GENERAL [facility] Final Result [facility] [address] [facility], [place] [address] * [id number] A/B (06/21/2025 7:28 PM EDT) Pathologist [facility] CORONAVIRUS [id number] Not Detected Not Detected 06/21/2025 7:53 PM EDT [facility] Influenza A DNA Not Detected Not Detected 06/21/2025 7:53 PM EDT [facility] Influenza B DNA Not Detected Not Detected 06/21/2025 7:53 PM EDT [facility] Swab BOTH ANTERIOR NARES / Unknown 06/21/2025 7:28 PM EDT 06/21/2025 7:32 PM EDT Willard Rhodes MD MICROBIOLOGY - GENERAL [facility] Final Result Performing Organization Address [facility] [place] [address] * (ABNORMAL) LACTIC ACID (06/21/2025 7:22 PM EDT) [facility] Lactic Acid 2.9(H) 0.5 - 1.9 mmol/L 06/21/2025 7:56 PM EDT [facility] Blood VENOUS BLOOD / Unknown Venipuncture / Unknown 06/21/2025 7:22 PM EDT 06/21/2025 7:43 PM EDT Willard Rhodes MD CHEMISTRY ORDERABLES Final Result Performing Organization Address [facility]/[place] [address] * EK EKG 12 LEAD (06/21/2025 7:05 PM EDT) Anatomical Region Laterality Modality Electrocardiogra phy 06/21/2025 7:10 PM EDT Impressions 06/22/2025 2:18 PM EDT [facility] Test Date: 2025-06-21 Pat Name: [facility] Department: DEPID Room: 2108 Gender: Male 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 [facility] Test Date: 2025-06-21 [facility] Room: [facility] Gender: Male Security Compliance Engineer: : [id number] Requested By: WILLARD Naik Order Number: [id number] Marsha MD: Emily Landaverde MD Measurements Intervals [place] Rate: 112 P: 51 [place]: 129 QRS: 18 QRSD: 102 T: 43 QT: 303 QTc: 414 Interpretive Statements SINUS TACHYCARDIA INDETERMINATE AXIS ABNORMAL RHYTHM ECG Electronically Signed On 06-22-2025 14:18:50 EDT by Emily Landaverde MD us Willard Rhodes MD IMG ECG ORDERABLES Final Re sult from Last 3 Months Advance Directives For more information, please contact: [phone] * Full Code (Latest Code Status on File) Date Activated Date Inactivated Comments 06/22/2025 8:53 AM 06/23/2025 10:50 PM * Full Code Date Activated Date Inactivated Comments 03/12/2025 12:33 AM 03/13/2025 7:34 PM Care Teams Drug Clerk Relationship Specialty Start Date End Date No Pcp, Per Patient PCP - General 10/26/24 Dangelo Pinzon MD [address] [id number] Consulting Physician Ophthalmology 12/30/20
== END 2025-07-02 23:59 ==
LOC: LAB.DROPOF 07-03 10:54
PROVIDERS: PCP Family Medicine; Visit Provider Family Medicine
DX: I10 Essential (primary) hypertension (principal); R65.10 Systemic inflammatory response syndrome (SIRS) of non-infectious origin without acute organ dysfunction; Z98.890 Other specified postprocedural states; R50.9 Fever, unspecified; R74.01 Elevation of levels of liver transaminase levels; R17 Unspecified jaundice
CPT/HCPCS: 80053; 85025

== ENCOUNTER 2025-07-27 15:41 | Outpatient (CLI) | payer SELFPAY ==
[2025-07-27 19:19] LABS: Albumin Level 4.5 g/dl (3.5-5.0); Albumin/Globulin Ratio 1.7 (1.1-1.8); Alkaline Phosphatase 84 U/L (38-126); Anion Gap 16.1 mEq/L (5-15); Bilirubin,Total 0.5 mg/dl (0.2-1.3); Blood Urea Nitrogen 16 mg/dl (9-20); Calcium 10.0 mg/dl (8.4-10.2); Carbon Dioxide 24 mmol/L (22.0-30.0); Chloride 99 mmol/L (98-107); Creatinine,Serum 0.80 mg/dl (0.66-1.25); Estimated Glomerular Filt Rate 102 ml/min (>60); GFR (African American) 123 ML/MIN (>60); Globulin 2.6 g/dL (1.3-3.2); Glucose 73 mg/dl (74-100); Potassium 5.1 mmoL/L (3.5-5.1); Sodium 134 mmol/L (136-145); Total Protein,Serum 7.1 g/dl (6.3-8.2); Uric Acid 3.9 mg/dl (3.5-8.5)
[2025-07-27 19:20] LABS: Alanine Aminotransferase 22 U/L (12-78); Aspartate Amino Transferase 34 U/L (17-59)
[2025-07-27 19:25] LABS: C-Reactive Protein 15.0 mg/L (0-4)
[2025-07-29 08:38] LABS: RA Latex Turbid. <10.0 IU/mL (<14.0)
== END 2025-07-27 23:59 | disposition home or self-care (01) ==
LOC: LAB.DROPOF 07-28 08:45
PROVIDERS: PCP Family Medicine; Visit Provider Family Medicine
DX: M54.9 Dorsalgia, unspecified (principal); I10 Essential (primary) hypertension; E66.9 Obesity, unspecified; R29.898 Other symptoms and signs involving the musculoskeletal system; R17 Unspecified jaundice
CPT/HCPCS: 80053; 84550; 85651; 86038; 86140; 86225; 86235; 86431

== ENCOUNTER 2025-08-17 15:10 | Outpatient (CLI) | payer SELFPAY ==
[2025-08-17 19:38] LABS: C-Reactive Protein 6.8 mg/L (0-4)
== END 2025-08-17 23:59 | disposition home or self-care (01) ==
LOC: LAB.DROPOF 08-18 11:36
PROVIDERS: PCP Family Medicine; Visit Provider Family Medicine
DX: M54.50 Low back pain, unspecified (principal); R29.898 Other symptoms and signs involving the musculoskeletal system
CPT/HCPCS: 86140